=== PATIENT | male | born 1955 | race Caucasian/White ===

== ENCOUNTER 2019-07-21 17:17 | Inpatient (IN) ==
[2019-07-21] MEDS ORDERED: ONDANSETRON INJ 2 MG/ML 2 ML VIAL IV PRN (18:35)
[2019-07-21] MEDS ORDERED: CARBOHYDRATES FOR HYPOGLYCEMIA PO PRN (19:09)
[2019-07-21] MEDS ORDERED: GLUCAGON FOR INJ 1 MG VIAL SQ PRN (19:09)
[2019-07-21] MEDS ORDERED: ALBUTEROL 0.5% NEB SOLN 2.5 MG/0.5 ML VIAL NEB PRN (19:09)
[2019-07-21] MEDS ORDERED: GLUCOSE 40% GEL 15 GM TUBE PO PRN (19:09)
[2019-07-21] MEDS ORDERED: DEXTROSE 50% 50 ML SYRINGE IV PRN (19:09)
[2019-07-21] MEDS ORDERED: GLUCOSE 10 TABS/TUBE PO PRN (19:09)
[2019-07-21 19:16] LABS: Basophils # (auto) 0.03 K/uL (0-0.2); Basophils % (auto) 0.2 %; Eosinophils # (auto) 0.03 K/uL (0-0.5); Eosinophils % (auto) 0.2 %; Hematocrit (blood only) 38.5 % (42-52); Hemoglobin 12.6 g/dL (14.0-18.0); Immature Granulocytes # (auto) 0.03 K/uL (0.00-0.02); Immature Granulocytes % (auto) 0.2 %; Lymphocytes # (auto) 2.23 K/uL (1.2-3.4); Mean Corpuscular Hemoglobin 29.8 pg (25-34); Mean Corpuscular Hgb Conc 32.7 g/dL (32-36); Mean Platelet Volume 9.2 fL (7.4-10.4); Monocytes # (auto) 1.08 K/uL (0.11-0.59); Monocytes % (auto) 6.8 %; Neutrophils # (auto) 12.49 K/uL (1.4-6.5); Neutrophils % (auto) 78.6 %; Platelet Count 318 K/uL (130-400); RDW Coefficient of Variation 13.5 % (11.5-14.5); RDW Standard Deviation 44.6 fL (36.4-46.3); Red Blood Count 4.23 M/uL (4.7-6.1); White Blood Count 15.89 K/uL (4.8-10.8)
--- NOTE | 2019-07-21 19:19 | XRay Report ---
XR chest 1V portable CLINICAL HISTORY: cough/SOB dyspnea COMPARISON STUDY: 08/30/2008 FINDINGS: Stable postoperative change right lung base. Chronic scarring right diaphragm. Prominent pulmonary vasculature. Mild cardiac enlargement. IMPRESSION: Mild congestive heart failure. Pre-existing postoperative change right base. The above report was generated using voice recognition software. It may contain grammatical, syntax or spelling errors. Electronically signed by: Yaakov Judge M.D. 07/21/2019 7:18 PM
[2019-07-21 19:30] LABS: Base Excess VBG 10.9 mEq/L; pH VBG 7.37 (7.36-7.41)
[2019-07-21 19:33] LABS: Prothrombin Time 10.2 Seconds (9.0-12.0)
--- NOTE | 2019-07-21 19:45 | CT Scan Report ---
CT head/brain wo con CT DOSE: 960.06 mGy.cm HISTORY: Seizure. Mental status change. myoclonic jerking TECHNIQUE: Multiaxial CT images of the head were performed without the use of intravenous contrast. A dose lowering technique was utilized adhering to the principles of ALARA. Comparison: None. Findings: The paranasal sinuses and mastoid air cells are clear. The calvarium and skull base are int act. The ventricles and sulci are within normal limits. There is no mass, hematoma, midline shift, or acute infarct. Mild age-related scattered foci evidence of encephalomalacia and chronic small vessel change. Impression: No acute intracranial abnormality. Age-related change. The above report was generated using voice recognition software. It may contain grammatical, syntax or spelling errors. Electronically signed by: Yaakov Judge M.D. 07/21/2019 7:43 PM
[2019-07-21 19:58] LABS: Alanine Aminotransferase 23 U/L (12-78); Albumin Level 3.4 gm/dl (3.4-5.0); Aspartate Aminotransferase 27 U/L (15-37); BUN Creatinine Ratio 28.3 (10-20); Bilirubin Direct < 0.1 mg/dl (0-0.2); Blood Urea Nitrogen 16 mg/dl (7-18); Calcium 9.8 mg/dl (8.5-10.1); Carbon Dioxide 37 mmol/L (21-32); Chloride 97 mmol/L (98-107); Creatinine Clr Calc Pharmacy 209.3 ml/min; Est GFR (African American) 128.5; Est GFR (Non-African American) 110.9; Glucose 88 mg/dl (70-99); Magnesium 2.3 mg/dl (1.8-2.4); Potassium 3.3 mmol/L (3.5-5.1); Sodium 138 mmol/L (136-145)
[2019-07-21 20:09] LABS: Alkaline Phosphatase 103 U/L (45-117); Bilirubin,Total 0.4 mg/dl (0.2-1); NT Pro B Type Natriuretic Pept 228 pg/ml (0-900); Phosphorus 4.3 mg/dl (2.5-4.9); Total Protein 7.5 gm/dl (6.4-8.2)
[2019-07-21] MEDS ORDERED: POTASSIUM CHLORIDE 20 MEQ TABCR PO STA (20:18)
[2019-07-21] MEDS ORDERED: FUROSEMIDE 80 MG in SYRINGE 0 ML IV ONE (20:18)
[2019-07-21] MEDS ORDERED: INSULIN ASPART 100 UNITS/ML 3 ML PEN SC SCH (21:00)
[2019-07-21] MEDS: LINZESS 290 MCG SCH (21:06)
[2019-07-21] MEDS: carvediloL 3.125 MG TAB PO SCH (21:08)
[2019-07-21] MEDS: INSULIN GLARGINE SOLOSTAR 100 UNITS/ML 3 ML PEN SC SCH (21:09)
--- NOTE | 2019-07-21 21:10 | History & Physical Report ---
Date of Service July 21, 2019 Assessment & Plan (1) Myoclonic jerking: Patient presenting with 4 days of progressive myoclonic jerking, some confusion/disorientation. Etiology unclear at this time. Work-up thus far with relatively benign laboratory studies to include intact renal and hepatic function, electrolytes normal, TSH normal, CT head with no acute intracranial pathology, VBG with chronic respiratory acidosis. Suspect ingestion/medication error as source of problem. Patient manages his own medications but caregivers report he may have missed 4 doses and may have taken his entire Levaquin prescription. Must also consider seizure-like activity due to medication withdrawal as patient is on multiple agents that should not be abruptly discontinued (buspirone/escitalopram/duloxetine/Lyrica). Less likely infectious etiology/PML - patient is immunosuppressed on MTX for p soriasis. Has leukocytosis (in setting of steroid use). Case discussed with poison control. They do not feel that symptoms can be attributed to Levaquin toxicity. They will follow-up during the course of patient's stay. -Admit to medical floor telemetry monitoring Resume home medications as prescribed Symptomatic management with Ativan as needed -Consider additional imagingMRI. Consider EEG Neurology consult appreciated Present on Admission?: Yes (2) Confusion: Patient with reported episodes of confusion and abnormal behavior. Upon my encounter he answers questions appropriately and is oriented x3. He does have frequent episodes of myoclonic jerking as reported above. -Delirium prevention strategies with frequent orientation Continue to search for toxic/metabolic causes of confusion Present on Admission?: Yes (3) Psoriasis: Chronic. Continue methotrexate 7.5 mg p.o. q. weekly Present on Admission?: Yes (4) Congestive heart failure: Patient with complaint of shortness of breath/dyspnea on exertion. Chest x-ray suggestive of CHF. Most likely with pulmonary hypertension as well, untreated YOUSIF/obesity hypoventilation syndrome. Lasix 80 mg IV x1 -KCl 40 mEq p.o. x1 Continue Lasix 80 mg p.o. daily, lisinopril 5 mg p.o. daily, metolazone 5 mg p.o. q. Sunday/Sunday/, carvedilol 3.125 mg twice daily -Daily weights -Monitor intake and output Present on Admission?: Yes (5) Depression: Chronic. Continue escitalopram 20 mg p.o. daily Continue Cymbalta 60 mg p.o. daily Present on Admission?: Yes (6) Anxiety: Chronic. Stable. -Continue escitalopram, Cymbalta, buspirone at home doses Present on Admission?: Yes (7) Diabetes: Blood sugar stable at present. Caregiver reports erratic blood sugars ranging from the 80s to the 500s. Question medication adherence Lantus 10 units twice daily Insulin sliding scale -Continue Lyrica 50 mg p.o. twice daily Continue to monitor Present on Admission?: Yes (8) Asthma: Stable respiratory status at present. Diminished breath sounds. No active wheezing. Duo nebs Albuterol as needed Present on Admission?: Yes (9) Chronic hypercapnic respiratory failure: Patient would greatly benefit from nocturnal CPAP or BiPAP. He has been seen by pulmonary in the past. Reports that he is not comfortable using these machines. I briefly explained that untreated YOUSIF and obesity hypoventilation places a significant amount of strain on the heart and lungs and can cause long- term damage. Nocturnal CPAP while inpatient Patient should be set up with home CPAP on discharge Present on Admission?: Yes (10) COPD (chronic obstructive pulmonary disease) case management patient: Chronic. No acute wheezing at this time. Patient with adequate oxygenation on his home 3 L. Duo nebs Albuterol Continue supplemental oxygen Present on Admission?: Yes (11) GERD (gastroesophageal reflux disease): Chronic. Stable. Continue ranitidine 150 mg p.o. daily FENLasix 80 mg IV x1 dose now, monitor I's and O's and daily weights, monitor electrolytes and replete as needed, consistent carb/low sodium diet as tolerated ProphylaxisLovenox Codefull per discussion with patient Dispositionadmit to medical floor telemetry monitoring Present on Admission?: Yes History of Present Illness Chief Complaint: Myoclonic jerking, altered mental status Primary Care Provider: Efrain Mccall MD Caregivers at bedside and provide majority of history as patient is somewhat altered. Kyle Recio is a 64-year-old male with multiple medical problems most notably asthma, severe COPD on 3 L home oxygen, chronic hypoxic and hypercapnic respiratory failure, obesity hypoventilation syndrome/YOUSIF, insulin- dependent diabetes mellitus and CHF. Patient was seen by Pulmonology on 07/15/2019 with complaints of hypoxia and shortness of breath. During that time he was thought to be in mild exacerbation of COPD with possible pneumonia. He was administered 125 mg of Solu-Medrol IM in the office and sent home on a prednisone taper and Levaquin 750 mg daily x14 days and sent home. Caregivers report that on the evening of 07/18/2019 the patient began having myoclonic jerking. They report that he has a baseline tremor however, these movements were more frequent and increased severity than normal. The myoclonic jerking progressively worsened through 07/19 and 07/20. Patient also acting "out of his mind". Confused at times, pushing things off the table, agitated, hallucinating and incontinent of urine. He was seen in the emergency room at [facility] on 07/20. By report, work-up was negative to include no UTI, chest x- ray with no acute infiltrate. EKG with no acute changes. This morning he was found naked and confused by caregivers, diaphoretic. He was seen by Dr. Ross for pulmonary follow-up and was subsequently sent to [facility] for direct admission. Patient manages his own medications. Caregivers believe that he missed approximately 4 days for worth of medication. He may have taken an extra Ativan. They think that his Levaquin bottle was empty. During my encounter, patient provides no complaints. Specifically he denies fabiola n, shortness of breath, nausea, vomiting, diarrhea or constipation. He does not feel confused and denies any hallucinations. He is complaining of feeling hot and is requesting a box fan Allergies Allergy/AdvReac Type Severity Reaction Status Date / Time Penicillins Allergy Unknown Verified 07/15/19 15:15 Home Medications Home Medications Medication Instructions Recorded Confirmed Type Oxygen Home #1 ea 04/25/19 07/15/19 History acetaminophen 325 mg tablet 625 mg PO Q6 PRN tab 04/25/19 07/21/19 History albuterol sulfate 90 mcg/actuation INHALATION gm 04/25/19 07/15/19 History aerosol inhaler ibuprofen 800 mg tablet 800 mg PO PRN tab 04/25/19 04/25/19 History insulin regular hum U-500 conc SUBCUT ml 04/25/19 04/25/19 History 500"concentrate" 500 unit/mL subcutaneous soln ipratropium-albuterol 0.5 mg-3 INHALATION ml 04/25/19 04/25/19 History mg(2.5 mg base)/3 mL nebulization soln linaclotide 290 mcg capsule 1 PO .TAKE 1 CAPSULE Daily #30 cap 04/25/19 07/15/19 History Oxygen Home #1 ea 05/06/19 07/21/19 Rx aspirin 81 mg tablet 81 mg PO DAILY tab 05/06/19 07/21/19 History atorvastatin 40 mg tablet 40 mg PO DAILY tab 05/06/19 07/21/19 History buspirone 15 mg tablet 15 mg PO TID tab 05/06/19 07/21/19 History carvedilol 3.125 mg tablet 3.125 mg PO BID tab 05/06/19 07/21/19 History dulaglutide 1.5 mg/0.5 mL 1.5 mg SQ WEEKLY #0.5 ml 05/06/19 07/21/19 Rx subcutaneous pen injector duloxetine 60 mg capsule,delayed 60 mg PO DAILY #90 cap 05/06/19 07/21/19 History release fluticasone furoate 200 1 puffs INHALATION DAILY #1 ea 05/06/19 07/21/19 Rx mcg-vilanterol 25 mcg/dose inhalation powder folic acid 1 mg tablet 1 mg PO DAILY #30 tab 05/06/19 07/21/19 Rx furosemide 40 mg tablet 80 mg PO DAILY tab 05/06/19 07/21/19 History lisinopril 5 mg tablet 5 mg PO DAILY tab 05/06/19 07/21/19 History methotrexate sodium 2.5 mg tablet 7.5 mg PO WEEKLY #30 tab 05/06/19 07/21/19 Rx pregabalin 50 mg capsule 50 mg PO BID cap 05/06/19 07/15/19 History ranitidine HCl 150 mg tablet 150 mg PO DAILY #90 tab 05/06/19 07/15/19 Rx ropinirole 1 mg tablet 1 mg PO DAILY #30 tab 05/06/19 07/15/19 Rx escitalopram oxalate 20 mg tablet 20 mg PO DAILY tab 07/15/19 07/21/19 History prednisone 10 mg tablet See Rx Instructions PO DAILY #36 07/15/19 07/15/19 Rx tab metformin 1,000 mg PO PM 07/21/19 07/21/19 History metolazone 5 mg tablet 5 mg PO .COMPLEX #1 tab 07/21/19 07/21/19 Rx Past Med/Surg History Medical History (Updated 07/21/19 @ 21:56 by Kanwal Paz DO) Anxiety Asthma Chronic hypercapnic respiratory failure Chronic respiratory failure Congestive heart failure Depression Diabetes GERD (gastroesophageal reflux disease) Lower leg edema Myoclonic jerking Psoriasis Surgical History (Updated 07/21/19 @ 21:28 by Kanwal Paz DO) History of appendectomy History of bronchoscopy History of hemorrhoidectomy History of thoracotomy 06/2008 - s/p traumatic hemothorax History of tonsillectomy Family History (Updated 07/21/19 @ 21:29 by Kanwal Paz DO) Other Coronary heart disease Diabetes Lung cancer Social History Preferred Language: Azerbaijani Beliefs That Will Affect Care: None Current Living Situation Comment: caregivers stay at his time Other Information That Helps Us Care for You: No Feels Safe at Home: Yes Smoking Status: Current every day smoker Tobacco Type: cigarettes ; Do You Dip or Chew Tobacco: No ; Hx Alcohol Use: No Hx Substance Use: No Review of Systems Review of Systems: All systems reviewed & are unremarkable except as noted in HPI & below Physical Exam Physical Exam: General: patient restless, + frequent myoclonic jerking of bilateral arms and legs, associated with eyes rolling back in brief (2 to 3- second) episode of unresponsiveness Skin: warm, dry, diffuse plaque-like lesions on head, ears (significant crusting of left ear), back and abdomen, no active bleeding or evidence of secondary infection HEENT: NC/AT, PERRL, EOMI, anicteric sclera, conjunctiva without injection, external ear with skin crusting as above, nontender to palpation, nares patent, moist mucus membranes, dentition intact, no oropharyngeal lesions, neck supple, trachea midline, no LAD, no thyromegaly, no JVD Heart: +S1/S2, regular, no m/r/g, exam limited secondary to body habitus Lungs: equal air entry bilaterally, no rales/rhonchi/wheezes, mildly diminished in bases Abd: +BS, soft, NT/ND, + reducible hernia Ext: warm, 2+ pulses in UE/LE bilaterally, no clubbing/cyanosis, trace pitting edema Neuro: Grossly nonfocal, patient AA&O x 4, speech intact, no facial droop, moving all extremities on command with equal strength 5/5, episodes of jerking as above Results & Data Vital Signs (Past 12 Hours) Vital Signs Temp Pulse Pulse Resp Pulse Ox 07/21/19 20:15 97 H 30 H 90 07/21/19 18:38 37.2 C 96 H 20 90 Laboratory Results Lab Results 07/21/19 07/21/19 07/21/19 Range/Units 18:11 18:52 18:52 WBC 15.89 H (4.8-10.8) K/uL RBC 4.23 L (4.7-6.1) M/uL Hgb 12.6 L (14.0-18.0) g/dL Hct 38.5 L (42-52) % MCV 91.0 (80-100) fL MCH 29.8 (25-34) pg MCHC 32.7 (32-36) g/dL RDW Std Deviation 44.6 (36.4-46.3) fL RDW Coeff of Lyric 13.5 (11.5-14.5) % Plt Count 318 (130-400) K/uL MPV 9.2 (7.4-10.4) fL Immature Gran % (Auto) 0.2 % Neut % (Auto) 78.6 % Lymph % (Auto) 14.0 % Bullock % (Auto) 6.8 % Eos % (Auto) 0.2 % Baso % (Auto) 0.2 % Immature Gran # (Auto) 0.03 H (0.00-0.02) K/uL Neut # (Auto) 12.49 H (1.4-6.5) K/uL Lymph # (Auto) 2.23 (1.2-3.4) K/uL Bullock # (Auto) 1.08 H (0.11-0.59) K/uL Eos # (Auto) 0.03 (0-0.5) K/uL Baso # (Auto) 0.03 (0-0.2) K/uL PT 10.2 (9.0-12.0) Seconds INR 1.0 (0.9-1.1) VBG pH (7.36-7.41) VBG pCO2 (38-50) mmHg VBG pO2 mmHg VBG HCO3 mmol/L VBG O2 Saturation % VBG Base Excess mEq/L Barometric Pressure mm/Hg Sodium (136-145) mmol/L Potassium (3.5-5.1) mmol/L Chloride (98-107) mmol/L Carbon Dioxide (21-32) mmol/L Anion Gap (3-11) BUN (7-18) mg/dl Creatinine (0.6-1.4) mg/dl Est Cr Clr Drug Dosing ml/min Est GFR ( Amer) Est GFR (Non-Af Amer) BUN/Creatinine Ratio (10-20) Glucose (70-99) mg/dl POC Glucose 93 (70-99) Calcium (8.5-10.1) mg/dl Phosphorus (2.5-4.9) mg/dl Magnesium (1.8-2.4) mg/dl Total Bilirubin (0.2-1) mg/dl Direct Bilirubin (0-0.2) mg/dl AST (15-37) U/L ALT (12-78) U/L Alkaline Phosphatase (45-117) U/L Ammonia (11-32) umol/L NT-Pro-B Natriuret Pep (0-900) pg/ml Total Protein (6.4-8.2) gm/dl Albumin (3.4-5.0) gm/dl TSH (0.300-4.500) uIu/ml 07/21/19 07/21/19 07/21/19 Range/Units 18:52 18:52 18:52 WBC (4.8-10.8) K/uL RBC (4.7-6.1) M/uL Hgb (14.0-18.0) g/dL Hct (42-52) % MCV (80-100) fL MCH (25-34) pg MCHC (32-36) g/dL RDW Std Deviation (36.4-46.3) fL RDW Coeff of Lyric (11.5-14.5) % Plt Count (130-400) K/uL MPV (7.4-10.4) fL Immature Gran % (Auto) % Neut % (Auto) % Lymph % (Auto) % Bullock % (Auto) % Eos % (Auto) % Baso % (Auto) % Immature Gran # (Auto) (0.00-0.02) K/uL Neut # (Auto) (1.4-6.5) K/uL Lymph # (Auto) (1.2-3.4) K/uL Bullock # (Auto) (0.11-0.59) K/uL Eos # (Auto) (0-0.5) K/uL Baso # (Auto) (0-0.2) K/uL PT (9.0-12.0) Seconds INR (0.9-1.1) VBG pH 7.37 (7.36-7.41) VBG pCO2 69 H (38-50) mmHg VBG pO2 50 mmHg VBG HCO3 39 mmol/L VBG O2 Saturation 83.0 % VBG Base Excess 10.9 mEq/L Barometric Pressure 726.4 mm/Hg Sodium 138 (136-145) mmol/L Potassium 3.3 L (3.5-5.1) mmol/L Chloride 97 L (98-107) mmol/L Carbon Dioxide 37 H (21-32) mmol/L Anion Gap 4.0 (3-11) BUN 16 (7-18) mg/dl Creatinine 0.56 L (0.6-1.4) mg/dl Est Cr Clr Drug Dosing 209.3 ml/min Est GFR ( Amer) 128.5 Est GFR (Non-Af Amer) 110.9 BUN/Creatinine Ratio 28.3 H (10-20) Glucose 88 (70-99) mg/dl POC Glucose (70-99) Calcium 9.8 (8.5-10.1) mg/dl Phosphorus 4.3 (2.5-4.9) mg/dl Magnesium 2.3 (1.8-2.4) mg/dl Total Bilirubin 0.4 (0.2-1) mg/dl Direct Bilirubin < 0.1 (0-0.2) mg/dl AST 27 (15-37) U/L ALT 23 (12-78) U/L Alkaline Phosphatase 103 (45-117) U/L Ammonia 27.0 (11-32) umol/L NT-Pro-B Natriuret Pep 228 (0-900) pg/ml Total Protein 7.5 (6.4-8.2) gm/dl Albumin 3.4 (3.4-5.0) gm/dl TSH 1.020 (0.300-4.500) uIu/ml 07/21/19 Range/Units 20:43 WBC (4.8-10.8) K/uL RBC (4.7-6.1) M/uL Hgb (14.0-18.0) g/dL Hct (42-52) % MCV (80-100) fL MCH (25-34) pg MCHC (32-36) g/dL RDW Std Deviation (36.4-46.3) fL RDW Coeff of Lyric (11.5-14.5) % Plt Count (130-400) K/uL MPV (7.4-10.4) fL Immature Gran % (Auto) % Neut % (Auto) % Lymph % (Auto) % Bullock % (Auto) % Eos % (Auto) % Baso % (Auto) % Immature Gran # (Auto) (0.00-0.02) K/uL Neut # (Auto) (1.4-6.5) K/uL Lymph # (Auto) (1.2-3.4) K/uL Bullock # (Auto) (0.11-0.59) K/uL Eos # (Auto) (0-0.5) K/uL Baso # (Auto) (0-0.2) K/uL PT (9.0-12.0) Seconds INR (0.9-1.1) VBG pH (7.36-7.41) VBG pCO2 (38-50) mmHg VBG pO2 mmHg VBG HCO3 mmol/L VBG O2 Saturation % VBG Base Excess mEq/L Barometric Pressure mm/Hg Sodium (136-145) mmol/L Potassium (3.5-5.1) mmol/L Chloride (98-107) mmol/L Carbon Dioxide (21-32) mmol/L Anion Gap (3-11) BUN (7-18) mg/dl Creatinine (0.6-1.4) mg/dl Est Cr Clr Drug Dosing ml/min Est GFR ( Amer) Est GFR (Non-Af Amer) BUN/Creatinine Ratio (10-20) Glucose (70-99) mg/dl POC Glucose 107 H (70-99) Calcium (8.5-10.1) mg/dl Phosphorus (2.5-4.9) mg/dl Magnesium (1.8-2.4) mg/dl Total Bilirubin (0.2-1) mg/dl Direct Bilirubin (0-0.2) mg/dl AST (15-37) U/L ALT (12-78) U/L Alkaline Phosphatase (45-117) U/L Ammonia (11-32) umol/L NT-Pro-B Natriuret Pep (0-900) pg/ml Total Protein (6.4-8.2) gm/dl Albumin (3.4-5.0) gm/dl TSH (0.300-4.500) uIu/ml Diagnostic Findings XR chest 1V portable CLINICAL HISTORY: cough/SOB dyspnea COMPARISON STUDY: 08/30/2008 FINDINGS: Stable postoperative change right lung base. Chronic scarring right diaphragm. Prominent pulmonary vasculature. Mild cardiac enlargement. IMPRESSION: Mild congestive heart failure. Pre-existing postoperative change right base. The above report was generated using voice recognition software. It may contain grammatical, syntax or spelling errors. CT head/brain wo con CT DOSE: 960.06 mGy.cm HISTORY: Seizure. Mental status change. myoclonic jerking TECHNIQUE: Multiaxial CT images of the head were performed without the use of intravenous contrast. A dose lowering technique was utilized adhering to the principles of ALARA. Comparison: None. Findings: The paranasal sinuses and mastoid air cells are clear. The calvarium and skull base are intact. The ventricles and sulci are within normal limits. There is no mass, hematoma, midline shift, or acute infarct. Mild age-related scattered foci evidence of encephalomalacia and chronic small vessel change. Impression: No acute intracranial abnormality. Age-related change. ECG Additional Comments: pending Code Status & VTE Plan Code Status FULL VTE Prophylaxis Plan VTE Prophylaxis will be ordered: Yes PG Care Time/CCT Total # of Minutes Spent Total Time Spent with Patient: Total time spent is greater than 50% in coordination of care (as documented) at patient's floor/unit and/or counseling patient: (1) Congestive heart failure Heart failure type: combined systolic and diastolic Heart failure chronicity: acute on chronic Qualified Code(s): I50.43 - Acute on chronic combined systolic (congestive) and diastolic (congestive) heart failure (2) Depression Depression Type: major depressive disorder Major depression recurrence: unspecified whether recurrent Active/Remission status: remission status unspecified Qualified Code(s): F32.9 - Major depressive disorder, single episode, unspecified (3) Diabetes Diabetes mellitus type: type 2 Diabetes mellitus intermodal owner operator truck driver insulin use: with fpc use Diabetes mellitus complication status: without complication Qualified Code(s): E11.9 - Type 2 diabetes mellitus without complications; Z79.4 - long term acute care registered nurse (current) use of insulin (4) GERD (gastroesophageal reflux disease) Esophagitis presence: esophagitis presence not specified Qualified Code(s): K21.9 - Gastro-esophageal reflux disease without esophagitis
[2019-07-21] MEDS: PREGABALIN 50 MG CAP PO SCH (21:12)
[2019-07-21] MEDS: BusPIRone 15 MG TAB PO SCH (21:13)
[2019-07-21] MEDS ORDERED: LORazepam 0.5 MG/1 ML VIAL IV PRN (21:37)
[2019-07-21 22:35] LABS: Appearance Urine Clear (Clear); Bilirubin Urine Negative (Negative); Blood Urine Negative (Negative); Color Urine Yellow; Glucose Urine UA Negative (Negative); Ketones Urine Negative (Negative); Leukocyte Esterase Urine Negative (Negative); Nitrite Urine Negative (Negative); Protein Urine Negative (Negative); Urobilinogen Urine Negative (Negative); pH Urine 5.5 (4.5-7.5)
[2019-07-21 22:53] LABS: Amphetamines+Metham, Urine Neg (Neg); Barbiturates, Urine Neg (Neg); Benzodiazepine, Urine Neg (Neg); Cocaine, Urine Neg (Neg); MDMA (Ecstacy), Urine Neg (Neg); Methadone, Urine Neg (Neg); Opiate, Urine Neg (Neg); Phencyclidine, Urine Neg (Neg)
[2019-07-21] MEDS ORDERED: HALOPERIDOL LACTATE 5 MG/ML 1 ML VIAL IV STA (23:12)
[2019-07-21] MEDS ORDERED: HALOPERIDOL LACTATE 5 MG/ML 1 ML VIAL ONE (23:16)
[2019-07-21] MEDS: ALBUT/IPRATROP 3MG/0.5MG NEB 3 ML VIAL NEB SCH (23:37)
--- NOTE | 2019-07-22 00:02 | Communication Note ---
Date of Service: July 21, 2019 Patient's rapidly deteriorated in regards to his mental status. Pulse, temp, BP were stable. He became confused on the floor and within the hour of my examination at 23:19, became unresponsive. Labs were ordered immediately and blood gas was obtained. Results were pending when discussing case with Financial Operations Clerk team Patient will be intubated for airway protection. Patient will be transferred to the ICU. will followup with labs.
[2019-07-22 00:54] LABS: Basophils # (auto) 0.04 K/uL (0-0.2); Basophils % (auto) 0.2 %; Eosinophils # (auto) 0.04 K/uL (0-0.5); Eosinophils % (auto) 0.2 %; Hematocrit (blood only) 40.2 % (42-52); Hemoglobin 13.4 g/dL (14.0-18.0); Immature Granulocytes # (auto) 0.05 K/uL (0.00-0.02); Immature Granulocytes % (auto) 0.3 %; Lymphocytes # (auto) 2.26 K/uL (1.2-3.4); Lymphocytes % (auto) 12.7 %; Mean Corpuscular Hemoglobin 30.6 pg (25-34); Mean Corpuscular Hgb Conc 33.3 g/dL (32-36); Mean Corpuscular Volume 91.8 fL (80-100); Mean Platelet Volume 9.8 fL (7.4-10.4); Monocytes # (auto) 1.17 K/uL (0.11-0.59); Monocytes % (auto) 6.6 %; Neutrophils # (auto) 14.19 K/uL (1.4-6.5); Platelet Count 358 K/uL (130-400); RDW Coefficient of Variation 13.3 % (11.5-14.5); RDW Standard Deviation 44.5 fL (36.4-46.3); Red Blood Count 4.38 M/uL (4.7-6.1); White Blood Count 17.75 K/uL (4.8-10.8)
[2019-07-22] MEDS ORDERED: ICU PROTOCOL FOR HYPERGLYCEMIA PRN (00:58)
[2019-07-22 01:00] LABS: BUN Creatinine Ratio 21.4 (10-20); Blood Urea Nitrogen 16 mg/dl (7-18); Calcium 9.7 mg/dl (8.5-10.1); Carbon Dioxide 35 mmol/L (21-32); Chloride 95 mmol/L (98-107); Creatinine Clr Calc Pharmacy 152.2 ml/min; Est GFR (African American) 113.3; Est GFR (Non-African American) 97.8; Glucose 140 mg/dl (70-99); Magnesium 2.1 mg/dl (1.8-2.4); Potassium 3.4 mmol/L (3.5-5.1); Sodium 138 mmol/L (136-145)
--- NOTE | 2019-07-22 01:01 | Critical Care Consultation ---
Date of Consultation July 22, 2019 Assessment & Plan (1) Admitted to intensive care unit: Reason Critically Ill: 64-year-old male with altered mental status and associated myoclonic jerking currently obtunded and required intubation for airway protection. NEURO - * CAM ICU: Unable to assess secondary to level of sedation. * Confusion/altered mental status: * Likely multifactorial including acute on chronic respiratory failure with worsening hypercapnia, recent antibiotic/steroid use, and multiple psychiatric medication use. * Initial CT unremarkable. UDA negative. BMP without acute findings. Patient was slight leukocytosis with recent steroid use. Trend fever curve. * Will perform CTA of head and cervical spine. * EEG in the AM. * Hold home psych meds. * Sedation/Pain: Versed gtt/Fentanyl PRN CARDIAC/VASCULAR - * CHF w/ pulmonary edema: * Received IV Lasix dosing. * Continue home dosing. * Home antihypertensive Rx. * EKG: NSR@89bpm, no ST/T-wave changes, QTc 498ms. * Avoid QTc prolonging agents. * Monitor on telemetry. RESPIRATORY - * Acute on chronic hypercapnic respiratory failure with worsening hypercapnia: * Initial ABG with worsening hypercapnia. * Will repeat ABG after BiPAP in place for >2 hours. * Currently maintaining airway on BiPAP. * Intubate if not improving. * Aggressive pulmonary toilet. * Diurese. GI/NUTRITION - * NPO s/p intubation. * Prophylaxis: Ranitidine RENAL/LYTES - * Hypokalemia: * Replace as needed. * IVF: Hold for now. - * Stubbs in place - Strict I&Os. ENDO - * DM * BSGs per unit protocol. ISS --> gtt per unit policy. HEME - * Stable H&H ID - * Leukocytosis - ??related to demargination. Without fevers. CXR, urine negative. Recently on abx. Will hold for now. LINES/IV ACCESS - * PIVs x2 * LUE Endurance catheter. * Foly * ET Tube DVT PROPHYLAXIS - * Lovenox * SCDs I have personally spent 80 minutes of critical care time in the direct management of this patient. This is a life/limb threatening event. This includes time spent evaluating patient, direct bedside care, chart review, placing orders, interpretation of diagnostic studies, discussion with consultants, patient, and family members, as well as other required patient management activities. This time is exclusive of all separately billable procedures, and teaching time and separate from and in addition to any other critical care service time. Thank you for allowing us to participate in the care of this patient. Please refer to my attending physician's documentation for any further recommendations. (2) Altered mental status: (3) Confusion: (4) Acute and chronic respiratory failure with hypercapnia: (5) Obesity hypoventilation syndrome: (6) GERD (gastroesophageal reflux disease): (7) Congestive heart failure: (8) Psoriasis: (9) Depression: (10) Diabetes: (11) Anxiety: (12) Asthma: (13) Chronic hypercapnic respiratory failure: (14) Myoclonic jerking: (15) Chronic respiratory failure: (16) Dyspnea: (17) Dependence on continuous supplemental oxygen: (18) COPD (chronic obstructive pulmonary disease) case management patient: Supervising Physician Co-Signing Physician Notes I have personally evaluated and examined this patient. I agree with assessment and plan of Alex Amador PA-C. Please refer to subsequent documentation for my critical care time History of Present Illness Attending Physician: Kanwal Paz, History of Present Illness Patient is a 64-year-old male with a significant past medical history of COPD, chronic hypoxic respiratory failure with CO2 retention requiring 3 L nasal cannula at home, COPD, diabetes, CHF, and psoriasis. Patient is followed with the [facility] pulmonary clinic. He was seen approximately 1 week ago for symptoms worsening shortness of breath. During that visit, he was placed on Levaquin as well as a short course of steroids. He had a follow-up appointment today, at which time he and his caretakers report that he has had increasing agitation, hallucinations, shortness of breath, and hypoxia. In addition, he has had myoclonic jerking for the past week which is increased in frequency and intensity. During his outpatient follow-up with pulmonology today, he was noted to be hypoxic, with labored breathing, and confused. Patient was directly admitted to this facility under hospitalist service. Upon admission, the patient was able to provide a majority of his historical data. He had a negative CT the head. Laboratory assessment was otherwise unremarkable. The patient was provided 80 mg IV Lasix for concerns for volume overload. Later in the evening, the patient was noted to have acute change in mental status. He was increasingly confused and agitated. He refused to wear his BiPAP. No blood pressure checks for undertaken by nursing staff as the patient was up reportedly to agitated. He was diaphoretic as well. Patient received Ativan followed by Kristi. Upon my evaluation in room 251, the patient is somnolent and unarousable to painful stimuli. He does occasionally have myoclonic jerking. BiPAP was applied and the patient was transferred to the ICU for further evaluation and management. Upon evaluation, the patient is somnolent. He withdraws to painful stimuli. No focal neurological deficits. Occasional myoclonic jerking noted. Pupils equal, round, and reactive. Distant breath sounds appreciated. Patient unable to participate in history of present illness secondary to current state of somnolence. Allergies Allergy/AdvReac Type Severity Reaction Status Date / Time Penicillins Allergy Unknown Verified 07/15/19 15:15 Home Medications Home Medications Medication Instructions Recorded Confirmed Type Oxygen Home #1 ea 04/25/19 07/15/19 History acetaminophen 325 mg tablet 625 mg PO Q6 PRN tab 04/25/19 07/21/19 History albuterol sulfate 90 mcg/actuation INHALATION gm 04/25/19 07/15/19 History aerosol inhaler ibuprofen 800 mg tablet 800 mg PO PRN tab 04/25/19 04/25/19 History insulin regular hum U-500 conc SUBCUT ml 04/25/19 04/25/19 History 500"concentrate" 500 unit/mL subcutaneous soln ipratropium-albuterol 0.5 mg-3 INHALATION ml 04/25/19 04/25/19 History mg(2.5 mg base)/3 mL nebulization soln linaclotide 290 mcg capsule 1 PO .TAKE 1 CAPSULE Daily #30 cap 04/25/19 07/15/19 History Oxygen Home #1 ea 05/06/19 07/21/19 Rx aspirin 81 mg tablet 81 mg PO DAILY tab 05/06/19 07/21/19 History atorvastatin 40 mg tablet 40 mg PO DAILY tab 05/06/19 07/21/19 History buspirone 15 mg tablet 15 mg PO TID tab 05/06/19 07/21/19 History carvedilol 3.125 mg tablet 3.125 mg PO BID tab 05/06/19 07/21/19 History dulaglutide 1.5 mg/0.5 mL 1.5 mg SQ WEEKLY #0.5 ml 05/06/19 07/21/19 Rx subcutaneous pen injector duloxetine 60 mg capsule,delayed 60 mg PO DAILY #90 cap 05/06/19 07/21/19 History release fluticasone furoate 200 1 puffs INHALATION DAILY #1 ea 05/06/19 07/21/19 Rx mcg-vilanterol 25 mcg/dose inhalation powder folic acid 1 mg tablet 1 mg PO DAILY #30 tab 05/06/19 07/21/19 Rx furosemide 40 mg tablet 80 mg PO DAILY tab 05/06/19 07/21/19 History lisinopril 5 mg tablet 5 mg PO DAILY tab 05/06/19 07/21/19 History methotrexate sodium 2.5 mg tablet 7.5 mg PO WEEKLY #30 tab 05/06/19 07/21/19 Rx pregabalin 50 mg capsule 50 mg PO BID cap 05/06/19 07/15/19 History ranitidine HCl 150 mg tablet 150 mg PO DAILY #90 tab 05/06/19 07/15/19 Rx ropinirole 1 mg tablet 1 mg PO DAILY #30 tab 05/06/19 07/15/19 Rx escitalopram oxalate 20 mg tablet 20 mg PO DAILY tab 07/15/19 07/21/19 History prednisone 10 mg tablet See Rx Instructions PO DAILY #36 07/15/19 07/15/19 Rx tab metformin 1,000 mg PO PM 07/21/19 07/21/19 History metolazone 5 mg tablet 5 mg PO .COMPLEX #1 tab 07/21/19 07/21/19 Rx Patient History Medical History Anxiety Asthma Chronic hypercapnic respiratory failure Chronic respiratory failure Congestive heart failure Depression Diabetes GERD (gastroesophageal reflux disease) Lower leg edema Myoclonic jerking Psoriasis Surgical History History of appendectomy History of bronchoscopy History of hemorrhoidectomy History of thoracotomy 06/2008 - s/p traumatic hemothorax History of tonsillectomy Family History Other Coronary heart disease Diabetes Lung cancer Social History Preferred Language: Thai Communication Ability: Unable Beliefs That Will Affect Care: None Current Living Situation Comment: caregivers stay at his time Other Information That Helps Us Care for You: No Feels Safe at Home: Yes Smoking Status: Current every day smoker Tobacco Type: cigarettes ; Do You Dip or Chew Tobacco: No ; Hx Alcohol Use: No Hx Substance Use: No Review of Systems Review of Systems: Unobtainable due to cognitive status and Unobtainable due to endotracheal tube Physical Exam Physical Exam: VITAL SIGNS - Vital signs and nursing notes were reviewed. GENERAL - 64-year-old male appearing older than his stated age. Somnolent. SKIN - Diffuse psoriatic rash with multiple areas of plaque throughout. HEAD - NC/AT. EYES - PERRL. Sclera anicteric. Palpebral conjunctiva pink and moist with no injection noted. EARS - No deformities of external structures noted on gross examination bilaterally. NOSE - Midline and without cyanosis. No epistaxis or purulent drainage noted. MOUTH/OROPHARYNX - Without perioral cyanosis. Buccal mucosa pink and moist and without leukoplakia. NECK - Supple to palpation. No lymphadenopathy noted. No nuchal rigidity. LUNGS - Chest wall symmetric without accessory muscle use, intercostals retractions, or central cyanosis. Distant breath sounds noted. CARDIAC - RRR with S1/S2. No murmur, rubs, or gallops appreciated. ABDOMEN - Abdominal contour obese without pulsations or visible masses. BS normoactive all four quadrants. Large hernia underlying postoperative incision to the RUQ. No palpable masses, hepatosplenomegaly, or ascites noted. EXTREMITIES - No clubbing or peripheral cyanosis. No pretibial edema present. +3/5 radial and dorsalis pedis pulses palpated throughout. +5/5 strength noted in UE/LE bilaterally. NEUROLOGIC - Cranial nerves II through XII grossly intact. Myoclonic jerking appreciated throughout bilateral upper extremities. Withdrawals to painful st imuli. Moves all 4 extremities independently, yet without purpose. After intubation, patient opened eyes, fought at restraints, shaking head back and forth in frustration. Unable to formally perform exam secondary to somnolence. Results & Data Vital Signs (Past 12 Hours) Vital Signs Temp Pulse Pulse Resp BP Pulse Ox 07/22/19 00:14 88 20 96 07/22/19 00:12 100 H 16 96 07/21/19 23:45 36.8 C 92 H 16 145/72 H 97 07/21/19 21:41 64 07/21/19 20:15 97 H 30 H 90 07/21/19 18:38 37.2 C 96 H 20 90 Coding Level of Care Code Critical Care 1st 30-74 mins Diagnoses Admitted to intensive care unit Z78.9 Altered mental status R41.82 Confusion R41.0 Acute and chronic respiratory failure with hypercapnia J96.22 Obesity hypoventilation syndrome E66.2 GERD (gastroesophageal reflux disease) K21.9 Esophagitis presence: esophagitis presence not specified Congestive heart failure I50.43 Heart failure chronicity: acute on chronic Heart failure type: combined systolic and diastolic Psoriasis L40.9 Depression F32.9 Active/Remission status: remission status unspecified Depression Type: major depressive disorder Major depression recurrence: unspecified whether recurrent Diabetes E11.9; Z79.4 Diabetes mellitus complication status: without complication Diabetes mellitus continuous churn buttermaker insulin use: with continuous churn buttermaker use Diabetes mellitus type: type 2 Anxiety F41.9 Asthma J45.909 Chronic hypercapnic respiratory failure J96.12 Myoclonic jerking G25.3 Chronic respiratory failure J96.10 Dyspnea R06.00 Dependence on continuous supplemental oxygen Z99.81 COPD (chronic obstructive pulmonary disease) case management patient J44.9 Time Spent (min) 80 (1) Diabetes Diabetes mellitus complication status: without complication Diabetes mellitus continuous churn buttermaker insulin use: with fpc use Diabetes mellitus type: type 2 Qualified Code(s): E11.9 - Type 2 diabetes mellitus without complications; Z79.4 - [facility]CI (current) use of insulin (2) Congestive heart failure Heart failure chronicity: acute on chronic Heart failure type: combined sy stolic and diastolic Qualified Code(s): I50.43 - Acute on chronic combined systolic (congestive) and diastolic (congestive) heart failure (3) Depression Active/Remission status: remission status unspecified Depression Type: major depressive disorder Major depression recurrence: unspecified whether recurrent Qualified Code(s): F32.9 - Major depressive disorder, single episode, unspecified (4) GERD (gastroesophageal reflux disease) Esophagitis presence: esophagitis presence not specified Qualified Code(s): K21.9 - Gastro-esophageal reflux disease without esophagitis
[2019-07-22 01:05] LABS: Phosphorus 4.7 mg/dl (2.5-4.9); Troponin I < 0.015 ng/ml (0-0.045)
[2019-07-22] MEDS ORDERED: RAPID SEQUENCE INDUCTION BAG ONE (01:34)
[2019-07-22 01:43] LABS: iSTAT Allen Test Pass; iSTAT Arterial Blood Gas HCO3 41 meg/L (19-24); iSTAT Arterial Blood Gas pCO2 74 mmHg (35-46); iSTAT Arterial Blood Gas pH 7.35 (7.35-7.45); iSTAT Arterial Blood Gas pO2 91 mmHg (80-95); iSTAT Carbon Dioxide > 40 mEq/l (24-31); iSTAT FiO2 40 %; iSTAT Site R Radial
[2019-07-22] MEDS ORDERED: MIDAZOLAM HCL 125MG/250ML D5W ONE (01:56)
--- NOTE | 2019-07-22 02:10 | Procedure Note ---
Procedure Note Date of Service July 22, 2019 Procedure: Sedation for Intubation Indication: AMS/Airway protection I was called to the ICU by Rizwan Amador PAC to assist with the intubation of a new intensive care unit patient with altered mental status. Proceeded to the ICU. Reviewed the case. Evidently referred here secondary to worsening jerking and confusion and admitted in the last 24 hours. Patient with history of congestive heart failure, asthma, and chronic hypercapnic respiratory failure as well as COPD. Evidently became more confused overnight and transferred to the ICU. Patient's blood gas here with fairly compensated hypercapnia but mental status is quite poor. Airway protection issue. Patient in the ICU is been on BiPAP. Patient is listed as full code. Patient on my exam short no neck with partial upper dentures. Patient unresponsive to verbal or painful stimuli. Has occasional myoclonic jerks. Prior head CT was already completed today. Given his obtundation proceeded with intubation with respiratory therapy and nursing staff available as well as standard airway/intubation setup. Full cardiac monitoring was used. Patient was additionally sedated with 100 mg of ketamine. Upper partial dentures removed. Initial attempt at intubation by EMMA Amador did show evidence of a fair amount of oropharyngeal secretions. Patient continued to experience some jerks and laryngeal spasm. Unresponsive. Patient was given 150 mg of succinylcholine. With this the patient was intubated with an 8.0 ET tube by EMMA Amador with out complication after muscle relaxation. No desaturations of the pulse ox. CO2 detector with color change. No apparent complications. Post intubation CXR pending. I was present and supervised the entire intubation and performed the sedation. Jefry Mares MD. Coding
--- NOTE | 2019-07-22 02:16 | Procedure Note ---
Procedure Note Date of Service July 22, 2019 APC: Rizwan Amador PA-C. Attending: Dr. Delacruz Prior to procedure, I did review patient's chart including outpatient and inpatient notes. Patient is apparently estranged from family and has only caretakers listed as his point of contact. Patient was placed on aggressive BiPAP settings and repeat ABG showed worsening CO2 retention and progression towards worsening acidosis. In light of this, and the patient's obtunded state, decision was made to emergently intubate for airway protection, pulmonary maximization, and advanced imaging studies. A time-out was completed verifying correct patient, procedure, site, positioning. Patient was evaluated and required intubation for acute on chronic hypercapnic respiratory failure with poor respiratory drive. Sedative agent used: Ketamine Paralysis agent used: Succinylcholine Emergent consent was implied given patients rapidly declining clinical status and need for airway protection. The patient was prepared in the appropriate fashion. Sedation was achieved utilizing Ketamine and Succinylcholine, per Dr. Mares administration. The patient was easily ventilated using [id number] to achieve adequate oxygenation. An 8.0 Icelandic endotracheal tube was placed using Glidescope to 26 cm at the lip. The stylette was removed and balloon was inflated with 10mL of air. Appropriate Colorimetric change was appreciated. Bilateral breath sounds were heard without air sounds in the abdomen. Dr. Mares was present for the entire procedure. Post Intubation Chest X-ray confirms placement without pneumothorax. Patient tolerated the procedure well and there were no immediate complications. Coding CPT Codes Resuscitation - Resuscitation: [id number] Endotracheal Intubation, emergency ([id number])
[2019-07-22] MEDS: MIDAZOLAM HCL 125 MG/250 ML BAG IV SCH ×2 (02:49→18:35)
[2019-07-22] MEDS: LINZESS 290 MCG SCH ×2 (02:52→08:29)
[2019-07-22] MEDS: ALBUT/IPRATROP 3MG/0.5MG NEB 3 ML VIAL NEB SCH ×5 (03:38→19:30)
--- NOTE | 2019-07-22 04:25 | Procedure Note ---
Procedure Note Date of Service July 22, 2019 Procedure: Long-Term Indwelling Peripherally Inserted IV Catheter Placement Attending: Dr. Delacruz APC: Rizwan Amador PA-C Indication: Need for IV Access, Poor Vascular Access Anesthesia: None A time-out was completed verifying correct patient, procedure, site, positioning, and implant(s) or special equipment if applicable. Utilizing bedside ultrasound, vascularity of the LEFT upper extremity was assessed. Vessel size was noted for appropriate catheter selection and skin was marked with gentle pressure. Patients LEFT upper extremity was prepped and draped in the usual sterile fashion utilizing chlorhexidine. Ultrasound guidance was used to aid needle placement. An 18 g Endurance Catheter was introduced into the LEFT Cephalic vein under direct ultrasound guidance. Guide wire was easily deployed without resistance. Catheter was threaded over the guide wire without resistance and the entire apparatus was removed intact. Good venous blood return was noted in the catheter. The IV catheter was easily flushed with sterile saline flush. Sterile clave was attached to the end of the catheter and good blood return was again noted. Tourniquet was released. StatLock device and sterile dressing were applied. The patient tolerated the procedure well. Blood Loss: Minimal Complications: None Procedural Ultrasound Guidance: Procedure Date: 07/22/2019 Indication: Poor Vascular Access Attending: Dr. Delacruz APC: Rizwan Amador PA-C Artery/Veins Identified: YES Access confirmed in Vein with ultrasound: YES Complications: NONE Patient tolerated procedure: WELL Coding
[2019-07-22] MEDS ORDERED: OPTIRAY 320 125ml IV PRN (04:56)
[2019-07-22] MEDS: fentaNYL citrate 100 MCG/2 ML VIAL IV PRN (05:12)
[2019-07-22 06:10] LABS: iSTAT Arterial Blood Gas HCO3 39 meg/L (19-24); iSTAT Arterial Blood Gas pCO2 64 mmHg (35-46); iSTAT Arterial Blood Gas pH 7.39 (7.35-7.45); iSTAT Arterial Blood Gas pO2 73 mmHg (80-95); iSTAT Carbon Dioxide > 40 mEq/l (24-31); iSTAT FiO2 40 %; iSTAT Site Art Line
[2019-07-22 06:20] LABS: Basophils # (auto) 0.02 K/uL (0-0.2); Basophils % (auto) 0.2 %; Eosinophils # (auto) 0.01 K/uL (0-0.5); Eosinophils % (auto) 0.1 %; Hematocrit (blood only) 35.9 % (42-52); Hemoglobin 12.1 g/dL (14.0-18.0); Immature Granulocytes # (auto) 0.01 K/uL (0.00-0.02); Immature Granulocytes % (auto) 0.1 %; Lymphocytes # (auto) 1.51 K/uL (1.2-3.4); Lymphocytes % (auto) 12.5 %; Mean Corpuscular Hemoglobin 30.5 pg (25-34); Mean Corpuscular Hgb Conc 33.7 g/dL (32-36); Mean Corpuscular Volume 90.4 fL (80-100); Mean Platelet Volume 9.3 fL (7.4-10.4); Monocytes # (auto) 0.86 K/uL (0.11-0.59); Monocytes % (auto) 7.1 %; Neutrophils # (auto) 9.66 K/uL (1.4-6.5); Platelet Count 245 K/uL (130-400); RDW Coefficient of Variation 13.6 % (11.5-14.5); Red Blood Count 3.97 M/uL (4.7-6.1); White Blood Count 12.07 K/uL (4.8-10.8)
--- NOTE | 2019-07-22 06:25 | Procedure Note ---
Procedure Note Date of Service July 22, 2019 Procedure: Arterial Line Placement Attending: Dr. Delacruz APC: Rizwan Amador PA-C Indication: Monitoring on Pressors Anesthesia: Lidocaine 1% Emergent consent implied in the setting of need for frequent ABGs, multiple arterial sticks, close hemodynamic monitoring, and poor peripheral access. A time-out was completed verifying correct patient, procedure, site, positioning, and implant(s) or special equipment if applicable. Allens test was performed to ensure adequate perfusion. Patients RIGHT wrist was prepped and draped in the usual sterile fashion. Ultrasound guidance was used to aid needle placement. A 20g Arrow arterial line was introduced into the RIGHT Radial artery. Catheter was threaded, and the needle was removed with appropriate blood return. Good waveform was observed. The patient tolerated the procedure well. Confirmation of placement with ultrasound. Blood Loss: Minimal Complications: None Procedural Ultrasound Guidance: Procedure Date: 07/22/2019 Indication: ABGs, multiple arterial sticks, pressure readings Attending: Dr. Delacruz APC: Rizwan Amador PA-C Artery Identified: YES Line confirmed in Artery with ultrasound: YES Complications: NONE Patient tolerated procedure: WELL Coding CPT Codes Tubes, Drains, and Vasc Access - Tubes, Drains, and Vasc Access: [id number] Insertion Catheter, Artery ([id number])
--- NOTE | 2019-07-22 06:27 | Critical Care Progress Note ---
Date of Service July 22, 2019 Results & Data Vital Signs (Past 12 Hours) Vital Signs Temp Pulse Pulse Resp BP BP BP 07/22/19 06:00 90 20 115/59 L 117/48 L 07/22/19 05:20 93 H 20 07/22/19 04:00 36.5 C 89 20 140/63 07/22/19 03:48 91 H 20 07/22/19 03:15 92 H 20 114/57 L 07/22/19 02:30 90 20 107/58 L 07/22/19 02:20 89 106/57 L 07/22/19 02:10 90 121/63 07/22/19 02:00 91 H 18 160/118 H 07/22/19 01:51 87 21 146/85 H 07/22/19 01:46 88 163/78 H 07/22/19 01:30 81 23 147/65 H 07/22/19 01:15 80 24 126/68 07/22/19 01:00 86 18 144/57 H 07/22/19 00:58 84 25 H 144/57 H 07/22/19 00:14 88 20 07/22/19 00:12 100 H 16 07/21/19 23:45 36.8 C 92 H 16 145/72 H 07/21/19 21:41 64 07/21/19 20:15 97 H 30 H 07/21/19 18:38 37.2 C 96 H 20 Pulse Ox 07/22/19 06:00 93 07/22/19 05:20 97 07/22/19 04:00 92 07/22/19 03:48 97 07/22/19 03:15 95 07/22/19 02:30 93 07/22/19 02:20 98 07/22/19 02:10 89 L 07/22/19 02:00 92 07/22/19 01:51 100 07/22/19 01:46 07/22/19 01:30 97 07/22/19 01:15 97 07/22/19 01:00 97 07/22/19 00:58 97 07/22/19 00:14 96 07/22/19 00:12 96 07/21/19 23:45 97 07/21/19 21:41 07/21/19 20:15 90 07/21/19 18:38 90
[2019-07-22] MEDS ORDERED: Nursing to Pharmacy Communication ONE (06:39)
[2019-07-22 06:41] LABS: Estimated Average Glucose 186 mg/dl; Hemoglobin A1C 8.1 % (4.5-5.6)
[2019-07-22 06:55] LABS: Alanine Aminotransferase 25 U/L (12-78); Aspartate Aminotransferase 32 U/L (15-37); BUN Creatinine Ratio 25.9 (10-20); Blood Urea Nitrogen 19 mg/dl (7-18); Carbon Dioxide 35 mmol/L (21-32); Chloride 95 mmol/L (98-107); Creatinine Clr Calc Pharmacy 160.7 ml/min; Est GFR (African American) 115.9; Glucose 173 mg/dl (70-99); Magnesium 2.1 mg/dl (1.8-2.4); Sodium 138 mmol/L (136-145)
[2019-07-22 06:58] LABS: Alkaline Phosphatase 94 U/L (45-117); Bilirubin Direct 0.1 mg/dl (0-0.2); Bilirubin,Total 0.5 mg/dl (0.2-1); Creatine Kinase 626 U/L (39-308); Phosphorus 4.3 mg/dl (2.5-4.9); Total Protein 6.8 gm/dl (6.4-8.2); Troponin I < 0.015 ng/ml (0-0.045)
--- NOTE | 2019-07-22 06:59 | XRay Report ---
SINGLE VIEW CHEST CLINICAL HISTORY: Respiratory failure. Intubation. FINDINGS: An AP, portable, upright chest radiograph is compared to study dated 07/21/2019 and correlat ed with chest CT dated 09/13/2010. The examination is significantly degraded by portable technique, la rge body habitus, and patient rotation. An endotracheal tube has been placed. The tip projects 6 cm a ernestina the marvin. An enteric tube has been placed. The tip projects below the diaphragm. Cerclage wire s are noted involving right posterior ribs. The heart is enlarged. There is pulmonary vascular conge stion. An accessory azygous fissure is incidentally noted. There is bibasilar scarring/atelectasis. N o focal airspace consolidation or large pleural effusion is identified No pneumothorax is seen. The s keletal structures are osteopenic. There are healed bilateral rib fractures. IMPRESSION: 1. Endotracheal and enteric tubes have been placed as above. 2. Cardiomegaly with evidence of congestive failure. Electronically signed by: Max Joyner M.D. 07/22/2019 6:57 AM
--- NOTE | 2019-07-22 07:01 | CT Scan Report ---
CT angio neck with con CLINICAL HISTORY: Acute change in mental status COMPARISON STUDY: No previous studies for comparison. TECHNIQUE: CT angiography was performed from the aortic arch to the skull base. MIP imaging was perfo rmed. The patient was scanned in a dynamic helical fashion during intravenous administration of 118 c c of Optiray 320. A dose lowering technique was utilized adhering to the principles of ALARA. CT DOSE: Technique: CT angiogram of the carotid and vertebral arteries was obtained using intravenous contrast and 3-D reconstruction. NASCET criteria was utilized. Findings: There is an indwelling endotracheal tube and nasogastric tube. The right carotid revealed no evidence of aneurysm and no evidence of dissection. There is no evidenc e of hemodynamic significant stenosis. The left carotid revealed no evidence of hemodynamic significant stenosis. There is no evidence of an eurysm. There is no evidence of dissection. There are mild multifocal bilateral vertebral artery stenoses. There is no evidence of vertebral lacie ry dissection. IMPRESSION: 1. No evidence of hemodynamically significant carotid stenosis. No evidence of dissection 2. Mild multifocal bilateral vertebral artery stenoses. No evidence of vertebral artery dissection Electronically signed by: Stephen Shin M.D. 07/22/2019 7:00 AM
--- NOTE | 2019-07-22 07:17 | CT Scan Report ---
CT ANGIOGRAM OF THE BRAIN CLINICAL HISTORY: Change in mental status. COMPARISON STUDY: Unenhanced CT of the brain dated 07/21/2019. TECHNIQUE: Following the IV administration of 118 cc of Optiray 320, CT angiogram of the brain was pe rformed from the skull base to the vertex. Images are reviewed in the axial, sagittal, and coronal pl anes. 3-D MIPS images are created and assessed. IV contrast was administered without complication. A dose lowering technique was utilized adhering to the principles of ALARA. FINDINGS: Endotracheal and enteric tubes are noted on the district scout executive tomogram. Brain parenchyma: The brain parenchyma is normal in appearance. There is no hemorrhage, mass effect, or evidence of acute territorial ischemia by CT criteria. There is no evidence of enhancing mass lesi on on the angiogram phase images. No extra-axial fluid collection is seen. Alejandre-white matter differen tiation is preserved. Ventricles, sulci, and cisterns: Normal in configuration. CT angiogram of the brain: There is atherosclerotic calcification of the cavernous carotid arteries. The internal carotid arteries are widely patent, as are the anterior and middle cerebral arteries. Th e vertebrobasilar system and posterior cerebral arteries are widely patent. The vertebral arteries ar e codominant.. There is no aneurysm, high-grade stenosis, or focal vessel cutoff identified throughou t the intracranial circulation. Dural sinuses: Clear as visualized. Orbits: The bony orbits are intact. The orbital contents are normal as visualized. Sinuses and mastoids: The visualized paranasal sinuses are clear. The mastoid air cells are well pneu matized. Calvarium: Unremarkable. IMPRESSION: 1. There is no hemorrhage, mass effect, or evidence of acute territorial ischemia by CT criteria noti ng angiographic phase technique. 2. Unremarkable CT angiogram of the brain. Electronically signed by: Max Joyner M.D. 07/22/2019 7:16 AM
--- NOTE | 2019-07-22 07:24 | CT Scan Report ---
CT ANGIOGRAM OF THE CHEST CLINICAL HISTORY: Change in mental status. COMPARISON STUDY: Chest x-ray dated 07/22/2019. Chest CT dated 09/13/2010. TECHNIQUE: Following the IV administration of 118 cc of Optiray 320, CT angiogram of the chest was pe rformed from the upper abdomen to the thoracic inlet utilizing the pulmonary embolus protocol. Images are reviewed in the axial, sagittal, and coronal planes. 3-D MIPS images are created and assessed. I V contrast was administered without complication. A dose lowering technique was utilized adhering to the principles of ALARA. The examination is severely degraded by large body habitus, and by streak a rtifact from the body wall abutting the CT gantry. There is also streak artifact from the arms which could not be elevated above the chest. CT DOSE: 1667.08 mGy.cm FINDINGS: Thyroid: Imaged portions of the thyroid gland are normal in size and attenuation. Thoracic aorta: There is mild atherosclerotic calcification of the thoracic aorta, which is normal in caliber and demonstrates standard 3-vessel arch anatomy. No dissection is seen. Pulmonary vasculature: The pulmonary trunk is normal in caliber. There are no filling defects identif ied in main, lobar, or proximal segmental pulmonary branches to suggest pulmonary embolus. Evaluation of the peripheral branches is degraded by streak and motion artifact. Heart: The heart is enlarged and without pericardial effusion. There are coronary artery calcificatio ns. Lungs and pleural spaces: An endotracheal tube terminates above the marvin. Evaluation of the lung pa renchyma is modestly degraded by motion artifact. An accessory azygous fissure is incidentally noted. There are trace pleural effusions with dependent consolidation. Mild mucus plugging is noted in the lower lobes. Mediastinum: There is no mediastinal lymphadenopathy. Nanci: Clear. Axillae: There is no axillary lymphadenopathy. Upper abdomen: Enteric tube terminates in the stomach. Partially visualized upper abdominal viscera i s otherwise grossly unremarkable. Skeletal structures: The skeletal structures are osteopenic. No lytic or blastic bony lesions are see n. Chronic posttraumatic deformity and postoperative change is noted involving the right sided ribs. IMPRESSION: 1. Streak and motion compromised examination. 2. There is no evidence of pulmonary embolus in the main, lobar, or proximal segmental pulmonary lacie cinthia. 3. Mild cardiomegaly. 4. There are trace pleural effusions with dependent consolidation. This likely represents scarring/at electasis. Clinical correlation will be required. 5. Endotracheal and enteric tubes are in place. Electronically signed by: Max Joyner M.D. 07/22/2019 7:23 AM
--- NOTE | 2019-07-22 08:03 | Hospitalist Progress Note ---
Date of Service July 22, 2019 Assessment & Plan (1) Myoclonic jerking: Patient presenting with 4 days of progressive myoclonic jerking, some confusion/disorientation. Etiology unclear at this time. Work-up thus far with relatively benign laboratory studies to include intact renal and hepatic function, electrolytes normal, TSH normal, CT head with no acute intracranial pathology, VBG with chronic respiratory acidosis. Suspect ingestion/medication error as source of problem. Patient manages his own medications but caregivers report he may have missed 4 doses and may have taken his entire Levaquin prescription. Must also consider seizure-like activity due to medication withdrawal as patient is on multiple agents that should not be abruptly discontinued (buspirone/escitalopram/duloxetine/Lyrica). Less likely infectious etiology/PML - patient is immunosuppressed on MTX for p soriasis. Has leukocytosis (in setting of steroid use). Case discussed with poison control. They do not feel that symptoms can be attributed to Levaquin toxicity. They will follow-up during the course of patient's stay. -Admit to medical floor telemetry monitoring Resume home medications as prescribed Symptomatic management with Ativan as needed -Consider additional imagingMRI. Consider EEG Neurology consult appreciated (2) Confusion: Patient now with VDRF, mental status cannot be evaluated further. He was reportedly having myoclonic jerking prior to his acute decompensation. Consideration that this may have been hypercapnia versus medication compliance versus another metabolic cause. will need to reassess once patient is more stable (3) Psoriasis: Chronic. Continue methotrexate 7.5 mg p.o. q. weekly (4) Congestive heart failure: Patient having diuresed in the ICU. Patient is currently on Lasix 80 mg daily, will need to be converted over to IV. Defer to special procedure tech to monitor this. (5) Depression: Chronic. Continue escitalopram 20 mg p.o. daily Continue Cymbalta 60 mg p.o. daily (6) Anxiety: Chronic. Stable. -Continue escitalopram, Cymbalta, buspirone at home doses (7) Diabetes: Blood sugar stable at present. Caregiver reports erratic blood sugars ranging from the 80s to the 500s. Question medication adherence Lantus 10 units twice daily Insulin sliding scale -Continue Lyrica 50 mg p.o. twice daily Continue to monitor (8) Asthma: Stable respiratory status at present. Diminished breath sounds. No active wheezing. Duo nebs Albuterol as needed (9) Chronic hypercapnic respiratory failure: Suspect patient has a degree of obesity hypoventilation syndrome and obstructive sleep apnea, will likely need BiPAP or CPAP at a later time, defer evaluation for this while patient is acutely ill. (10) COPD (chronic obstructive pulmonary disease) case management patient: (11) GERD (gastroesophageal reflux disease): Chronic. Stable. ProphylaxisLovenox Codefull per discussion with patient Subjective Patient seen in the intensive care unit. Events of yesterday evening noted. Patient had a rapid decompensation on the floor and was subsequently intubated. Patient had periods of agitation and was just sedated with Versed prior to my arrival. At this time he has occasional myoclonic jerk but is otherwise obtunded at this point. Physical Exam Physical Exam: Gen: Intubated, sedated HEENT: neck supple, no JVD. MMM. Heart: Irregular, no murmurs, limited exam Lungs: clear to auscultation in all tucker, very limited exam Abd: soft, nontender, very obese Neuro: Sedated as noted above Ext: No clubbing, cyanosis, edema Results & Data Vital Signs (Past 12 Hours) Vital Signs Temp Pulse Pulse Resp BP BP BP 07/22/19 07:34 92 H 20 07/22/19 07:33 89 20 07/22/19 06:00 90 20 115/59 L 117/48 L 07/22/19 05:20 93 H 20 07/22/19 04:00 36.5 C 89 20 140/63 07/22/19 03:48 91 H 20 07/22/19 03:15 92 H 20 114/57 L 07/22/19 02:30 90 20 107/58 L 07/22/19 02:20 89 106/57 L 07/22/19 02:10 90 121/63 07/22/19 02:00 91 H 18 160/118 H 07/22/19 01:51 87 21 146/85 H 07/22/19 01:46 88 163/78 H 07/22/19 01:30 81 23 147/65 H 07/22/19 01:15 80 24 126/68 07/22/19 01:00 86 18 144/57 H 07/22/19 00:58 84 25 H 144/57 H 07/22/19 00:14 88 20 07/22/19 00:12 100 H 16 07/21/19 23:45 36.8 C 92 H 16 145/72 H 07/21/19 21:41 64 07/21/19 20:15 97 H 30 H Pulse Ox 07/22/19 07:34 95 07/22/19 07:33 96 07/22/19 06:00 93 07/22/19 05:20 97 07/22/19 04:00 92 07/22/19 03:48 97 07/22/19 03:15 95 07/22/19 02:30 93 07/22/19 02:20 98 07/22/19 02:10 89 L 07/22/19 02:00 92 07/22/19 01:51 100 07/22/19 01:46 07/22/19 01:30 97 07/22/19 01:15 97 07/22/19 01:00 97 07/22/19 00:58 97 07/22/19 00:14 96 07/22/19 00:12 96 07/21/19 23:45 97 07/21/19 21:41 07/21/19 20:[address] ANGIOGRAM OF THE CHEST CLINICAL HISTORY: Change in mental status. COMPARISON STUDY: Chest x-ray dated 07/22/2019. Chest CT dated 09/13/2010. TECHNIQUE: Following the IV administration of 118 cc of Optiray 320, CT angiogram of the chest was performed from the upper abdomen to the thoracic inlet utilizing the pulmonary embolus protocol. Images are reviewed in the axial, sagittal, and coronal planes. 3-D MIPS images are created and assessed. IV contrast was administered without complication. A dose lowering technique was utilized adhering to the principles of ALARA. The examination is severely degraded by large body habitus, and by streak artifact from the body wall abutting the CT gantry. There is also streak artifact from the arms which could not be elevated above the chest. CT DOSE: 1667.08 mGy.cm FINDINGS: Thyroid: Imaged portions of the thyroid gland are normal in size and attenuation. Thoracic aorta: There is mild atherosclerotic calcification of the thoracic a avel, which is normal in caliber and demonstrates standard 3-vessel arch anatomy. No dissection is seen. Pulmonary vasculature: The pulmonary trunk is normal in caliber. There are no filling defects identified in main, lobar, or proximal segmental pulmonary branches to suggest pulmonary embolus. Evaluation of the peripheral branches is degraded by streak and motion artifact. Heart: The heart is enlarged and without pericardial effusion. There are coronary artery calcifications. Lungs and pleural spaces: An endotracheal tube terminates above the marvin. Evaluation of the lung parenchyma is modestly degraded by motion artifact. An accessory azygous fissure is incidentally noted. There are trace pleural effusions with dependent consolidation. Mild mucus plugging is noted in the lower lobes. Mediastinum: There is no mediastinal lymphadenopathy. Nanci: Clear. Axillae: There is no axillary lymphadenopathy. Upper abdomen: Enteric tube terminates in the stomach. Partially visualized uppe r abdominal viscera is otherwise grossly unremarkable. Skeletal structures: The skeletal structures are osteopenic. No lytic or blastic bony lesions are seen. Chronic posttraumatic deformity and postoperative change is noted involving the right sided ribs. IMPRESSION: 1. Streak and motion compromised examination. 2. There is no evidence of pulmonary embolus in the main, lobar, or proximal seg mental pulmonary arteries. 3. Mild cardiomegaly. 4. There are trace pleural effusions with dependent consolidation. This likely represents scarring/atelectasis. Clinical correlation will be required. 5. Endotracheal and enteric tubes are in place. --- CT angio neck with con CLINICAL HISTORY: Acute change in mental status COMPARISON STUDY: No previous studies for comparison. TECHNIQUE: CT angiography was performed from the aortic arch to the skull base. MIP imaging was performed. The patient was scanned in a dynamic helical fashion during intravenous administration of 118 cc of Optiray 320. A dose lowering technique was utilized adhering to the principles of ALARA. CT DOSE: Technique: CT angiogram of the carotid and vertebral arteries was obtained using intravenous contrast and 3-D reconstruction. NASCET criteria was utilized. Findings: There is an indwelling endotracheal tube and nasogastric tube. The right carotid revealed no evidence of aneurysm and no evidence of di ssection. There is no evidence of hemodynamic significant stenosis. The left carotid revealed no evidence of hemodynamic significant stenosis. There is no evidence of aneurysm. There is no evidence of dissection. There are mild multifocal bilateral vertebral artery stenoses. There is no evidence of vertebral artery dissection. IMPRESSION: 1. No evidence of hemodynamically significant carotid stenosis. No evidence of dissection 2. Mild multifocal bilateral vertebral artery stenoses. No evidence of vertebral artery dissection --- CT ANGIOGRAM OF THE BRAIN CLINICAL HISTORY: Change in mental status. COMPARISON STUDY: Unenhanced CT of the brain dated 07/21/2019. TECHNIQUE: Following the IV administration of 118 cc of Optiray 320, CT angiogram of the brain was performed from the skull base to the vertex. Images are reviewed in the axial, sagittal, and coronal planes. 3-D MIPS images are created and assessed. IV contrast was administered without complication. A dose lowering technique was utilized adhering to the principles of ALARA. FINDINGS: Endotracheal and enteric tubes are noted on the liquor establishment manager tomogram. Brain parenchyma: The brain parenchyma is normal in appearance. There is no hemorrhage, mass effect, or evidence of acute territorial ischemia by CT criteria. There is no evidence of enhancing mass lesion on the angiogram phase images. No extra-axial fluid collection is seen. Alejandre-white matter differentiation is preserved. Ventricles, sulci, and cisterns: Normal in configuration. CT angiogram of the brain: There is atherosclerotic calcification of the cavernous carotid arteries. The internal carotid arteries are widely patent, as are the anterior and middle cerebral arteries. The vertebrobasilar system and posterior cerebral arteries are widely patent. The vertebral arteries are codominant.. There is no aneurysm, high-grade stenosis, or focal vessel cutoff identified throughout the intracranial circulation. Dural sinuses: Clear as visualized. Orbits: The bony orbits are intact. The orbital contents are normal as visualized. Sinuses and mastoids: The visualized paranasal sinuses are clear. The mastoid air cells are well pneumatized. Calvarium: Unremarkable. IMPRESSION: 1. There is no hemorrhage, mass effect, or evidence of acute territorial ischemia by CT criteria noting angiographic phase technique. 2. Unremarkable CT angiogram of the brain. PG Care Time/CCT Total # of Minutes Spent Total Time Spent with Patient: Total time spent is greater than 50% in coordination of care (as documented) at patient's floor/unit and/or counseling patient: (1) Congestive heart failure Heart failure type: combined systolic and diastolic Heart failure chronicity: acute on chronic Qualified Code(s): I50.43 - Acute on chronic combined systolic (congestive) and diastolic (congestive) heart failure (2) Depression Depression Type: major depressive disorder Major depression recurrence: unspecified whether recurrent Active/Remission status: remission status unspecified Qualified Code(s): F32.9 - Major depressive disorder, single episode, unspecified (3) Diabetes Diabetes mellitus type: type 2 Diabetes mellitus lobsterman insulin use: with correction use Diabetes mellitus complication status: without complication Qualified Code(s): E11.9 - Type 2 diabetes mellitus without complications; Z79.4 - half-way (current) use of insulin (4) GERD (gastroesophageal reflux disease) Esophagitis presence: esophagitis presence not specified Qualified Code(s): K21.9 - Gastro-esophageal reflux disease without esophagitis
[2019-07-22] MEDS: POTASSIUM CHLORIDE / WTR 10 MEQ/100 ML PLCT IV SCH ×8 (08:34→20:53)
[2019-07-22] MEDS: INSULIN GLARGINE SOLOSTAR 100 UNITS/ML 3 ML PEN SC SCH ×2 (08:39→20:50)
[2019-07-22] MEDS: FUROSEMIDE 80 MG TAB PO SCH (08:42)
[2019-07-22] MEDS: ATORVASTATIN 40 MG TAB PO SCH (08:42)
[2019-07-22] MEDS: BusPIRone 15 MG TAB PO SCH (08:42)
[2019-07-22] MEDS: carvediloL 3.125 MG TAB PO SCH ×2 (08:42→20:53)
[2019-07-22] MEDS: ESCITALOPRAM OXALATE 20 MG TAB PO SCH (08:44)
[2019-07-22] MEDS: lisinopriL 5 MG TAB PO SCH (08:44)
[2019-07-22] MEDS: FOLIC ACID 1 MG TAB PO SCH (08:44)
[2019-07-22] MEDS ORDERED: ASPIRIN 81 MG ECTAB PO SCH (09:00)
[2019-07-22] MEDS ORDERED: ROPINIROLE HCL 1 MG TABLET PO SCH (09:00)
[2019-07-22] MEDS ORDERED: ENOXAPARIN INJ 40 MG/0.4 ML SYR SQ SCH (09:00)
[2019-07-22] MEDS ORDERED: DULOXETINE HCL 60 MG CAP PO SCH (09:00)
--- NOTE | 2019-07-22 09:09 | Electroencephalogram ---
EEG Procedure Note Date of Service July 22, 2019 Start / End Times Start Time: 6:57 AM End Time: 7:17 AM Referring Physician Kanwal Paz DO History Myoclonic jerking, seizure-like activity, respiratory failure Home Medication List Home Medications Medication Instructions Recorded Confirmed Type Oxygen Home #1 ea 04/25/19 07/15/19 History acetaminophen 325 mg tablet 625 mg PO Q6 PRN tab 04/25/19 07/21/19 History albuterol sulfate 90 mcg/actuation INHALATION gm 04/25/19 07/15/19 History aerosol inhaler ibuprofen 800 mg tablet 800 mg PO PRN tab 04/25/19 04/25/19 History insulin regular hum U-500 conc SUBCUT ml 04/25/19 04/25/19 History 500"concentrate" 500 unit/mL subcutaneous soln ipratropium-albuterol 0.5 mg-3 INHALATION ml 04/25/19 04/25/19 History mg(2.5 mg base)/3 mL nebulization soln linaclotide 290 mcg capsule 1 PO .TAKE 1 CAPSULE Daily #30 cap 04/25/19 07/15/19 History Oxygen Home #1 ea 05/06/19 07/21/19 Rx aspirin 81 mg tablet 81 mg PO DAILY tab 05/06/19 07/21/19 History atorvastatin 40 mg tablet 40 mg PO DAILY tab 05/06/19 07/21/19 History buspirone 15 mg tablet 15 mg PO TID tab 05/06/19 07/21/19 History carvedilol 3.125 mg tablet 3.125 mg PO BID tab 05/06/19 07/21/19 History dulaglutide 1.5 mg/0.5 mL 1.5 mg SQ WEEKLY #0.5 ml 05/06/19 07/21/19 Rx subcutaneous pen injector duloxetine 60 mg capsule,delayed 60 mg PO DAILY #90 cap 05/06/19 07/21/19 History release fluticasone furoate 200 1 puffs INHALATION DAILY #1 ea 05/06/19 07/21/19 Rx mcg-vilanterol 25 mcg/dose inhalation powder folic acid 1 mg tablet 1 mg PO DAILY #30 tab 05/06/19 07/21/19 Rx furosemide 40 mg tablet 80 mg PO DAILY tab 05/06/19 07/21/19 History lisinopril 5 mg tablet 5 mg PO DAILY tab 05/06/19 07/21/19 History methotrexate sodium 2.5 mg tablet 7.5 mg PO WEEKLY #30 tab 05/06/19 07/21/19 Rx pregabalin 50 mg capsule 50 mg PO BID cap 05/06/19 07/15/19 History ranitidine HCl 150 mg tablet 150 mg PO DAILY #90 tab 05/06/19 07/15/19 Rx ropinirole 1 mg tablet 1 mg PO DAILY #30 tab 05/06/19 07/15/19 Rx escitalopram oxalate 20 mg tablet 20 mg PO DAILY tab 07/15/19 07/21/19 History prednisone 10 mg tablet See Rx Instructions PO DAILY #36 07/15/19 07/15/19 Rx tab metformin 1,000 mg PO PM 07/21/19 07/21/19 History metolazone 5 mg tablet 5 mg PO .COMPLEX #1 tab 07/21/19 07/21/19 Rx Inpatient Medication List Albuterol (Duoneb) 3 ml NEB Q4R [facility] Stop: 08/20/19 22:59 Last Admin: 07/22/19 07:32 Dose: 3 ml Documented by: [id number] Admin: 07/22/19 03:38 Dose: 3 ml Documented by: [id number] Admin: 07/21/19 23:37 Dose: 3 ml Documented by: [id number] Aspirin (Ecotrin Ectab) 81 mg PO DAILY [facility] Stop: 08/21/19 08:59 Last Admin: 07/22/19 08:44 Dose: 81 mg Documented by: [id number] Atorvastatin Calcium (Lipitor) 40 mg PO DAILY [facility] Stop: 08/21/19 08:59 Last Admin: 07/22/19 08:42 Dose: 40 mg Documented by: [id number] Buspirone HCl (Buspar) 15 mg PO TID [facility] Stop: 08/20/19 20:59 Last Admin: 07/22/19 08:42 Dose: 15 mg Documented by: [id number] Admin: 07/21/19 21:13 Dose: 15 mg Documented by: [id number] Carvedilol (Coreg) 3.125 mg PO BID [facility] Stop: 08/20/19 20:59 Last Admin: 07/22/19 08:42 Dose: 3.125 mg Documented by: [id number] Admin: 07/21/19 21:08 Dose: 3.125 mg Documented by: [id number] Enoxaparin Sodium (Lovenox) 40 mg SQ QAM [facility] Stop: 08/21/19 08:59 Last Admin: 07/22/19 08:44 Dose: 40 mg Documented by: [id number] Escitalopram Oxalate (Lexapro Tab) 20 mg PO DAILY [facility] Stop: 08/21/19 08:59 Last Admin: 07/22/19 08:44 Dose: 20 mg Documented by: [id number] Fentanyl Citrate (Fentanyl Citrate) 50 mcg IV Q2H PRN PRN Reason: Moderate Pain (4,5,6) Stop: 08/05/19 01:58 Last Admin: 07/22/19 05:12 Dose: 50 mcg Documented by: [id number] Folic Acid (Folvite) 1 mg PO [id number]@0900 [facility] Stop: 08/21/19 08:59 Last Admin: 07/22/19 08:44 Dose: 1 mg Documented by: [id number] Furosemide (Lasix) 80 mg PO DAILY [facility] Stop: 08/21/19 08:59 Last Admin: 07/22/19 08:42 Dose: 80 mg Documented by: [id number] Midazolam HCl (Versed) 125 mg in 250 mls @ 14 mls/hr IV .[id number] [facility]; Protocol Stop: 08/21/19 01:32 Last Titration: 07/22/19 06:58 Dose: 7 mg/hr, 14 mls/hr Documented by: [id number] Cosigned by: [id number] Titration: 07/22/19 06:02 Dose: 7 mg/hr, 14 mls/hr Documented by: [id number] Titration: 07/22/19 05:13 Dose: 6 mg/hr, 12 mls/hr Documented by: [id number] Titration: 07/22/19 03:58 Dose: 4 mg/hr, 8 mls/hr Documented by: [id number] Titration: 07/22/19 03:27 Dose: 3 mg/hr, 6 mls/hr Documented by: [id number] Titration: 07/22/19 03:15 Dose: 2 mg/hr, 4 mls/hr Documented by: [id number] Admin: 07/22/19 02:49 Dose: 1 mg/hr, 2 mls/hr Documented by: [id number] Cosigned by: [id number] Potassium Chloride (K Danny / Wtr) 10 meq in 100 mls @ 100 mls/hr IV Q1H [facility] Stop: 07/22/19 11:19 Last Admin: 07/22/19 08:34 Dose: 100 mls/hr Documented by: [id number] Insulin Glargine (Lantus Solostar Pen) 10 units SC BID [facility] Stop: 08/20/19 20:59 Last Admin: 07/22/19 08:39 Dose: 10 units Documented by: [id number] Cosigned by: [id number] Admin: 07/21/19 21:09 Dose: 10 units Documented by: [id number] Cosigned by: [id number] Ioversol (Optiray 320 125ml) 125 ml IV ONCE PRN PRN Reason: Interaction Checking Stop: 07/26/19 04:55 Last Admin: 07/22/19 04:57 Dose: 118 ml Documented by: [id number] Lisinopril (Zestril) 5 mg PO DAILY [facility] Stop: 08/21/19 08:59 Last Admin: 07/22/19 08:44 Dose: 5 mg Documented by: [id number] Miscellaneous (Order Awaiting Action) 1 ea N/A QS [facility] Stop: 08/20/19 19:59 Last Admin: 07/22/19 08:28 Dose: Not Given Documented by: [id number] Admin: 07/22/19 02:52 Dose: Not Given Documented by: [id number] Admin: 07/21/19 21:06 Dose: Not Given Documented by: [id number] Miscellaneous (Order Awaiting Action) 1 ea N/A QS [facility] Stop: 08/20/19 19:59 Last Admin: 07/22/19 08:29 Dose: Not Given Documented by: [id number] Admin: 07/22/19 02:52 Dose: Not Given Documented by: [id number] Admin: 07/21/19 21:06 Dose: Not Given Documented by: [id number] Pregabalin (Lyrica) 50 mg PO BID [facility] Stop: 08/20/19 20:59 Last Admin: 07/21/19 21:12 Dose: 50 mg Documented by: [id number] Ranitidine HCl (Zantac) 150 mg PO DAILY [facility] Stop: 08/21/19 08:59 Last Admin: 07/22/19 08:43 Dose: 150 mg Documented by: [id number] Ropinirole HCl (Requip) 1 mg PO DAILY [facility] Stop: 08/21/19 08:59 Last Admin: 07/22/19 08:44 Dose: 1 mg Documented by: [id number] Discontinued Medications Haloperidol Lactate (Haldol) Confirm Administered Dose 5 mg .ROUTE .STK-MED ONE Stop: 07/21/19 23:17 Last Admin: 07/21/19 23:19 Dose: 5 mg Documented by: [id number] Furosemide 80 mg/ Syringe 8 mls @ 4 mls/min IV NOW ONE Stop: 07/21/19 20:19 Last Admin: 07/21/19 21:07 Dose: 4 mls/min Documented by: [id number] Insulin Aspart (Novolog Flexpen) 0 units SC ACHS [facility] Stop: 08/20/19 20:59 Last Admin: 07/21/19 21:10 Dose: Not Given Documented by: [id number] Cosigned by: [id number] Midazolam HCl (Versed) Confirm Administered Dose 125 mg .ROUTE .STK-MED ONE Stop: 07/22/19 01:57 Last Admin: 07/22/19 02:48 Dose: Not Given Documented by: [id number] Miscellaneous () Confirm Administered Dose 1 ea .ROUTE .STK-MED ONE Stop: 07/22/19 01:35 Last Admin: 07/22/19 02:51 Dose: Not Given Documented by: [id number] Potassium Chloride (Klor-Con M20) 40 meq PO NOW STA Stop: 07/21/19 20:19 Last Admin: 07/21/19 21:07 Dose: 40 meq Documented by: [id number] Description This is a 21 electrode EEG with a single channel dedicated to limited EKG. The electrodes were placed in accordance with the International 10-20 system. There is a posterior dominant rhythm of 10 Hz which is symmetrically di stributed. There is a normal anterior to posterior organization. Photic stimulation is unremarkable. Hyperventilation is not performed. There is admixed frontally predominant beta activity throughout the study. There is periodic movement artifact throughout the study. There is no focal or lateralized slowing. No epileptiform abnormalities observed. Interpretation Unremarkable awake/drowsy EEG. No epileptiform abnormalities. The observed prominent beta activity is probably related to an effect from benzodiazepines. [facility] EEG Procedure Codes Indication for Procedure (1) Seizure-like activity: (2) Myoclonic jerking: Neurology Neurology: [id number] EEG include record awake & drowsy
[2019-07-22] MEDS ORDERED: PHARMACY GLYCEMIC MGMT CONSULT PRN (10:13)
--- NOTE | 2019-07-22 10:13 | Neurology Consultation ---
Date of Consultation July 22, 2019 Assessment & Plan (1) Myoclonic jerking: Generalized myoclonic jerking in the context of chronic hypoxic, hypercapnic respiratory failure in a patient with morbid obesity/hypoventilation syndrome, chronic COPD, recent treatment with corticosteroids and antibiotics, and potential issues with medication compliance recently. No supportive evidence of seizure activity on this morning's EEG. In spite of the unrevealing EEG, however, I would recommend empiric treatment with Keppra 500 mg IV every 12 hours. Keppra is oftentimes helpful for myoclonus. Going forward, however, the Keppra may be tapered off if his clinical status improves. History of Present Illness Reason for Consultation: Myoclonic jerking Requesting Physician: Kanwal Paz DO Attending Physician: Chepe Simons DO History of Present Illness The patient is a 64-year old male who was transferred from [facility] for further evaluation and management of persistent myoclonic jerking in the context of hypoxic, hypercapnic respiratory failure. The patient is currently intubated in the ICU and is unable to relay historical details. Per the admission H&P, the patient has been exhibiting intermittent myoclonic jerking for the past few days. Past medical history notable for severe COPD, obesity hypoventilation syndrome/YOUSIF, IDDM and CHF. He has been on prednisone and Levaquin recently. He has also been noted to exhibit confusion and agitation and possibly hallucinations as well according to caregivers. There may have been some recent issues with medication compliance as well based on pill counts. Past medical history also notable for psoriasis for which he is prescribed methotrexate, as well as depression with anxiety for which he is prescribed Lexapro, Cymbalta, BuSpar. He is prescribed Lyrica for diabetic peripheral neuropathy. Allergies Allergy/AdvReac Type Severity Reaction Status Date / Time Penicillins Allergy Unknown Verified 07/15/19 15:15 Home Medications Home Medications Medication Instructions Recorded Confirmed Type Oxygen Home #1 ea 04/25/19 07/15/19 History acetaminophen 325 mg tablet 625 mg PO Q6 PRN tab 04/25/19 07/21/19 History albuterol sulfate 90 mcg/actuation INHALATION gm 04/25/19 07/15/19 History aerosol inhaler ibuprofen 800 mg tablet 800 mg PO PRN tab 04/25/19 04/25/19 History insulin regular hum U-500 conc SUBCUT ml 04/25/19 04/25/19 History 500"concentrate" 500 unit/mL subcutaneous soln ipratropium-albuterol 0.5 mg-3 INHALATION ml 04/25/19 04/25/19 History mg(2.5 mg base)/3 mL nebulization soln linaclotide 290 mcg capsule 1 PO .TAKE 1 CAPSULE Daily #30 cap 04/25/19 07/15/19 History Oxygen Home #1 ea 05/06/19 07/21/19 Rx aspirin 81 mg tablet 81 mg PO DAILY tab 05/06/19 07/21/19 History atorvastatin 40 mg tablet 40 mg PO DAILY tab 05/06/19 07/21/19 History buspirone 15 mg tablet 15 mg PO TID tab 05/06/19 07/21/19 History carvedilol 3.125 mg tablet 3.125 mg PO BID tab 05/06/19 07/21/19 History dulaglutide 1.5 mg/0.5 mL 1.5 mg SQ WEEKLY #0.5 ml 05/06/19 07/21/19 Rx subcutaneous pen injector duloxetine 60 mg capsule,delayed 60 mg PO DAILY #90 cap 05/06/19 07/21/19 History release fluticasone furoate 200 1 puffs INHALATION DAILY #1 ea 05/06/19 07/21/19 Rx mcg-vilanterol 25 mcg/dose inhalation powder folic acid 1 mg tablet 1 mg PO DAILY #30 tab 05/06/19 07/21/19 Rx furosemide 40 mg tablet 80 mg PO DAILY tab 05/06/19 07/21/19 History lisinopril 5 mg tablet 5 mg PO DAILY tab 05/06/19 07/21/19 History methotrexate sodium 2.5 mg tablet 7.5 mg PO WEEKLY #30 tab 05/06/19 07/21/19 Rx pregabalin 50 mg capsule 50 mg PO BID cap 05/06/19 07/15/19 History ranitidine HCl 150 mg tablet 150 mg PO DAILY #90 tab 05/06/19 07/15/19 Rx ropinirole 1 mg tablet 1 mg PO DAILY #30 tab 05/06/19 07/15/19 Rx escitalopram oxalate 20 mg tablet 20 mg PO DAILY tab 07/15/19 07/21/19 History prednisone 10 mg tablet See Rx Instructions PO DAILY #36 07/15/19 07/15/19 Rx tab metformin 1,000 mg PO PM 07/21/19 07/21/19 History metolazone 5 mg tablet 5 mg PO .COMPLEX #1 tab 07/21/19 07/21/19 Rx Patient History Medical History Anxiety Asthma Chronic hypercapnic respiratory failure Chronic respiratory failure Congestive heart failure Depression Diabetes GERD (gastroesophageal reflux disease) Lower leg edema Myoclonic jerking Psoriasis Surgical History History of appendectomy History of bronchoscopy History of hemorrhoidectomy History of thoracotomy 06/2008 - s/p traumatic hemothorax History of tonsillectomy Family History Other Coronary heart disease Diabetes Lung cancer Social History Preferred Language: Serbian Beliefs That Will Affect Care: None Current Living Situation Comment: caregivers stay at his time Other Information That Helps Us Care for You: No Feels Safe at Home: Yes Smoking Status: Current every day smoker Tobacco Type: cigarettes ; Do You Dip or Chew Tobacco: No ; Hx Alcohol Use: No Hx Substance Use: No Review of Systems Review of Systems: Unobtainable due to endotracheal tube Physical Exam Physical Exam: The patient is a well-developed, well-nourished elderly male. He is intubated and sedated. Orientation, memory, attention, concentration, speech, and fund of knowledge cannot be evaluated. Visual tucker and visual acuity cannot be evaluated. Pupils are equal round and minimally reactive to light. There is no nystagmus or gaze preference. Oculocephalic and blink reflexes intact. Facial strength cannot be assessed. No obvious facial droop. Hearing cannot be assessed. Movement of the tongue and palate cannot be assessed. Shoulder shrug function cannot be assessed. Sensation cannot be evaluated. Patient does not localize to painful stimulation. Patient exhibits moderate withdrawal of both lower limbs to plantar stimulation. Noxious stimulation induces brief, mild, myoclonic type movements. Deep tendon reflexes are diminished throughout. Plantar responses withdrawal bilaterally. Testing for dysmetria, dysdiadochokinesia, or fine movements cannot be completed. Ophthalmoscopic examination cannot be completed due to poor patient cooperation. Carotid pulses normal bilaterally, no bruits to auscultation. Gait and station cannot be tested. Muscle strength cannot be tested. Muscle tone normal throughout. There is no dystonic posturing. There is no atrophy. Intermittent generalized mild myoclonic type movements observed both with and without tactile/noxious stimulation. Results & Data Vital Signs (Past 12 Hours) Vital Signs Temp Pulse Pulse Resp BP BP BP 07/22/19 07:34 92 H 20 07/22/19 07:33 89 20 07/22/19 06:00 90 20 115/59 L 117/48 L 07/22/19 05:20 93 H 20 07/22/19 04:00 36.5 C 89 20 140/63 07/22/19 03:48 91 H 20 07/22/19 03:15 92 H 20 114/57 L 07/22/19 02:30 90 20 107/58 L 07/22/19 02:20 89 106/57 L 07/22/19 02:10 90 121/63 07/22/19 02:00 91 H 18 160/118 H 07/22/19 01:51 87 21 146/85 H 07/22/19 01:46 88 163/78 H 07/22/19 01:30 81 23 147/65 H 07/22/19 01:15 80 24 126/68 07/22/19 01:00 86 18 144/57 H 07/22/19 00:58 84 25 H 144/57 H 07/22/19 00:14 88 20 07/22/19 00:12 100 H 16 07/21/19 23:45 36.8 C 92 H 16 145/72 H 07/21/19 21:41 64 Pulse Ox 07/22/19 07:34 95 07/22/19 07:33 96 07/22/19 06:00 93 07/22/19 05:20 97 07/22/19 04:00 92 07/22/19 03:48 97 07/22/19 03:15 95 07/22/19 02:30 93 07/22/19 02:20 98 07/22/19 02:10 89 L 07/22/19 02:00 92 07/22/19 01:51 100 07/22/19 01:46 07/22/19 01:30 97 07/22/19 01:15 97 07/22/19 01:00 97 07/22/19 00:58 97 07/22/19 00:14 96 07/22/19 00:12 96 07/21/19 23:45 97 07/21/19 21:41 Laboratory Results WBC 12.07, hemoglobin 12.1, hematocrit 35.9, platelet count 245, pH 7.39, PCO2 64, PO2 73, bicarb 39, total CO2 greater than 40, sodium 138, potassium 3.0, BUN 19, creatinine 0.72, glucose 173, hemoglobin A1c 8.1, calcium 9.0, magnesium 2.1, AST 32, ALT 25, ammonia 19.0, total CK 626, troponin less than 0.015, TSH 1.020, UDS negative Diagnostic Findings CT of the head completed July 21, 2019 unremarkable. No hemorrhage or acute process. There is mild small vessel ischemic change. I reviewed the images as well as the radiology interpretation of this test. A CT angiogram of the head and neck are unremarkable. No hemodynamically significant stenosis, dissection, or aneurysm. There is mild multifocal bilateral vertebral artery stenosis. Electrocardiogram reveals a normal sinus rhythm, 89 bpm. An electroencephalogram completed this morning reveals a prominent benzodi azepine effect and is otherwise unremarkable. No epileptiform abnormalities. PG Care Time/CCT Total # of Minutes Spent Total Time Spent with Patient: Total time spent is greater than 50% in coordination of care (as documented) at patient's floor/unit and/or counseling patient:
[2019-07-22] MEDS: methylPREDNISolone 60 MG in SYRINGE 0 ML IV SCH ×2 (10:34→17:36)
[2019-07-22] MEDS ORDERED: IMPACT LIQD 1.0 CAL 1,000 ML BAG OG SCH (10:45)
--- NOTE | 2019-07-22 10:59 | Communication Note ---
Date of Service: July 22, 2019 For complete Subjective and initial physical exam, see same day note from Rizwan Amador PA-C. PE: Temp Pulse Resp BP Pulse Ox 37.1 C 90 20 125/71 94 07/22/19 12:00 07/22/19 13:58 07/22/19 13:58 07/22/19 12:30 07/22/19 13:58 General: Sedated, ETT in place. No acute distress. Morbidly obese. Moans to physical stimuli, does not arouse or follow commands. Skin: Diffuse plaques with white scale consistent with psoriasis present on skull, posterior neck, posterior aspect of the forearm/elbows, flank, and legs. HEENT: Atraumatic, normocephalic. Pupils equal and reactive to light bilaterally. Does not maintain focus gaze. Pulm: Diminished, distant breath sounds. No overt wheezes or rales appreciated. Symmetrical chest rise. On ventilator, AC VC 20/500 cc/8 PEEP/40% Cardiac: Distant heart sounds. RRR, -mrg. Intermittent PVCs appreciated on telemetry. radial pulses intact and symmetrical. Abdominal: Obese, nontender, soft. BS present. Extremities: Capillary refill in hallux and thumb approximately 2 seconds. Warm, dry. Unable to perform strength testing due to sedation. Reason Critically Ill: 64-year-old male here with a PMHx significant for COPD, CHF, psoriasis, DM, and morbid obesity (admit weight 154kg) who presented with altered mental status and who was admitted for acute hypercarbic respiratory failure requiring intubation Neuro - [facility] ICU:POSITIVE Sedation: Verset gtt, fentanyl push PRN Altered Mental Status suspect 2/2 hypercarbic Metabolic Encephalopathy - See respiratory below - Admit CT naf, UTox negative, BMP without acute derangement. - EEG did not show any seizure activity - DDx includes levaquin toxicity (see below) ?Serotonin Syndrome given buspar, lexapro, requip, and seroquil combo therapy - Hold all seritonergic medications, reintroduce gradually. Myoclonic Jerking - Neuro consulted. Recommend Keppra 500mg IV x12h despite EEG, and may consider Keppra taper based on clinical course. 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 Concern expressed by caregivers that he may have missed 4 doses, then taken his course of levaquin all at once. - Cefepime as below - Following CPAP/BiPAP ABG 7.35/74/91/41 on admit, intubated for AMS and respiratory failure - ABG today: 7.39/64/73/39 on O2 40% Continue ventilation, ACVC. ABG every morning - Reportedly on 10mg prednisone CHIEF ADMINISTRATIVE OFFICER. - Solumedrol 60mg IV Q8H x1 day then 60mg BID - Duonebs Q4R [facility] - Lasix 80mg daily GI - Impact, trophic feeds via OG RENAL/LYTES - Cr 0.72, no JENNIFER - Potassium 3.0. +K Riders 40meQ - BMP daily - Replace lytes as needed. - Stubbs in place Follow I&Os ENDO - T2DM - HgbA1C 8.1% - Reportedly with wide BSG swings at home. - CHIEF ADMINISTRATIVE OFFICER on U-500 insulin - Glycemic consult placed HEME - Hgb 12, no signs of bleeding ID - ?Community Acquired PNA, previously on Levaquin tx - WBC 12 from 17, afebrile. Leukocytosis was also in setting of CHIEF ADMINISTRATIVE OFFICER steroid use. - CTA-Chest shows mild dependent effusion, CXR unremarkable. Urine negative - Empiric cefepime 2g Q8H - Trend fever curve INTEGUMENTARY - Psoriasis - Diffuse psoriasis of the scalt, legs, arms, and flank - On MTX weekly therapy. Next dose due Mo@0900. - Pt may have mild immunosuppresion 2/2 chronic MTX regimen LINES/IV ACCESS - PIVs intact. R a line in place. PROPHYLAXIS - DVT: Enoxaparin 40mg SQ Ulcer: Ranitidine 150mg PO daily Thank you for allowing us to be part of this patient's care. Please refer to Dr. Delacruz's documentation for any further recommendations. Resident Activity Tracking Resident Involvement: Resident Care Provided Care Provided: Adult [facility] Medicine Supervising Physician Co-Signing Physician Notes Dr. Willis was resident physician during care of patient. I separately evaluated patient for pedersen portions of the history and the exam. I was present during the critical portion of medical decision making, and I discussed the case with the resident. I generally agree with the findings and plan. I am concerned the patient's altered mental status may be pharmacy sales representative of a serotonin syndrome given the multiple serotonergic medications and polypharmacy. At this time we will withhold these medications, add Keppra per neurology recommendations. We will attempt to wean his ventilatory support. The patient does not appear to have a significant obesity hypoventilation syndrome previously, I suspect he has underlying COPD as well as obesity related hypoventilation. I have personally spent 35 minutes of critical care time in the direct management of this patient. This is a life/limb threatening event. This includes time spent evaluating patient, direct bedside care, chart review, placing orders, interpretation of diagnostic studies, discussion with consultants, patient, and/or family members regarding treatment decisions, as well as other required patient management activities. This time is exclusive of all separately billable procedures, and teaching time and separate from and in addition to any other critical care service time.
[2019-07-22] MEDS: PREGABALIN 50 MG CAP PO SCH ×2 (11:25→20:56)
[2019-07-22] MEDS: CEFEPIME 2,000 MG in SYRINGE 7.5 ML IV SCH ×2 (11:25→17:36)
[2019-07-22] MEDS ORDERED: ICU ELECTROLYTE REPLACEMENT PROTOCOL PRN (11:47)
[2019-07-22] MEDS ORDERED: INSULIN ASPART 100 UNITS/ML 3 ML PEN SC SCH (12:00)
[2019-07-22] MEDS ORDERED: INSULIN ASPART 100 UNITS/ML 3 ML PEN SC ONE (12:45)
[2019-07-22] MEDS ORDERED: INSULIN GLARGINE SOLOSTAR 100 UNITS/ML 3 ML PEN SC ONE (12:45)
--- NOTE | 2019-07-22 13:07 | Pharmacy Report ---
Pharmacy Glycemic Short Note 2 - Date of Service July 22, 2019 - Glycemic Short BSG Results (Last 24 hours): 07/21/19 07/21/19 07/21/19 18:11 18:52 20:43 Glucose 88 POC Glucose 93 107 H 07/21/19 07/21/19 07/22/19 23:23 23:32 06:11 Glucose 140 H 173 H POC Glucose 141 H 07/22/19 07/22/19 06:35 12:06 Glucose POC Glucose 171 H 149 H OUTPATIENT ANTIDIABETIC REGIMEN (home regimen uncertain): * U-500 Regular insulin: 90 units w/ breakfast if BSG > 200, 60 units w/ lunch if BSG > 200, 70 units w/ dinner if BSG > 200 * Trulicity (dulaglutide) 1.5mg SQ weekly * Metformin 1gm PO Q PM ASSESSMENT: * Type 2 diabetic admitted for confusion, myoclonus and acute on chronic resp failure. * Level of glycemic control prior to admission uncertain, will check A1c * Patient remains intubated and sedated this AM, BSGs acceptable thus far however he will be starting high dose IV steroids, continuous tube feeds ("trickle rate" today) and IV abx for possible pulm infxn (vs pulm edema) * Given pt's body habitus, recorded outpt regimen, and new stressors that will likely contribute to hyperglycemia, will adjust SQ insulin doses such that Novolog doses are in line with "severe stress" and dosed per Adjusted BW. Will increase Lantus dose and give per scale given uncertain response to "trickle feeds" * Will add order to begin IV insulin infusion if BSGs rise despite the new SQ basal/bolus orders PLAN FOR INPATIENT GLYCEMIC CONTROL: * Check A1c with next lab draw * Hold outpatient oral diabetes medications (dulaglutide, metformin) * Basal insulin * Lantus 8 units additional x 1 (to make this AM's dose = 18 units) * Lantus SQ BID per scale: * 0 units if BSG less than 110 * 18 units if BSG 110-160 * 27 units if BSG greater than 160 * Bolus insulin * NovoLog per scale Q 4 hrs * Goal Range: Low 110 mg/dL - High 140 mg/dL * Correction Factor: 15 mg/dL/unit * Nutritional / Prandial insulin per carb ratio of 1 unit per 5 grams CHO consumed * Begin IV insulin infusion if BSGs > 180 x 2 or if >220 x 1, utilize "severe" stress protocol with goal range 110-180 PLAN FOR DISCHARGE: * to be determined
--- NOTE | 2019-07-22 15:18 | Billing Data ---
Coding Level of Care Code Critical Care karly addt'l 30 min
[2019-07-22] MEDS ORDERED: MIDAZOLAM HCL 5 MG/ML VIAL IV ONE (15:36)
[2019-07-22] MEDS ORDERED: KETAMINE HCL INJ 50 MG/ML 10 ML VIAL IV ONE (15:36)
[2019-07-22] MEDS ORDERED: SUCCINYLCHOLINE CHLORIDE 20 MG/ML 10 ML VIAL IV ONE (15:36)
[2019-07-22] MEDS ORDERED: fentaNYL citrate 100 MCG/2 ML VIAL IV ONE (15:36)
[2019-07-22] MEDS: PEPTAMEN INTENSE VHP 1.0 CAL 1,000 ML BAG OG SCH (16:40)
[2019-07-22] MEDS: INSULIN ASPART 100 UNITS/ML 3 ML PEN SC SCH ×3 (16:44→21:18)
[2019-07-22 17:01] LABS: BUN Creatinine Ratio 28.6 (10-20); Calcium 9.1 mg/dl (8.5-10.1); Creatinine Clr Calc Pharmacy 152.2 ml/min; Est GFR (African American) 113.3; Est GFR (Non-African American) 97.8; Potassium 3.3 mmol/L (3.5-5.1)
[2019-07-22] MEDS: ENOXAPARIN INJ 40 MG/0.4 ML SYR SQ SCH (20:53)
[2019-07-22] MEDS: INSULIN REGULAR 250 UNITS in SODIUM CHLORIDE 0.9% 247.5 ML IV SCH (21:13)
[2019-07-22] MEDS ORDERED: NovoLIN-R BOLUS FROM BAG IV ONE (21:15)
[2019-07-22 23:38] LABS: BUN Creatinine Ratio 32.8 (10-20); Calcium 9.2 mg/dl (8.5-10.1); Creatinine Clr Calc Pharmacy 154.2 ml/min; Est GFR (African American) 113.9; Est GFR (Non-African American) 98.3; Magnesium 2.3 mg/dl (1.8-2.4); Potassium 3.3 mmol/L (3.5-5.1)
[2019-07-22] MEDS ORDERED: POTASSIUM CHLORIDE 20 MEQ/15 ML UDC PO STA (23:42)
[2019-07-23] MEDS ORDERED: Nursing to Pharmacy Communication ONE (00:20)
[2019-07-23] MEDS: CEFEPIME 2,000 MG in SYRINGE 7.5 ML IV SCH ×3 (01:35→17:33)
[2019-07-23] MEDS: methylPREDNISolone 60 MG in SYRINGE 0 ML IV SCH ×2 (01:35→13:36)
[2019-07-23] MEDS: ALBUT/IPRATROP 3MG/0.5MG NEB 3 ML VIAL NEB SCH ×6 (03:41→19:08)
[2019-07-23] MEDS: POTASSIUM CHLORIDE 20 MEQ/15 ML UDC GT SCH ×2 (04:14→08:01)
[2019-07-23 04:41] LABS: Hematocrit (blood only) 38.6 % (42-52); Hemoglobin 12.9 g/dL (14.0-18.0); Immature Granulocytes # (auto) 0.03 K/uL (0.00-0.02); Immature Granulocytes % (auto) 0.2 %; Lymphocytes # (auto) 0.75 K/uL (1.2-3.4); Lymphocytes % (auto) 5.6 %; Mean Corpuscular Hemoglobin 29.9 pg (25-34); Mean Corpuscular Hgb Conc 33.4 g/dL (32-36); Mean Corpuscular Volume 89.6 fL (80-100); Mean Platelet Volume 9.5 fL (7.4-10.4); Monocytes # (auto) 0.36 K/uL (0.11-0.59); Monocytes % (auto) 2.7 %; Neutrophils # (auto) 12.23 K/uL (1.4-6.5); Neutrophils % (auto) 91.5 %; Platelet Count 284 K/uL (130-400); RDW Coefficient of Variation 13.5 % (11.5-14.5); RDW Standard Deviation 44.2 fL (36.4-46.3); Red Blood Count 4.31 M/uL (4.7-6.1); White Blood Count 13.37 K/uL (4.8-10.8)
[2019-07-23 05:03] LABS: Albumin Level 2.9 gm/dl (3.4-5.0); BUN Creatinine Ratio 32.6 (10-20); Calcium 8.9 mg/dl (8.5-10.1); Creatinine Clr Calc Pharmacy 146.7 ml/min; Est GFR (African American) 112.1; Est GFR (Non-African American) 96.7; Magnesium 2.3 mg/dl (1.8-2.4); Potassium 3.2 mmol/L (3.5-5.1)
[2019-07-23 05:19] LABS: Bilirubin Direct 0.1 mg/dl (0-0.2); Bilirubin,Total 0.3 mg/dl (0.2-1); Total Protein 7.2 gm/dl (6.4-8.2)
[2019-07-23 06:04] LABS: iSTAT Arterial Blood Gas HCO3 40 meg/L (19-24); iSTAT Arterial Blood Gas pCO2 61 mmHg (35-46); iSTAT Arterial Blood Gas pH 7.42 (7.35-7.45); iSTAT Arterial Blood Gas pO2 78 mmHg (80-95); iSTAT Carbon Dioxide > 40 mEq/l (24-31); iSTAT Site Art Line
--- NOTE | 2019-07-23 07:21 | XRay Report ---
XR chest 1V portable HISTORY: Shortness of breath. Follow-up. COMPARISON: Chest 07/22/2019. FINDINGS: Mild interstitial pulmonary edema has slightly improved. Trace bilateral pleural effusions and mild cardiomegaly persist. Endotracheal tube terminates 5 cm from the marvin. No pneumothorax. No new focal lung consolidations. Old posttraumatic changes within the right lower ribs are again noted . The distal endotracheal tube is not well visualized but is seen at least at the level to the distal esophagus. However, this was located within the stomach on yesterday's CT. IMPRESSION: 1. Mild interstitial pulmonary edema slightly improved. 2. Mild cardiomegaly and trace bilateral pleural effusions persist. 3. The distal endotracheal tube is not well visualized but is seen at least at the level to the dista l esophagus. However, this was demonstrated to be within the stomach on yesterday's CT. Electronically signed by: Edgar Fink M.D. 07/23/2019 7:19 AM
[2019-07-23] MEDS: INSULIN GLARGINE SOLOSTAR 100 UNITS/ML 3 ML PEN SC SCH ×2 (08:00→20:28)
[2019-07-23] MEDS: FOLIC ACID 1 MG TAB PO SCH (08:02)
[2019-07-23] MEDS: carvediloL 3.125 MG TAB PO SCH ×2 (08:02→21:24)
[2019-07-23] MEDS: metOLazone 5 MG TABLET PO SCH (08:02)
[2019-07-23] MEDS: FUROSEMIDE 80 MG TAB PO SCH (08:02)
[2019-07-23] MEDS: ASPIRIN 81 MG CHEW NG SCH (08:02)
[2019-07-23] MEDS: ENOXAPARIN INJ 40 MG/0.4 ML SYR SQ SCH ×2 (08:03→21:25)
[2019-07-23] MEDS: ATORVASTATIN 40 MG TAB PO SCH (08:03)
[2019-07-23] MEDS: RANITIDINE HCL SYRUP 150 MG/10 ML 480ML PO SCH (08:04)
[2019-07-23] MEDS: lisinopriL 5 MG TAB PO SCH (08:04)
[2019-07-23] MEDS: PREGABALIN 50 MG CAP PO SCH ×2 (08:06→21:26)
--- NOTE | 2019-07-23 08:52 | Hospitalist Progress Note ---
Date of Service July 23, 2019 Assessment & Plan (1) Myoclonic jerking: Mental status unable to be assessed considering critical care sedation. I did review neurology input and the patient is now back on Keppra 500 mg IV every 12. I did also note that there is consideration to serotonin syndrome. Patient multiple serotonergic medications have been held, we should monitor for improvement. (2) Confusion: Patient now with VDRF, mental status cannot be evaluated further. He was reportedly having myoclonic jerking prior to his acute decompensation. Consideration that this may have been hypercapnia versus medication compliance versus another metabolic cause. will need to reassess once patient is more stable (3) Psoriasis: Chronic. Continue methotrexate 7.5 mg p.o. q. weekly (4) Congestive heart failure: Patient having diuresed in the ICU. Patient is currently on Lasix 80 mg daily, will need to be converted over to IV. Defer to utility bag assembler to monitor this. , Replete potassium IV. (5) Depression: Chronic. Continue escitalopram 20 mg p.o. daily Continue Cymbalta 60 mg p.o. daily (6) Anxiety: Chronic. Stable. -Continue escitalopram, Cymbalta, buspirone at home doses (7) Diabetes: Blood sugar stable at present. Caregiver reports erratic blood sugars ranging from the 80s to the 500s. Question medication adherence Lantus 10 units twice daily Insulin sliding scale -Continue Lyrica 50 mg p.o. twice daily Continue to monitor (8) Asthma: Stable respiratory status at present. Diminished breath sounds. No active wheezing. Duo nebs Albuterol as needed (9) Chronic hypercapnic respiratory failure: Suspect patient has a degree of obesity hypoventilation syndrome and obstructive sleep apnea, will likely need BiPAP or CPAP at a later time, defer evaluation for this while patient is acutely ill. (10) COPD (chronic obstructive pulmonary disease) case management patient: Chronic. No acute wheezing at this time. Patient with adequate oxygenation on his home 3 L. Duo nebs Albuterol Continue supplemental oxygen (11) GERD (gastroesophageal reflux disease): Chronic. Stable. ProphylaxisLovenox Codefull per discussion with patient Subjective Patient seen and examined the ICU. He remains obtunded on ventilator. Nursing tells me that the patient has been agitated and is on a Versed drip that was just titrated up to 8 mg an hour. Patient is otherwise stable from a respiratory standpoint. Physical Exam Physical Exam: Gen: Sedated, intubated, ventilated HEENT: neck supple, no JVD. MMM. Heart: RR, no murmurs, limited exam Lungs: clear to auscultation in all tucker, limited exam Abd: soft, morbidly obese, diminished bowel sounds. Neuro: Sedated as noted above Ext: No clubbing, cyanosis, edema Results & Data Vital Signs (Past 12 Hours) Vital Signs Temp Pulse Resp BP Pulse Ox 07/23/19 07:44 90 20 94 07/23/19 06:01 95 H 94 07/23/19 06:00 94 H 151/75 H 95 07/23/19 05:30 99 H 96 07/23/19 05:00 93 H 139/75 97 07/23/19 04:30 94 H 97 07/23/19 04:00 89 171/70 H 91 07/23/19 03:46 88 20 90 07/23/19 03:30 88 92 07/23/19 03:00 90 149/74 H 91 07/23/19 02:30 84 89 L 07/23/19 02:00 36.9 C 88 166/88 H 94 07/23/19 01:30 94 H 93 07/23/19 01:01 100 H 96 07/23/19 01:00 88 163/79 H 97 07/23/19 00:30 83 92 07/23/19 00:01 86 94 07/23/19 00:00 97 H 163/70 H 96 07/22/19 23:56 96 H 20 93 07/22/19 23:30 87 07/22/19 23:23 91 H 07/22/19 23:00 36.8 C 88 152/74 H 07/22/19 22:30 85 07/22/19 22:01 84 07/22/19 22:00 88 133/71 07/22/19 21:26 20 93 07/22/19 21:01 96 H 07/22/19 21:00 36.8 C 89 151/87 H PG Care Time/CCT Total # of Minutes Spent Total Time Spent with Patient: Total time spent is greater than 50% in coordination of care (as documented) at patient's floor/unit and/or counseling patient: (1) Congestive heart failure Heart failure type: combined systolic and diastolic Heart failure chronicity: acute on chronic Qualified Code(s): I50.43 - Acute on chronic combined systolic (congestive) and diastolic (congestive) heart failure (2) Depression Depression Type: major depressive disorder Major depression recurrence: unspecified whether recurrent Active/Remission status: remission status un specified Qualified Code(s): F32.9 - Major depressive disorder, single episode, unspecified (3) Diabetes Diabetes mellitus type: type 2 Diabetes mellitus senior care insulin use: with senior care use Diabetes mellitus complication status: without complication Qualified Code(s): E11.9 - Type 2 diabetes mellitus without complications; Z79.4 - snf (current) use of insulin (4) GERD (gastroesophageal reflux disease) Esophagitis presence: esophagitis presence not specified Qualified Code(s): K21.9 - Gastro-esophageal reflux disease without esophagitis
[2019-07-23] MEDS ORDERED: POTASSIUM CHLORIDE / WTR 10 MEQ/100 ML PLCT IV SCH (09:00)
[2019-07-23] MEDS ORDERED: RANITIDINE HCL SYRUP 150 MG/10 ML UDC NG SCH (09:00)
--- NOTE | 2019-07-23 09:28 | Neurology Progress Note ---
Date of Service July 23, 2019 Assessment & Plan (1) Myoclonic jerking: Improved generalized myoclonus in the context of chronic hypoxic, hypercapnic respiratory failure. Please see initial neurology consult for further clinical context. No evidence for seizure activity on yesterday's EEG. Patient's myoclonus is responding well to Keppra IV and I would recommend continuing with this treatment. As indicated previously, however, Keppra could potentially be tapered off as this patient's clinical status improves. Subjective Follow-up for myoclonus This patient's intermittent myoclonic jerking seems much improved compared with yesterday. Keppra IV has been started. His recent EEG was negative for epileptiform abnormalities. Patient remains in the ICU on the ventilator. He does seem to arouse a bit more easily today and attempts to grab lines. Tactile stimulation does not seem to induce myoclonic jerking at this time. See yesterday's initial neurology consultation for further details pertaining to this patient's history of present illness. Review of Systems Review of Systems: Unobtainable due to endotracheal tube Physical Exam Physical Exam: As above, the patient remains in the ICU on the mechanical ventilator. He arouses to tactile stimulation and will briefly open his eyes. He attempts to grab at lines. He appears to be calm modestly agitated with stimulation. He does not exhibit any spontaneous myoclonic jerking. Tactile stimulation does not appear to induce significant myoclonic jerking or abnormal movements. Results & Data Vital Signs (Past 12 Hours) Vital Signs Temp Pulse Resp BP Pulse Ox 07/23/19 08:30 100 H 95 07/23/19 08:00 37.2 C 99 H 149/70 H 91 07/23/19 07:57 101 H 163/68 H 95 07/23/19 07:44 90 20 94 07/23/19 07:30 94 H 94 07/23/19 07:01 97 H 94 07/23/19 07:00 96 H 160/70 H 95 07/23/19 06:01 95 H 94 07/23/19 06:00 94 H 151/75 H 95 07/23/19 05:30 99 H 96 07/23/19 05:00 93 H 139/75 97 07/23/19 04:30 94 H 97 07/23/19 04:00 89 171/70 H 91 07/23/19 03:46 88 20 90 07/23/19 03:30 88 92 07/23/19 03:00 90 149/74 H 91 07/23/19 02:30 84 89 L 07/23/19 02:00 36.9 C 88 166/88 H 94 07/23/19 01:30 94 H 93 07/23/19 01:01 100 H 96 07/23/19 01:00 88 163/79 H 97 07/23/19 00:30 83 92 07/23/19 00:01 86 94 07/23/19 00:00 97 H 163/70 H 96 07/22/19 23:56 96 H 20 93 07/22/19 23:30 87 07/22/19 23:23 91 H 07/22/19 23:00 36.8 C 88 152/74 H 07/22/19 22:30 85 07/22/19 22:01 84 07/22/19 22:00 88 133/71 07/22/19 21:26 20 93
--- NOTE | 2019-07-23 09:29 | Critical Care Progress Note ---
Date of Service July 23, 2019 Assessment & Plan (1) Admitted to intensive care unit: Reason Critically Ill: 64-year-old male here with a PMHx significant for COPD, CHF, psoriasis, DM, and morbid obesity (admit weight 154kg) who presented with altered mental status and who was admitted for acute hypercarbic respiratory failure requiring intubation Neuro - [facility] ICU:POSITIVE Sedation: Verset gtt, fentanyl push PRN Altered Mental Status suspect 2/2 hypercarbic Metabolic Encephalopathy - See respiratory below - Admit CT naf, UTox negative, BMP without acute derangement. - EEG did not show any seizure activity - DDx includes levaquin toxicity (see below) Concern for Serotonin Syndrome given buspar, lexapro, requip, and seroquil combo therapy - No hypothermia, diaphoresis, rigidity, persistent tremors - Hold all seritonergic medications, reintroduce gradually. - Restart Lexapro 20mg daily today Myoclonic Jerking, improved - Neuro consulted. Recommend Keppra 500mg IV x12h despite EEG, and may consider Keppra taper based on clinical course. - Keppra 500mg Q12H Cardiac - History of CHF, no echo on file - TTE: normal LVEF, no wall motion abnormalities, no RV abnormalities - Continue Lisinopril 5mg daily - Continue Atorvastatin 40mg daily - Continue carvedilol 3.125mg PO BID - Lasix 80mg daily - +Diamox x1 dose Respiratory - Acute on Chronic Hypercarbic Respiratory Failure - COLON AND RECTAL SURGEON patient was seen for bronchitis/PNA and was prescribed levaquin. Concern expressed by caregivers that he may have missed 4 doses, then taken his course of levaquin all at once. - Following CPAP/BiPAP ABG 7.35/74/91/41 on admit, intubated for AMS and respiratory failure Continue ventilation, ACVC. ABG every morning - Reportedly on 10mg prednisone COLON AND RECTAL SURGEON. - Solumedrol 60mg IV Q8H x1 day then 60mg BID - Duonebs Q4R RALF - Lasix 80mg daily, 1x dose diamox as above ?CAP Pneumonia - See ID below GI - Impact, trophic feeds via OG RENAL/LYTES - Cr 0.78, no JENNIFER - Potassium 3.2. +K Riders 40meQ - BMP daily - Replace lytes as needed. FLOR - Stubbs in place Follow I&Os ENDO - T2DM - HgbA1C 8.1% - Reportedly with wide BSG swings at home. - COLON AND RECTAL SURGEON on U-500 insulin - Glycemic consult placed - BSG ~160s this morning HEME - Hgb 12.9, no signs of bleeding ID - ?Community Acquired PNA, previously on Levaquin tx - WBC 12 from 17, afebrile. Leukocytosis was also in setting of COLON AND RECTAL SURGEON steroid use. - CTA-Chest shows mild dependent effusion, CXR unremarkable. Urine negative - Empiric cefepime 2g Q8H - Trend fever curve - Pt reportly on Levaquin as outpt as above - Continue Cefepime 2g Q8H - Add doxycycline 100mg BID x10 days with loading dose for atypical coverage - Anticipate bronchoscopy pending consent/discussion with family INTEGUMENTARY - Psoriasis - Diffuse psoriasis of the scalt, legs, arms, and flank - On MTX weekly therapy. Next dose due Mo@0900. - Pt may have mild immunosuppresion 2/2 chronic MTX regimen LINES/IV ACCESS - PIVs intact. R a line in place. PROPHYLAXIS - DVT: Enoxaparin 40mg SQ Ulcer: Ranitidine 150mg PO daily Thank you for allowing us to be part of this patient's care. Please refer to Dr. Delacruz's documentation for any further recommendations. (2) Acute respiratory distress syndrome: (3) Seizure-like activity: (4) Obesity hypoventilation syndrome: (5) Acute and chronic respiratory failure with hypercapnia: (6) Altered mental status: (7) Psoriasis: (8) Congestive heart failure: (9) Depression: (10) Anxiety: (11) Diabetes: (12) Asthma: (13) Dyspnea: (14) Dependence on continuous supplemental oxygen: Supervising Physician Co-Signing Physician Notes Dr. Willis was resident physician during care of patient. I separately evaluated patient for pedersen portions of the history and the exam. I was present during the critical portion of medical decision making, and I discussed the case with the resident. I generally agree with the findings and plan. Patient was discussed in multidisciplinary rounds. Aggressive diuresis today, increasing oxygen requirement will continue with high-dose steroids. Continue with current antibiotics. Late in the day I was able to contact the patient's sister who did give consent for bronchoscopy. At that time the patient's oxygen nation was improving and decreasing ventilator requirements so I deferred bronchoscopy at that time. Patient remains critically ill due to COPD exacerbation with acute on chronic hypoxic and hypercapnic respiratory failure. Subjective Limited 2/2 ETT. No myoclonic jerks this morning.Withdraws to noxious stimuli. No family at bedside at time of visit. Review of Systems Review of Systems: Unobtainable due to endotracheal tube Physical Exam Physical Exam: General: Sedated, ETT in place. No acute distress. Morbidly obese. Withdraws to noxious stimuli, does not arouse or follow commands. Skin: Diffuse plaques with white scale consistent with psoriasis present on skull, posterior neck, posterior aspect of the forearm/elbows, flank, and legs. HEENT: Atraumatic, normocephalic. Pupils equal and reactive to light bilaterally. Does not maintain focus gaze. Pulm: Diminished, distant breath sounds. No overt wheezes or rales appreciated. Symmetrical chest rise. On ventilator, AC VC 20/500 cc/8 PEEP/40% Cardiac: Distant heart sounds. RRR, -mrg. Intermittent PVCs appreciated on telemetry. radial pulses intact and symmetrical. Abdominal: Obese, nontender, soft. BS present. Extremities: Capillary refill in hallux and thumb approximately 2 seconds. Warm, dry. Unable to perform strength testing due to sedation. Results & Data Vital Signs (Past 12 Hours) Vital Signs Temp Pulse Resp BP Pulse Ox 07/23/19 08:30 100 H 95 07/23/19 08:00 37.2 C 99 H 149/70 H 91 07/23/19 07:57 101 H 163/68 H 95 07/23/19 07:44 90 20 94 07/23/19 07:30 94 H 94 07/23/19 07:01 97 H 94 07/23/19 07:00 96 H 160/70 H 95 07/23/19 06:01 95 H 94 07/23/19 06:00 94 H 151/75 H 95 07/23/19 05:30 99 H 96 07/23/19 05:00 93 H 139/75 97 07/23/19 04:30 94 H 97 07/23/19 04:00 89 171/70 H 91 07/23/19 03:46 88 20 90 07/23/19 03:30 88 92 07/23/19 03:00 90 149/74 H 91 12/04/19 02:30 84 89 L 07/23/19 02:00 36.9 C 88 166/88 H 94 07/23/19 01:30 94 H 93 07/23/19 01:01 100 H 96 07/23/19 01:00 88 163/79 H 97 07/23/19 00:30 83 92 07/23/19 00:01 86 94 07/23/19 00:00 97 H 163/70 H 96 07/22/19 23:56 96 H 20 93 07/22/19 23:30 87 07/22/19 23:23 91 H 07/22/19 23:00 36.8 C 88 152/74 H 07/22/19 22:30 85 07/22/19 22:01 84 07/22/19 22:00 88 133/71 Critical Care Time Critical Care Time: Yes I have personally spent 45 minutes of critical care time in the direct management of this patient. This is a life/limb threatening event. This includes time spent evaluating patient, direct bedside care, chart review, placing orders, interpretation of diagnostic studies, discussion with consultants, patient, and/or family members regarding treatment decisions, as well as other required patient management activities. This time is exclusive of all separately billable procedures, and teaching time and separate from and in addition to any other critical care service time. Resident Activity Tracking Resident Involvement: Resident Care Provided Care Provided: Adult Hospital Medicine (1) Diabetes Diabetes mellitus complication status: without complication Diabetes mellitus group home insulin use: with long term care pharmacist use Diabetes mellitus type: type 2 Qualified Code(s): E11.9 - Type 2 diabetes mellitus without complications; Z79.4 - rn long term care (current) use of insulin (2) Congestive heart failure Heart failure chronicity: acute on chronic Heart failure type: combined systolic and diastolic Qualified Code(s): I50.43 - Acute on chronic combined systolic (congestive) and diastolic (congestive) heart failure (3) Depression Active/Remission status: remission status unspecified Depression Type: major depressive disorder Major depression recurrence: unspecified whether recurrent Qualified Code(s): F32.9 - Major depressive disorder, single episode, unspecified
[2019-07-23] MEDS: fentaNYL citrate 100 MCG/2 ML VIAL IV PRN ×3 (09:58→16:38)
[2019-07-23] MEDS ORDERED: acetaZOLAMIDE 500 MG in SYRINGE 0 ML IV ONE (10:15)
[2019-07-23] MEDS ORDERED: DOXYCYCLINE HYCLATE 100 MG CAP PO ONE (10:15)
[2019-07-23] MEDS: INSULIN ASPART 100 UNITS/ML 3 ML PEN SC SCH (10:16)
[2019-07-23] MEDS: POTASSIUM CHLORIDE 20 MEQ/15 ML UDC PO SCH ×2 (10:18→21:24)
[2019-07-23] MEDS: FUROSEMIDE 80 MG in SYRINGE 0 ML IV SCH ×2 (10:36→21:25)
[2019-07-23] MEDS: MIDAZOLAM HCL 125 MG/250 ML BAG IV SCH (10:40)
[2019-07-23 12:23] LABS: BUN Creatinine Ratio 32.7 (10-20); Calcium 9.1 mg/dl (8.5-10.1); Est GFR (African American) 107.7; Est GFR (Non-African American) 92.9; Potassium 3.4 mmol/L (3.5-5.1)
--- NOTE | 2019-07-23 13:28 | Pharmacy Report ---
Pharmacy Glycemic Short Note 2 - Date of Service July 23, 2019 - Glycemic Short BSG Results (Last 24 hours): 07/22/19 07/22/19 07/22/19 16:26 16:37 20:37 Glucose 202 H POC Glucose 209 H 184 H 07/22/19 07/22/19 07/22/19 22:11 23:10 23:12 Glucose 166 H POC Glucose 199 H 167 H 07/23/19 07/23/19 07/23/19 00:17 01:08 02:10 Glucose POC Glucose 163 H 162 H 184 H 07/23/19 07/23/19 07/23/19 03:16 04:17 04:29 Glucose 160 H POC Glucose 163 H 137 H 07/23/19 07/23/19 07/23/19 05:24 06:07 07:14 Glucose POC Glucose 151 H 149 H 163 H 07/23/19 07/23/19 07/23/19 09:13 11:12 11:49 Glucose 204 H POC Glucose 175 H 185 H 07/23/19 07/23/19 12:15 13:16 Glucose POC Glucose 192 H 187 H OUTPATIENT ANTIDIABETIC REGIMEN (home regimen uncertain): * U-500 Regular insulin: 90 units w/ breakfast if BSG > 200, 60 units w/ lunch if BSG > 200, 70 units w/ dinner if BSG > 200 * Trulicity (dulaglutide) 1.5mg SQ weekly * Metformin 1gm PO Q PM * A1c = 8.1% 07/22/19 ASSESSMENT: 07/23 * Insulin drip initiated yesterday evening due to 2 BSGs > 180. Drip currently running at 7.8units/hr - this is with 54 units of basal insulin on board * BSGs well controlled with drip * Patient remains intubated, agitated this AM despite current sedation (but adjustments being made), IV Solumedrol dose reduced to 60mg Q 12 hrs, but tube feeds being titrated up * Suspect insulin needs will still be significant enough to warrant continued continuing drip at this time 07/22 * Type 2 diabetic admitted for confusion, myoclonus and acute on chronic resp failure. * Level of glycemic control prior to admission uncertain, will check A1c * Patient remains intubated and sedated this AM, BSGs acceptable thus far however he will be starting high dose IV steroids, continuous tube feeds ("trickle rate" today) and IV abx for possible pulm infxn (vs pulm edema) * Given pt's body habitus, recorded outpt regimen, and new stressors that will likely contribute to hyperglycemia, will adjust SQ insulin doses such that Novolog doses are in line with "severe stress" and dosed per Adjusted BW. Will increase Lantus dose and give per scale given uncertain response to "trickle feeds" * Will add order to begin IV insulin infusion if BSGs rise despite the new SQ basal/bolus orders PLAN FOR INPATIENT GLYCEMIC CONTROL: * Hold outpatient oral diabetes medications (dulaglutide, metformin) * Continue IV insulin infusion, goal range 110-180 * Basal insulin * Continue Lantus 27 units SQ BID at this time (with the IV insulin drip to allow for easier transition off the drip in the future) * Bolus insulin * None needed at this time - will utilize insulin drip to cover carbs in continuous tube feeds * Reassess insulin needs with each step down in steroid dose PLAN FOR DISCHARGE: * to be determined
[2019-07-23] MEDS: DOXYCYCLINE HYCLATE 100 MG CAP PO SCH (21:26)
[2019-07-23] MEDS: INSULIN REGULAR 250 UNITS in SODIUM CHLORIDE 0.9% 247.5 ML IV SCH (21:27)
[2019-07-23 22:01] LABS: BUN Creatinine Ratio 35.3 (10-20); Calcium 9.2 mg/dl (8.5-10.1); Creatinine Clr Calc Pharmacy 121.7 ml/min; Est GFR (African American) 100.3; Est GFR (Non-African American) 86.5; Magnesium 2.5 mg/dl (1.8-2.4); Potassium 3.3 mmol/L (3.5-5.1)
[2019-07-23 22:09] LABS: Phosphorus 3.8 mg/dl (2.5-4.9)
[2019-07-23] MEDS ORDERED: POTASSIUM CHLORIDE 20 MEQ/15 ML UDC PO STA (22:26)
[2019-07-23] MEDS: POTASSIUM CHLORIDE / WTR 10 MEQ/100 ML PLCT IV SCH ×2 (22:39→23:37)
[2019-07-23] MEDS: PEPTAMEN INTENSE VHP 1.0 CAL 1,000 ML BAG OG SCH (23:11)
[2019-07-24] MEDS: ALBUT/IPRATROP 3MG/0.5MG NEB 3 ML VIAL NEB SCH ×7 (00:02→23:15)
[2019-07-24] MEDS: MIDAZOLAM HCL 125 MG/250 ML BAG IV SCH ×3 (00:54→19:54)
[2019-07-24] MEDS: POTASSIUM CHLORIDE / WTR 10 MEQ/100 ML PLCT IV SCH ×6 (01:19→10:14)
[2019-07-24] MEDS: CEFEPIME 2,000 MG in SYRINGE 7.5 ML IV SCH ×3 (02:06→17:43)
[2019-07-24] MEDS: methylPREDNISolone 60 MG in SYRINGE 0 ML IV SCH (02:07)
[2019-07-24 04:56] LABS: Hematocrit (blood only) 37.4 % (42-52); Hemoglobin 12.7 g/dL (14.0-18.0); Immature Granulocytes # (auto) 0.05 K/uL (0.00-0.02); Immature Granulocytes % (auto) 0.3 %; Lymphocytes # (auto) 0.82 K/uL (1.2-3.4); Lymphocytes % (auto) 5.2 %; Mean Corpuscular Hemoglobin 30.8 pg (25-34); Mean Corpuscular Volume 90.8 fL (80-100); Mean Platelet Volume 9.9 fL (7.4-10.4); Monocytes # (auto) 0.99 K/uL (0.11-0.59); Monocytes % (auto) 6.2 %; Neutrophils # (auto) 14.04 K/uL (1.4-6.5); Neutrophils % (auto) 88.3 %; Platelet Count 294 K/uL (130-400); RDW Coefficient of Variation 13.9 % (11.5-14.5); RDW Standard Deviation 45.5 fL (36.4-46.3); Red Blood Count 4.12 M/uL (4.7-6.1)
--- NOTE | 2019-07-24 05:13 | Critical Care Progress Note ---
Date of Service July 24, 2019 Assessment & Plan (1) Admitted to intensive care unit: Reason Critically Ill: 64-year-old male here with a PMHx significant for COPD, CHF, psoriasis, DM, and morbid obesity (admit weight 154kg) who presented with altered mental status and who was admitted for acute hypercarbic respiratory failure requiring intubation Neuro - [facility] ICU:POSITIVE Sedation: Versed to propofol with fentanyl push for pain Altered Mental Status suspect 2/2 hypercarbic Metabolic Encephalopathy - See respiratory below - Admit CT naf, UTox negative, BMP without acute derangement. - EEG did not show any seizure activity - DDx includes levaquin toxicity (see below) Concern for Serotonin Syndrome given buspar, lexapro, requip, and seroquil combo therapy - No hypothermia, diaphoresis, rigidity, persistent tremors - Lexapro 20mg daily. Continue BuSpar. Hold Requip and Seroquel at this time. Myoclonic Jerking, improved - Neuro consulted. Recommend Keppra 500mg IV x12h despite EEG, and may consider Keppra taper based on clinical course. - Keppra 500mg Q12H Cardiac - History of CHF, no echo on file - TTE: normal LVEF, no wall motion abnormalities, no RV abnormalities - Continue Lisinopril 5mg daily - Continue Atorvastatin 40mg daily - Continue carvedilol 3.125mg PO BID - Lasix 80mg daily Respiratory - Acute on Chronic Hypercarbic Respiratory Failure - HEALTH RECORD TECHNICIAN patient was seen for bronchitis/PNA and was prescribed levaquin. Concern expressed by caregivers that he may have missed 4 doses, then taken his course of levaquin all at once. - Following CPAP/BiPAP ABG 7.35/74/91/41 on admit, intubated for AMS and respiratory failure Continue ventilation. PRVC 20/500/PEEP 12/50%, ABG 7.4 8/50/77/37 - Reportedly on 10mg prednisone HEALTH RECORD TECHNICIAN. -Convert steroids to prednisone 40 daily - Duonebs Q4R RALF - Lasix 80mg daily, 1x dose diamox as above ?CAP Pneumonia - See ID below GI - Impact, trophic feeds via OG RENAL/LYTES - Cr 0.86, no JENNIFER -Replete electro lites as needed Oral potassium repletion to help reduce IV volume - Stubbs in place Follow I&Os ENDO - T2DM - HgbA1C 8.1% - Reportedly with wide BSG swings at home. - HEALTH RECORD TECHNICIAN on U-500 insulin - Glycemic consult placed - BSG adequate control HEME - Hgb stable no signs of bleeding ID - ?Community Acquired PNA, previously on Levaquin tx - WBCOf trending, and setting of steroid use r - CTA-Chest shows mild dependent effusion, CXR unremarkable. Urine negative - Empiric cefepime 2g Q8H - Trend fever curve - Pt reportly on Levaquin as outpt as above - Continue Cefepime 2g Q8H -Continue doxycycline 100mg BID x10 days with loading dose for atypical coverage - Anticipate bronchoscopy today No growth from sputum or blood cultures INTEGUMENTARY - Psoriasis - Diffuse psoriasis of the scalt, legs, arms, and flank - On MTX weekly therapy. Next dose due Mo@0900. - Pt may have mild immunosuppresion 2/2 chronic MTX regimen LINES/IV ACCESS - PIVs intact. R a line in place. PROPHYLAXIS - DVT: Enoxaparin 40mg SQ Ulcer: Ranitidine 150mg PO daily Thank you for allowing us to be part of this patient's care. Please refer to Dr. Delacruz's documentation for any further recommendations. Supervising Physician Co-Signing Physician Notes Dr. Willis was resident physician during care of patient. I separately evaluated patient for pedersen portions of the history and the exam. I was present during the critical portion of medical decision making, and I discussed the case with the resident. I generally agree with the findings and plan. Patient was discussed on multi disciplinary rounds. After aggressive diuresis patient was mildly volume negative we will continue with aggressive diuresis today as well as potassium supplementation. I was able to speak with the patient's sister at bedside, this is approximately his fourth time being i ntubated for COPD exacerbations. He continues to smoke he does use oxygen. He has home health aides that are reported to be purchasing him cigarettes, his daily activity largely is reported to be sitting at a kitchen table and very minimal physical activity. The patient sister reports that he is largely estranged from other siblings, she is unsure whether he uses his oxygen as directed, he was previously burned by smoking and oxygen, there is no report of CPAP use. The patient's sister did relate that over the years he has lost several family members that he was close with he was extremely close with his mother, 2 years later his father , 2 years later a niece committed suicide, during this time it was also confided to his sister that he was homosexual and his partner . Patient sister also reports she previously thought he was going to pass away during 1 of his hospitalizations and she has prepaid his expenses. She also reports the patient has been resistant to moving in with his sister and relocating to the [place] area where a large portion of his family remains. Patient remains critically ill I am hopeful that the patient's oxygenation requirement continues to decrease and we are able to move towards extubation in the next 24 hours. Subjective Kyle seen at the bedside this morning. History limited by sedation and ETT. Per nursing staff Versed at 9 this morning, did not receive any fentanyl doses overnight. Received 3 fentanyl pushes yesterday. No other overnight events. Review of Systems Review of Systems: Unobtainable due to endotracheal tube Physical Exam Physical Exam: General: Sedated, ETT in place. No acute distress. Morbidly obese. Withdraws briefly to thumb nailbed pinch, does not arouse or follow com mands. Skin: Diffuse plaques with white scale consistent with psoriasis present on skull, posterior neck, posterior aspect of the forearm/elbows, flank, and legs. HEENT: Atraumatic, normocephalic. Pupils equal and reactive to light bilaterally. Pulm: Diminished, distant breath sounds. Faint crackles at the bases bilaterally. No overt wheezes. Symmetrical chest rise. On ventilator, PRVC 20/500/PEEP 12/50% Cardiac: Distant heart sounds. RRR, -mrg. radial pulses intact and symmetrical. Abdominal: Obese, nontender, soft. BS present. Extremities: Capillary refill in hallux and thumb approximately 2 seconds. Warm, dry. Results & Data Vital Signs (Past 12 Hours) Vital Signs Temp Pulse Pulse Resp BP Pulse Ox 07/24/19 03:15 79 07/24/19 02:59 80 20 94 07/24/19 02:27 23 07/24/19 01:01 83 91 07/24/19 01:00 87 117/64 91 07/24/19 00:18 84 20 94 07/24/19 00:01 84 92 07/24/19 00:00 36.9 C 86 117/66 92 07/23/19 23:05 89 07/23/19 23:01 85 92 07/23/19 23:00 85 116/60 92 07/23/19 22:01 89 93 07/23/19 22:00 87 114/58 L 93 07/23/19 21:30 89 20 90 07/23/19 21:00 90 109/54 L 91 07/23/19 20:01 91 H 93 07/23/19 20:00 37.0 C 92 H 122/63 93 07/23/19 19:11 85 20 95 07/23/19 19:01 86 95 07/23/19 19:00 82 120/55 L 95 07/23/19 18:04 86 20 95 Critical Care Time Critical Care Time: Yes Total Critical Care Time: 50 I have personally spent 50 minutes of critical care time in the direct management of this patient. This is a life/limb threatening event. This includes time spent evaluating patient, direct bedside care, chart review, placing orders, interpretation of diagnostic studies, discussion with consultants, patient, and/or family members regarding treatment decisions, as well as other required patient management activities. This time is exclusive of all separately billable procedures, and teaching time and separate from and in addition to any other critical care service time. Resident Activity Tracking Resident Involvement: Resident Care Provided Care Provided: Adult Hospital Medicine
[2019-07-24 05:19] LABS: BUN Creatinine Ratio 38.4 (10-20); Calcium 9.2 mg/dl (8.5-10.1); Est GFR (African American) 107.7; Est GFR (Non-African American) 92.9; Magnesium 2.6 mg/dl (1.8-2.4); Potassium 3.6 mmol/L (3.5-5.1)
[2019-07-24 05:47] LABS: iSTAT Arterial Blood Gas HCO3 37 meg/L (19-24); iSTAT Arterial Blood Gas pCO2 50 mmHg (35-46); iSTAT Arterial Blood Gas pH 7.48 (7.35-7.45); iSTAT Arterial Blood Gas pO2 77 mmHg (80-95); iSTAT Carbon Dioxide 38 mEq/l (24-31); iSTAT Site R Radial
--- NOTE | 2019-07-24 07:01 | XRay Report ---
XR chest 1V portable HISTORY: 64 years-old Male f/u follow-up study in a patient with acute respiratory failure COMPARISON: Chest radiograph 07/23/2019, CTA chest 07/22/2019 TECHNIQUE: Portable AP view of the chest FINDINGS: Endotracheal tube terminates 5.0 cm superior to the marvin. Azygos lobe and fissure. An enteric tube is present, distal tip not definitively seen. A portion of the tube is seen at the level of the dista l esophagus. Multiple telemetry leads are coiled about the chest. Cardiomegaly with pulmonary vascula r congestion and unchanged interstitial coarsening. Mild right hemidiaphragmatic elevation. Trace ple ural effusions. Chronic posttraumatic changes involving multiple right-sided ribs redemonstrated. IMPRESSION: 1. Cardiomegaly with unchanged pulmonary edema. 2. Trace pleural effusions. 3. Endotracheal tube terminates 5.0 cm superior to the marvin.. The above report was generated using voice recognition software. It may contain grammatical, syntax o r spelling errors. Electronically signed by: Mk Mitchell M.D. 07/24/2019 7:00 AM
[2019-07-24] MEDS: FOLIC ACID 1 MG TAB PO SCH (07:34)
[2019-07-24] MEDS: ASPIRIN 81 MG CHEW NG SCH (07:34)
[2019-07-24] MEDS: metOLazone 5 MG TABLET PO SCH (07:34)
[2019-07-24] MEDS: carvediloL 3.125 MG TAB PO SCH ×2 (07:34→20:56)
[2019-07-24] MEDS: POTASSIUM CHLORIDE 20 MEQ/15 ML UDC PO SCH ×2 (07:34→20:54)
[2019-07-24] MEDS: FUROSEMIDE 80 MG TAB PO SCH (07:36)
[2019-07-24] MEDS: ENOXAPARIN INJ 40 MG/0.4 ML SYR SQ SCH ×2 (07:36→20:54)
[2019-07-24] MEDS: ATORVASTATIN 40 MG TAB PO SCH (07:36)
[2019-07-24] MEDS: ESCITALOPRAM OXALATE 20 MG TAB PO SCH (07:36)
[2019-07-24] MEDS: DOXYCYCLINE HYCLATE 100 MG CAP PO SCH ×2 (07:36→20:55)
[2019-07-24] MEDS: RANITIDINE HCL SYRUP 150 MG/10 ML 480ML PO SCH (07:37)
[2019-07-24] MEDS: lisinopriL 5 MG TAB PO SCH (07:37)
[2019-07-24] MEDS: PREGABALIN 50 MG CAP PO SCH ×2 (07:38→20:59)
[2019-07-24] MEDS: INSULIN GLARGINE SOLOSTAR 100 UNITS/ML 3 ML PEN SC SCH ×2 (07:51→20:21)
[2019-07-24] MEDS ORDERED: acetaZOLAMIDE 500 MG in SYRINGE 0 ML IV ONE (10:30)
[2019-07-24] MEDS: FUROSEMIDE 80 MG in SYRINGE 0 ML IV SCH ×2 (10:54→21:00)
[2019-07-24] MEDS: PROPOFOL 1,000 MG/100 ML VIAL IV SCH ×4 (10:54→23:27)
--- NOTE | 2019-07-24 11:00 | Hospitalist Progress Note ---
Date of Service July 24, 2019 Assessment & Plan (1) Myoclonic jerking: Mental status unable to be assessed considering critical care sedation. Reviewed neurology input and the patient will continue on Keppra 500 mg IV every 12. I did also note that there is consideration to serotonin syndrome. Patient multiple serotonergic medications have been held, we should monitor for improvement. However this is complicated by the fact that patient is intubated at this moment. (2) Confusion: Patient now with VDRF, mental status cannot be evaluated further. He was reportedly having myoclonic jerking prior to his acute decompensation. Consideration that this may have been hypercapnia versus medication compliance versus another metabolic cause. will need to reassess once patient is more stable (3) Psoriasis: Chronic. Continue methotrexate 7.5 mg p.o. q. weekly (4) Congestive heart failure: Patient having diuresed in the ICU. Patient is currently on Lasix 80 mg daily, will need to be converted over to IV. Defer to guest service agent to monitor this. , Replete potassium IV. (5) Depression: Chronic. Continue escitalopram 20 mg p.o. daily Continue Cymbalta 60 mg p.o. daily (6) Anxiety: Chronic. Stable. -Continue escitalopram, Cymbalta, buspirone at home doses (7) Diabetes: Blood sugar stable at present. Caregiver reports erratic blood sugars ranging from the 80s to the 500s. Question medication adherence Lantus 10 units twice daily Insulin sliding scale -Continue Lyrica 50 mg p.o. twice daily Continue to monitor (8) Asthma: Stable respiratory status at present. Diminished breath sounds. No active wheezing. Duo nebs Albuterol as needed (9) Chronic hypercapnic respiratory failure: Suspect patient has a degree of obesity hypoventilation syndrome and obstructive sleep apnea, will likely need BiPAP or CPAP at a later time, defer evaluation for this while patient is acutely ill. (10) COPD (chronic obstructive pulmonary disease) case management patient: Chronic. No acute wheezing at this time. Patient with adequate oxygenation on his home 3 L. Duo nebs Albuterol Continue supplemental oxygen (11) GERD (gastroesophageal reflux disease): Chronic. Stable. ProphylaxisLovenox Codefull per discussion with patient Subjective Patient continues to be mechanically intubated. Unable to provide history. Review of Systems Review of Systems: Unobtainable due to endotracheal tube Physical Exam Physical Exam: Gen: Sedated, intubated, ventilated HEENT: neck supple, no JVD. MMM. Heart: RR, no murmurs, limited exam Lungs: clear to auscultation in all tucker, limited exam Abd: soft, morbidly obese, diminished bowel sounds. Neuro: Sedated as noted above Ext: No clubbing, cyanosis, edema Results & Data Vital Signs (Past 12 Hours) Vital Signs Temp Pulse Pulse Resp BP Pulse Ox 07/24/19 10:01 75 92 07/24/19 10:00 73 16 143/70 H 92 07/24/19 09:30 74 95 07/24/19 09:01 36.5 C 77 96 07/24/19 09:00 79 129/74 96 07/24/19 08:30 81 91 07/24/19 08:01 76 92 07/24/19 08:00 82 133/77 92 07/24/19 07:30 79 91 07/24/19 07:11 74 20 90 07/24/19 07:01 74 90 07/24/19 07:00 78 143/70 H 90 07/24/19 06:07 76 20 153/77 H 91 07/24/19 06:01 77 91 07/24/19 06:00 77 153/77 H 91 07/24/19 05:01 78 159/76 H 94 07/24/19 05:00 78 94 07/24/19 04:01 76 91 07/24/19 04:00 36.9 C 80 121/64 91 07/24/19 03:15 79 07/24/19 03:01 79 94 07/24/19 03:00 77 136/75 94 07/24/19 02:59 80 20 94 07/24/19 02:27 23 07/24/19 02:01 86 93 07/24/19 02:00 85 128/66 93 07/24/19 01:01 83 91 07/24/19 01:00 87 117/64 91 07/24/19 00:18 84 20 94 07/24/19 00:01 84 92 07/24/19 00:00 36.9 C 86 117/66 92 07/23/19 23:05 89 07/23/19 23:01 85 92 PG Care Time/CCT Total # of Minutes Spent Total Time Spent with Patient: Total time spent is greater than 50% in coordination of care (as documented) at patient's floor/unit and/or counseling patient: (1) Congestive heart failure Heart failure type: combined systolic and diastolic Heart failure chronicity: acute on chronic Qualified Code(s): I50.43 - Acute on chronic combined systolic (congestive) and diastolic (congestive) heart failure (2) Depression Depression Type: major depressive disorder Major depression recurrence: unspecified whether recurrent Active/Remission status: remission status unspecified Qualified Code(s): F32.9 - Major depressive disorder, single episode, unspecified (3) Diabetes Diabetes mellitus type: type 2 Diabetes mellitus terminal carman insulin use: with terminal carman use Diabetes mellitus complication status: without complication Qualified Code(s): E11.9 - Type 2 diabetes mellitus without complications; Z79.4 - residential (current) use of insulin (4) GERD (gastroesophageal reflux disease) Esophagitis presence: esophagitis presence not specified Qualified Code(s): K21.9 - Gastro-esophageal reflux disease without esophagitis
[2019-07-24] MEDS ORDERED: predniSONE 20 MG TAB NG ONE (12:00)
[2019-07-24 12:10] LABS: iSTAT Allen Test Pass; iSTAT Arterial Blood Gas HCO3 37 meg/L (19-24); iSTAT Arterial Blood Gas pCO2 64 mmHg (35-46); iSTAT Arterial Blood Gas pH 7.37 (7.35-7.45); iSTAT Arterial Blood Gas pO2 76 mmHg (80-95); iSTAT Carbon Dioxide 39 mEq/l (24-31); iSTAT Site R Radial
[2019-07-24] MEDS: BusPIRone 15 MG TAB PO SCH ×2 (14:10→20:56)
--- NOTE | 2019-07-24 14:30 | Pharmacy Report ---
Pharmacy Glycemic Short Note 2 - Date of Service July 24, 2019 - Glycemic Short BSG Results (Last 24 hours): 07/23/19 07/23/19 07/23/19 15:17 17:35 18:35 Glucose POC Glucose 168 H 187 H 188 H 07/23/19 07/23/19 07/23/19 19:22 20:15 21:22 Glucose POC Glucose 156 H 156 H 145 H 07/23/19 07/23/19 07/24/19 21:34 22:25 00:16 Glucose 149 H POC Glucose 163 H 148 H 07/24/19 07/24/19 07/24/19 02:35 04:16 04:32 Glucose 121 H POC Glucose 123 H 126 H 07/24/19 07/24/19 07/24/19 06:11 07:21 08:08 Glucose POC Glucose 143 H 143 H 127 H 07/24/19 07/24/19 08:59 11:11 Glucose POC Glucose 149 H 146 H OUTPATIENT ANTIDIABETIC REGIMEN (home regimen uncertain): * U-500 Regular insulin: 90 units w/ breakfast if BSG > 200, 60 units w/ lunch if BSG > 200, 70 units w/ dinner if BSG > 200 * Trulicity (dulaglutide) 1.5mg SQ weekly * Metformin 1gm PO Q PM * A1c = 8.1% 07/22/19 ASSESSMENT: 07/24 * BSGs at goal, insulin drip continues and has reached a stable rate of 9units/hr * Lantus continues at this time * New events: sedation converted to Propofol however no plans to extubate, steroid being tapered, tube feeds on hold for possible bronch * IV insulin infusion remains best modality for glycemic control at this time, and BSGs are currently Q 4 hrs given stable drip rates, therefore no benefit to converting to SQ at this time. 07/23 * Insulin drip initiated yesterday evening due to 2 BSGs > 180. Drip currently running at 7.8units/hr - this is with 54 units of basal insulin on board * BSGs well controlled with drip * Patient remains intubated, agitated this AM despite current sedation (but adjustments being made), IV Solumedrol dose reduced to 60mg Q 12 hrs, but tube feeds being titrated up * Suspect insulin needs will still be significant enough to warrant continued continuing drip at this time 07/22 * Type 2 diabetic admitted for confusion, myoclonus and acute on chronic resp failure. * Level of glycemic control prior to admission uncertain, will check A1c * Patient remains intubated and sedated this AM, BSGs acceptable thus far however he will be starting high dose IV steroids, continuous tube feeds ("trickle rate" today) and IV abx for possible pulm infxn (vs pulm edema) * Given pt's body habitus, recorded outpt regimen, and new stressors that will likely contribute to hyperglycemia, will adjust SQ insulin doses such that Novolog doses are in line with "severe stress" and dosed per Adjusted BW. Will increase Lantus dose and give per scale given uncertain response to "trickle feeds" * Will add order to begin IV insulin infusion if BSGs rise despite the new SQ basal/bolus orders PLAN FOR INPATIENT GLYCEMIC CONTROL: * Hold outpatient oral diabetes medications (dulaglutide, metformin) * Continue IV insulin infusion, goal range 110-180 * Basal insulin * Continue Lantus 27 units SQ BID at this time (with the IV insulin drip to allow for easier transition off the drip in the future) * Bolus insulin * None needed at this time - will utilize insulin drip to cover carbs in continuous tube feeds * Reassess insulin needs with each step down in steroid dose PLAN FOR DISCHARGE: * to be determined
--- NOTE | 2019-07-24 19:51 | Billing Data ---
Coding Level of Care Code Critical Care 1st 30-74 mins
--- NOTE | 2019-07-24 19:51 | Billing Data ---
Coding Level of Care Code Critical Care 1st 30-74 mins
[2019-07-24 20:37] LABS: BUN Creatinine Ratio 44.6 (10-20); Calcium 9.3 mg/dl (8.5-10.1); Creatinine Clr Calc Pharmacy 131.8 ml/min; Est GFR (African American) 107.2; Est GFR (Non-African American) 92.5; Magnesium 2.7 mg/dl (1.8-2.4); Potassium 3.7 mmol/L (3.5-5.1)
[2019-07-24 21:05] LABS: Phosphorus 4.4 mg/dl (2.5-4.9)
[2019-07-24] MEDS: INSULIN REGULAR 250 UNITS in SODIUM CHLORIDE 0.9% 247.5 ML IV SCH (22:13)
[2019-07-24] MEDS: PEPTAMEN INTENSE VHP 1.0 CAL 1,000 ML BAG OG SCH (22:13)
[2019-07-25] MEDS: ALBUT/IPRATROP 3MG/0.5MG NEB 3 ML VIAL NEB SCH ×6 (02:18→23:13)
[2019-07-25] MEDS: CEFEPIME 2,000 MG in SYRINGE 7.5 ML IV SCH ×2 (03:05→09:39)
[2019-07-25] MEDS: PROPOFOL 1,000 MG/100 ML VIAL IV SCH (04:00)
[2019-07-25 05:06] LABS: BUN Creatinine Ratio 47.4 (10-20); Calcium 9.5 mg/dl (8.5-10.1); Creatinine Clr Calc Pharmacy 134.9 ml/min; Est GFR (African American) 108.2; Est GFR (Non-African American) 93.4; Magnesium 2.7 mg/dl (1.8-2.4); Phosphorus 4.3 mg/dl (2.5-4.9); Potassium 3.5 mmol/L (3.5-5.1)
--- NOTE | 2019-07-25 05:33 | Critical Care Progress Note ---
Date of Service July 25, 2019 Assessment & Plan (1) Admitted to intensive care unit: Reason Critically Ill: 64-year-old male here with a PMHx significant for COPD, CHF, psoriasis, DM, and morbid obesity (admit weight 154kg) who presented with altered mental status and who was admitted for acute hypercarbic respiratory failure requiring intubation Neuro - CAM ICU:POSITIVE Sedation: Propofol held this morning, Versed pushes as needed Analgesia: Fentanyl pushes as needed Altered Mental Status suspect 2/2 hypercarbic Metabolic Encephalopathy - See respiratory below - Admit CT naf, UTox negative, BMP without acute derangement. - EEG did not show any seizure activity - DDx includes levaquin toxicity (see below) Concern for Serotonin Syndrome given buspar, lexapro, requip, and seroquil combo therapy - No hypothermia, diaphoresis, rigidity, persistent tremors - Lexapro 20mg daily. Buspirone 15mg PO TID. Duloxetine 60mg PO daily. Hold requip. Myoclonic Jerking, improved - Neuro consulted. Recommend Keppra 500mg IV x12h despite EEG, and may consider Keppra taper based on clinical course. - Keppra 500mg Q12H Psychiatric - He is on multiple seritonergic and a dopaminergic medication with high potential for interaction/toxicity. Managed inpatient as above; however strongly recommend followup with his PCP and Mental Health/Psychiatry for psychotropic med management on discharge. Cardiac - History of CHF, no echo on file - TTE: normal LVEF, no wall motion abnormalities, no RV abnormalities - Continue Lisinopril 5mg daily - Continue Atorvastatin 40mg daily - Continue carvedilol 3.125mg PO BID - Lasix 80mg daily Respiratory - Acute on Chronic Hypercarbic Respiratory Failure - CARPENTER'S ASSISTANT patient was seen for bronchitis/PNA and was prescribed levaquin. Concern expressed by caregivers that he may have missed 4 doses, then taken his course of levaquin all at once. - Following CPAP/BiPAP ABG 7.35/74/91/41 on admit, intubated for AMS and respiratory failure ABG 7.4 3/59/60/39 this morning, R SBI less than 30, extubated to nasal cannula Chest x-ray continues to show unchanging components of congestive failure, ETT in - Prednisone 40 daily with intended 2-week taper - Duonebs Q4R RALF - Lasix 80mg daily ?CAP Pneumonia - See ID below COPD [employer]PENTER'S ASSISTANT Breo not on formulary Substitute Symbicort 160 2 puffs twice daily while on inpt - albuterol neb q2h prn GI - Impact, trophic feeds via OG RENAL/LYTES - Cr 0.85, no JENNIFER -Replete electrolytes as needed Oral potassium repletion - Stubbs in place Follow I&Os ENDO - T2DM - HgbA1C 8.1% - Reportedly with wide BSG swings at home. - CARPENTER'S ASSISTANT on U-500 insulin - Glycemic consult placed -2X low blood sugars this morning, otherwise good control. ICU protocol. HEME - Hgb stable no signs of bleeding ID - ?Community Acquired PNA, previously on Levaquin tx Febrile overnight - WBC 16 from 15.9, in the setting of steroid use CXR this morning shows unchanging congestive failure, mild elevation of right hemidiaphragm Stop cefepime, doxycycline and narrowed to Rocephin monotherapy No growth from sputum or blood cultures History of male sexual partner - Partner passed 20 years ago, no partners since. - Consented for HIV test, test ordered INTEGUMENTARY - Psoriasis - Diffuse psoriasis of the scalp, legs, arms, and flank - On MTX weekly therapy. Next dose due Mo@0900. - Pt may have mild immunosuppresion 2/2 chronic MTX regimen LINES/IV ACCESS - PIVs intact. R a line in place. PROPHYLAXIS - DVT: Enoxaparin 40mg SQ Ulcer: Ranitidine 150mg PO daily Thank you for allowing us to be part of this patient's care. Please refer to Dr. Delacruz's documentation for any further recommendations. Supervising Physician Co-Signing Physician Notes Dr. Willis was resident physician during care of patient. I separately evaluated patient for pedersen portions of the history and the exam. I was present during the critical portion of medical decision making, and I discussed the case with the resident. I generally agree with the findings and plan. Patient was discussed in multidisciplinary rounds. Patient was on minimal vent settings and had reassuring extubation parameters, he was successfully extubated from the vent to high flow nasal cannula. Patient did pass bedside swallow however we will obtain a speech evaluation as he was intubated for approximately 3 days. Ultimately we will attempt to further elucidate the patient goals of care as this was his fourth intubation for COPD exacerbation and he continues to be noncompliant with recommended medical therapies and continues to smoke. I do believe the patient has a poor long-term prognosis. I have personally spent 40 minutes of critical care time in the direct management of this patient. This is a life/limb threatening event. This includes time spent evaluating patient, direct bedside care, chart review, placing orders, interpretation of diagnostic studies, discussion with consultants, patient, and/or family members regarding treatment decisions, as well as other required patient management activities. This time is exclusive of all separately billable procedures, and teaching time and separate from and in addition to any other critical care service time. Brooks Wright seen at the bedside this morning. Versed drip off since 07/24 1100. Propofol weaned from 10 mcg to 0 (off) overnight. He is alert, and follows one-step commands, makes eye contact and tracks. Nods head to indicate tube is uncomfortable, but he is not in other more chest pain. Nods understand that he is in the hospital. He has had intermittent desaturations to mid 80s on CPAP. He has been febrile overnight. Review of Systems Review of Systems: Unobtainable due to endotracheal tube Physical Exam Physical Exam: General: Sedation off. Awake. ETT in place. Squeezes hands independently on command, coughs on command. On CPAP trial. Skin: Diffuse plaques with white scale consistent with psoriasis present on skull, posterior neck, posterior aspect of the forearm/elbows, flank, and legs. HEENT: Atraumatic, normocephalic. Pupils equal and reactive to light bilaterally. EOM intact. Pulm: Diminished, distant breath sounds. No overt wheezes. Symmetrical chest rise. On ventilator, CPAP trial at time of visit Cardiac: Distant heart sounds. RRR, -mrg. radial pulses intact and symmetrical. Abdominal: Obese, nontender, soft. BS present. Extremities: Capillary refill in hallux and thumb approximately 2 seconds. Warm, dry. Patient nods to indicate sensation intact in feet and hands bilaterally. Results & Data Vital Signs (Past 12 Hours) Vital Signs Temp Pulse Resp BP Pulse Ox 07/25/19 04:01 37.6 C H 92 H 90 07/25/19 04:00 88 162/75 H 91 07/25/19 03:01 89 92 07/25/19 03:00 89 170/79 H 92 12/06/19 02:13 86 18 93 07/25/19 02:01 83 91 07/25/19 02:00 88 156/81 H 91 07/25/19 01:01 84 91 07/25/19 01:00 85 157/78 H 92 07/25/19 00:00 36.7 C 81 160/72 H 92 07/24/19 23:15 83 17 92 07/24/19 23:01 81 92 07/24/19 23:00 82 157/76 H 92 07/24/19 22:08 84 17 92 07/24/19 22:00 80 143/76 H 92 07/24/19 21:59 80 07/24/19 21:00 82 148/72 H 92 07/24/19 20:01 78 91 07/24/19 20:00 78 147/71 H 91 07/24/19 19:30 77 92 07/24/19 19:27 74 16 92 07/24/19 19:00 36.5 C 77 138/71 95 Critical Care Time Critical Care Time: Yes Total Critical Care Time: 40 I have personally spent 40 minutes of critical care time in the direct management of this patient. This is a life/limb threatening event. This includes time spent evaluating patient, direct bedside care, chart review, placing orders, interpretation of diagnostic studies, discussion with consultants, patient, and/or family members regarding treatment decisions, as well as other required patient management activities. This time is exclusive of all separately billable procedures, and teaching time and separate from and in addition to any other critical care service time. Resident Activity Tracking Resident Involvement: Resident Care Provided Care Provided: Adult [facility] Medicine
[2019-07-25] MEDS: POTASSIUM CHLORIDE / WTR 10 MEQ/100 ML PLCT IV SCH ×2 (05:49→07:16)
[2019-07-25 05:54] LABS: Basophils # (auto) 0.01 K/uL (0-0.2); Basophils % (auto) 0.1 %; Eosinophils # (auto) 0.04 K/uL (0-0.5); Eosinophils % (auto) 0.2 %; Hematocrit (blood only) 41.2 % (42-52); Hemoglobin 13.5 g/dL (14.0-18.0); Immature Granulocytes # (auto) 0.11 K/uL (0.00-0.02); Immature Granulocytes % (auto) 0.7 %; Lymphocytes # (auto) 1.54 K/uL (1.2-3.4); Lymphocytes % (auto) 9.4 %; Mean Corpuscular Hemoglobin 30.3 pg (25-34); Mean Corpuscular Hgb Conc 32.8 g/dL (32-36); Mean Corpuscular Volume 92.4 fL (80-100); Mean Platelet Volume 9.8 fL (7.4-10.4); Monocytes # (auto) 0.99 K/uL (0.11-0.59); Monocytes % (auto) 6.1 %; Neutrophils # (auto) 13.65 K/uL (1.4-6.5); Neutrophils % (auto) 83.5 %; Platelet Count 311 K/uL (130-400); RDW Coefficient of Variation 13.9 % (11.5-14.5); RDW Standard Deviation 46.2 fL (36.4-46.3); Red Blood Count 4.46 M/uL (4.7-6.1); White Blood Count 16.34 K/uL (4.8-10.8)
[2019-07-25 05:59] LABS: iSTAT Allen Test Pass; iSTAT Arterial Blood Gas HCO3 39 meg/L (19-24); iSTAT Arterial Blood Gas pCO2 59 mmHg (35-46); iSTAT Arterial Blood Gas pH 7.43 (7.35-7.45); iSTAT Arterial Blood Gas pO2 60 mmHg (80-95); iSTAT Carbon Dioxide > 40 mEq/l (24-31); iSTAT Site R Radial
--- NOTE | 2019-07-25 06:55 | XRay Report ---
XR chest 1V portable CLINICAL HISTORY: resp failure dyspnea COMPARISON STUDY: 07/24/2019 FINDINGS: Endotracheal tube remains 5 cm above the marvin. Unchanged findings of congestive failure. Mild chronic elevation right hemidiaphragm. Stable postoperative changes right base. IMPRESSION: 1. Endotracheal tube 5 cm above the marvin. 2. Unchanging components of congestive failure. The above report was generated using voice recognition software. It may contain grammatical, syntax or spelling errors. Electronically signed by: Yaakov Judge M.D. 07/25/2019 6:53 AM
[2019-07-25] MEDS ORDERED: DEXTROSE 50% 50 ML SYRINGE IV PRN (07:18)
[2019-07-25] MEDS ORDERED: DEXTROSE 50% 50 ML SYRINGE IV ONE (07:30)
[2019-07-25] MEDS ORDERED: predniSONE 10 MG TABLET NG SCH (09:00)
[2019-07-25] MEDS: FOLIC ACID 1 MG TAB PO SCH (09:37)
[2019-07-25] MEDS: FUROSEMIDE 80 MG TAB PO SCH (09:37)
[2019-07-25] MEDS: ESCITALOPRAM OXALATE 20 MG TAB PO SCH (09:37)
[2019-07-25] MEDS: ATORVASTATIN 40 MG TAB PO SCH (09:37)
[2019-07-25] MEDS: DOXYCYCLINE HYCLATE 100 MG CAP PO SCH (09:38)
[2019-07-25] MEDS: carvediloL 3.125 MG TAB PO SCH ×2 (09:38→20:04)
[2019-07-25] MEDS: ASPIRIN 81 MG CHEW NG SCH (09:38)
[2019-07-25] MEDS: lisinopriL 5 MG TAB PO SCH (09:38)
[2019-07-25] MEDS: BusPIRone 15 MG TAB PO SCH ×3 (09:38→14:20)
[2019-07-25] MEDS: ENOXAPARIN INJ 40 MG/0.4 ML SYR SQ SCH ×2 (09:39→20:06)
[2019-07-25] MEDS: RANITIDINE HCL SYRUP 150 MG/10 ML 480ML PO SCH (09:39)
[2019-07-25] MEDS: PREGABALIN 50 MG CAP PO SCH ×2 (09:39→20:12)
[2019-07-25] MEDS ORDERED: lisinopriL 5 MG TAB PO ONE (10:15)
[2019-07-25] MEDS: POTASSIUM CHLORIDE 20 MEQ/15 ML UDC PO SCH (10:40)
[2019-07-25] MEDS: SPIRONOLACTONE 25 MG TAB PO SCH (11:05)
[2019-07-25] MEDS: POTASSIUM CHLORIDE 20 MEQ TABCR PO SCH ×2 (11:05→17:05)
[2019-07-25] MEDS: cefTRIAXone SODIUM 2,000 MG in DEXTROSE 5% 50 ML IV SCH (13:47)
--- NOTE | 2019-07-25 14:01 | Pharmacy Report ---
Pharmacy Glycemic Short Note 2 - Date of Service July 25, 2019 - Glycemic Short BSG Results (Last 24 hours): 07/24/19 07/24/19 07/24/19 14:44 19:06 20:14 Glucose 122 H POC Glucose 135 H 130 H 07/24/19 07/25/19 07/25/19 23:12 03:01 04:08 Glucose 107 H POC Glucose 143 H 127 H 07/25/19 07/25/19 07/25/19 06:26 06:28 06:49 Glucose POC Glucose 68 L* 62 L* 64 L* 07/25/19 07/25/19 07/25/19 06:51 07:07 07:34 Glucose POC Glucose 69 L* 71 87 07/25/19 07/25/19 07/25/19 08:11 09:16 10:14 Glucose POC Glucose 131 H 138 H 147 H 07/25/19 11:12 Glucose POC Glucose 142 H OUTPATIENT ANTIDIABETIC REGIMEN (home regimen uncertain): * U-500 Regular insulin: 90 units w/ breakfast if BSG > 200, 60 units w/ lunch if BSG > 200, 70 units w/ dinner if BSG > 200 * Trulicity (dulaglutide) 1.5mg SQ weekly * Metformin 1gm PO Q PM * A1c = 8.1% 07/22/19 ASSESSMENT: 07/25 * New events in last 24 hrs: pt extubated this AM, TFs stopped, diet has been ordered but thus far pt appears to have minimal PO intake * Pt developed hypoglycemia this AM with BSGs in the 60s, drip was placed on hold and scheduled Lantus also held. Drip to restart when BSG above 150 * Suspect the effects of IV Solu-Medrol dissipated overnight and pt is now more insulin sensitive while on Prednisone PO * Will resume insulin drip at reduced rate (3units/hr). Plan to continue insulin drip at this time given uncertain insulin needs (pt received a total of ~270 units of insulin from IV drip and SQ Lantus yesterday while receiving TF's part of the day yesterday, up to 50cc/hr Peptamen VHP in the evening) * Plan is to try to transition to SQ in near future (tomorrow AM) based upon insulin drip data today - assuming no new stressors surface 12/5 * BSGs at goal, insulin drip continues and has reached a stable rate of 9units/hr * Lantus continues at this time * New events: sedation converted to Propofol however no plans to extubate, steroid being tapered, tube feeds on hold for possible bronch * IV insulin infusion remains best modality for glycemic control at this time, and BSGs are currently Q 4 hrs given stable drip rates, therefore no benefit to converting to SQ at this time. 07/23 * Insulin drip initiated yesterday evening due to 2 BSGs > 180. Drip currently running at 7.8units/hr - this is with 54 units of basal insulin on board * BSGs well controlled with drip * Patient remains intubated, agitated this AM despite current sedation (but adjustments being made), IV Solumedrol dose reduced to 60mg Q 12 hrs, but tube feeds being titrated up * Suspect insulin needs will still be significant enough to warrant continued continuing drip at this time 07/22 * Type 2 diabetic admitted for confusion, myoclonus and acute on chronic resp failure. * Level of glycemic control prior to admission uncertain, will check A1c * Patient remains intubated and sedated this AM, BSGs acceptable thus far however he will be starting high dose IV steroids, continuous tube feeds ("trickle rate" today) and IV abx for possible pulm infxn (vs pulm edema) * Given pt's body habitus, recorded outpt regimen, and new stressors that will likely contribute to hyperglycemia, will adjust SQ insulin doses such that Novolog doses are in line with "severe stress" and dosed per Adjusted BW. Will increase Lantus dose and give per scale given uncertain response to "trickle feeds" * Will add order to begin IV insulin infusion if BSGs rise despite the new SQ basal/bolus orders PLAN FOR INPATIENT GLYCEMIC CONTROL: * Hold outpatient oral diabetes medications (dulaglutide, metformin) * Continue IV insulin infusion, goal range 140-180 * Basal insulin * Continue Lantus 27 units SQ BID at this time (with the IV insulin drip to allow for easier transition off the drip in the future) * Bolus insulin * Novolog SQ to cover meals using carb ratio of 1 unit per 5 grams CHO consumed * DC IV insulin drip if rate less than 1unit/hr and BSGs within or below goal range x 2 hrs * Reassess insulin needs with each step down in steroid dose PLAN FOR DISCHARGE: * to be determined
[2019-07-25 14:03] LABS: iSTAT Allen Test Pass; iSTAT Arterial Blood Gas HCO3 37 meg/L (19-24); iSTAT Arterial Blood Gas pCO2 53 mmHg (35-46); iSTAT Arterial Blood Gas pH 7.45 (7.35-7.45); iSTAT Arterial Blood Gas pO2 56 mmHg (80-95); iSTAT Carbon Dioxide 38 mEq/l (24-31); iSTAT Site L Radial
--- NOTE | 2019-07-25 14:30 | Palliative Care Progress Note ---
Date of Service July 25, 2019 Subjective Patient discussed at ICU rounds. Hold consult for now, will follow up next week. Results & Data Vital Signs (Past 12 Hours)
[2019-07-25] MEDS: INSULIN ASPART 100 UNITS/ML 3 ML PEN SC SCH ×3 (14:52→20:17)
[2019-07-25] MEDS: levETIRAcetam 500 MG TAB PO SCH (20:04)
[2019-07-25] MEDS: INSULIN GLARGINE SOLOSTAR 100 UNITS/ML 3 ML PEN SC SCH (20:06)
[2019-07-25] MEDS: BUDESONIDE/FORMOTEROL FUMARATE 160/4.5 60 PUFFS/INHALER INH SCH (20:07)
[2019-07-25] MEDS: ACETAMINOPHEN 325 MG TAB PO PRN (21:22)
[2019-07-25] MEDS: INSULIN REGULAR 250 UNITS in SODIUM CHLORIDE 0.9% 247.5 ML IV SCH (21:25)
[2019-07-25] MEDS ORDERED: TRAMADOL HCL 50 MG TABLET PO STA (22:21)
[2019-07-25] MEDS ORDERED: TRAMADOL HCL 50 MG TABLET ONE (22:36)
--- NOTE | 2019-07-25 22:36 | Hospitalist Progress Note ---
Date of Service July 25, 2019 Assessment & Plan (1) Myoclonic jerking: Mental status unable to be assessed considering critical care sedation. Reviewed neurology input and the patient will continue on Keppra 500 mg IV every 12. I did also note that there is consideration to serotonin syndrome. Patient multiple serotonergic medications have been held, we should monitor for improvement. However this is complicated by the fact that patient is intubated at this moment. Plan is to extubate today. Update 18:00:D/W Inventory Administrator. ipatient can e transferred out of ICU. (2) Confusion: Patient now with VDRF, mental status cannot be evaluated further. He was reportedly having myoclonic jerking prior to his acute decompensation. Consideration that this may have been hypercapnia versus medication compliance versus another metabolic cause. will need to reassess once patient is more stable (3) Psoriasis: Chronic. Continue methotrexate 7.5 mg p.o. q. weekly (4) Congestive heart failure: Patient having diuresed in the ICU. Patient is currently on Lasix 80 mg daily, will need to be converted over to IV. Defer to education teacher to monitor this. , Replete potassium IV. (5) Depression: Chronic. Continue escitalopram 20 mg p.o. daily Continue Cymbalta 60 mg p.o. daily (6) Anxiety: Chronic. Stable. -Continue escitalopram, Cymbalta, buspirone at home doses (7) Diabetes: Blood sugar stable at present. Caregiver reports erratic blood sugars ranging from the 80s to the 500s. Question medication adherence Lantus 10 units twice daily Insulin sliding scale -Continue Lyrica 50 mg p.o. twice daily Continue to monitor (8) Asthma: Stable respiratory status at present. Diminished breath sounds. No active wheezing. Duo nebs Albuterol as needed (9) Chronic hypercapnic respiratory failure: Suspect patient has a degree of obesity hypoventilation syndrome and obstructive sleep apnea, will likely need BiPAP or CPAP at a later time, defer evaluation for this while patient is acutely ill. (10) COPD (chronic obstructive pulmonary disease) case management patient: Chronic. No acute wheezing at this time. Patient with adequate oxygenation on his home 3 L. Duo nebs Albuterol Continue supplemental oxygen (11) GERD (gastroesophageal reflux disease): Chronic. Stable. ProphylaxisLovenox Codefull per discussion with patient Subjective Patient remains intubated. Review of Systems Review of Systems: All systems reviewed & are unremarkable except as noted in HPI & below and Unobtainable due to endotracheal tube Physical Exam Physical Exam: Gen: Sedated, intubated, ventilated HEENT: neck supple, no JVD. MMM. Heart: RR, no murmurs, limited exam Lungs: clear to auscultation in all tucker, limited exam Abd: soft, morbidly obese, diminished bowel sounds. Neuro: Sedated as noted above Ext: No clubbing, cyanosis, edema Results & Data Vital Signs (Past 12 Hours) Vital Signs Temp Pulse Pulse Resp BP BP Pulse Ox 07/25/19 21:32 98 H 07/25/19 20:30 94 H 18 94 07/25/19 20:00 37.2 C 100 H 20 96/57 L 94 07/25/19 18:00 100 H 19 122/67 93 07/25/19 17:00 101 H 15 127/62 95 07/25/19 16:00 37.2 C 102 H 20 122/77 91 07/25/19 15:00 95 H 21 158/59 H 100 07/25/19 14:00 101 H 24 126/63 91 07/25/19 13:00 115 H 19 128/75 92 07/25/19 12:00 37.2 C 100 H 21 123/63 91 07/25/19 11:23 79 18 93 07/25/19 11:00 106 H 20 129/65 93 PG Care Time/CCT Total # of Minutes Spent Total Time Spent with Patient: Total time spent is greater than 50% in coordination of care (as documented) at patient's floor/unit and/or counseling patient: (1) Diabetes Diabetes mellitus complication status: without complication Diabetes mellitus long filler cigar roller machine insulin use: with detention use Diabetes mellitus type: type 2 Qualified Code(s): E11.9 - Type 2 diabetes mellitus without complications; Z79.4 - terminal gauger (current) use of insulin (2) Congestive heart failure Heart failure chronicity: acute on chronic Heart failure type: combined systolic and diastolic Qualified Code(s): I50.43 - Acute on chronic combined systolic (congestive) and diastolic (congestive) heart failure (3) Depression Active/Remission status: remission status unspecified Depression Type: major depressive disorder Major depression recurrence: unspecified whether recurrent Qualified Code(s): F32.9 - Major depressive disorder, single episode, unspeci fied (4) GERD (gastroesophageal reflux disease) Esophagitis presence: esophagitis presence not specified Qualified Code(s): K21.9 - Gastro-esophageal reflux disease without esophagitis
[2019-07-26] MEDS: ALBUT/IPRATROP 3MG/0.5MG NEB 3 ML VIAL NEB SCH ×6 (03:10→23:30)
[2019-07-26 06:24] LABS: Basophils # (auto) 0.01 K/uL (0-0.2); Basophils % (auto) 0.1 %; Eosinophils # (auto) 0.02 K/uL (0-0.5); Eosinophils % (auto) 0.1 %; Hemoglobin 13.7 g/dL (14.0-18.0); Immature Granulocytes # (auto) 0.04 K/uL (0.00-0.02); Immature Granulocytes % (auto) 0.3 %; Lymphocytes # (auto) 3.38 K/uL (1.2-3.4); Lymphocytes % (auto) 22.6 %; Mean Corpuscular Hemoglobin 30.3 pg (25-34); Mean Corpuscular Hgb Conc 33.4 g/dL (32-36); Mean Corpuscular Volume 90.7 fL (80-100); Mean Platelet Volume 9.6 fL (7.4-10.4); Monocytes # (auto) 1.81 K/uL (0.11-0.59); Monocytes % (auto) 12.1 %; Neutrophils # (auto) 9.71 K/uL (1.4-6.5); Neutrophils % (auto) 64.8 %; Platelet Count 306 K/uL (130-400); RDW Coefficient of Variation 13.7 % (11.5-14.5); RDW Standard Deviation 44.9 fL (36.4-46.3); Red Blood Count 4.52 M/uL (4.7-6.1); White Blood Count 14.97 K/uL (4.8-10.8)
[2019-07-26 06:28] LABS: Base Excess ABG 9.6 mEq/L (-9-1.8); HCO3 ABG 34 mmol/L (19-24); PCO2 ABG 46 mmHg (35-46); PO2 ABG 59 mm/Hg (80-95); pH ABG 7.49 (7.35-7.45)
[2019-07-26 06:29] LABS: Allen Test Pos (Pos)
[2019-07-26] MEDS: ACETAMINOPHEN 325 MG TAB PO PRN (06:30)
[2019-07-26 06:53] LABS: BUN Creatinine Ratio 65.3 (10-20); Calcium 9.1 mg/dl (8.5-10.1); Creatinine Clr Calc Pharmacy 147.8 ml/min; Est GFR (African American) 112.7; Est GFR (Non-African American) 97.3; Magnesium 2.4 mg/dl (1.8-2.4); Potassium 3.5 mmol/L (3.5-5.1)
[2019-07-26 06:54] LABS: Phosphorus 3.7 mg/dl (2.5-4.9)
[2019-07-26] MEDS: INSULIN GLARGINE SOLOSTAR 100 UNITS/ML 3 ML PEN SC SCH ×2 (07:43→20:38)
[2019-07-26] MEDS: INSULIN ASPART 100 UNITS/ML 3 ML PEN SC SCH ×5 (07:52→20:40)
[2019-07-26] MEDS: POTASSIUM CHLORIDE 20 MEQ TABCR PO SCH ×2 (08:03→17:05)
[2019-07-26] MEDS: ATORVASTATIN 40 MG TAB PO SCH (08:04)
[2019-07-26] MEDS: ESCITALOPRAM OXALATE 20 MG TAB PO SCH (08:04)
[2019-07-26] MEDS: FUROSEMIDE 80 MG TAB PO SCH (08:05)
[2019-07-26] MEDS: carvediloL 3.125 MG TAB PO SCH ×2 (08:05→20:35)
[2019-07-26] MEDS: BUDESONIDE/FORMOTEROL FUMARATE 160/4.5 60 PUFFS/INHALER INH SCH ×2 (08:06→20:41)
[2019-07-26] MEDS: RANITIDINE HCL SYRUP 150 MG/10 ML 480ML PO SCH (08:06)
[2019-07-26] MEDS: predniSONE 10 MG TABLET PO SCH (08:06)
[2019-07-26] MEDS: ENOXAPARIN INJ 40 MG/0.4 ML SYR SQ SCH ×2 (08:07→20:39)
[2019-07-26] MEDS: lisinopriL 10 MG TAB PO SCH (08:09)
[2019-07-26] MEDS: levETIRAcetam 500 MG TAB PO SCH (08:09)
[2019-07-26] MEDS: FOLIC ACID 1 MG TAB PO SCH (08:10)
[2019-07-26] MEDS: SPIRONOLACTONE 25 MG TAB PO SCH (08:10)
[2019-07-26] MEDS: PREGABALIN 50 MG CAP PO SCH ×2 (08:16→20:40)
[2019-07-26] MEDS: ASPIRIN 81 MG CHEW PO SCH (08:17)
--- NOTE | 2019-07-26 10:08 | Neurology Progress Note ---
Date of Service July 26, 2019 Assessment & Plan (1) Myoclonic jerking: Resolved myoclonic jerking. Patient may reduce his dosage of Keppra to 250 mg twice daily. He may follow-up with me in the outpatient clinic in 4 to 6 weeks, would consider discontinuing Keppra altogether depending on his status at that time. Subjective Follow-up for myoclonic jerking The patient's myoclonic jerking has resolved. His recently completed EEG was n egative for epileptiform abnormalities. He is no longer in the ICU, on the ventilator. He is clinically much improved. The levetiracetam has been switched to oral tablets. No seizures have been observed. Patient denies any headache or weakness. He does report a mild bilateral upper extremity action tremor that seems to be new. Review of Systems Neurologic: + tremor(s); no localized weakness, no headache(s), no confusion and no memory loss Physical Exam Physical Exam: The patient is a well-developed elderly male. He is sitting up in bed in no acute distress. He is alert and fully oriented. Memory, attention, speech pattern, and fund of knowledge are normal. Visual tucker full to confrontation. Visual acuity normal. Pupils equal round reactive to light and accommodation. Eye movements normal. There is no nystagmus, ptosis, or ophthalmoplegia. There is no facial droop or weakness. Hearing intact. Palate elevates to midline. Shoulder shrug intact. Tongue protrudes to midline. Sensation intact in all 4 limbs. There is no dysdiadochokinesia or dysmetria [id number] or [id number]. Patient exhibits normal muscle strength and tone for all 4 limbs. No atrophy. He exhibits a mild bilateral upper extremity postural tremor. No resting tremor. No head tremor. No myoclonic jerking observed. Results & Data Vital Signs (Past 12 Hours) Vital Signs Temp Pulse Pulse Resp BP Pulse Ox 07/26/19 07:59 85 07/26/19 07:25 36.7 C 81 20 98/62 L 92 07/26/19 07:04 88 19 95 07/26/19 04:00 36.7 C 92 H 20 101/71 92 07/26/19 03:10 76 16 95 07/26/19 00:52 97 H 07/26/19 00:00 36.7 C 69 20 148/67 H 93 07/25/19 23:13 96 H 16 91 Laboratory Results WBC 14.97, hemoglobin 13.7, hematocrit 41.0, platelet count 306, sodium 134, potassium 3.5, BUN 50, creatinine 0.77, glucose 93, calcium 9.1, magnesium 2.[address] of the head completed July 21, 2019 was unremarkable. No hemorrhage or acute process. I again reviewed the images and radiologist interpretation of this test. Previously completed CT angiography of the head and neck again reviewed. No significant abnormalities.
[2019-07-26] MEDS: cefTRIAXone SODIUM 2,000 MG in DEXTROSE 5% 50 ML IV SCH (13:19)
--- NOTE | 2019-07-26 15:02 | Pharmacy Report ---
Pharmacy Glycemic Short Note 2 - Date of Service July 26, 2019 - Glycemic Short BSG Results (Last 24 hours): 07/25/19 07/25/19 07/25/19 15:48 16:42 18:45 Glucose POC Glucose 174 H 178 H 214 H 07/25/19 07/25/19 07/25/19 19:49 21:07 22:02 Glucose POC Glucose 233 H 185 H 167 H 07/25/19 07/26/19 07/26/19 23:05 00:05 02:07 Glucose POC Glucose 160 H 140 H 120 H 07/26/19 07/26/19 07/26/19 04:07 05:07 06:09 Glucose POC Glucose 96 94 95 07/26/19 07/26/19 07/26/19 06:14 07:13 11:37 Glucose 93 POC Glucose 102 H 193 H OUTPATIENT ANTIDIABETIC REGIMEN (home regimen uncertain): * U-500 Regular insulin: 90 units w/ breakfast if BSG > 200, 60 units w/ lunch if BSG > 200, 70 units w/ dinner if BSG > 200 * Trulicity (dulaglutide) 1.5mg SQ weekly * Metformin 1gm PO Q PM * A1c = 8.1% 07/22/19 ASSESSMENT: 07/26 * Patient eating, insulin drip running ~2-3 units/hr, pt acceptable to transition to SQ. NOTE: pt requires ~220 units of insulin per day at home. * Patient on Lantus 27 units BID, received dose last night and this morning. Blood sugars rising 102 --> 193--> 248mg/dl today from breakfast to lunch to after lunch. Will increase Lantus and tighten CF and CR. * Steroids tapered to Prednisone 40mg PO daily, will use tight Novolog parameters and titrate 07/25 * New events in last 24 hrs: pt extubated this AM, TFs stopped, diet has been ordered but thus far pt appears to have minimal PO intake * Pt developed hypoglycemia this AM with BSGs in the 60s, drip was placed on hold and scheduled Lantus also held. Drip to restart when BSG above 150 * Suspect the effects of IV Solu-Medrol dissipated overnight and pt is now more insulin sensitive while on Prednisone PO * Will resume insulin drip at reduced rate (3units/hr). Plan to continue insulin drip at this time given uncertain insulin needs (pt received a total of ~270 units of insulin from IV drip and SQ Lantus yesterday while receiving TF's part of the day yesterday, up to 50cc[facility] in [facility] evening) * Plan is to try to transition to SQ in near future (tomorrow AM) based upon insulin drip data today - assuming no new stressors surface 07/24 * BSGs at goal, insulin drip continues and has reached a stable rate of 9units/hr * Lantus continues at this time * New events: sedation converted to Propofol however no plans to extubate, steroid being tapered, tube feeds on hold for possible bronch * IV insulin infusion remains best modality for glycemic control at this time, and BSGs are currently Q 4 hrs given stable drip rates, therefore no benefit to converting to SQ at this time. 07/23 * Insulin drip initiated yesterday evening due to 2 BSGs > 180. Drip currently running at 7.8units/hr - this is with 54 units of basal insulin on board * BSGs well controlled with drip * Patient remains intubated, agitated this AM despite current sedation (but adjustments being made), IV Solumedrol dose reduced to 60mg Q 12 hrs, but tube feeds being titrated up * Suspect insulin needs will still be significant enough to warrant continued continuing drip at this time 07/22 * Type 2 diabetic admitted for confusion, myoclonus and acute on chronic resp failure. * Level of glycemic control prior to admission uncertain, will check A1c * Patient remains intubated and sedated this AM, BSGs acceptable thus far however he will be starting high dose IV steroids, continuous tube feeds ("trickle rate" today) and IV abx for possible pulm infxn (vs pulm edema) * Given pt's body habitus, recorded outpt regimen, and new stressors that will likely contribute to hyperglycemia, will adjust SQ insulin doses such that Novolog doses are in line with "severe stress" and dosed per Adjusted BW. Will increase Lantus dose and give per scale given uncertain response to "trickle feeds" * Will add order to begin IV insulin infusion if BSGs rise despite the new SQ basal/bolus orders PLAN FOR INPATIENT GLYCEMIC CONTROL: * Hold outpatient oral diabetes medications (dulaglutide, metformin) * Discontinue IV insulin infusion at 0800 today * Basal insulin * Lantus 30 units x 1 dose now at 1500 then * SQ BID based on BSG: * 0 units BSG < 100 * 20 units BSG 100-140 * 40 units BSG 140-200 * 60 units BSG > 200 * Bolus insulin * Novolog 10 units SQ x 1 dose now to correct for BSG 248mg/dl 2 hours after lunch * Novolog SQ ACHS and overnight at 0000 and 0400 * Correction Factor: 10mg/dl/unit * Carb ratio: 1 unit per 2.5 carbs consumed * Reassess insulin needs with each step down in steroid dose PLAN FOR DISCHARGE: * to be determined
[2019-07-26] MEDS ORDERED: INSULIN GLARGINE SOLOSTAR 100 UNITS/ML 3 ML PEN SC ONE (15:30)
[2019-07-26] MEDS ORDERED: INSULIN ASPART 100 UNITS/ML 3 ML PEN SC ONE (15:30)
[2019-07-26] MEDS: levETIRAcetam 250 MG TAB PO SCH (20:37)
--- NOTE | 2019-07-26 21:19 | Hospitalist Progress Note ---
Date of Service July 26, 2019 Assessment & Plan (1) Myoclonic jerking: resolved. will monitor. (2) Confusion: resolved. likely related to his CO2 retention (3) Psoriasis: Chronic. Continue methotrexate 7.5 mg p.o. q. weekly (4) Congestive heart failure: Patient having diuresed in the ICU. Patient is currently on Lasix 80 mg daily, will need to be converted over to IV. Defer to fuel management handler to monitor this. , Replete potassium IV. (5) Depression: Chronic. Continue escitalopram 20 mg p.o. daily Continue Cymbalta 60 mg p.o. daily (6) Anxiety: Chronic. Stable. -Continue escitalopram, Cymbalta, buspirone at home doses (7) Diabetes: Blood sugar stable at present. Caregiver reports erratic blood sugars ranging from the 80s to the 500s. Question medication adherence Lantus 10 units twice daily Insulin sliding scale -Continue Lyrica 50 mg p.o. twice daily Continue to monitor (8) Asthma: Stable respiratory status at present. Diminished breath sounds. No active wheezing. Duo nebs Albuterol as needed (9) Chronic hypercapnic respiratory failure: Suspect patient has a degree of obesity hypoventilation syndrome and obstructive sleep apnea, will likely need BiPAP or CPAP at a later time, defer evaluation for this while patient is acutely ill. (10) COPD (chronic obstructive pulmonary disease) case management patient: Chronic. Patient has advance COPD. Pateint has poor [facility] prognosis. Focused on patient that he need to stop smoking, he has required mutiple adm issions in the past and if he continues down this path, he will ultimately . No acute wheezing at this time. Patient with adequate oxygenation on his home 3 L. Duo nebs Albuterol Continue supplemental oxygen (11) GERD (gastroesophageal reflux disease): Chronic. Stable. ProphylaxisLovenox Codefull per discussion with patient Subjective Patient is awake, his sister is at bedside. Patient reports that he is breathing better today. He reports he continues to smoke but i interested in quiting. His sister is concerned that he will continue to smoke when he is discharged. When asked how severe is lung disease is, patient could not answer the question, nor does he remember what exactly was told to him at the outpatient visits from pulmonary. Patient states he will be compliant with the bipap as an oupatient, (though nurses state he did not wear it last night) Review of Systems Review of Systems: All systems reviewed & are unremarkable except as noted in HPI & below Physical Exam Physical Exam: Gen: Awake, siting in chair HEENT: neck supple, no JVD. MMM. Heart: RR, no murmurs, limited exam Lungs: clear to auscultation in all tucker, limited exam Abd: soft, morbidly obese, diminished bowel sounds. Neuro: Sedated as noted above Ext: No clubbing, cyanosis, edema Results & Data Vital Signs (Past 12 Hours) Vital Signs Temp Pulse Pulse Resp BP BP Pulse Ox 07/26/19 19:51 36.2 C L 85 17 112/64 94 07/26/19 19:07 77 18 94 07/26/19 16:27 94 H 07/26/19 15:21 36.7 C 86 19 108/66 93 07/26/19 14:50 19 95 07/26/19 10:55 111 H 18 93 PG Care Time/CCT Total # of Minutes Spent Total Time Spent with Patient: Total time spent is greater than 50% in coordination of care (as documented) at patient's floor/unit and/or counseling patient: (1) Diabetes Diabetes mellitus complication status: without complication Diabetes mellitus terminal press operator insulin use: with terminal press operator use Diabetes mellitus type: type 2 Qualified Code(s): E11.9 - Type 2 diabetes mellitus without complications; Z79.4 - skilled nursing (current) use of insulin (2) Congestive heart failure Heart failure chronicity: acute on chronic Heart failure type: combined systolic and diastolic Qualified Code(s): I50.43 - Acute on chronic combined systolic (congestive) and diastolic (congestive) heart failure (3) Depression Active/Remission status: remission status unspecified Depression Type: major depressive disorder Major depression recurrence: unspecified whether recurrent Qualified Code(s): F32.9 - Major depressive disorder, single episode, unspecified (4) GERD (gastroesophageal reflux disease) Esophagitis presence: esophagitis presence not specified Qualified Code(s): K21.9 - Gastro-esophageal reflux disease without esophagitis
[2019-07-27] MEDS: INSULIN ASPART 100 UNITS/ML 3 ML PEN SC SCH ×6 (00:40→21:12)
[2019-07-27] MEDS: ALBUT/IPRATROP 3MG/0.5MG NEB 3 ML VIAL NEB SCH ×5 (03:24→19:45)
[2019-07-27] MEDS: ACETAMINOPHEN 325 MG TAB PO PRN (06:43)
[2019-07-27 06:53] LABS: BUN Creatinine Ratio 64.9 (10-20); Calcium 9.5 mg/dl (8.5-10.1); Creatinine Clr Calc Pharmacy 140.9 ml/min; Est GFR (African American) 110.4; Est GFR (Non-African American) 95.3; Magnesium 2.4 mg/dl (1.8-2.4); Phosphorus 3.2 mg/dl (2.5-4.9); Potassium 3.7 mmol/L (3.5-5.1)
[2019-07-27] MEDS: predniSONE 10 MG TABLET PO SCH (07:57)
[2019-07-27] MEDS: carvediloL 3.125 MG TAB PO SCH ×2 (07:57→21:16)
[2019-07-27] MEDS: ESCITALOPRAM OXALATE 20 MG TAB PO SCH (07:58)
[2019-07-27] MEDS: ATORVASTATIN 40 MG TAB PO SCH (07:58)
[2019-07-27] MEDS: lisinopriL 10 MG TAB PO SCH (07:58)
[2019-07-27] MEDS: RANITIDINE HCL SYRUP 150 MG/10 ML 480ML PO SCH (07:58)
[2019-07-27] MEDS: FOLIC ACID 1 MG TAB PO SCH (07:58)
[2019-07-27] MEDS: POTASSIUM CHLORIDE 20 MEQ TABCR PO SCH ×2 (07:58→17:08)
[2019-07-27] MEDS: SPIRONOLACTONE 25 MG TAB PO SCH (07:58)
[2019-07-27] MEDS: ENOXAPARIN INJ 40 MG/0.4 ML SYR SQ SCH ×2 (07:59→21:12)
[2019-07-27] MEDS: BUDESONIDE/FORMOTEROL FUMARATE 160/4.5 60 PUFFS/INHALER INH SCH ×2 (07:59→21:16)
[2019-07-27] MEDS: FUROSEMIDE 80 MG TAB PO SCH (07:59)
[2019-07-27] MEDS: levETIRAcetam 250 MG TAB PO SCH ×2 (07:59→21:17)
[2019-07-27] MEDS: PREGABALIN 50 MG CAP PO SCH ×2 (08:00→21:31)
[2019-07-27] MEDS: ASPIRIN 81 MG CHEW PO SCH (08:00)
[2019-07-27] MEDS: INSULIN GLARGINE SOLOSTAR 100 UNITS/ML 3 ML PEN SC SCH ×2 (08:11→21:15)
[2019-07-27] MEDS ORDERED: INFLUENZA ADMINISTRATION CHARGE ONE (10:46)
[2019-07-27] MEDS ORDERED: INFLUENZA VIRUS QUAD VACCINE 0.5 ML SYR IM ONE (10:46)
--- NOTE | 2019-07-27 12:21 | Pharmacy Report ---
Pharmacy Glycemic Short Note 2 - Date of Service July 27, 2019 - Glycemic Short BSG Results (Last 24 hours): 07/26/19 07/26/19 07/26/19 15:19 16:43 20:18 Glucose POC Glucose 248 H 252 H 183 H 07/26/19 07/27/19 07/27/19 23:55 04:18 05:50 Glucose 166 H POC Glucose 137 H 164 H 07/27/19 07/27/19 07:38 11:39 Glucose POC Glucose 141 H 207 H OUTPATIENT ANTIDIABETIC REGIMEN (home regimen uncertain): * U-500 Regular insulin: 90 units w/ breakfast if BSG > 200, 60 units w/ lunch if BSG > 200, 70 units w/ dinner if BSG > 200 * Trulicity (dulaglutide) 1.5mg SQ weekly * Metformin 1gm PO Q PM * A1c = 8.1% 07/22/19 ASSESSMENT: 07/27 * Patient successfully transitioned off of insulin drip, required 97 units basal insulin yesterday, fasting blood sugar 166mg/dl today, will change parameters so that patient gets 50 units Lantus BID for blood sugar at goal. * Patient continues prednisone taper, 30 mg PO today. 07/26 * Patient eating, insulin drip running ~2-3 units/hr, pt acceptable to transition to SQ. NOTE: pt requires ~220 units of insulin per day at home. * Patient on Lantus 27 units BID, received dose last night and this morning. Blood sugars rising 102 --> 193--> 248mg/dl today from breakfast to lunch to after lunch. Will increase Lantus and tighten CF and CR. * Steroids tapered to Prednisone 40mg PO daily, will use tight Novolog parameters and titrate 07/25 * New events in last 24 hrs: pt extubated this AM, TFs stopped, diet has been ordered but thus far pt appears to have minimal PO intake * Pt developed hypoglycemia this AM with BSGs in the 60s, drip was placed on hold and scheduled Lantus also held. Drip to restart when BSG above 150 * Suspect the effects of IV Solu-Medrol dissipated overnight and pt is now more insulin sensitive while on Prednisone PO * Will resume insulin drip at reduced rate (3units/hr). Plan to continue insulin drip at this time given uncertain insulin needs (pt received a total of ~270 units of insulin from IV drip and SQ Lantus yesterday while receiving TF's part of the day yesterday, [facility] * Plan is to try to transition to SQ in near future (tomorrow AM) based upon insulin drip data today - assuming no new stressors surface 07/24 * BSGs at goal, insulin drip continues and has reached a stable rate of 9units/hr * Lantus continues at this time * New events: sedation converted to Propofol however no plans to extubate, steroid being tapered, tube feeds on hold for possible bronch * IV insulin infusion remains best modality for glycemic control at this time, and BSGs are currently Q 4 hrs given stable drip rates, therefore no benefit to converting to SQ at this time. 07/23 * Insulin drip initiated yesterday evening due to 2 BSGs > 180. Drip currently running at 7.8units/hr - this is with 54 units of basal insulin on board * BSGs well controlled with drip * Patient remains intubated, agitated this AM despite current sedation (but adjustments being made), IV Solumedrol dose reduced to 60mg Q 12 hrs, but tube feeds being titrated up * Suspect insulin needs will still be significant enough to warrant continued continuing drip at this time 07/22 * Type 2 diabetic admitted for confusion, myoclonus and acute on chronic resp failure. * Level of glycemic control prior to admission uncertain, will check A1c * Patient remains intubated and sedated this AM, BSGs acceptable thus far [facility] he will be starting high dose IV steroids, continuous tube feeds ("trickle rate" today) and IV abx for possible pulm infxn (vs pulm edema) * Given pt's body habitus, recorded outpt regimen, and new stressors that will likely contribute to hyperglycemia, will adjust SQ insulin doses such that Novolog doses are in line with "severe stress" and dosed per Adjusted BW. Will increase Lantus dose and give per scale given uncertain response to "trickle feeds" * Will add order to begin IV insulin infusion if BSGs rise despite the new SQ basal/bolus orders PLAN FOR INPATIENT GLYCEMIC CONTROL: * Hold outpatient oral diabetes medications (dulaglutide, metformin) * Basal insulin * Lantus SQ BID based on BSG: * 0 units BSG < 100 * 20 units BSG 100-140 * 50 units BSG 140-200 * 60 units BSG > 200 * Bolus insulin * Novolog SQ ACHS * Correction Factor: 10mg/dl/unit * Carb ratio: 1 unit per 2.5 carbs consumed * Reassess insulin needs with each step down in steroid dose PLAN FOR DISCHARGE: * to be determined
[2019-07-27] MEDS: cefTRIAXone SODIUM 2,000 MG in DEXTROSE 5% 50 ML IV SCH (13:00)
--- NOTE | 2019-07-27 21:50 | Hospitalist Progress Note ---
Date of Service July 27, 2019 Assessment & Plan (1) Myoclonic jerking: resolved. will monitor. (2) Confusion: resolved. likely related to his CO2 retention (3) Psoriasis: Chronic. Continue methotrexate 7.5 mg p.o. q. weekly (4) Congestive heart failure: improved. now back on PO diuretics. - net negative over 6 liters (5) Depression: Chronic. Continue escitalopram 20 mg p.o. daily Continue Cymbalta 60 mg p.o. daily (6) Anxiety: Chronic. Stable. -Continue escitalopram, Cymbalta, buspirone at home doses (7) Diabetes: Blood sugar stable at present. Caregiver reports erratic blood sugars ranging from the 80s to the 500s. Question medication adherence Lantus 10 units twice daily Insulin sliding scale -Continue Lyrica 50 mg p.o. twice daily Continue to monitor (8) Asthma: Stable respiratory status at present. Diminished breath sounds. No active wheezing. Duo nebs Albuterol as needed (9) Chronic hypercapnic respiratory failure: Suspect patient has a degree of obesity hypoventilation syndrome and obstructive sleep apnea, on positive bipap at night (10) COPD (chronic obstructive pulmonary disease) case management patient: Chronic. Patient has advance COPD. 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 Focused on patient that he need to stop smoking, he has required mutiple admissions in the past and if he continues down this path, he will ultimately . No acute wheezing at this time. Patient with adequate oxygenation on his home 3 L. Duo nebs Albuterol Continue supplemental oxygen (11) GERD (gastroesophageal reflux disease): Chronic. Stable. ProphylaxisLovenox Codefull per discussion with patient dispo: awaiting placement in rehab/ unsure if patient has caregivers at home. will need to confirm on sunday with case management, as patient prefers to go home. Sister states caregivers left, but patient states he still has caregivers. Subjective Patient reports feeling well. He has no new complaints at this time. Review of Systems Review of Systems: All systems reviewed & are unremarkable except as noted in HPI & below Physical Exam Physical Exam: Gen: Awake, siting in chair HEENT: neck supple, no JVD. MMM. Heart: RR, no murmurs, Lungs: decreased breath sounds heard b/l Abd: soft, morbidly obese, diminished bowel sounds. Neuro: Sedated as noted above Ext: No clubbing, cyanosis, edema Results & Data Vital Signs (Past 12 Hours) Vital Signs Temp Pulse Pulse Resp BP BP Pulse Ox 07/27/19 20:00 36.5 C 76 20 136/78 92 07/27/19 19:45 71 16 93 07/27/19 16:34 90 07/27/19 15:39 36.5 C 85 20 108/60 99 07/27/19 15:05 92 H 18 98 07/27/19 11:10 103 H 18 92 07/27/19 11:05 36.7 C 103 H 18 120/64 92 PG Care Time/CCT Total # of Minutes Spent Total Time Spent with Patient: Total time spent is greater than 50% in coordination of care (as documented) at patient's floor/unit and/or counseling patient: (1) Diabetes Diabetes mellitus complication status: without complication Diabetes mellitus fci insulin use: with fci use Diabetes mellitus type: type 2 Qualified Code(s): E11.9 - Type 2 diabetes mellitus without complications; Z79.4 - halfway (current) use of insulin (2) Congestive heart failure Heart failure chronicity: acute on chronic Heart failure type: combined systolic and diastolic Qualified Code(s): I50.43 - Acute on chronic combined systolic (congestive) and diastolic (congestive) heart failure (3) Depression Active/Remission status: remission status unspecified Depression Type: major depressive disorder Major depression recurrence: unspecified whether recurrent Qualified Code(s): F32.9 - Major depressive disorder, single episode, unspecified (4) GERD (gastroesophageal reflux disease) Esophagitis presence: esophagitis presence not specified Qualified Code(s): K21.9 - Gastro-esophageal reflux disease without esophagitis
[2019-07-28] MEDS: ALBUT/IPRATROP 3MG/0.5MG NEB 3 ML VIAL NEB SCH ×7 (00:04→23:20)
[2019-07-28 06:39] LABS: BUN Creatinine Ratio 50.3 (10-20); Calcium 8.9 mg/dl (8.5-10.1); Creatinine Clr Calc Pharmacy 145.6 ml/min; Est GFR (African American) 111.5; Est GFR (Non-African American) 96.2; Magnesium 2.4 mg/dl (1.8-2.4); Potassium 4.2 mmol/L (3.5-5.1)
[2019-07-28 06:40] LABS: Phosphorus 3.3 mg/dl (2.5-4.9)
[2019-07-28] MEDS: SPIRONOLACTONE 25 MG TAB PO SCH (08:01)
[2019-07-28] MEDS: ESCITALOPRAM OXALATE 20 MG TAB PO SCH (08:02)
[2019-07-28] MEDS: metOLazone 5 MG TABLET PO SCH (08:02)
[2019-07-28] MEDS: ATORVASTATIN 40 MG TAB PO SCH (08:03)
[2019-07-28] MEDS: lisinopriL 10 MG TAB PO SCH (08:03)
[2019-07-28] MEDS: levETIRAcetam 250 MG TAB PO SCH ×2 (08:03→21:07)
[2019-07-28] MEDS: POTASSIUM CHLORIDE 20 MEQ TABCR PO SCH ×2 (08:03→17:39)
[2019-07-28] MEDS: carvediloL 3.125 MG TAB PO SCH ×2 (08:04→21:10)
[2019-07-28] MEDS: BUDESONIDE/FORMOTEROL FUMARATE 160/4.5 60 PUFFS/INHALER INH SCH ×2 (08:05→21:08)
[2019-07-28] MEDS: ENOXAPARIN INJ 40 MG/0.4 ML SYR SQ SCH ×2 (08:05→21:06)
[2019-07-28] MEDS: RANITIDINE HCL SYRUP 150 MG/10 ML 480ML PO SCH (08:06)
[2019-07-28] MEDS: ASPIRIN 81 MG CHEW PO SCH (08:21)
[2019-07-28] MEDS: INSULIN ASPART 100 UNITS/ML 3 ML PEN SC SCH ×4 (08:23→21:05)
[2019-07-28] MEDS ORDERED: INSULIN GLARGINE SOLOSTAR 100 UNITS/ML 3 ML PEN SC SCH (09:00)
[2019-07-28] MEDS ORDERED: metHOTREXate sodium 2.5 MG TAB PO SCH (09:00)
[2019-07-28] MEDS: predniSONE 10 MG TABLET PO SCH (09:09)
[2019-07-28] MEDS: FUROSEMIDE 80 MG TAB PO SCH (09:10)
[2019-07-28] MEDS: PREGABALIN 50 MG CAP PO SCH ×2 (09:10→21:13)
[2019-07-28] MEDS: cefTRIAXone SODIUM 2,000 MG in DEXTROSE 5% 50 ML IV SCH (13:56)
--- NOTE | 2019-07-28 14:18 | Pharmacy Report ---
Glycemic Control Progress Note - Date of Service July 28, 2019 - Scope Glycemic Pharmacist consulted for glycemic control to write orders per [facility] inpatient glycemic control protocol. - Objective Accuchecks BSG(last 24 hours):: 07/27/19 07/27/19 07/28/19 16:27 21:11 05:46 Glucose 121 H POC Glucose 192 H 129 H 07/28/19 07/28/19 07:47 11:52 Glucose POC Glucose 137 H 139 H HbA1c:: Hemoglobin A1c 8.1 % (4.5-5.6) H 07/22/19 06:11 - Recent Pertinent Medications The patient is currently receiving: * Basal insulin: Lantus 0-60 UNITS SQ BID * Correctional Insulin: Novolog Correction per scale ACHS Goal Range: Low 110 mg/dL - High 140 mg/dL Correction Factor: 10 mg/dL/unit * Prandial insulin: Per carb ratio of 1 unit per 2.5 grams CHO consumed - Outpatient Anti-Diabetic Meds U-500 90 + 60+70 units SQ + Trulicity + metformin - Assessment & Plan ASSESSMENT: * See progress note from 07/28/19 for more background info, in short: * Pt receiving SQ basal bolus insulin regimen for hyperglycemia secondary to baseline DM (outpatient regimen on hold), steroids * Patient is currently receiving an average of 156 units of insulin per day * 70 units of basal insulin * 86 units of prandial/correctional insulin * BSGs ranging 141 - 207 mg/dl over the past 24hrs * Changes needed to insulin regimen: * AM Fasting BSG = 137 mg/dl. This is in goal range for patient based on inp atient targets and co-morbidities. Therefore Basal insulin will be continued around 70 units/day. Plan for 40 units in the morning and then scale for the evening of 0-30 units. Unsure if this fasting is residual from 07/26/19 where patient received approximately 97 units of basal or truly requires only 70 units/day. * Post-prandial BSGs are in range therefore no changes needed to CF/CR. Want a split of 60% bolus and 40% basal while on steroids. Currently about 50/50 -- continue to push for more bolus coverage. As basal insulin is titrated down may require more correction factor. * Total daily dose = 150-170 units. PLAN FOR INPATIENT GLYCEMIC CONTROL: * CHANGING Lantus to 40 units in the morning and 0-30 units in the evening. * Continuing correction factor of 10 mg/dl/unit * Continuing carb ratio of 1 unit per 2.5 grams CHO consumed * Continuing goal range of Low 110 mg/dL - High 140 mg/dL * Please note that the plan above was derived based on current level of insulin resistance and hospital stress. These recommendations are appropriate for inpatient admission only. Plan of care upon discharge will need to be reassessed to avoid potential outpatient hypo/hyperglycemia. Thank you.
--- NOTE | 2019-07-28 19:26 | Hospitalist Progress Note ---
Date of Service July 28, 2019 Assessment & Plan (1) Acute on chronic respiratory failure with hypoxia and hypercapnia: Requiring intubation on admission. No CPAP/BiPAP overnight tonight (he notes not wearing it even last night). ABG in AM for insurance authorization for CPAP. Will consult pulmonology given patient was a direct admission from pulmonology clinic and likely requires some optimization of his outpatient medications prior to discharge. (2) Myoclonic jerking: resolved. Suspected secondary to acute on chronic hypercapnia in the setting of respiratory depression/confusion from combination of multiple psychiatric medications (on duloxetine, lexapro, buspar and clonazepam). No COPD exacerbation or wheezing noted admission or clinic notes although he was notably treated with steroids, therefore will taper relatively quickly over a 4 day period pending pulmonology agreement. Since psychiatric medication likely major cause of current admission recommend psychiatric consult prior to discharge as likely will need to discontinue b uspar, one of his SSRIs and benzodiazepines as previous reintroduction appears to have caused more sedation when in the ICU. Patient also seen by neurology this admission and started on Keppra which may be weaned in outpatient setting. (3) Confusion: resolved. likely related to his CO2 retention as above. (4) Psoriasis: Chronic. Suspect acute improvement from steroids. Continue methotrexate 7.5 mg p.o. q. weekly (5) Congestive heart failure: Acute on chronic diastolic heart failure (noted systolic on prior clinic notes although no evidence of this on TTE this admission). Evidence on congestive heart failure on initial CXR on admission treated with IV diuretics. TTE extremely limited but no LV dysfunction noted for systolic heart failure. Now back on outpatient regimen of lasix and metolazone. Spironolactone added by ICU during this admission which will now discontinue as hypokalemia resolved (on supplementation) and patient having low normal BP. (6) Depression: Chronic. Continue escitalopram 20 mg p.o. daily Continue Cymbalta 60 mg p.o. daily (7) Anxiety: Chronic. Stable. -Continue escitalopram, Cymbalta, buspirone at home doses (8) Diabetes: BSG well controlled at present. Patient reports recent referral to endocrinology in [place] and also seeing a soybean specialties cook and making positive changes. Appreciate pharmacy management of this. Vastly reduced insulin requirement while admitted despite metformin and Trulicity held. HbA1C 8.1. (9) GERD (gastroesophageal reflux disease): Continue ranitidine. Patient reports chronically under control. (10) Severe chronic obstructive pulmonary disease: Patient known to pulmonology on Symbicort. He continues to smoke and heavily advised cessation of this and appears relatively motivated to do so without cravings at this time. Unclear why he is not on LAMA and will defer starting this to pulmonology. Admission for acute hypercapnia concerning for COPD exacerbation but no wheezing noted on admission exam or on clinic note therefore working diagnosis (11) Hypertension: Given low normal BP currently will discontinue spironolactone (added this admission) and reduce his lisinopril back to 5mg daily. Continue carvedilol, lasix and metolazone. (12) Restless leg syndrome: Will discontinue requip as not had reoccurrence of restless legs since admitted and may have contributed towards overall drowsiness. (13) DVT prophylaxis: Lovenox 40mg daily (14) Discharge planning issues: Patient refusing rehab placement although appears to be close to his baseline and relatively independent. Anticipated discharge in the next 1-2 days. Subjective Patient seen in afternoon. Sitting comfortably in the chair. No shortness of breath at rest. No chest pain. Feels he is mostly back to his baseline. He has a long history of depression with a lot of lately. This is managed by his primary care provider but he thinks when he recently was put on Klonipin that started off this whole episode of myoclonic jerking and he is concerned about the amount of medications he is on. He has avoided psychiatry or therapy previous as he doesn't think he is crazy. He admits to insomnia and waking up at 2am and constantly having anxious thoughts through his head but denies any suicidal ideation. Diabetes - he understands this is not well controlled but has recently made positive changes and is now under an windows vmware administrator in [place] and is seeing a soybean specialties cook and making large carbohydrate instructions. Psoriasis - reports getting worse over months but since admission has been getting better. Uses methotrexate but no steroid cream on lesions at this time. Reports outpatient sleep apnea test pending at this time. He thinks he last had one 2 years ago but never had CPAP delivered. He reports Sincere Mcclain will be able to get him one if he needs it. Review of Systems Review of Systems: All systems reviewed & are unremarkable except as noted in HPI & below Physical Exam Constitutional: well developed and + morbidly obese; + not well nourished and no acute distress ENMT: external ear and nose normal, oropharynx normal Neck: trachea midline, + short neck and + thick neck Respiratory: normal respiratory effort; no respiratory distress, no labored breathing, no retractions and does not use accessory muscles Auscultation: + diminished lung sounds (Mostly bibasal, reduced throughout due to body habitus); no crackles, no rales and no rhonchi Cardiovascular: Rate/Rhythm: regular rate and regular rhythm Heart Sounds: normal S1 and normal S2 (quiet); no murmur Extremities: normal capillary refill and + pedal edema (1+ to knees) Gastrointestinal (Abdomen): Inspection/Auscultation: abdomen normal to inspection and normal bowel sounds; abdomen not distended Percussion/Palpation: abdomen soft; abdomen nontender, no guarding and abdomen not rigid Musculoskeletal: no cyanosis or clubbing, extremities motor strength 5/5 Skin: Healing psoriatic lesions on face and back Neurologic: moves all extremities and awake; no focal motor deficits Motor/Sensory: + sensory deficit (stocking distribution in feet numbness) Psychiatric: A+Ox3, euthymic affect Results & Data Vital Signs (Past 12 Hours) Vital Signs Temp Pulse Pulse Resp BP BP Pulse Ox 07/28/19 18:04 87 07/28/19 15:23 98.2 F 82 18 114/66 96 07/28/19 14:55 103 H 18 97 07/28/19 11:36 98.2 F 71 20 95/58 L 96 07/28/19 11:17 77 18 91 07/28/19 08:00 97.5 F L 68 20 118/66 94 07/28/19 07:47 92 H 07/28/19 07:32 50 L 18 90 PG Care Time/CCT Total # of Minutes Spent Total Time Spent with Patient: Total time spent is greater than 50% in coordination of care (as documented) at patient's floor/unit and/or counseling patient: (1) Congestive heart failure Heart failure type: diastolic Heart failure chronicity: acute on chronic Qualified Code(s): I50.33 - Acute on chronic diastolic (congestive) heart failure (2) Depression Depression Type: major depressive disorder Major depression recurrence: unspecified whether recurrent Active/Remission status: remission status unspecified Qualified Code(s): F32.9 - Major depressive disorder, single episode, unspecified (3) Diabetes Diabetes mellitus type: type 2 Diabetes mellitus technician terminal and repeater insulin use: with mcc use Diabetes mellitus complication status: without complication Qualified Code(s): E11.9 - Type 2 diabetes mellitus without complications; Z79.4 - technician terminal and repeater (current) use of insulin (4) GERD (gastroesophageal reflux disease) Esophagitis presence: esophagitis presence not specified Qualified Code(s): K21.9 - Gastro-esophageal reflux disease without esophagitis (5) Hypertension Hypertension type: other secondary hypertension Qualified Code(s): I15.8 - Other secondary hypertension
[2019-07-28] MEDS: INSULIN GLARGINE SOLOSTAR 100 UNITS/ML 3 ML PEN SC SCH (21:08)
[2019-07-29] MEDS: ALBUT/IPRATROP 3MG/0.5MG NEB 3 ML VIAL NEB SCH ×6 (03:32→23:09)
[2019-07-29 06:06] LABS: Allen Test Pos (Pos); Base Excess ABG 5.3 mEq/L (-9-1.8); HCO3 ABG 30 mmol/L (19-24); PCO2 ABG 44 mmHg (35-46); PO2 ABG 83 mm/Hg (80-95); pH ABG 7.45 (7.35-7.45)
[2019-07-29 06:40] LABS: BUN Creatinine Ratio 47.4 (10-20); Calcium 8.8 mg/dl (8.5-10.1); Creatinine Clr Calc Pharmacy 186.3 ml/min; Est GFR (African American) 123.2; Est GFR (Non-African American) 106.3; Magnesium 2.2 mg/dl (1.8-2.4); Phosphorus 3.4 mg/dl (2.5-4.9); Potassium 3.4 mmol/L (3.5-5.1)
[2019-07-29] MEDS: carvediloL 3.125 MG TAB PO SCH ×2 (07:56→20:44)
[2019-07-29] MEDS: POTASSIUM CHLORIDE 20 MEQ TABCR PO SCH ×2 (07:56→17:07)
[2019-07-29] MEDS: FUROSEMIDE 80 MG TAB PO SCH (07:57)
[2019-07-29] MEDS: levETIRAcetam 250 MG TAB PO SCH ×2 (07:57→20:44)
[2019-07-29] MEDS: ATORVASTATIN 40 MG TAB PO SCH (07:57)
[2019-07-29] MEDS: FOLIC ACID 1 MG TAB PO SCH (07:57)
[2019-07-29] MEDS: ESCITALOPRAM OXALATE 20 MG TAB PO SCH (07:57)
[2019-07-29] MEDS: predniSONE 20 MG TAB PO SCH (07:57)
[2019-07-29] MEDS: RANITIDINE HCL SYRUP 150 MG/10 ML 480ML PO SCH (07:57)
[2019-07-29] MEDS: BUDESONIDE/FORMOTEROL FUMARATE 160/4.5 60 PUFFS/INHALER INH SCH ×2 (07:57→20:46)
[2019-07-29] MEDS: PREGABALIN 50 MG CAP PO SCH ×2 (07:58→20:47)
[2019-07-29] MEDS: ENOXAPARIN INJ 40 MG/0.4 ML SYR SQ SCH (07:58)
[2019-07-29] MEDS: INSULIN ASPART 100 UNITS/ML 3 ML PEN SC SCH ×4 (08:13→20:46)
[2019-07-29] MEDS: ASPIRIN 81 MG CHEW PO SCH (08:13)
[2019-07-29] MEDS ORDERED: INSULIN GLARGINE SOLOSTAR 100 UNITS/ML 3 ML PEN SC SCH ×2 (09:00→21:00)
[2019-07-29] MEDS ORDERED: lisinopriL 5 MG TAB PO SCH (09:00)
--- NOTE | 2019-07-29 09:59 | XRay Report ---
XR chest 1V portable CLINICAL HISTORY: 64 years-old Male presenting with volume status assessment. TECHNIQUE: Portable upright AP view of the chest was obtained. COMPARISON: 07/25/2019. FINDINGS: Interval extubation and removal of the nasogastric tube. Cardiac silhouette enlarged. Pulmonary vascu lar prominence. Interlobular septal thickening is suspected. Elevation of the right hemidiaphragm as on prior exam. Diffuse added density of the lungs with a basilar predominance. Similar appearance of right pleural thickening or right loculated pleural effusion. No pneumothorax. Posttraumatic or posts urgical changes of several posterior right ribs. Wire fixation may relate to rib deformities. IMPRESSION: 1. Cardiomegaly with volume overload and mild congestive change. This is overall similar to prior ex am. Early/developing pulmonary edema is not excluded, again similar to prior exam. 2. Interval extubation and NG tube removal. Electronically signed by: Redd Velasquez M.D. 07/29/2019 9:57 AM
--- NOTE | 2019-07-29 13:46 | Pulmonary Consultation ---
Date of Consultation July 29, 2019 Assessment & Plan (1) Acute on chronic respiratory failure with hypoxia and hypercapnia: Patient has long-standing history of hypercapnic/hypoxic failure on 3 L/min of supplemental O2 12/03 Previous pulmonary function test showed significantly reduced FEV1 On admission patient was found to have severe hypercapnia and required endotracheal intubation with mechanical ventilation Throughout the course of the hospital stay the patient is improved but continues to be hypercapnic although he has a normalized pH via blood gases Patient certainly is were improved with BiPAP therapy and will need noninvasive ventilation on discharge Due to chronic respiratory failure consequent to COPD, patient now requires a noninvasive home ventilator. Bilevel therapy with and without a rate would be ineffective as patient requires a volume targeted mode. Ventilation is required to decrease work of breathing and improve pulmonary status. Interruption of ventilator support would lead to decline of health status. NIMV settings should be AVAPS-AE; Breath rate: auto; Inspiratory time:auto; Sigh: off; PS min: 8; PS max 15; EPAP min: 15; EPAP max: 15; AVAPS rate: 10 target is short volume should be 450 mL; use during sleep and as needed (2) COPD (chronic obstructive pulmonary disease): Patient follows outpatient with the pulmonary clinic and also has a case management COPD patient is an outpatient At this point we will place the patient on trilogy noninvasive ventilation at discharge Patient was on prednisone 10 mg p.o. daily as an outpatient. We will continue this until seen in the office Continue supplemental oxygen as previously prescribed Continue home respiratory meds Will need follow-up in the office within 2 weeks of discharge Thank you for including us in the care of this patient. Please refer to Dr. Hicks's addendum for further recommendations. Supervising Physician Co-Signing Physician Notes I saw and examined the patient with Max lo PA-C. Patient's neurological symptoms greatly improved from when I saw him in the clinic about a week ago. It appears that the thought process was that he had myoclonic jerks secondary to excess serotonergic agents. He is currently on Keppra with improved symptoms. With regards to his respiratory status, this appears to be stable. The patient needs noninvasive ventilation at home when he sleeps in the form of trilogy. Reviewed the parameters to the applications development consultant so that this can be approved for him. This mode of ventilation is necessary given his very severe COPD and his propensity to retain carbon dioxide. This will hopefully reduce the amount of hospital admissions and improve his quality of life. I would also recommend a long-acting muscarinic antagonist such as Spiriva added to his current regimen. I would recommend that he be weaned off the prednisone. We had a long discussion regarding smoking cessation and weight loss and he seems motivated to quit smoking and lose weight. The patient can be followed up in the pulmonary clinic in about 1 week. Recommend obtaining full pulmonary function testing on his next follow-up visit. History of Present Illness Attending Physician: Raymundo Rodrigez MD History of Present Illness Attending: Dr. Ross This is a 64-year-old male that follows with the outpatient pulmonary clinic. He presented with shortness of breath and was found to have COPD exacer bation. Patient also was found to be hypercapnic requiring BiPAP level support for oxygenation. The patient required mechanical ventilation via endotracheal intubation on admission to [facility]. The patient's arterial blood gases never revealed an acidotic pH. However patient was hypercarbic by PCO2 at 74 on admission and corrected to 53 with BiPAP support during his inpatient stay. CTA of the chest showed no evidence of pulmonary embolus. There was evidence of trace pleural effusions versus atelectasis or scarring. Patient had no defined infiltrate or consolidation. Patient has been afebrile thus far through his stay and has no hemoptysis or productive sputum. Patient states that he is on supplemental O2 at home at 3 L/min via nasal cannula 12/03. He has never required CPAP, BiPAP, or any other noninvasive therapy. He has no chest pain or tightness. He has no shortness of breath with supplemental O2 and with BiPAP. The patient was last seen in the outpatient setting on 07/21/2019 at the pulmonary clinic. Previous PFTs done in 2009 revealed an FEV1 of 32%. The patient continues to smoke 1 pack of cigarettes per day. During my interview he indicated that it has been 11 days and he thinks he can quit cold turkey. The patient has a past medical history including chronic hypoxemic and hypercapnic respiratory failure, continue with supplemental oxygen at 2 L/min via nasal cannula, obesity hypoventilation syndrome, obstructive sleep apnea, COPD, systolic and diastolic heart failure, diabetes mellitus type 2, severe plaque psoriasis, methotrexate use chronically. Allergies Allergy/AdvReac Type Severity Reaction Status Date / Time Penicillins Allergy Unknown Verified 07/15/19 15:15 Home Medications Home Medications Medication Instructions Recorded Confirmed Type Oxygen Home #1 ea 04/25/19 07/15/19 History acetaminophen 325 mg tablet 625 mg PO Q6 PRN tab 04/25/19 07/21/19 History albuterol sulfate 90 mcg/actuation INHALATION gm 04/25/19 07/15/19 History aerosol inhaler ibuprofen 800 mg tablet 800 mg PO PRN tab 04/25/19 04/25/19 History insulin regular hum U-500 conc SUBCUT ml 04/25/19 04/25/19 History 500"concentrate" 500 unit/mL subcutaneous soln ipratropium-albuterol 0.5 mg-3 INHALATION ml 04/25/19 04/25/19 History mg(2.5 mg base)/3 mL nebulization soln linaclotide 290 mcg capsule 1 PO .TAKE 1 CAPSULE Daily #30 cap 04/25/19 07/15/19 History Oxygen Home #1 ea 05/06/19 07/21/19 Rx aspirin 81 mg tablet 81 mg PO DAILY tab 05/06/19 07/21/19 History atorvastatin 40 mg tablet 40 mg PO DAILY tab 05/06/19 07/21/19 History buspirone 15 mg tablet 15 mg PO TID tab 05/06/19 07/21/19 History carvedilol 3.125 mg tablet 3.125 mg PO BID tab 05/06/19 07/21/19 History dulaglutide 1.5 mg/0.5 mL 1.5 mg SQ WEEKLY #0.5 ml 05/06/19 07/21/19 Rx subcutaneous pen injector duloxetine 60 mg capsule,delayed 60 mg PO DAILY #90 cap 05/06/19 07/21/19 History release fluticasone furoate 200 1 puffs INHALATION DAILY #1 ea 05/06/19 07/21/19 Rx mcg-vilanterol 25 mcg/dose inhalation powder folic acid 1 mg tablet 1 mg PO DAILY #30 tab 05/06/19 07/21/19 Rx furosemide 40 mg tablet 80 mg PO DAILY tab 05/06/19 07/21/19 History lisinopril 5 mg tablet 5 mg PO DAILY tab 05/06/19 07/21/19 History methotrexate sodium 2.5 mg tablet 7.5 mg PO WEEKLY #30 tab 05/06/19 07/21/19 Rx pregabalin 50 mg capsule 50 mg PO BID cap 05/06/19 07/15/19 History ranitidine HCl 150 mg tablet 150 mg PO DAILY #90 tab 05/06/19 07/15/19 Rx ropinirole 1 mg tablet 1 mg PO DAILY #30 tab 05/06/19 07/15/19 Rx escitalopram oxalate 20 mg tablet 20 mg PO DAILY tab 07/15/19 07/21/19 History prednisone 10 mg tablet See Rx Instructions PO DAILY #36 07/15/19 07/15/19 Rx tab metformin 1,000 mg PO PM 07/21/19 07/21/19 History metolazone 5 mg tablet 5 mg PO .COMPLEX #1 tab 07/21/19 07/21/19 Rx Patient History Medical History (Updated 07/29/19 @ 14:08 by Max Lo PA-C) Anxiety Asthma Chronic hypercapnic respiratory failure Chronic respiratory failure Congestive heart failure COPD (chronic obstructive pulmonary disease) Depression Diabetes GERD (gastroesophageal reflux disease) Lower leg edema Myoclonic jerking Psoriasis Surgical History History of appendectomy History of bronchoscopy History of hemorrhoidectomy History of thoracotomy 06/2008 - s/p traumatic hemothorax History of tonsillectomy Family History Other Coronary heart disease Diabetes Lung cancer Social History Preferred Language: Turkish Communication Ability: Unable Beliefs That Will Affect Care: None Current Living Situation Comment: caregivers stay at his time Other Information That Helps Us Care for You: No Feels Safe at Home: Yes Smoking Status: Current every day smoker Tobacco Type: cigarettes ; Do You Dip or Chew Tobacco: No ; Hx Alcohol Use: No Hx Substance Use: No Review of Systems Review of Systems: All systems reviewed & are unremarkable except as noted in HPI & below Physical Exam Physical Exam: GENERAL : No acute distress EYES: No icterus, gaze conjugate NOSE: No evidence of epistaxis. Nasal cannula in place MOUTH: No lesions or candidiasis NECK: Supple LUNGS: Fine crackles bilaterally at the bases. No bronchospasm. Good inspiratory effort. Breath sounds appear to be equal bilaterally. HEART: Regular, rate controlled ABDOMEN: Soft, NT, ND, BS Present EXTREMITIES: No LE edema bilaterally, pedal pulses intact and equal bilaterally. Chronic venous stasis bilateral lower extremities NEURO: A&OX3 Results & Data Vital Signs (Past 12 Hours) Vital Signs Temp Pulse Pulse Resp BP BP Pulse Ox 07/29/19 11:26 36.9 C 80 18 99/60 L 96 07/29/19 08:00 87 07/29/19 07:22 36.5 C 80 20 114/61 96 07/29/19 07:12 78 20 96 07/29/19 03:34 89 18 96 07/29/19 03:30 36.4 C L 75 18 100/67 96 Laboratory Results Laboratory Tests 07/22/19 07/22/19 07/23/19 01:28 05:56 05:51 POC pCO2 74 H 64 H 61 H 07/24/19 07/24/19 07/25/19 05:25 11:57 05:45 POC pCO2 50 H 64 H 59 H 07/25/19 13:50 POC pCO2 53 H 07/21/19 07/26/19 07/29/19 18:52 06:14 05:54 ABG pH 7.49 H 7.45 ABG pCO2 46 44 ABG pO2 59 L 83 ABG HCO3 34 H 30 H ABG O2 Saturation 92.0 97.0 H ABG Base Excess 9.6 H 5.3 H VBG pH 7.37 VBG pCO2 69 H VBG pO2 50 VBG HCO3 39 VBG O2 Saturation 83.0 VBG Base Excess 10.9 Diagnostic Findings XR chest 1V portable 07/29/2019 CLINICAL HISTORY: 64 years-old Male presenting with volume status assessment. TECHNIQUE: Portable upright AP view of the chest was obtained. COMPARISON: 07/25/2019. FINDINGS: Interval extubation and removal of the nasogastric tube. Cardiac silhouette enlarged. Pulmonary vascular prominence. Interlobular septal thickening is suspected. Elevation of the right hemidiaphragm as on prior exam. Diffuse added density of the lungs with a basilar predominance. Similar appearance of right pleural thickening or right loculated pleural effusion. No pneumothorax. Posttraumatic or postsurgical changes of several posterior right ribs. Wire fixation may relate to rib deformities. IMPRESSION: 1. Cardiomegaly with volume overload and mild congestive change. This is overall similar to prior exam. Early/developing pulmonary edema is not excluded, again similar to prior exam. 2. Interval extubation and NG tube removal. Electronically signed by: Redd Velasquez M.D. 07/29/2019 9:[address] ANGIOGRAM OF THE CHEST 07/22/2019 CLINICAL HISTORY: Change in mental status. COMPARISON STUDY: Chest x-ray dated 07/22/2019. Chest CT dated 09/13/2010. TECHNIQUE: Following the IV administration of 118 cc of Optiray 320, CT angiogram of the chest was performed from the upper abdomen to the thoracic inlet utilizing the pulmonary embolus protocol. Images are reviewed in the axial, sagittal, and coronal planes. 3-D MIPS images are created and assessed. IV contrast was administered without complication. A dose lowering technique was utilized adhering to the principles of ALARA. The examination is severely degraded by large body habitus, and by streak artifact from the body wall abutting the CT gantry. There is also streak artifact from the arms which could not be elevated above the chest. CT DOSE: 1667.08 mGy.cm FINDINGS: Thyroid: Imaged portions of the thyroid gland are normal in size and attenuation. Thoracic aorta: There is mild atherosclerotic calcification of the thoracic aorta, which is normal in caliber and demonstrates standard 3-vessel arch anatomy. No dissection is seen. Pulmonary vasculature: The pulmonary trunk is normal in caliber. There are no filling defects identified in main, lobar, or proximal segmental pulmonary branches to suggest pulmonary embolus. Evaluation of the peripheral branches is degraded by streak and motion artifact. Heart: The heart is enlarged and without pericardial effusion. There are coronary artery calcifications. Lungs and pleural spaces: An endotracheal tube terminates above the marvin. Evaluation of the lung parenchyma is modestly degraded by motion artifact. An accessory azygous fissure is incidentally noted. There are trace pleural effusions with dependent consolidation. Mild mucus plugging is noted in the lower lobes. Mediastinum: There is no mediastinal lymphadenopathy. Nanci: Clear. Axillae: There is no axillary lymphadenopathy. Upper abdomen: Enteric tube terminates in the stomach. Partially visualized upper abdominal viscera is otherwise grossly unremarkable. Skeletal structures: The skeletal structures are osteopenic. No lytic or blastic bony lesions are seen. Chronic posttraumatic deformity and postoperative change is noted involving the right sided ribs. IMPRESSION: 1. Streak and motion compromised examination. 2. There is no evidence of pulmonary embolus in the main, lobar, or proximal segmental pulmonary arteries. 3. Mild cardiomegaly. 4. There are trace pleural effusions with dependent consolidation. This likely represents scarring/atelectasis. Clinical correlation will be required. 5. Endotracheal and enteric tubes are in place. Electronically signed by: Max Joyner M.D. 07/22/2019 7:23 AM PG Care Time/CCT Total # of Minutes Spent Total Time Spent with Patient: Total time spent is greater than 50% in coordination of care (as documented) at patient's floor/unit and/or counseling patient: 45 minutes
--- NOTE | 2019-07-29 14:25 | Pharmacy Report ---
Glycemic Control Progress Note - Date of Service July 29, 2019 - Scope Glycemic Pharmacist consulted for glycemic control to write orders per [facility] inpatient glycemic control protocol. - Objective Accuchecks BSG(last 24 hours):: 07/28/19 07/28/19 07/29/19 16:36 20:38 05:54 Glucose 103 H POC Glucose 137 H 80 07/29/19 07/29/19 07:38 11:38 Glucose POC Glucose 174 H 150 H HbA1c:: Hemoglobin A1c 8.1 % (4.5-5.6) H 07/22/19 06:11 - Recent Pertinent Medications The patient is currently receiving: * Basal insulin: Lantus 40 units in the morning and then 0-30 units in the evening * Correctional Insulin: Novolog Correction per scale ACHS Goal Range: Low 110 mg/dL - High 140 mg/dL Correction Factor: 10 mg/dL/unit * Prandial insulin: Per carb ratio of 1 unit per 2.5 grams CHO consumed - Outpatient Anti-Diabetic Meds u-500 90 + 60 + 70 Trulicity metformin - Assessment & Plan ASSESSMENT: * See progress note from 07/22 for more background info, in short: * Pt receiving SQ basal bolus insulin regimen for hyperglycemia secondary to baseline DM (outpatient regimen on hold) and steroids (receiving prednisone 20 mg today) * Patient is currently receiving an average of 107 units of insulin per day * 40 units of basal insulin * 67 units of prandial/correctional insulin * BSGs ranging 80 - 139 mg/dl over the past 24hrs * Changes needed to insulin regimen: * AM Fasting BSG = 103 mg/dl. This is below goal range for patient based on inpatient targets and co-morbidities. Therefore Basal insulin will be reduced. * Post-prandial BSGs are excellent. Prednisone decreased so will loosen CF/CR * Total daily dose = ~90-100 units while on steroids; less when off. PLAN FOR INPATIENT GLYCEMIC CONTROL: * Decreasing Lantus to 30 units in the morning (20 units if BSG less than 100 mg/dL; 40 units if BSG greater than 140 mg/dL) units SQ and 10 units at bedtime if greater than 180 mg/dL * LOOSENING correction factor to 12 mg/dl/unit * LOOSENING carb ratio to 1 unit per 4 grams CHO consumed * Continuing goal range to Low 110 mg/dL - High 140 mg/dL * Please note that the plan above was derived based on current level of insulin resistance and hospital stress. These recommendations are appropriate for inpatient admission only. Plan of care upon discharge will need to be reassessed to avoid potential outpatient hypo/hyperglycemia. Thank you.
--- NOTE | 2019-07-29 17:36 | Psychiatric Consultation ---
Date of Consultation July 29, 2019 Impression / Recommendations Impression 64-year-old bereaved gentleman who appears to have been delirious in the setting of acute on chronic respiratory failure and possibly serotonin toxicity associated with antidepressant polypharmacy in addition to the central nervous system suppression from the benzodiazepine which may have exacerbated his hypercapnia. Sensorium has significantly improved and he has been discontinued from the Cymbalta, BuSpar, and clonazepam. He remains on Lexapro 20 mg daily. I am concerned that Lexapro previously was not sufficiently therapeutic for him and he may be at risk for further mood decompensation without additional treatment. Future treatment might include a trial of venlafaxine as alternative to the Lexapro however I will not make additional changes presently in the setting of expected discharge tomorrow. I strongly encouraged him to follow-up with outpatient psychiatry in addition to psychotherapy and he was agreeable and we will try to facilitate referrals as able. He was educated regarding signs and symptoms of serotonin toxicity and advised not to restart the Cymbalta or BuSpar. He was also educated regarding the risks associated with clonazepam including respiratory suppression which may have exacerbated sleep apnea and he was advised not to restart that medication. We discussed the potential medical and mental health benefits of CPAP and he appeared excited about that intervent ion. It is certainly possible that his respiratory failure has been significantly contributing to both anxiety and confusion. With regular use of the CPAP he may require less direct treatment for anxiety and insomnia. Today he does not demonstrate symptoms of ongoing serotonin toxicity or bzd withdrawal, he is fully alert and oriented, he is denying thoughts of harm to self or others, and, from a psychiatric standpoint he appears appropriate for discharge back to the community with recommendation for continued outpatient follow-up. (1) Complicated bereavement: (2) Anxiety: Psych History Chief Complaint "I've had a lot of deaths recently". History of Present Illness Per admission H&P: Caregivers at bedside and provide majority of history as patient is somewhat altered. Kyle Recio is a 64-year-old male with multiple medical problems most notably asthma, severe COPD on 3 L home oxygen, chronic hypoxic and hypercapnic respiratory failure, obesity hypoventilation syndrome/YOUSIF, insulin- dependent diabetes mellitus and CHF. Patient was seen by Pulmonology on 07/15/2019 with complaints of hypoxia and shortness of breath. During that time he was thought to be in mild exacerbation of COPD with possible pneumonia. He was administered 125 mg of Solu-Medrol IM in the office and sent home on a prednisone taper and Levaquin 750 mg daily x14 days and sent home. Caregivers report that on the evening of 07/18/2019 the patient began having myoclonic jerking. They report that he has a baseline tremor however, these movements were more frequent and increased severity than normal. The myoclonic jerking progressively worsened through 07/19 and 07/20. Patient also acting "out of his mind". Confused at times, pushing things off the table, agitated, hallucinating and incontinent of urine. He was seen in the emergency room at [facility] on 07/20. By report, work-up was negative to include no UTI, chest x- ray with no acute infiltrate. EKG with no acute changes. This morning he was found naked and confused by caregivers, diaphoretic. He was seen by Dr. Ross for pulmonary follow-up and was subsequently sent to [facility] for direct admission. Patient manages his own medications. Caregivers believe that he missed approxim ately 4 days for worth of medication. He may have taken an extra Ativan. They think that his Levaquin bottle was empty. During my encounter, patient provides no complaints. Specifically he denies p ain, shortness of breath, nausea, vomiting, diarrhea or constipation. He does not feel confused and denies any hallucinations. He is complaining of feeling hot and is requesting a box fan Patient has been treated for acute on chronic respiratory failure with hypoxia and hypercapnia. Myoclonic jerking has resolved and thought secondary to hypercapnia. Prednisone tapered. Congestive heart failure treated with diuretics. Patient reports a rather dramatically positive response to initial CPAP trial last evening. He remains on Lexapro 20 mg daily however Cymbalta 60 mg daily, BuSpar 15 mg twice a day, and Klonopin 1 mg twice daily have been (appropriately) held. Patient found to be a fair historian. He denies any formalized psychiatric history and his PCP has been managing his psychotropics. Reports normal mood and minimal anxiety until around age 52 when he had an accident resulting in multiple rib fractures, chronic pain, and difficulty with his breathing. He perceives that, since that time, life has been more of a struggle. Within the last few years he has had multiple losses including his partner of nearly 40 years, his parents, and recently a niece who from suicide. He describes significant sadness and a tendency to ruminate about his losses. His remaining family has indicated to him that his thought processes are unhealthy "but I cannot seem to help it." He is adamant in stating that he has never considered taking his own life and that he does not believe in suicide. "God will take me when he is ready." While he readily acknowledges loneliness and sadness he does not endorse hopelessness or wish. He has experienced tearfulness, diminished interest and pleasure, but denies changes in appetite, symptoms of psychosis, or historically symptoms that would be consistent with generalized anxiety, OCD, or bipolar disorder. He is unable to identify a specific start date for his psychotropic regimen but reports he was first treated with Ativan perhaps for 6 months with only modest initial benefit, later he was converted to BuSpar for several months again with initial modest benefit, Ativan was converted to clonazepam within the last 1 or 2 months which likely was associated with increased sedation, and Lexapro was started within the last several months as well. He reports being started and stopped on these medicines by his PCP as well as Cymbalta trying to find a helpful mix but seems to perceive them of minimal therapeutic benefit. He confirms that he was taking the Lexapro, Cymbalta, BuSpar, and clonazepam in combination prior to admission. He reports that he was more confused in the week prior to his admission and his caregivers told him that he seemed to be hallucinating. He denies hallucinations at baseline and advised hallucinations presently. He is fully oriented to time, place, and situation. He does struggle with some basic calculation tasks and gets 3 of 5 letters correctly spelling world backwards. He denies self-medication with alcohol or recreational drugs at home. He reports discharge is anticipated tomorrow. He indicates willingness to follow- up with both psychiatry and therapy as an outpatient. Past Psychiatric History Previous Psych History: none apart from PCP Previous Psych Admissions: none History of Previous Suicide Attempt: No Allergies Allergy/AdvReac Type Severity Reaction Status Date / Time Penicillins Allergy Unknown Verified 07/15/19 15:15 Home Medications Home Medications Medication Instructions Recorded Confirmed Type Oxygen Home #1 ea 04/25/19 07/15/19 History acetaminophen 325 mg tablet 625 mg PO Q6 PRN tab 04/25/19 07/21/19 History albuterol sulfate 90 mcg/actuation INHALATION gm 04/25/19 07/15/19 History aerosol inhaler ibuprofen 800 mg tablet 800 mg PO PRN tab 04/25/19 04/25/19 History insulin regular hum U-500 conc SUBCUT ml 04/25/19 04/25/19 History 500"concentrate" 500 unit/mL subcutaneous soln ipratropium-albuterol 0.5 mg-3 INHALATION ml 04/25/19 04/25/19 History mg(2.5 mg base)/3 mL nebulization soln linaclotide 290 mcg capsule 1 PO .TAKE 1 CAPSULE Daily #30 cap 04/25/19 07/15/19 History Oxygen Home #1 ea 05/06/19 07/21/19 Rx aspirin 81 mg tablet 81 mg PO DAILY tab 05/06/19 07/21/19 History atorvastatin 40 mg tablet 40 mg PO DAILY tab 05/06/19 07/21/19 History buspirone 15 mg tablet 15 mg PO TID tab 05/06/19 07/21/19 History carvedilol 3.125 mg tablet 3.125 mg PO BID tab 05/06/19 07/21/19 History dulaglutide 1.5 mg/0.5 mL 1.5 mg SQ WEEKLY #0.5 ml 05/06/19 07/21/19 Rx subcutaneous pen injector duloxetine 60 mg capsule,delayed 60 mg PO DAILY #90 cap 05/06/19 07/21/19 History release fluticasone furoate 200 1 puffs INHALATION DAILY #1 ea 05/06/19 07/21/19 Rx mcg-vilanterol 25 mcg/dose inhalation powder folic acid 1 mg tablet 1 mg PO DAILY #30 tab 05/06/19 07/21/19 Rx furosemide 40 mg tablet 80 mg PO DAILY tab 05/06/19 07/21/19 History lisinopril 5 mg tablet 5 mg PO DAILY tab 05/06/19 07/21/19 History methotrexate sodium 2.5 mg tablet 7.5 mg PO WEEKLY #30 tab 05/06/19 07/21/19 Rx pregabalin 50 mg capsule 50 mg PO BID cap 05/06/19 07/15/19 History ranitidine HCl 150 mg tablet 150 mg PO DAILY #90 tab 05/06/19 07/15/19 Rx ropinirole 1 mg tablet 1 mg PO DAILY #30 tab 05/06/19 07/15/19 Rx escitalopram oxalate 20 mg tablet 20 mg PO DAILY tab 07/15/19 07/21/19 History prednisone 10 mg tablet See Rx Instructions PO DAILY #36 07/15/19 07/15/19 Rx tab metformin 1,000 mg PO PM 07/21/19 07/21/19 History metolazone 5 mg tablet 5 mg PO .COMPLEX #1 tab 07/21/19 07/21/19 Rx Family History niece - suicide Substance Abuse History denies Personal History Living Arrangements: Apartment (has in home aids) Living Arrangements Comments: feels needs are met adequately Employment Status: Retired Marital Status: Living w/ Signif. Other (same sex partner . never ) Beliefs That Will Affect Care: None Patient History Medical History Anxiety Asthma Chronic hypercapnic respiratory failure Chronic respiratory failure Congestive heart failure COPD (chronic obstructive pulmonary disease) Depression Diabetes GERD (gastroesophageal reflux disease) Lower leg edema Myoclonic jerking Psoriasis Surgical History History of appendectomy History of bronchoscopy History of hemorrhoidectomy History of thoracotomy 06/2008 - s/p traumatic hemothorax History of tonsillectomy Family History Other Coronary heart disease Diabetes Lung cancer Social History Preferred Language: Mongolian Communication Ability: Unable Beliefs That Will Affect Care: None Current Living Situation Comment: caregivers stay at his time Other Information That Helps Us Care for You: No Feels Safe at Home: Yes Smoking Status: Current every day smoker Tobacco Type: cigarettes ; Do You Dip or Chew Tobacco: No ; Hx Alcohol Use: No Hx Substance Use: No Physical Exam Psychiatric: Orientation: alert, oriented x 3 and cooperative Apperance: + disheveled Eye Contact: good eye contact Motor Behavior: + tremor (Low amplitude high-frequency tremor of distal outstretched upper extremities); no psychomotor agitation (muscle tone normal. ) Speech: normal rate/rhyth m/volume of speech Affect: + depressed affect Mood: + depressed mood and + anxious mood Thought Process: goal directed thought process (With tendency towards circumstantiality) Thought Content: reality based without delusions Suicidal Thoughts: denies suicidal thoughts, denies suicidal plan and denies suicidal intent Homicidal Thoughts: denies homicidal thoughts Hallucinations: no auditory hallucinations, no visual hallucinations, no tactile hallucinations and no gustatory hallucinations Cognition: + recent memory not intact Estimated Intelligence: average estimated intelligence Insight: good insight Judgement: good judgement Vital Signs (Past 24 Hours): Last Vital Signs Temp 36.8 C 07/29/19 14:59 Pulse 58 L 07/29/19 14:59 Resp 16 07/29/19 14:59 BP 114/69 07/29/19 14:59 Pulse Ox 96 07/29/19 14:59 Review of Systems Constitutional: + fatigue, + insomnia and + daytime sleepiness; no anorexia and no increased appetite Respiratory: + cough Neurologic: + confusion (Resolved); no seizure-like activity Psychiatric: as per Subjective / HPI Results & Data Medications Administered Acetaminophen (Tylenol) 650 mg PO Q4H PRN PRN Reason: pain/fever Stop: 08/20/19 18:34 Last Admin: 07/27/19 06:43 Dose: 650 mg Documented by: [id number] Admin: 07/26/19 06:30 Dose: 650 mg Documented by: [id number] Admin: 07/25/19 21:22 Dose: 650 mg Documented by: [id number] Albuterol (Duoneb) 3 ml NEB Q4R RALF Stop: 08/20/19 22:59 Last Admin: 07/29/19 14:59 Dose: Not Given Documented by: [id number] Admin: 07/29/19 11:16 Dose: Not Given Documented by: [id number] Admin: 07/29/19 07:11 Dose: 3 ml Documented by: [id number] Admin: 07/29/19 03:32 Dose: 3 ml Documented by: [id number] Admin: 07/28/19 23:20 Dose: 3 ml Documented by: [id number] Admin: 07/28/19 19:51 Dose: 3 ml Documented by: [id number] Admin: 07/28/19 14:55 Dose: 3 ml Documented by: [id number] Admin: 07/28/19 11:17 Dose: 3 ml Documented by: [id number] Admin: 07/28/19 07:32 Dose: 3 ml Documented by: [id number] Admin: 07/28/19 03:39 Dose: Not Given Documented by: [id number] Admin: 07/28/19 00:04 Dose: Not Given Documented by: [id number] Admin: 07/27/19 19:45 Dose: 3 ml Documented by: [id number] Admin: 07/27/19 15:05 Dose: 3 ml Documented by: [id number] Admin: 07/27/19 11:07 Dose: 3 ml Documented by: [id number] Admin: 07/27/19 07:08 Dose: 3 ml Documented by: [id number] Admin: 07/27/19 03:24 Dose: 3 ml Documented by: [id number] Admin: 07/26/19 23:30 Dose: 3 ml Documented by: [id number] Admin: 07/26/19 19:07 Dose: 3 ml Documented by: [id number] Admin: 07/26/19 14:49 Dose: 3 ml Documented by: [id number] Admin: 07/26/19 10:54 Dose: 3 ml Documented by: [id number] Admin: 07/26/19 07:03 Dose: 3 ml Documented by: [id number] Admin: 07/26/19 03:10 Dose: 3 ml Documented by: [id number] Admin: 07/25/19 23:13 Dose: 3 ml Documented by: [id number] Admin: 07/25/19 20:29 Dose: 3 ml Documented by: [id number] Admin: 07/25/19 14:55 Dose: 3 ml Documented by: [id number] Admin: 07/25/19 10:59 Dose: 3 ml Documented by: [id number] Admin: 07/25/19 07:43 Dose: 3 ml Documented by: [id number] Admin: 07/25/19 02:18 Dose: 3 ml Documented by: [id number] Admin: 07/24/19 23:15 Dose: 3 ml Documented by: [id number] Admin: 07/24/19 19:26 Dose: 3 ml Documented by: [id number] Admin: 07/24/19 15:27 Dose: 3 ml Documented by: [id number] Admin: 07/24/19 11:22 Dose: 3 ml Documented by: [id number] Admin: 07/24/19 07:13 Dose: 3 ml Documented by: [id number] Admin: 07/24/19 02:59 Dose: 3 ml Documented by: [id number] Admin: 07/24/19 00:02 Dose: 3 ml Documented by: [id number] Admin: 07/23/19 19:08 Dose: 3 ml Documented by: [id number] Admin: 07/23/19 15:28 Dose: 3 ml Documented by: [id number] Admin: 07/23/19 11:01 Dose: 3 ml Documented by: [id number] Admin: 07/23/19 07:43 Dose: 3 ml Documented by: [id number] Admin: 07/23/19 03:41 Dose: 3 ml Documented by: [id number] Admin: 07/23/19 00:00 Dose: 3 ml Documented by: [id number] Admin: 07/22/19 19:30 Dose: 3 ml Documented by: [id number] Admin: 07/22/19 15:33 Dose: 3 ml Documented by: [id number] Admin: 07/22/19 10:28 Dose: 3 ml Documented by: [id number] Admin: 07/22/19 07:32 Dose: 3 ml Documented by: [id number] Admin: 07/22/19 03:38 Dose: 3 ml Documented by: [id number] Admin: 07/21/19 23:37 Dose: 3 ml Documented by: [id number] Aspirin (Aspirin Chew) 81 mg PO DAILY RALF Stop: 08/22/19 08:59 Last Admin: 07/29/19 08:13 Dose: 81 mg Documented by: [id number] Admin: 07/28/19 08:21 Dose: 81 mg Documented by: [id number] Admin: 07/27/19 08:00 Dose: 81 mg Documented by: [id number] Admin: 07/26/19 08:17 Dose: 81 mg Documented by: [id number] Atorvastatin Calcium (Lipitor) 40 mg PO DAILY RALF Stop: 08/21/19 08:59 Last Admin: 07/29/19 07:57 Dose: 40 mg Documented by: [id number] Admin: 07/28/19 08:03 Dose: 40 mg Documented by: [id number] Admin: 07/27/19 07:58 Dose: 40 mg Documented by: [id number] Admin: 07/26/19 08:04 Dose: 40 mg Documented by: [id number] Admin: 07/25/19 09:37 Dose: 40 mg Documented by: [id number] Admin: 07/24/19 07:36 Dose: 40 mg Documented by: [id number] Admin: 07/23/19 08:03 Dose: 40 mg Documented by: [id number] Admin: 07/22/19 08:42 Dose: 40 mg Documented by: [id number] Budesonide/Formoterol Fumarate (Symbicort 160mcg/4.5mcg) 2 puffs INH BID RALF Stop: 08/24/19 20:59 Last Admin: 07/29/19 07:57 Dose: 2 puffs Documented by: [id number] Admin: 07/28/19 21:08 Dose: 2 puffs Documented by: [id number] Admin: 07/28/19 08:05 Dose: 2 puffs Documented by: [id number] Admin: 07/27/19 21:16 Dose: 2 puffs Documented by: [id number] Admin: 07/27/19 07:59 Dose: 2 puffs Documented by: [id number] Admin: 07/26/19 20:41 Dose: 2 puffs Documented by: [id number] Admin: 07/26/19 08:06 Dose: 2 puffs Documented by: [id number] Admin: 07/25/19 20:07 Dose: 2 puffs Documented by: [id number] Carvedilol (Coreg) 3.125 mg PO BID RALF Stop: 08/20/19 20:59 Last Admin: 07/29/19 07:56 Dose: 3.125 mg Documented by: [id number] Admin: 07/28/19 21:10 Dose: 3.125 mg Documented by: [id number] Admin: 07/28/19 08:04 Dose: 3.125 mg Documented by: [id number] Admin: 07/27/19 21:16 Dose: 3.125 mg Documented by: [id number] Admin: 07/27/19 07:57 Dose: 3.125 mg Documented by: [id number] Admin: 07/26/19 20:35 Dose: 3.125 mg Documented by: [id number] Admin: 07/26/19 08:05 Dose: Not Given Documented by: [id number] Admin: 07/25/19 20:04 Dose: 3.125 mg Documented by: [id number] Admin: 07/25/19 09:38 Dose: 3.125 mg Documented by: [id number] Admin: 07/24/19 20:56 Dose: 3.125 mg Documented by: [id number] Admin: 07/24/19 07:34 Dose: 3.125 mg Documented by: [id number] Admin: 07/23/19 21:24 Dose: 3.125 mg Documented by: [id number] Admin: 07/23/19 08:02 Dose: 3.125 mg Documented by: [id number] Admin: 07/22/19 20:53 Dose: 3.125 mg Documented by: [id number] Admin: 07/22/19 08:42 Dose: 3.125 mg Documented by: [id number] Admin: 07/21/19 21:08 Dose: 3.125 mg Documented by: [id number] Enoxaparin Sodium (Lovenox) 40 mg SQ BID RALF Stop: 08/21/19 20:59 Last Admin: 07/29/19 07:58 Dose: 40 mg Documented by: [id number] Admin: 07/28/19 21:06 Dose: 40 mg Documented by: [id number] Admin: 07/28/19 08:05 Dose: 40 mg Documented by: [id number] Admin: 07/27/19 21:12 Dose: 40 mg Documented by: [id number] Admin: 07/27/19 07:59 Dose: 40 mg Documented by: [id number] Admin: 07/26/19 20:39 Dose: 40 mg Documented by: [id number] Admin: 07/26/19 08:07 Dose: 40 mg Documented by: [id number] Admin: 07/25/19 20:06 Dose: 40 mg Documented by: [id number] Admin: 07/25/19 09:39 Dose: 40 mg Documented by: [id number] Admin: 07/24/19 20:54 Dose: 40 mg Documented by: [id number] Admin: 07/24/19 07:36 Dose: 40 mg Documented by: [id number] Admin: 07/23/19 21:25 Dose: 40 mg Documented by: [id number] Admin: 07/23/19 08:03 Dose: 40 mg Documented by: [id number] Admin: 07/22/19 20:53 Dose: 40 mg Documented by: [id number] Escitalopram Oxalate (Lexapro Tab) 20 mg PO DAILY RALF Stop: 08/21/19 08:59 Last Admin: 07/29/19 07:57 Dose: 20 mg Documented by: [id number] Admin: 07/28/19 08:02 Dose: 20 mg Documented by: [id number] Admin: 07/27/19 07:58 Dose: 20 mg Documented by: [id number] Admin: 07/26/19 08:04 Dose: 20 mg Documented by: [id number] Admin: 07/25/19 09:37 Dose: 20 mg Documented by: [id number] Admin: 07/24/19 07:36 Dose: 20 mg Documented by: [id number] Admin: 07/22/19 08:44 Dose: 20 mg Documented by: [id number] Folic Acid (Folvite) 1 mg PO SuTuWeThSa@0900 [facility] Stop: 08/21/19 08:59 Last Admin: 07/29/19 07:57 Dose: 1 mg Documented by: [id number] Admin: 07/27/19 07:58 Dose: 1 mg Documented by: [id number] Admin: 07/26/19 08:10 Dose: 1 mg Documented by: [id number] Admin: 07/25/19 09:37 Dose: 1 mg Documented by: [id number] Admin: 07/24/19 07:34 Dose: 1 mg Documented by: [id number] Admin: 07/23/19 08:02 Dose: 1 mg Documented by: [id number] Admin: 07/22/19 08:44 Dose: 1 mg Documented by: [id number] Furosemide (Lasix) 80 mg PO DAILY [facility] Stop: 08/21/19 08:59 Last Admin: 07/29/19 07:57 Dose: 80 mg Documented by: [id number] Admin: 07/28/19 09:10 Dose: 80 mg Documented by: [id number] Admin: 07/27/19 07:59 Dose: 80 mg Documented by: [id number] Admin: 07/26/19 08:05 Dose: 80 mg Documented by: [id number] Admin: 07/25/19 09:37 Dose: 80 mg Documented by: [id number] Admin: 07/24/19 07:36 Dose: 80 mg Documented by: [id number] Admin: 07/23/19 08:02 Dose: 80 mg Documented by: [id number] Admin: 07/22/19 08:42 Dose: 80 mg Documented by: [id number] Insulin Aspart (Novolog Flexpen) 0 units SC [facility]; Protocol Stop: 08/25/19 07:59 Last Admin: 07/29/19 17:06 Dose: 12 units Documented by: [id number] Cosigned by: [id number] Admin: 07/29/19 12:10 Dose: 10 units Documented by: [id number] Cosigned by: [id number] Admin: 07/29/19 08:13 Dose: 28 units Documented by: [id number] Cosigned by: [id number] Admin: 07/28/19 21:05 Dose: Not Given Documented by: [id number] Cosigned by: [id number] Admin: 07/28/19 17:33 Dose: 16 units Documented by: [id number] Cosigned by: [id number] Admin: 07/28/19 13:28 Dose: 23 units Documented by: [id number] Cosigned by: [id number] Admin: 07/28/19 08:23 Dose: 28 units Documented by: [id number] Cosigned by: [id number] Admin: 07/27/19 21:12 Dose: Not Given Documented by: [id number] Cosigned by: [id number] Admin: 07/27/19 17:07 Dose: 31 units Documented by: [id number] Cosigned by: [id number] Admin: 07/27/19 12:19 Dose: 23 units Documented by: [id number] Cosigned by: [id number] Admin: 07/27/19 08:10 Dose: 29 units Documented by: [id number] Cosigned by: [id number] Admin: 07/26/19 20:40 Dose: 5 units Documented by: [id number] Cosigned by: [id number] Admin: 07/26/19 17:06 Dose: 30 units Documented by: [id number] Cosigned by: [id number] Admin: 07/26/19 12:21 Dose: 22 units Documented by: [id number] Cosigned by: [id number] Admin: 07/26/19 08:10 Dose: 11 units Documented by: [id number] Cosigned by: [id number] Levetiracetam (Keppra) 250 mg PO BID RALF Stop: 08/25/19 20:59 Last Admin: 07/29/19 07:57 Dose: 250 mg Documented by: [id number] Admin: 07/28/19 21:07 Dose: 250 mg Documented by: [id number] Admin: 07/28/19 08:03 Dose: 250 mg Documented by: [id number] Admin: 07/27/19 21:17 Dose: 250 mg Documented by: [id number] Admin: 07/27/19 07:59 Dose: 250 mg Documented by: [id number] Admin: 07/26/19 20:37 Dose: 250 mg Documented by: [id number] Lisinopril (Zestril) 5 mg PO DAILY RALF Stop: 08/28/19 08:59 Last Admin: 07/29/19 07:58 Dose: 5 mg Documented by: [id number] Methotrexate (Methotrexate) 7.5 mg PO Mo@0900 RALF Stop: 08/27/19 08:59 Last Admin: 07/28/19 08:02 Dose: 7.5 mg Documented by: [id number] Cosigned by: [id number] Miscellaneous (Order Awaiting Action) 1 ea N/A QS [facility] Stop: 08/20/19 19:59 Last Admin: 07/22/19 08:29 Dose: Not Given Documented by: [id number] Admin: 07/22/19 02:52 Dose: Not Given Documented by: [id number] Admin: 07/21/19 21:06 Dose: Not Given Documented by: [id number] Potassium Chloride (Klor-Con M20) 40 meq PO BIDM [facility] Stop: 08/24/19 10:59 Last Admin: 07/29/19 17:07 Dose: 40 meq Documented by: [id number] Admin: 07/29/19 07:56 Dose: 40 meq Documented by: [id number] Admin: 07/28/19 17:39 Dose: 40 meq Documented by: [id number] Admin: 07/28/19 08:03 Dose: 40 meq Documented by: [id number] Admin: 07/27/19 17:08 Dose: 40 meq Documented by: [id number] Admin: 07/27/19 07:58 Dose: 40 meq Documented by: [id number] Admin: 07/26/19 17:05 Dose: 40 meq Documented by: [id number] Admin: 07/26/19 08:03 Dose: 40 meq Documented by: [id number] Admin: 07/25/19 17:05 Dose: 40 meq Documented by: [id number] Admin: 07/25/19 11:05 Dose: 40 meq Documented by: [id number] [facility]Pred[facility]) [facility] [place] Stop: 08/02/19 08:59 Last Admin: 07/29/19 07:57 Dose: 20 mg Documented by: [id number] Pregabalin (Lyrica) 50 mg PO BID [facility] Stop: 08/20/19 20:59 Last Admin: 07/29/19 07:58 Dose: 50 mg Documented by: [id number] Admin: 07/28/19 21:13 Dose: 50 mg Documented by: [id number] Admin: 07/28/19 09:10 Dose: 50 mg Documented by: [id number] Admin: 07/27/19 21:31 Dose: 50 mg Documented by: [id number] Admin: 07/27/19 08:00 Dose: 50 mg Documented by: [id number] Admin: 07/26/19 20:40 Dose: 50 mg Documented by: [id number] Admin: 07/26/19 08:16 Dose: 50 mg Documented by: [id number] Admin: 07/25/19 20:12 Dose: 50 mg Documented by: [id number] Admin: 07/25/19 09:39 Dose: 50 mg Documented by: [id number] Admin: 07/24/19 20:59 Dose: 50 mg Documented by: [id number] Admin: 07/24/19 07:38 Dose: 50 mg Documented by: [id number] Admin: 07/23/19 21:26 Dose: 50 mg Documented by: [id number] Admin: 07/23/19 08:06 Dose: 50 mg Documented by: [id number] Admin: 07/22/19 20:56 Dose: 50 mg Documented by: [id number] Admin: 07/22/19 11:25 Dose: Not Given Documented by: [id number] Admin: 07/21/19 21:12 Dose: 50 mg Documented by: [id number] Ranitidine HCl (Zantac) 150 mg PO DAILY RALF Stop: 08/22/19 08:59 Last Admin: 07/29/19 07:57 Dose: 150 mg Documented by: [id number] Admin: 07/28/19 08:06 Dose: 150 mg Documented by: [id number] Admin: 07/27/19 07:58 Dose: 150 mg Documented by: [id number] Admin: 07/26/19 08:06 Dose: 150 mg Documented by: [id number] Admin: 07/25/19 09:39 Dose: 150 mg Documented by: [id number] Admin: 07/24/19 07:37 Dose: 150 mg Documented by: [id number] Admin: 07/23/19 08:04 Dose: 150 mg Documented by: [id number] Coding Level of Care Code 97797 U Intl Hosp Care Lvl 2 Diagnoses 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
--- NOTE | 2019-07-29 19:05 | Hospitalist Progress Note ---
Date of Service July 29, 2019 Assessment & Plan (1) Serotonin syndrome: Appreciate psychiatry review of medications. Will continue just on lexapro for now and arrange outpatient psychiatry follow up. (2) Myoclonic jerking: resolved. After discussion with Dr. Ross today who saw patient prior to admission suspect jerking a result of serotonin toxicity with tremors and possible hyperreflexia. Will continue Keppra at current dose pending neurology review as an outpatient (3) Acute on chronic respiratory failure with hypoxia and hypercapnia: Requiring intubation on admission. Consulted pulmonology to arrange Trelegy device. No hypercapnia on ABG this morning. (4) Confusion: resolved. likely related to serotonin syndrome as above (5) Psoriasis: Chronic. Suspect acute improvement from steroids. Continue methotrexate 7.5 mg p.o. q. weekly (6) Congestive heart failure: Acute on chronic diastolic heart failure (noted systolic on prior clinic notes although no evidence of this on TTE this admission). Repeat CXR today shows ongoing concern for volume overload with mild congestive change. I am at a slight loss at which direction he is going with his volume status Hypervolemic - his weight is increasing, Cr stable/improved with diuretics ?sodium decreasing due to worsening volume overload despite on usual home meds, volume overload and trace pleural effusions on chest imaging Hypovolemic - sodium decreasing possibly from diuretic use (although I am only giving him his usual home meds), no clear prior diagnosis of heart failure although he is on lasix and metolazone as outpatient, I&Os negative balance consistent with IV diuretics given, patient reports legs never looked better. JVD unable to assess due to neck size. Will add BNP to am labs (although weight may be a limitation in interpretation). Continue on outpatient home regimen. [facility] heart failure clinic consulted for outpatient fluid management. If clinical picture no clearer tomorrow will have cardiology see him for a second opinion. TTE extremely limited but no LV dysfunction noted for systolic heart failure. Spironolactone added by ICU during this admission which will now discontinue as hypokalemia resolved (on supplementation) and patient having low normal BP. (7) Depression: Chronic. Appreciate psychiatry review Continue escitalopram 20 mg p.o. daily, will need to establish with psychiatry as outpatient Cymbalta, buspar, clonazepam due to serotonin syndrome. (8) Anxiety: as above (9) Diabetes: BSG well controlled at present. Patient reports recent referral to endocrinology in [place] and also seeing a self pay specialist and making positive changes. Appreciate pharmacy management of this. Vastly reduced insulin requirement while admitted despite metformin and Trulicity held. HbA1C 8.1. (10) GERD (gastroesophageal reflux disease): Continue ranitidine. Patient reports chronically under control. (11) Severe chronic obstructive pulmonary disease: Patient known to pulmonology on Symbicort. He continues to smoke and heavily advised cessation of this and appears relatively motivated to do so without cravings at this time. Discussed with Dr Ross and will start on LAMA. No COPD exacerbation (12) Hypertension: Blood pressure improved off Given low normal BP currently will discontinue spironolactone (added this admission) and reduce his lisinopril back to 5mg daily. Continue carvedilol, lasix. (13) Restless leg syndrome: Will discontinue requip as not had reoccurrence of restless legs since admitted and may have contributed towards overall drowsiness. (14) DVT prophylaxis: Lovenox 40mg daily (15) Discharge planning issues: Patient refusing rehab placement although appears to be close to his baseline and relatively independent with carers. Anticipated discharge in the next 1-2 days. Subjective Patient feels generally back to his baseline at present. Did ok not on CPAP/BiPAP overnight. In a good mindset to try and improve his multiple medical conditions. No acute issues overnight. Discussed fluid status with patient: no prior diagnosis of heart failure and his fluid management has previously been managed by his PCP. No prior heart attack. Not under a hospice spiritual care coordinator. Review of Systems Review of Systems: All systems reviewed & are unremarkable except as noted in HPI & below Physical Exam Constitutional: well developed and + morbidly obese; + not well nourished and no acute distress Eyes: + anicteric sclerae; normal pupil size ENMT: external ear and nose normal, oropharynx normal Neck: trachea midline, + short neck and + thick neck Respiratory: normal respiratory effort; no respiratory distress, no labored breathing, no retractions and does not use accessory muscles Auscultation: + diminished lung sounds (Mostly bibasal, reduced throughout due to body habitus); no crackles, no rales and no rhonchi Cardiovascular: Rate/Rhythm: regular rate and regular rhythm Heart Sounds: normal S1 and normal S2 (quiet); no murmur Extremities: normal capillary refill and + pedal edema (1+ to mid shins) Gastrointestinal (Abdomen): Inspection/Auscultation: abdomen normal to inspection and normal bowel sounds; abdomen not distended Percussion/Palpation: abdomen soft; abdomen nontender, no guarding and abdomen not rigid Musculoskeletal: no cyanosis or clubbing, extremities motor strength 5/5 Skin: chronic venous dermatitis changes of lower extremities multiple healing psoriatic rashes appear to be healing Neurologic: moves all extremities and awake; no focal motor deficits Motor/Sensory: + sensory deficit (stocking distribution in feet numbness) Psychiatric: A+Ox3, euthymic affect Results & Data Vital Signs (Past 12 Hours) Vital Signs Temp Pulse Pulse Resp BP BP Pulse Ox 07/29/19 14:59 98.2 F 58 L 16 114/69 96 07/29/19 11:26 98.4 F 80 18 99/60 L 96 07/29/19 08:00 87 07/29/19 07:22 97.7 F 80 20 114/61 96 07/29/19 07:12 78 20 96 PG Care Time/CCT Total # of Minutes Spent Total Time Spent with Patient: Total time spent is greater than 50% in coordination of care (as documented) at patient's floor/unit and/or counseling patient: (1) Diabetes Diabetes mellitus complication status: without complication Diabetes mellitus long-term insulin use: with middle or intermediate school principal use Diabetes mellitus type: type 2 Qualified Code(s): E11.9 - Type 2 diabetes mellitus without complications; Z79.4 - [facility] (current) use of insulin (2) Congestive heart failure Heart failure chronicity: acute on chronic Heart failure type: diastolic Qualified Code(s): I50.33 - Acute on chronic diastolic (congestive) heart failure (3) Depression Active/Remission status: remission status unspecified Depression Type: major depressive disorder Major depression recurrence: unspecified whether recurrent Qualified Code(s): F32.9 - Major depressive disorder, single episode, unspecified (4) GERD (gastroesophageal reflux disease) Esophagitis presence: esophagitis presence not specified Qualified Code(s): K21.9 - Gastro-esophageal reflux disease without esophagitis (5) Hypertension Hypertension type: other secondary hypertension Qualified Code(s): I15.8 - Other secondary hypertension
[2019-07-29] MEDS: ACETAMINOPHEN 325 MG TAB PO PRN (19:48)
[2019-07-30] MEDS: ALBUT/IPRATROP 3MG/0.5MG NEB 3 ML VIAL NEB SCH ×5 (03:30→19:34)
[2019-07-30] MEDS: ACETAMINOPHEN 325 MG TAB PO PRN ×2 (04:29→12:29)
[2019-07-30 07:13] LABS: BUN Creatinine Ratio 35.8 (10-20); Calcium 9.3 mg/dl (8.5-10.1); Creatinine Clr Calc Pharmacy 160.4 ml/min; Est GFR (African American) 115.9; Potassium 3.1 mmol/L (3.5-5.1)
[2019-07-30] MEDS ORDERED: POTASSIUM CHLORIDE 20 MEQ TABCR PO STA (08:08)
[2019-07-30] MEDS: ATORVASTATIN 40 MG TAB PO SCH (08:47)
[2019-07-30] MEDS: predniSONE 20 MG TAB PO SCH (08:47)
[2019-07-30] MEDS: RANITIDINE HCL SYRUP 150 MG/10 ML 480ML PO SCH (08:48)
[2019-07-30] MEDS: FOLIC ACID 1 MG TAB PO SCH (08:48)
[2019-07-30] MEDS: carvediloL 3.125 MG TAB PO SCH ×2 (08:48→19:40)
[2019-07-30] MEDS: levETIRAcetam 250 MG TAB PO SCH (08:48)
[2019-07-30] MEDS: ESCITALOPRAM OXALATE 20 MG TAB PO SCH (08:48)
[2019-07-30] MEDS: BUDESONIDE/FORMOTEROL FUMARATE 160/4.5 60 PUFFS/INHALER INH SCH (08:50)
[2019-07-30] MEDS: INSULIN ASPART 100 UNITS/ML 3 ML PEN SC SCH ×3 (08:52→18:22)
[2019-07-30] MEDS: POTASSIUM CHLORIDE 20 MEQ TABCR PO SCH ×2 (08:54→17:35)
[2019-07-30] MEDS ORDERED: INSULIN GLARGINE SOLOSTAR 100 UNITS/ML 3 ML PEN SC SCH (09:00)
[2019-07-30] MEDS ORDERED: TIOTROPIUM BROMIDE 5 PUFF/90 MCG INH INH SCH (09:00)
[2019-07-30] MEDS ORDERED: ENOXAPARIN INJ 40 MG/0.4 ML SYR SQ SCH (09:00)
[2019-07-30] MEDS: PREGABALIN 50 MG CAP PO SCH ×2 (09:02→19:40)
[2019-07-30] MEDS: ASPIRIN 81 MG CHEW PO SCH (10:58)
--- NOTE | 2019-07-30 16:08 | Pharmacy Report ---
Pharmacy Glycemic Short Note 2 - Date of Service July 30, 2019 - Glycemic Short BSG Results (Last 24 hours): 07/29/19 07/29/19 07/30/19 16:23 20:15 05:52 Glucose 172 H POC Glucose 169 H 105 H 07/30/19 07/30/19 08:11 12:19 Glucose POC Glucose 176 H 180 H OUTPATIENT ANTIDIABETIC REGIMEN (home regimen uncertain): * U-500 Regular insulin: 90 units w/ breakfast if BSG > 200, 60 units w/ lunch if BSG > 200, 70 units w/ dinner if BSG > 200 * Trulicity (dulaglutide) 1.5mg SQ weekly * Metformin 1gm PO Q PM * A1c = 8.1% 07/22/19 ASSESSMENT: * Patient received total 80 units of insulin yesterday, 30 units of basal and 50 units of bolus. * Fasting BSG was above goal indicating he needs more basal insulin (basal was less than half of the total insulin received yesterday). * Lantus 40 units was given this AM. Will continue with Lantus scale at HS. * Lunch BSG continued to be high. Novolog CF and CR were tightened at lunch. * Prednisone dose this AM was the same as yesterday (20 mg) but patient received almost 30 units less insulin compared to the day before. He probably needs around 90 - 100 units of insulin while on steroid. * Prednisone dose will decrease again tomorrow to 10mg which will probably necessitate further insulin dose adjustment. PLAN FOR INPATIENT GLYCEMIC CONTROL: * Hold outpatient oral diabetes medications (dulaglutide, metformin) * Basal insulin: continued * Lantus SQ BID based on BSG: * 0 units BSG < 100 * 20 units BSG 100-140 * 50 units BSG 140-200 * 60 units BSG > 200 * Bolus insulin: increased * Novolog SQ ACHS * Correction Factor: 10mg/dl/unit * Carb ratio: 1 unit per 3.5 carbs consumed * Reassess insulin needs with each step down in steroid dose PLAN FOR DISCHARGE: * to be determined
--- NOTE | 2019-07-30 16:16 | Cardiology Consultation ---
Date of Consultation July 30, 2019 Assessment & Plan (1) Lower leg edema: Etiology of his lower extremity edema is multifactorial but likely related to his obesity, venous stasis, and his steroid therapy. Do not feel that this represents congestive heart failure. The patient's BNP was normal at time presentation as it is today. Chest x-ray difficult to interpret as it is under penetrated. Suspect he is on chronic diuretic therapy for his chronic lower extremity edema. (2) Hyponatremia: Suspect this is related to a combination of diuretic therapy in the face of excessive fluid intake. History of Present Illness Attending Physician: Raymundo Rodrigez MD History of Present Illness Mr. Recio is a 64-year-old male admitted on July 21 with confusion, myoclonic jerking, and acute hypercarbic respiratory failure. This consultation was ordered as there is a question in his volume status. The patient was in his usual state of marginal health until the day of presentation. He was seen by his yacht builder in sent to the emergency room because of poor mental status and myoclonic jerking. The patient spent several days intensive care unit on a ventilator due to his respiratory failure and for airway protection. The patient did receive several doses of intravenous furosemide for presumed hypervolemia. However, BNP on the day of admission was normal at 228. The patient has never known of the diagnosis of CHF. He was started several years ago on diuretics to control his lower extremity edema. He does noted an increase in lower extremity edema when on prednisone. The patient admits to drinking excessive amounts of water since his transfer from the intensive care unit to a medical floor bed. His BNP today was normal at 54. Currently, patient is resting comfortably in the bedside chair without complaints. Past medical and surgical history 1. Diabetes mellitus 2. COPD, oxygen-dependent 3. Obstructive sleep apnea 4. Morbid obesity 5. Chronic psoriasis 6. GERD 7. Anxiety/depression Social history Single, lives alone No tobacco or alcohol Family history Mother at 77 from complications of diabetes Father at 86 from an [place] No early coronary artery disease Review of systems A 10 point review of systems was negative except for that described above. Allergies Allergy/AdvReac Type Severity Reaction Status Date / Time Penicillins Allergy Unknown Verified 07/15/19 15:15 Home Medications Home Medications Medication Instructions Recorded Confirmed Type Oxygen Home #1 ea 04/25/19 07/15/19 History acetaminophen 325 mg tablet 625 mg PO Q6 PRN tab 04/25/19 07/21/19 History albuterol sulfate 90 mcg/actuation INHALATION gm 04/25/19 07/15/19 History aerosol inhaler ibuprofen 800 mg tablet 800 mg PO PRN tab 04/25/19 04/25/19 History insulin regular hum U-500 conc SUBCUT ml 04/25/19 04/25/19 History 500"concentrate" 500 unit/mL subcutaneous soln ipratropium-albuterol 0.5 mg-3 INHALATION ml 04/25/19 04/25/19 History mg(2.5 mg base)/3 mL nebulization soln linaclotide 290 mcg capsule 1 PO .TAKE 1 CAPSULE Daily #30 cap 04/25/19 07/15/19 History Oxygen Home #1 ea 05/06/19 07/21/19 Rx aspirin 81 mg tablet 81 mg PO DAILY tab 05/06/19 07/21/19 History atorvastatin 40 mg tablet 40 mg PO DAILY tab 05/06/19 07/21/19 History buspirone 15 mg tablet 15 mg PO TID tab 05/06/19 07/21/19 History carvedilol 3.125 mg tablet 3.125 mg PO BID tab 05/06/19 07/21/19 History dulaglutide 1.5 mg/0.5 mL 1.5 mg SQ WEEKLY #0.5 ml 05/06/19 07/21/19 Rx subcutaneous pen injector duloxetine 60 mg capsule,delayed 60 mg PO DAILY #90 cap 05/06/19 07/21/19 History release fluticasone furoate 200 1 puffs INHALATION DAILY #1 ea 05/06/19 07/21/19 Rx mcg-vilanterol 25 mcg/dose inhalation powder folic acid 1 mg tablet 1 mg PO DAILY #30 tab 05/06/19 07/21/19 Rx furosemide 40 mg tablet 80 mg PO DAILY tab 05/06/19 07/21/19 History lisinopril 5 mg tablet 5 mg PO DAILY tab 05/06/19 07/21/19 History methotrexate sodium 2.5 mg tablet 7.5 mg PO WEEKLY #30 tab 05/06/19 07/21/19 Rx pregabalin 50 mg capsule 50 mg PO BID cap 05/06/19 07/15/19 History ranitidine HCl 150 mg tablet 150 mg PO DAILY #90 tab 05/06/19 07/15/19 Rx ropinirole 1 mg tablet 1 mg PO DAILY #30 tab 05/06/19 07/15/19 Rx escitalopram oxalate 20 mg tablet 20 mg PO DAILY tab 07/15/19 07/21/19 History prednisone 10 mg tablet See Rx Instructions PO DAILY #36 07/15/19 07/15/19 Rx tab metformin 1,000 mg PO PM 07/21/19 07/21/19 History metolazone 5 mg tablet 5 mg PO .COMPLEX #1 tab 07/21/19 07/21/19 Rx Patient History Medical History Anxiety Asthma Chronic hypercapnic respiratory failure Chronic respiratory failure Congestive heart failure COPD (chronic obstructive pulmonary disease) Depression Diabetes GERD (gastroesophageal reflux disease) Lower leg edema Myoclonic jerking Psoriasis Surgical History History of appendectomy History of bronchoscopy History of hemorrhoidectomy History of thoracotomy 06/2008 - s/p traumatic hemothorax History of tonsillectomy Family History Other Coronary heart disease Diabetes Lung cancer Social History Preferred Language: Dutch Communication Ability: Unable Beliefs That Will Affect Care: None Current Living Situation Comment: caregivers stay at his time Feels Safe at Home: Yes Smoking Status: Current every day smoker Tobacco Type: cigarettes ; Hx Alcohol Use: No Hx Substance Use: No Physical Exam Physical Exam: In general this is a morbidly obese white male seated in the bedside chair without complaints. HEENT exam is negative. Neck is supple with full carotid upstrokes. No obvious bruits. Jugular venous pressure is flat at 90 degrees. There is no thyromegaly. Cardiovascular exam reveals a regular rhythm with distant heart sounds. No obvious murmurs. Lungs are clear without rales, rhonchi, or wheezes. Abdomen is obese without bruits. Extremities reveal intact radial artery pulses bilaterally. Trace pretibial edema is noted. Chronic venous stasis changes also noted. Results & Data Vital Signs (Past 12 Hours) Vital Signs Temp Pulse Resp BP Pulse Ox 07/30/19 15:18 36.7 C 73 19 122/68 98 07/30/19 11:26 74 16 98 07/30/19 07:11 36.5 C 75 18 104/62 99 Laboratory Results CBC notes a hemoglobin of 13.7, hematocrit 41.0, white count 14.97, platelet count [id number]. Electrolytes note a sodium of 129, potassium 3.1, chloride 92, bicarb 33, BUN 26, creatinine 0.7, glucose of 172. Troponin I level at time of presentation was less than 0.015. BNP on presentation was 288 with a follow-up 554 today. Diagnostic Findings Echocardiogram was very technically limited but noted normal left ventricular systolic function. EKG notes sinus rhythm with PACs and PVCs. Chest x-ray notes cardiomegaly. This study is under penetrated. PG Care Time/CCT Total # of Minutes Spent Total Time Spent with Patient: Total time spent is greater than 50% in coordination of care (as documented) at patient's floor/unit and/or counseling patient:
[2019-07-30 17:35] LABS: BUN Creatinine Ratio 32.4 (10-20); Calcium 8.7 mg/dl (8.5-10.1); Creatinine Clr Calc Pharmacy 172.4 ml/min; Est GFR (African American) 119.4; Potassium 4.1 mmol/L (3.5-5.1)
--- NOTE | 2019-07-30 17:44 | Discharge Summary ---
Date of Service July 30, 2019 Admission HPI Per Admitting Provider Per admission H&P: Caregivers at bedside and provide majority of history as patient is somewhat altered. Kyle Recio is a 64-year-old male with multiple medical problems most notably asthma, severe COPD on 3 L home oxygen, chronic hypoxic and hypercapnic respiratory failure, obesity hypoventilation syndrome/YOUSIF, insulin- dependent diabetes mellitus and CHF. Patient was seen by Pulmonology on 2018 with complaints of hypoxia and shortness of breath. During that time he was thought to be in mild exacerbation of COPD with possible pneumonia. He was administered 125 mg of Solu-Medrol IM in the office and sent home on a prednisone taper and Levaquin 750 mg daily x14 days and sent home. Caregivers report that on the evening of 07/18/2019 the patient began having myoclonic jerking. They report that he has a baseline tremor however, these movements were more frequent and increased severity than normal. The myoclonic jerking progressively worsened through 07/19 and 07/20. Patient also acting "out of his mind". Confused at times, pushing things off the table, agitated, hallucinating and incontinent of urine. He was seen in the emergency room at [facility] on 07/20. By report, work-up was negative to include no UTI, chest x- ray with no acute infiltrate. EKG with no acute changes. This morning he was found naked and confused by caregivers, diaphoretic. He was seen by Dr. Ross for pulmonary follow-up and was subsequently sent to [facility] for direct admission. Patient manages his own medications. Caregivers believe that he missed approximately 4 days for worth of medication. He may have taken an extra Ativan. They think that his Levaquin bottle was empty. During my encounter, patient provides no complaints. Specifically he denies pain, shortness of breath, nausea, vomiting, diarrhea or constipation. He does not feel confused and denies any hallucinations. He is complaining of feeling hot and is requesting a box fan Patient has been treated for acute on chronic respiratory failure with hypoxia and hypercapnia. Myoclonic jerking has resolved and thought secondary to hypercapnia. Prednisone tapered. Congestive heart failure treated with d iuretics. Patient reports a rather dramatically positive response to initial CPAP trial last evening. He remains on Lexapro 20 mg daily however Cymbalta 60 mg daily, BuSpar 15 mg twice a day, and Klonopin 1 mg twice daily have been (appropriately) held. Patient found to be a fair historian. He denies any formalized psychiatric history and his PCP has been managing his psychotropics. Reports normal mood and minimal anxiety until around age 52 when he had an accident resulting in multiple rib fractures, chronic pain, and difficulty with his breathing. He perceives that, since that time, life has been more of a struggle. Within the last few years he has had multiple losses including his partner of nearly 40 years, his parents, and recently a niece who from suicide. He describes significant sadness and a tendency to ruminate about his losses. His remaining family has indicated to him that his thought processes are unhealthy "but I cannot seem to help it." He is adamant in stating that he has never considered taking his own life and that he does not believe in suicide. "God will take me when he is ready." While he readily acknowledges loneliness and sadness he does not endorse hopelessness or wish. He has experienced tearfulness, diminished interest and pleasure, but denies changes in appetite, symptoms of psychosis, or historically symptoms that would be con sistent with generalized anxiety, OCD, or bipolar disorder. He is unable to identify a specific start date for his psychotropic regimen but reports he was first treated with Ativan perhaps for 6 months with only modest initial benefit, later he was converted to BuSpar for several months again with initial modest benefit, Ativan was converted to clonazepam within the last 1 or 2 months which likely was associated with increased sedation, and Lexapro was started within the last several months as well. He reports being started and stopped on these medicines by his PCP as well as Cymbalta trying to find a helpful mix but seems to perceive them of minimal therapeutic benefit. He confirms that he was taking the Lexapro, Cymbalta, BuSpar, and clonazepam in combination prior to admission. He reports that he was more confused in the week prior to his admission and his caregivers told him that he seemed to be hallucinating. He denies hallucinations at baseline and advised hallucinations presently. He is fully oriented to time, place, and situation. He does struggle with some basic calculation tasks and gets 3 of 5 letters correctly spelling world backwards. He denies self-medication with alcohol or recreational drugs at home. He reports discharge is anticipated tomorrow. He indicates willingness to follow- up with both psychiatry and therapy as an outpatient. Admission Exam Per Admitting Provider Constitutional: well developed and + morbidly obese; + not well nourished and no acute distress Eyes: + anicteric sclerae; normal pupil size ENMT: external ear and nose normal, oropharynx normal Neck: trachea midline, + short neck and + thick neck Respiratory: normal respiratory effort; no respiratory distress, no labored breathing, no retractions and does not use accessory muscles Auscultation: + diminished lung sounds (Mostly bibasal, reduced throughout due to body habitus); no crackles, no rales and no rhonchi Cardiovascular: Rate/Rhythm: regular rate and regular rhythm Heart Sounds: normal S1 and normal S2 (quiet); no murmur Extremities: normal capillary refill and + pedal edema (1+ to mid shins) Gastrointestinal (Abdomen): Inspection/Auscultation: abdomen normal to inspection and normal bowel sounds; abdomen not distended Percussion/Palpation: abdomen soft; abdomen nontender, no guarding and abdomen not rigid Musculoskeletal: no cyanosis or clubbing, extremities motor strength 5/5 Skin: chronic venous dermatitis changes of lower extremities multiple healing psoriatic rashes appear to be healing Neurologic: moves all extremities and awake; no focal motor deficits Motor/Sensory: + sensory deficit (stocking distribution in feet numbness) Psychiatric: A+Ox3, euthymic affect Principal Diagnosis Serotonin toxicity Myoclonic jerking Acute on chronic respiratory failure with hypoxia and hypercapnia Obesity hypoventilation Severe COPD without current exacerbation Psychogenic primary polydipsia Diuretic induced hyponatremia/hypokalemia Discharge Exam Constitutional well developed and + morbidly obese; + not well nourished and no acute distress Eyes + anicteric sclerae; normal pupil size ENMT external ear and nose normal, oropharynx normal Neck trachea midline, + short neck and + thick neck Respiratory normal respiratory effort; no respiratory distress, no labored breathing, no retractions and does not use accessory muscles Auscultation: + diminished lung sounds (Mostly bibasal, reduced throughout due to body habitus); no crackles, no rales and no rhonchi Cardiovascular Rate/Rhythm: regular rate and regular rhythm Heart Sounds: normal S1 and normal S2 (quiet); no murmur Extremities: normal capillary refill and + pedal edema (1+ to mid shins) Gastrointestinal (Abdomen) Inspection/Auscultation: abdomen normal to inspection and normal bowel sounds; abdomen not distended Percussion/Palpation: abdomen soft; abdomen nontender, no guarding and abdomen not rigid Musculoskeletal no cyanosis or clubbing, extremities motor strength 5/5 Skin no rashes, warm and dry Neurologic moves all extremities and awake; no focal motor deficits Motor/Sensory: + sensory deficit (stocking distribution in feet numbness) Psychiatric A+Ox3, euthymic affect Discharge Data Allergies Allergy/AdvReac Type Severity Reaction Status Date / Time Penicillins Allergy Unknown Verified 07/15/19 15:15 Consultations 07/21/19 20:58 Consult Neurology Routine 07/22/19 00:36 Consult Strategic Planning Director Routine 07/22/19 00:58 Consult Case Management - Discharge Planning Routine 07/29/19 00:10 Consult Pulmonology Routine 07/29/19 00:41 Consult Psychiatry Routine 07/29/19 12:03 [facility] Referral Routine 07/30/19 07:23 Consult Cardiology Routine Ordered Studies 07/21/19 18:35 CT head/brain wo con Urgent 07/22/19 03:16 CT angio head w con Urgent CT angio neck with con Urgent 07/22/19 03:22 CT angio chest PE protocol Urgent Hospital Course (1) Serotonin syndrome: Mr Kyle Recio is a 64 year old male admitted to [facility] from July 21 to 2018 due to abnormal movements (tremors and myoclonic jerking), confusion and disorientation. He was diagnosed with serotonin syndrome due to taking combination of Lexapro, Buspar and Cymbalta. In addition his clonazepam was likely making your obstructive sleep apnea worse and dereasing his respiratory drive in setting of confusion from serotonin syndrome causing hypoxia and hypercapnia to the point of needing intubation in the intensive are unit. Trial of psychiatric medication re-introduction caused increased drowsiness and confusion, therefore only Lexapro has been re- introduced at this time and he has been given information to establish with psychiatry as outpatient. If he notices his anxiety worsening, recommend small doses of clonazepam as needed (or something shorter acting) may be appropriate as this would not contribute towards serotonin syndrome. He was seen by neurology for the movement disorders and due to concern for potential seizures he was started on Keppra. He should follow up with Dr Hebert (Neurology) in 4-6 weeks for potential weaning of this medication. In addition due to his critical illness, he was started on antibiotics to cover pneumonia however there were no CT findings consistent with this diagnosis and subsequently discontinued. On the days leading up to discharge he was restarted on his home diuretics (lasix, metolazone and spironolactone) which caused increasing hyponatremia, hypokalemia and hypotension. This was also in the setting of him drinking lots of free water. This appeared to be resolving on discontinuing all diuretics and lisinopril. He was reviewed by cardiology and felt to have no heart failure. Potassium 4.1 and Sodium 131 on discharge. Of note he is likely treating hypokalemia as an outpatient as he has a lot of potassium salt in his home diet. He will have a repeat BMP on Sunday to assist with managing his electrolyte disturbance. Lisinopril was discontinued mainly due to low blood pressure measurements. He was evaluated by pulmonology and they will arrange for a Trilogy non-invasive ventilation device to treat his obstructive sleep apnea. For his COPD - Spiriva was added to your maintenance inhaler regimen and recommend staying on prednisone 10mg daily until following up in pulmonology clinic. He will continue on Breo Ellipta. He is to continue on 3L oxygen for chronic respiratory failure to be re-evaluated in clinic. Smoking cessation was highly encouraged. No changes to his diabetes medications recommend at this time as his HbA1C appears to be adequate at 8.1. He was evaluated by physical and occupational therapy and advised he may benefit from inpatient rehabilitation however this was declined and he will be discharged home. (2) Myoclonic jerking: (3) Acute on chronic respiratory failure with hypoxia and hypercapnia: (4) Confusion: (5) Psoriasis: (6) Depression: (7) Anxiety: (8) Diabetes: (9) GERD (gastroesophageal reflux disease): (10) Severe chronic obstructive pulmonary disease: (11) Hypertension: (12) Restless leg syndrome: (13) Primary polydipsia: (14) Venous insufficiency: (15) Diuretic-induced hypokalemia: (16) Hyponatremia: Total Time Total Time Spent Total Time Spent (In Minutes): 55 Total Time Includes: Examination of the Patient, Discharge Planning and Medication Reconciliation Discharge Plan Discharge Items Patient Disposition: Home - Self-Care Reason For Visit: DILERIUM Discharge Diagnosis: Serotonin toxicity Myoclonic jerking Acute on chronic respiratory failure with hypoxia (low oxygen) and hypercapnia (high carbon dioxide) Obesity hypoventilation Severe chronic obstructive pulmonary disease (COPD) Psychogenic primary polydipsia Diuretic induced hyponatremia/hypokalemia (low sodium and potassium) Activity: Resume your previous activity Non-emergency contact: Primary Care Provider Call non-emergency contact if: you have any medication questions and your temperature is above 101 Follow-up/Referrals: Duc Mcclain PA-C [Physician Roll Plugger] - 08/08/19 3:00 pm (Please, follow up with Sincere Mcclain PA-C on SundayAugust 08 at 3:00 pm. *THIS APPOINTMENT WILL BE IN THE [place] OFFICE BECAUSE THERE WERE NO OPENINGS IN [place].* The office is located in [address] of [facility], next to this hospital. If you need to change this appointment, call the office at [phone].) Efrain Mccall MD [Primary Care Provider] - 08/06/19 12:45 pm (Please, follow up with Dr. Mccall on SundayAugust 06 at 12:45 pm. *If you need to change this appointment, call the office at [phone].) Diet: Carb Consistent or DM2 Ambulatory Orders: Basic Metabolic Panel (Routine) Timeframe: [id number] Location: Determined by Patient Ordered By: Raymundo Carbajal Attending Provider Instructions: You were admitted to [facility] from July 21 to 2018 due to abnormal movements (tremors and myoclonic jerking), confusion and di sorientation. You were diagnosed with serotonin syndrome due to taking combination of Lexapro, Buspar and Cymbalta. In addition to this you appeared clonazepam was likely making your obstructive sleep apnea and respiratory drive worse causing you to retain carbon dioxide and have an increasing need for oxygen. This eventually lead to your intensive care admission and need for intubation. With reintroduction of your mental health medications this caused worsening sedation therefore you have only been restarted on Lexapro at this time. This was reviewed by psychiatry and recommended establishing with a psychiatrist to further manage your symptoms as the Lexapro by itself may not be enough. If you notice your anxiety getting worse, small doses of clonazepam as needed (or something shorter acting) may be appropriate as this would not contribute towards serotonin syndrome. You were seen by neurology for the movement disorders and due to concern for potential seizures you were started on an antiseizure medication Keppra. Please continue this until follow up in neurology clinic in approximately 4-6 weeks (appointment to be arranged, if you do not hear anything back in the next 5 working days please call the number above) In addition due to your critical unwell status and recent diagnosis of pneumonia you were treated with antibiotics during your admission however no changes were noted on your CT consistent for this. On the days leading up to discharge you were restarted on your home diuretic medications and you became increasingly hyponatremic (low sodium) and hypokalemic (low potassium). Suspect this is somewhat due to your increased water intake and lack of "No Salt" in your diet, rather than purely Lasix and metolazone use however these have been cut back at least temporarily and recommend repeating your lab test as ordered on Sunday (results to your PCP) with further adjustments to be made with your primary care physician. No evidence of congestive heart failure noted by cardiology therefore there is no clear indication for ongoing need for diuretics. Your lisinopril was discontinued due to low blood pressure measurements. You were evaluated by pulmonology and they are going to arrange for a Trilogy non-invasive ventilation device to treat your obstructive sleep apnea. For your COPD - Spiriva was added to your maintenance inhaler regimen and recommend staying on prednisone 10mg daily until following up in pulmonology clinic. Continue on 3L oxygen for chronic respiratory failure to be re-evaluated in clinic. The most important thing to treat your COPD is to quit smoking. No changes to your diabetes medications recommend at this time as your HbA1C appears to be adequate at 8.1. You were evaluated by physical and occupational therapy and advised you may benefit from inpatient rehabilitation however this was declined. Recommend discussing with primary care physician if once you are home you feel this may then be necessary. Pending Studies at Discharge: No Stand-Alone Forms: My [facility] [employer], Smoking Cessation Medications and DC Order Prescriptions: New Spiriva with HandiHaler 18 mcg Capsule, W/Inhalation Device 18 mcg inhalation QAM Qty: 30 RF: 0 levetiracetam [Keppra] 250 mg Tablet 250 mg PO BID Qty: 60 RF: 0 prednisone 10 mg tablet 10 mg PO DAILY Qty: 30 RF: 0 Continued albuterol sulfate 90 mcg/actuation HFA aerosol inhaler inhalation RF: 0 insulin regular hum U-500 conc 500 unit/mL solution subcut RF: 0 ibuprofen 800 mg tablet 800 mg PO PRN (Reason: pain) RF: 0 ipratropium-albuterol 0.5 mg-3 mg(2.5 mg base)/3 mL solution for nebulization inhalation RF: 0 acetaminophen 325 mg tablet 625 mg PO Q6 PRN (Reason: pain) RF: 0 (DME) Oxygen Home Liters Per Minute See Dose Instructions .ROUTE .MEDSUPPLY Qty: 1 RF: 0 linaclotide 290 mcg capsule 1 PO .TAKE 1 CAPSULE Daily Qty: 30 RF: 0 aspirin 81 mg tablet 81 mg PO DAILY RF: 0 atorvastatin 40 mg tablet 40 mg PO DAILY RF: 0 carvedilol 3.125 mg tablet 3.125 mg PO BID RF: 0 folic acid 1 mg tablet 1 mg PO DAILY Qty: 30 RF: 2 methotrexate sodium 2.5 mg tablet 7.5 mg PO WEEKLY Qty: 30 RF: 2 Trulicity 1.5 mg/0.5 mL pen injector 1.5 mg SQ WEEKLY Qty: 0.5 RF: 0 fluticasone furoate-vilanterol 200-25 mcg/dose blister with device 1 puffs inhalation DAILY Qty: 1 RF: 5 ranitidine HCl 150 mg tablet 150 mg PO DAILY Qty: 90 RF: 1 pregabalin [Lyrica] 50 mg capsule 50 mg PO BID RF: 0 (DME) Oxygen Home Liters Per Minute See Dose Instructions .ROUTE .MEDSUPPLY Qty: 1 RF: 0 escitalopram oxalate 20 mg tablet 20 mg PO DAILY RF: 0 metformin 1,000 mg Tablet Extended Release 24hr 1,000 mg PO PM RF: 0 Changed furosemide 40 mg tablet 40 mg PO DAILY Qty: 30 RF: 0 Discontinued metolazone 5 mg tablet 5 mg PO .COMPLEX Qty: 1 RF: 2 methylprednisolone sodium succ 125 mg recon soln 125 mg IM ONCE Qty: 1 RF: 0 prednisone 10 mg tablet See Rx Instructions PO DAILY Qty: 36 RF: 0 buspirone 15 mg tablet 15 mg PO TID RF: 0 duloxetine 60 mg capsule,delayed release(DR/EC) 60 mg PO DAILY Qty: 90 RF: 0 lisinopril 5 mg tablet 5 mg PO DAILY RF: 0 ropinirole 1 mg tablet 1 mg PO DAILY Qty: 30 RF: 5 Discharge Orders: Discharge Order (Routine); Ordered 07/30/19 Ordered By: Raymundo Powers/Other Patient Handouts: ED Edema Legs Bilateral Admission Data Admit Date/Time: 07/21/19 17:28 Attending Provider: Raymundo Rodrigez Admit Provider: Kanwal Paz Primary Care Provider: Efrain Mccall Other Providers: Kanwal Paz ; Cole Hebert ; Rizwan Amador ; Alber Ross ; Karin Nixon ; Leah Davidson ; Kevin Tran Other Interventions: Discharge Summary Assessment (RN) Last Done: 07/30/19 18:41 DC Date/Time DO NOT enter until pt leaves facility: 07/30/19 20:09
== END 2019-07-30 20:09 | disposition home or self-care (01) | DRG 208 ==
LOC: SUATTDRO 17:28 → 2N 17:28 → 2W 19:44 → 1E 07-22 00:19 → 2N 07-25 18:53 → 3W 07-30 05:25

== ENCOUNTER 2019-09-09 15:04 | Inpatient (IN) ==
--- NOTE | 2019-09-09 15:47 | History & Physical Report ---
Date of Service September 09, 2019 Assessment & Plan (1) Hypercapnic respiratory failure: Admits to ICU. Patient is continued mechanical ventilation. Respiratory rate and tidal volume 46 cc/kg to maintain pH between 7.35 and 7.40. Continue duo nebs every 4 hours scheduled and as needed. Continue inhaled corticosteroids, inhaled long-acting beta agonists as per ICU team. Continue sedation while patient is on mechanical ventilator. Procalcitonin pending, sputum cultures pending, blood cultures pending. Hold antibiotics for now since patient current condition appears is likely due to acute COPD exacerbation. Present on Admission?: Yes (2) Acute exacerbation of CHF (congestive heart failure): Strict in and out Daily weight Started diuresis Serial troponin to rule out ACS Echocardiogram from last month demonstrated a preserved ejection fraction. Present on Admission?: Yes (3) Acute exacerbation of COPD with asthma: As the above Present on Admission?: Yes (4) Hypertension: Continue monitoring. As per ICU team Present on Admission?: Yes (5) Obesity hypoventilation syndrome: Once when he wakes up patient would need to work on his weight loss. It would help continuous monitoring and follow-up with dietitian once when outpatient, possibly joining weight loss group, weight watchers and etc. Present on Admission?: Yes (6) Obstructive sleep apnea: Once when patient is extubated would need a sleep study and CPAP. Present on Admission?: Yes (7) Tobacco abuse: Medicine patient wakes up and extubated will advised to to quit smoking, possibly use nicotine patch. Present on Admission?: Yes History of Present Illness Chief Complaint: Acute respiratory failure Primary Care Provider: Efrain Mccall MD 64 y/o male with PMhx of COPD, morbidly obese , peripheral neuropathy, congestive heart failure, psoriasis, hypertension, s/p a right lower lobectomy 12 years ago nicotine dependent who was direct admit from [facility] ER for acute on chronic hypoxemic and hyper cardiac respiratory failure and pulmonary congestion. Patient on a clear 3 L of oxygen at home. On arrival to the intensive care unit patient was already intubated at [facility]. He arrived with [facility]. There was no possibility to review systems with patient because he is unconscious and intubated. No family accompanied the patient patient. The history is obtained exclusively based on the review of the chart that was received from [facility]. Per the notes patient was in the ER at [facility] on the BiPAP, he received several breathing treatments, Lasix 60 mg IV and Ativan 1 mg IV. Since patient was very agitated he was given 5 mg of Zyprexa IM. But his hypoxia continued to worsen and he needed to be intubated. At [facility] he was treated for acute exacerbation of COPD. Patient sees Dr. Cope and his [facility]. Labs are reviewed: WBCs 10.87, hemoglobin 12.1, hematocrit 35.8, platelets 237, d-dimer 370, ABG pH 7.45, PCO2 44, PO2 83, HCO3 30, O2 saturation 97%, sodium 126, potassium 3, chloride 81, carbon dioxide 39, BUN 8, creatinine 0.46, GFR 120.2,ALT repeated glucose 110, BNP 197, urine osmolality 75. Chest x-ray significant for pulmonary vascular congestion. Slight blunting right lateral costophrenic angle. Endotracheal tube placed above the marvin 4.5 cm. Sputum culture pending, blood culture pending. Since patient is in the critical condition intubated he was admitted to the ICU under sterile processing technologist treatment. Allergies Allergy/AdvReac Type Severity Reaction Status Date / Time Penicillins Allergy Unknown Verified 07/15/19 15:15 Home Medications Home Medications Medication Instructions Recorded Confirmed Type Oxygen Home #1 ea 04/25/19 08/26/19 History acetaminophen 325 mg tablet 625 mg PO Q6 PRN tab 04/25/19 08/26/19 History albuterol sulfate 90 mcg/actuation INHALATION gm 04/25/19 08/26/19 History aerosol inhaler ibuprofen 800 mg tablet 800 mg PO PRN tab 04/25/19 08/26/19 History insulin regular hum U-500 conc 500 SUBCUT ml 04/25/19 08/26/19 History unit/mL subcutaneous soln ipratropium 0.5 mg-albuterol 3 mg INHALATION ml 04/25/19 08/26/19 History (2.5 mg base)/3 mL nebulization soln linaclotide 290 mcg capsule 1 PO .TAKE 1 CAPSULE Daily #30 cap 04/25/19 08/26/19 History Oxygen Home #1 ea 05/06/19 08/26/19 Rx aspirin 81 mg tablet 81 mg PO DAILY tab 05/06/19 08/26/19 History atorvastatin 40 mg tablet 40 mg PO DAILY tab 05/06/19 08/26/19 History carvedilol 3.125 mg tablet 3.125 mg PO BID tab 05/06/19 08/26/19 History dulaglutide 1.5 mg/0.5 mL 1.5 mg SQ WEEKLY #0.5 ml 05/06/19 08/26/19 Rx subcutaneous pen injector fluticasone furoate 200 1 puffs INHALATION DAILY #1 ea 05/06/19 08/26/19 Rx mcg-vilanterol 25 mcg/dose inhalation powder folic acid 1 mg tablet 1 mg PO DAILY #30 tab 05/06/19 08/26/19 Rx methotrexate sodium 2.5 mg tablet 7.5 mg PO WEEKLY #30 tab 05/06/19 08/26/19 Rx pregabalin 50 mg capsule 50 mg PO BID cap 05/06/19 08/26/19 History escitalopram oxalate 20 mg tablet 20 mg PO DAILY tab 07/15/19 08/26/19 History metformin 1,000 mg PO PM 07/21/19 08/26/19 History furosemide 40 mg PO DAILY #30 tab 07/30/19 08/26/19 Rx levetiracetam [Keppra] 250 mg PO BID #60 tab 07/30/19 08/26/19 Rx prednisone 10 mg PO DAILY #30 tab 07/30/19 08/26/19 Rx tiotropium bromide [Spiriva with 18 mcg INHALATION QAM #30 puffs 07/30/19 08/26/19 Rx HandiHaler] bupropion HCl 100 mg tablet 100 mg PO BID #60 tab 08/26/19 08/26/19 Rx BiPap Machine #1 ea 09/02/19 Rx famotidine 40 mg tablet 40 mg PO DAILY #30 tab 09/05/19 Rx Past Med/Surg History Medical History Anxiety Asthma Chronic hypercapnic respiratory failure Chronic respiratory failure Congestive heart failure COPD (chronic obstructive pulmonary disease) Depression Diabetes GERD (gastroesophageal reflux disease) Lower leg edema Myoclonic jerking Psoriasis Surgical History History of appendectomy History of bronchoscopy History of hemorrhoidectomy History of thoracotomy 06/2008 - s/p traumatic hemothorax History of tonsillectomy Family History Other Coronary heart disease Diabetes Lung cancer Social History Preferred Language: Unknown Communication Ability: INTUBATED Communication Ability Comment: PATIENT INTUBATED Beliefs That Will Affect Care: None Current Living Situation: Other Current Living Situation Comment: UNKNOWN,PRIOR MEDICAL RECORD STATES HAS CARE- GIVERS Feels Safe at Home: Yes Smoking Status: Current every day smoker Tobacco Type: cigarettes ; Review of Systems Review of Systems: All systems reviewed & are unremarkable except as noted in HPI & below Physical Exam Constitutional: + acute distress, + ill appearing and + morbidly obese Eyes: PERRL Neck: trachea midline, no thyromegaly Cardiovascular: Heart Sounds: normal S1 and normal S2 Gastrointestinal (Abdomen): normal bowel sounds, soft, nontender, no hepatosplenomegaly Skin: + rash (Multiple psoriatic scabs located mostly on the upper chest forehead and arms, diaper rash) Code Status & VTE Plan Code Status Full Code VTE Prophylaxis Plan VTE Prophylaxis will be ordered: Yes PG Care Time/CCT Total # of Minutes Spent Total Time Spent with Patient: Total time spent is greater than 50% in coordination of care (as documented) at patient's floor/unit and/or counseling patient: (1) Hypertension Hypertension type: other secondary hypertension Qualified Code(s): I15.8 - Other secondary hypertension
[2019-09-09] MEDS ORDERED: PROPOFOL IV EMULSION 10 MG/ML 100 ML VIAL IV ONE (16:43)
[2019-09-09] MEDS ORDERED: propofoL 1,000 MG/100 ML VIAL IV STA (17:19)
[2019-09-09] MEDS ORDERED: PATIENT'S HEIGHT AND/OR WEIGHT NEEDED SCH (17:30)
--- NOTE | 2019-09-09 17:31 | Critical Care Consultation ---
Date of Consultation September 09, 2019 Assessment & Plan (1) Hypercapnic respiratory failure: Impression: 64-year-old male with morbid obesity admitted with acute on chronic hypoxemic and hypercarbic respiratory failure with chest x-ray demonstrating vascular engorgement. It appears the patient was to be on noninvasive positive pressure ventilation however this was never initiated as tobacco products. Recommendations: 1. Acute on chronic hypoxemic and hypercarbic respiratory failure: Continue mechanical ventilation. Will adjust respiratory rate and tidal volume 4 6 cc/kg. Follow-up blood gas and adjust ventilator to maintain pH between 7.35 and 7.40. Wean oxygen to maintain oxygen saturations at or above 85 to 90%. PFTs not currently available in the system unclear if these have been performed previously. Again suspect he has overlap syndrome. We will continue with inhaled corticosteroids, inhaled long-acting beta agonists and consider Spiriva once extubated. Duo nebs for now. Continue sedation pending assessment for liberation from mechanical ventilator. 2. Fluid overload/diastolic heart failure: We will recheck serum creatinine. The patient likely needs some diuresis. We will check serial troponin. Review of his echocardiogram from last month demonstrated a preserved ejection fraction but windows were extremely limited. If formal echo is required, he would likely require transesophageal echocardiogram. Will hold off for now unless he develops hemodynamic instability or we are unable to diurese. 3. Morbid obesity: Weight loss is paramount. Caloric restriction recommended. This has been recommended in the past and the patient has not really been compliant. Doubt we will have any significant impact on this patient's current morbid obesity. 4. Sleep disordered breathing/obesity hypoventilation: The patient will need to be extubated to noninvasive positive pressure ventilation. Again we will work on getting him some form of noninvasive positive pressure ventilation to go home with to prevent additional efforts. 5. Tobacco abuse/COPD: Smoking cessation recommended. The patient is sent does not appear overtly bronchospastic currently and I do not believe he requires systemic steroids currently. Holding on antibiotics. Check procalcitonin and sputum culture. 6. Nutrition: We will place enteric access. Dietary consult in the morning for trophic nutritional tube feeds. 7. Severe psoriasis: The patient is on methotrexate chronically. Methotrexate may cause interstitial lung disease. Psoriatic arthritis causing interstitial lung disease is exceedingly uncommon. Continue to follow clinically. 8. Additional recommendations and plan will be dictated based on results of the patient's diagnostic evaluation. (2) Hypoxemic respiratory failure, chronic: (3) Diastolic heart failure: (4) COPD (chronic obstructive pulmonary disease): (5) Obesity hypoventilation syndrome: History of Present Illness Attending Physician: Adelaida Ivan MD History of Present Illness Asked by hospitalist to assist with management of this patient transferred from an outside facility after intubation mechanical ventilation. History is obtained from discussion with the admitting hospitalist as well as review of the outside medical records. The patient is unable to provide any history as he is intubated and sedated. No family accompanies him. Patient is a 64-year-old male known to the pulmonary service from prior admission and issues. He is a 64-year-old morbidly obese man active lung di sease and sleep disordered breathing as well as cardiac respiratory failure. Patient was hospitalized in the facility back in July. He was apparently to be discharged on noninvasive ventilation however there were issues getting it approved through insurance and instead he was discharged on CPAP. Review of the patient's outpatient records revealed that he never received the machine as his last clinic note from [facility] about 2 weeks ago mentioned getting him set up with BiPAP and oxygen. Does not appear that this was ever accomplished. He contacted the pulmonary clinic today with shortness of breath and was referred directly to the emergency room. He was hypoxemic. A chest x-ray demonstrated pulmonary vascular congestion. He unfortunately continues to abuse tobacco products. His initial blood gas demonstrated acute on chronic hypercarbic respiratory failure with a pH of 7.31, PCO2 of 91, and PO2 of 60. He was initially placed on BiPAP and plans were to admit the patient to the hospitalist service on the floor. Unfortunately the patient's condition deteriorated and he required intubation by anesthesia there. He was sedated and flown to the ICU here at [facility]. I assessed the patient immediately on arrival. He appears in poor hygiene. He is currently on a ventilator. His oxygen saturations are acceptable. A chest x-ray was performed on arrival which demonstrated pulmonary venous congestion. He has significant psoriatic plaques. I do not hear any wheezing. No other pertinent history is currently available. Allergies Allergy/AdvReac Type Severity Reaction Status Date / Time Penicillins Allergy Unknown Verified 07/15/19 15:15 Home Medications Home Medications Medication Instructions Recorded Confirmed Type Oxygen Home #1 ea 04/25/19 08/26/19 History acetaminophen 325 mg tablet 625 mg PO Q6 PRN tab 04/25/19 08/26/19 History albuterol sulfate 90 mcg/actuation INHALATION gm 04/25/19 08/26/19 History aerosol inhaler ibuprofen 800 mg tablet 800 mg PO PRN tab 04/25/19 08/26/19 History insulin regular hum U-500 conc 500 SUBCUT ml 04/25/19 08/26/19 History unit/mL subcutaneous soln ipratropium 0.5 mg-albuterol 3 mg INHALATION ml 04/25/19 08/26/19 History (2.5 mg base)/3 mL nebulization soln linaclotide 290 mcg capsule 1 PO .TAKE 1 CAPSULE Daily #30 cap 04/25/19 08/26/19 History Oxygen Home #1 ea 05/06/19 08/26/19 Rx aspirin 81 mg tablet 81 mg PO DAILY tab 05/06/19 08/26/19 History atorvastatin 40 mg tablet 40 mg PO DAILY tab 05/06/19 08/26/19 History carvedilol 3.125 mg tablet 3.125 mg PO BID tab 05/06/19 08/26/19 History dulaglutide 1.5 mg/0.5 mL 1.5 mg SQ WEEKLY #0.5 ml 05/06/19 08/26/19 Rx subcutaneous pen injector fluticasone furoate 200 1 puffs INHALATION DAILY #1 ea 05/06/19 08/26/19 Rx mcg-vilanterol 25 mcg/dose inhalation powder folic acid 1 mg tablet 1 mg PO DAILY #30 tab 05/06/19 08/26/19 Rx methotrexate sodium 2.5 mg tablet 7.5 mg PO WEEKLY #30 tab 05/06/19 08/26/19 Rx pregabalin 50 mg capsule 50 mg PO BID cap 05/06/19 08/26/19 History escitalopram oxalate 20 mg tablet 20 mg PO DAILY tab 07/15/19 08/26/19 History metformin 1,000 mg PO PM 07/21/19 08/26/19 History furosemide 40 mg PO DAILY #30 tab 07/30/19 08/26/19 Rx levetiracetam [Keppra] 250 mg PO BID #60 tab 07/30/19 08/26/19 Rx prednisone 10 mg PO DAILY #30 tab 12/11/19 01/07/20 Rx tiotropium bromide [Spiriva with 18 mcg INHALATION QAM #30 puffs 07/30/19 08/26/19 Rx HandiHaler] bupropion HCl 100 mg tablet 100 mg PO BID #60 tab 08/26/19 08/26/19 Rx BiPap Machine #1 ea 09/02/19 Rx famotidine 40 mg tablet 40 mg PO DAILY #30 tab 09/05/19 Rx Patient History Social History Preferred Language: Bengali Communication Ability: Unable Beliefs That Will Affect Care: None Current Living Situation Comment: caregivers stay at his time Feels Safe at Home: Yes Smoking Status: Current every day smoker Tobacco Type: cigarettes ; Hx Alcohol Use: No Hx Substance Use: No Review of Systems Review of Systems: Unobtainable due to endotracheal tube Physical Exam Physical Exam: Morbidly obese. Limits sensitivity physical exam Constitutional: Intubated and sedated Eyes: PERRL Neck: trachea midline, no thyromegaly Respiratory: Coarse breath sounds bilaterally with diffuse crackles. No wheezing Cardiovascular: Heart Sounds: normal S1 and normal S2 Gastrointestinal (Abdomen): normal bowel sounds, soft, nontender, no hepatosplenomegaly Skin: Multiple psoriatic plaques. Significant candidal infection in the inguinal creases Neurologic: Intubated and sedated Results & Data Laboratory Results Labs from the outside facility were reviewed. White count of 11.2 with hemoglobin hematocrit of 12 and 36 and a platelet count of 268. Initial blood gas showed a pH 7.31 with a PCO2 of 91 and a PO2 of 65. Urinalysis showed 1+ glucose with 1+ blood Notes from the patient's outside facility were reviewed. Total of 10 minutes was spent review these medical records. Diagnostic Findings Chest x-ray performed on arrival to the ICU here was independently reviewed. The endotracheal tube appears to be in good position. There is pulmonary vascular congestion of the bilateral upper lobes. No acute infiltrate identified. No obvious effusion. Mild cardiomegaly. Coding Level of Care Code Critical Care 1st 30-74 mins Diagnoses Hypercapnic respiratory failure J96.92 Hypoxemic respiratory failure, chronic J96.11 Diastolic heart failure I50.30 COPD (chronic obstructive pulmonary disease) J44.9 Obesity hypoventilation syndrome E66.2 Time Spent (min) 55 Comment 55 minutes critical care time evaluating managing and stabilizing patient including review of outside medical records, discussion with bedside nurse, respiratory therapist, and admitting hospitalist. Patient does have life- threatening illness.
[2019-09-09] MEDS ORDERED: ALUMINUM/MAGNESIUM SUSP 30 ML UDC PO PRN (17:32)
[2019-09-09] MEDS ORDERED: MACHINE SCH (17:32)
[2019-09-09] MEDS ORDERED: ACETAMINOPHEN 325 MG TAB PO PRN (17:32)
[2019-09-09] MEDS ORDERED: MAGNESIUM HYDROXIDE SUSP 30 ML UDC PO PRN (17:32)
[2019-09-09] MEDS ORDERED: POLYETHYLENE (MIRALAX) 17 GM PACK PO PRN (17:32)
[2019-09-09] MEDS ORDERED: ONDANSETRON INJ 2 MG/ML 2 ML VIAL IV PRN (17:32)
[2019-09-09] MEDS ORDERED: ALBUTEROL HFA 8 GM INHALER INH SCH (17:32)
--- NOTE | 2019-09-09 17:41 | XRay Report ---
XR chest 1V portable CLINICAL HISTORY: vent tube position COMPARISON STUDY: 07/29/2019 FINDINGS: Endotracheal tube 4.5 cm with a chronic. Nasogastric tube within the stomach. Unchanged pulmonary vascular congestion. Slight blunting right lateral costophrenic angle. IMPRESSION: 1. Endotracheal tube placed 4.5 cm above the marvin. 2. Nasogastric tube within the stomach. 3. Unchanged findings of congestive failure ACT 112: Negative or not required by law. The above report was generated using voice recognition software. It may contain grammatical, syntax or spelling errors. Electronically signed by: Yaakov Judge M.D. 09/09/2019 5:39 PM
[2019-09-09 18:04] LABS: Hematocrit (blood only) 35.8 % (42-52); Hemoglobin 12.1 g/dL (14.0-18.0); Immature Granulocytes # (auto) 0.05 K/uL (0.00-0.02); Immature Granulocytes % (auto) 0.5 %; Lymphocytes # (auto) 0.49 K/uL (1.2-3.4); Lymphocytes % (auto) 4.5 %; Mean Corpuscular Hemoglobin 29.6 pg (25-34); Mean Corpuscular Volume 87.5 fL (80-100); Monocytes # (auto) 0.19 K/uL (0.11-0.59); Monocytes % (auto) 1.7 %; Neutrophils # (auto) 10.14 K/uL (1.4-6.5); Neutrophils % (auto) 93.3 %; Platelet Count 237 K/uL (130-400); RDW Coefficient of Variation 14.1 % (11.5-14.5); RDW Standard Deviation 44.5 fL (36.4-46.3); Red Blood Count 4.09 M/uL (4.7-6.1); White Blood Count 10.87 K/uL (4.8-10.8)
[2019-09-09 18:13] LABS: Mean Corpuscular Hgb Conc 33.8 g/dL (32-36)
[2019-09-09 18:27] LABS: Albumin Level 2.8 gm/dl (3.4-5.0); Calcium 8.4 mg/dl (8.5-10.1); Creatinine Clr Calc Pharmacy 259.7 ml/min; Est GFR (African American) 139.3; Est GFR (Non-African American) 120.2; Potassium 3.2 mmol/L (3.5-5.1)
[2019-09-09 18:27] LABS: D Dimer 370 ug/L FEU (0-500)
[2019-09-09] MEDS: MIDAZOLAM HCL 125 MG/250 ML BAG IV SCH (18:29)
[2019-09-09] MEDS: FUROSEMIDE 40 MG in SYRINGE 0 ML IV SCH (18:32)
[2019-09-09] MEDS: UMECLIDINIUM BROMIDE 62.5MCG/BLISTER 7 PUFFS/INHALER INH SCH (18:32)
[2019-09-09] MEDS: propofoL 1,000 MG/100 ML VIAL IV SCH ×3 (18:33→22:39)
[2019-09-09] MEDS: fentaNYL citrate 100 MCG/2 ML VIAL IV PRN (18:34)
[2019-09-09 18:41] LABS: Albumin Globulin Ratio 0.7 (0.9-2); Bilirubin,Total 0.4 mg/dl (0.2-1); Globulin 3.8 gm/dl (2.5-4.0); Thyroid Stimulating Hormone 1.31 uIu/ml (0.300-4.500); Total Protein 6.6 gm/dl (6.4-8.2)
[2019-09-09] MEDS ORDERED: ALBUT/IPRATROP 3MG/0.5MG NEB 3 ML VIAL INH SCH (19:00)
[2019-09-09] MEDS ORDERED: ALBUT/IPRATROP 3MG/0.5MG NEB 3 ML VIAL NEB SCH (19:00)
[2019-09-09] MEDS: POTASSIUM CHLORIDE / WTR 10 MEQ/100 ML PLCT IV SCH ×3 (19:48→21:32)
[2019-09-09] MEDS: BUDESONIDE 0.5 MG/2 ML VIAL (PULMICORT) NEB SCH (19:51)
[2019-09-09] MEDS: ALBUT/IPRATROP 3MG/0.5MG NEB 3 ML VIAL NEB SCH (19:51)
[2019-09-09] MEDS: FORMOTEROL 20 MCG/2 ML VIAL NEB SCH (19:51)
[2019-09-09 20:25] LABS: Calcium 9.2 mg/dl (8.5-10.1); Creatinine Clr Calc Pharmacy 259.7 ml/min; Est GFR (African American) 139.3; Est GFR (Non-African American) 120.2
[2019-09-09] MEDS ORDERED: GLUCOSE 10 TABS/TUBE PO PRN (20:34)
[2019-09-09] MEDS ORDERED: GLUCOSE 40% GEL 15 GM TUBE PO PRN (20:34)
[2019-09-09] MEDS ORDERED: DEXTROSE 50% 50 ML SYRINGE IV PRN (20:34)
[2019-09-09] MEDS ORDERED: CARBOHYDRATES FOR HYPOGLYCEMIA PO PRN (20:34)
[2019-09-09] MEDS ORDERED: GLUCAGON FOR INJ 1 MG VIAL SQ PRN (20:34)
[2019-09-09] MEDS ORDERED: DEXTROSE 50% 50 ML SYRINGE IV ONE (20:35)
[2019-09-09] MEDS ORDERED: levETIRAcetam 250 MG TAB PO SCH ×2 (21:00)
[2019-09-09] MEDS: levETIRAcetam 250 MG in DEXTROSE 5% 100 ML IV SCH (21:33)
[2019-09-09] MEDS: carvediloL 3.125 MG TAB PO SCH (21:35)
[2019-09-09] MEDS: methylPREDNISolone 40 MG in SYRINGE 0 ML IV SCH (21:38)
[2019-09-09] MEDS: CLOTRIMAZOLE 1% CR 15 GM TUBE EXT SCH (22:40)
[2019-09-10] MEDS: propofoL 1,000 MG/100 ML VIAL IV SCH ×10 (00:44→22:21)
[2019-09-10 00:55] LABS: BUN Creatinine Ratio 16.6 (10-20); Calcium 8.8 mg/dl (8.5-10.1); Creatinine Clr Calc Pharmacy 248.9 ml/min; Est GFR (African American) 136.9; Est GFR (Non-African American) 118.1; Potassium 3.3 mmol/L (3.5-5.1)
[2019-09-10 00:58] LABS: Allen Test Pos (Pos); Base Excess ABG 14.2 mEq/L (-9-1.8); HCO3 ABG 42 mmol/L (19-24); Oxygen Saturation ABG 95.5 % (90-95); PCO2 ABG 67 mmHg (35-46); PO2 ABG 79 mmHg (80-95); pH ABG 7.41 (7.35-7.45)
[2019-09-10] MEDS: POTASSIUM CHLORIDE / WTR 10 MEQ/100 ML PLCT IV SCH ×6 (01:37→08:04)
[2019-09-10 04:52] LABS: Hematocrit (blood only) 36.5 % (42-52); Hemoglobin 11.9 g/dL (14.0-18.0); Immature Granulocytes # (auto) 0.02 K/uL (0.00-0.02); Immature Granulocytes % (auto) 0.2 %; Lymphocytes # (auto) 0.49 K/uL (1.2-3.4); Lymphocytes % (auto) 4.9 %; Mean Corpuscular Hemoglobin 28.7 pg (25-34); Mean Corpuscular Hgb Conc 32.6 g/dL (32-36); Mean Corpuscular Volume 88.2 fL (80-100); Mean Platelet Volume 9.4 fL (7.4-10.4); Monocytes # (auto) 0.24 K/uL (0.11-0.59); Monocytes % (auto) 2.4 %; Neutrophils # (auto) 9.23 K/uL (1.4-6.5); Neutrophils % (auto) 92.5 %; Platelet Count 255 K/uL (130-400); RDW Coefficient of Variation 14.2 % (11.5-14.5); RDW Standard Deviation 45.3 fL (36.4-46.3); Red Blood Count 4.14 M/uL (4.7-6.1); White Blood Count 9.98 K/uL (4.8-10.8)
[2019-09-10 05:29] LABS: Albumin Globulin Ratio 0.7 (0.9-2); Albumin Level 2.6 gm/dl (3.4-5.0); BUN Creatinine Ratio 16.5 (10-20); Bilirubin,Total 0.4 mg/dl (0.2-1); Calcium 8.7 mg/dl (8.5-10.1); Creatinine Clr Calc Pharmacy 243.8 ml/min; Est GFR (African American) 135.7; Est GFR (Non-African American) 117.1; Globulin 3.7 gm/dl (2.5-4.0); Potassium 3.6 mmol/L (3.5-5.1); Total Protein 6.3 gm/dl (6.4-8.2)
[2019-09-10 06:15] LABS: Magnesium 1.9 mg/dl (1.8-2.4); Phosphorus 4.4 mg/dl (2.5-4.9)
[2019-09-10] MEDS: fentaNYL citrate 100 MCG/2 ML VIAL IV PRN (06:27)
[2019-09-10] MEDS ORDERED: PNEUMOCOCCAL Polysaccharide Vaccine 25mcg/0.5mL vial/Syr IM ONE (06:45)
[2019-09-10] MEDS: FORMOTEROL 20 MCG/2 ML VIAL NEB SCH ×2 (07:16→18:50)
[2019-09-10] MEDS: ALBUT/IPRATROP 3MG/0.5MG NEB 3 ML VIAL NEB SCH ×4 (07:16→18:50)
[2019-09-10] MEDS: BUDESONIDE 0.5 MG/2 ML VIAL (PULMICORT) NEB SCH ×2 (07:16→18:50)
--- NOTE | 2019-09-10 07:16 | XRay Report ---
XR chest 1V portable CLINICAL HISTORY: Respiratory failure COMPARISON STUDY: 09/09/2019 FINDINGS: There is an endotracheal tube positioned 61 mm above the marvin. There is a joint nasogastr ic tube. The tip is nonvisualized. The heart is enlarged. There is radiographic evidence of congestiv e failure with interstitial edema. There is stable right-sided pleural thickening/loculated fluid. IMPRESSION: 1. Continued radiographic evidence of congestive failure with mild interstitial edema. ACT 112: Negative or not required by law. Electronically signed by: Stephen Shin M.D. 09/10/2019 7:14 AM
[2019-09-10] MEDS: levETIRAcetam 250 MG in DEXTROSE 5% 100 ML IV SCH (08:58)
[2019-09-10] MEDS: methylPREDNISolone 40 MG in SYRINGE 0 ML IV SCH (08:59)
[2019-09-10] MEDS ORDERED: FLUTICASONE/VILANTEROL 200/25MCG 14 PUFFS/INHALER INH SCH (09:00)
[2019-09-10] MEDS: ATORVASTATIN 40 MG TAB PO SCH (09:08)
[2019-09-10] MEDS: FOLIC ACID 1 MG TAB PO SCH (09:08)
[2019-09-10] MEDS: CLOTRIMAZOLE 1% CR 15 GM TUBE EXT SCH ×2 (09:08→20:06)
[2019-09-10] MEDS: ESCITALOPRAM OXALATE 20 MG TAB PO SCH (09:08)
[2019-09-10] MEDS: ASPIRIN 81 MG CHEW PO SCH (09:08)
[2019-09-10] MEDS: carvediloL 3.125 MG TAB PO SCH ×2 (09:09→20:06)
[2019-09-10] MEDS: UMECLIDINIUM BROMIDE 62.5MCG/BLISTER 7 PUFFS/INHALER INH SCH (09:09)
[2019-09-10] MEDS ORDERED: MAGNESIUM SULFATE / D5W 1 GM/100 ML BAG IV ONE (11:15)
[2019-09-10] MEDS ORDERED: acetaZOLAMIDE 250 MG in SYRINGE 0 ML IV ONE (11:30)
[2019-09-10] MEDS: HEPARIN SOD 5,000 UNIT/0.5 ML VIAL SQ SCH ×2 (11:53→22:16)
[2019-09-10] MEDS: POTASSIUM CHLORIDE PWD 20 MEQ PACK PO SCH ×2 (11:54→19:59)
[2019-09-10] MEDS ORDERED: PEPTAMEN 1.5 CAL 1,000 ML BAG OG SCH (12:00)
--- NOTE | 2019-09-10 12:17 | Critical Care Progress Note ---
Date of Service September 10, 2019 Assessment & Plan (1) Hypercapnic respiratory failure: Impression: 64-year-old male with morbid obesity admitted with acute on chronic hypoxemic and hypercarbic respiratory failure with chest x-ray demonstrating vascular engorgement. It appears the patient was to be on noninvasive positive pressure ventilation however this was never initiated as tobacco products. 24-hour events: Patient admitted to the ICU after being intubated at [facility] emergency room. He was diuresed aggressively. He has had some improvement in his gas exchange. His oxygenation indices are improved. He is remained hemodynamically stable. Recommendations: 1. Acute on chronic hypoxemic and hypercarbic respiratory failure: Continue mechanical ventilation. Blood gas is currently acceptable. Maintain pH between 7.35 and 7.40. Wean oxygen to maintain oxygen saturations at or above 85 to 90%. PFTs not currently available in the system unclear if these have been performed previously. Again suspect he has overlap syndrome. We will continue with inhaled corticosteroids, inhaled long-acting beta agonists and consider Spiriva once extubated. Duo nebs for now. Continue sedation pending assessment for liberation from mechanical ventilator. 2. Fluid overload/diastolic heart failure: Good response to diuretics yesterday. Creatinine stable. Continue diuresis with goal net -1 to 2 L per 24 hours. Adjust based on serum creatinine. Will give 1 dose Diamox now for multifactorial alkalosis. 3. Morbid obesity: Weight loss is paramount. Caloric restriction recommended. This has been recommended in the past and the patient has not really been compliant. Doubt we will have any significant impact on this patient's current morbid obesity. 4. Sleep disordered breathing/obesity hypoventilation: The patient will need to be extubated to noninvasive positive pressure ventilation. Per social work, the patient has been approved and they have his BiPAP unit at home. There is some question about his ability to be compliant in the 5. Tobacco abuse/COPD: Smoking cessation recommended. The patient is sent does not appear overtly bronchospastic currently and I do not believe he requires systemic steroids currently. Holding on antibiotics. Procalcitonin negative and sputum culture pending. 6. Nutrition: Tube feeds per nutrition 7. Severe psoriasis: The patient is on methotrexate chronically. Methotrexate may cause interstitial lung disease. Psoriatic arthritis causing interstitial lung disease is exceedingly uncommon. Continue to follow clinically. 8. Mild anemia: No evidence of acute blood loss. Continue to follow. No indication for transfusion currently. 9. Hyponatremia: Suspect hypervolemic hypotonic hyponatremia. Serum lozenges were decreased. Continue to trend sodium with diuresis. Clinically worsens, additional laboratory studies may be appropriate. Urine studies were obtained with the patient having already received Lasix and her lisinopril. 10. History of myoclonic syndrome: Of unclear etiology. Had been on Keppra during a prior hospitalization. Is unclear if he was taking this in the outpatient setting. Levels are currently pending. I think it is reasonable to hold off for now and follow. Patient remains critically ill at this point time. Total of 40 minutes critical care time was spent evaluation management and stabilization of this patient including discussion with bedside nurse and discussion on multidisciplinary rounds. No family available.. (2) Hypoxemic respiratory failure, chronic: (3) Diastolic heart failure: (4) COPD (chronic obstructive pulmonary disease): (5) Obesity hypoventilation syndrome: Review of Systems Review of Systems: Unobtainable due to endotracheal tube Physical Exam Constitutional: Intubated and sedated. Endotracheal tube in place Eyes: PERRL Neck: trachea midline, no thyromegaly Respiratory: Coarse rhonchi bilaterally. No wheezing. Cardiovascular: Heart Sounds: normal S1 and normal S2 Gastrointestinal (Abdomen): normal bowel sounds, soft, nontender, no hepatosplenomegaly Neurologic: Intubated and sedated Results & Data Vital Signs (Past 12 Hours) Vital Signs Temp Pulse Resp BP Pulse Ox 09/10/19 10:05 92 H 20 93 09/10/19 08:01 94 H 117/63 95 09/10/19 08:00 37 C 95 H 94 09/10/19 07:52 95 H 141/58 H 94 09/10/19 07:31 94 H 146/110 H 93 09/10/19 07:30 91 H 92 09/10/19 07:22 92 H 154/72 H 91 09/10/19 07:20 92 H 21 92 09/10/19 07:00 90 91 09/10/19 06:52 90 148/66 H 91 09/10/19 06:30 96 H 93 09/10/19 06:27 97 H 142/88 H 94 09/10/19 05:54 98 H 22 92 09/10/19 05:52 95 H 163/74 H 97 09/10/19 05:45 96 H 172/72 H 94 09/10/19 05:27 92 H 16 90 09/10/19 05:22 91 H 141/69 H 91 09/10/19 04:55 91 H 21 94 09/10/19 04:52 92 H 157/68 H 94 09/10/19 04:22 91 H 145/63 H 95 09/10/19 03:52 37.0 C 89 145/64 H 95 09/10/19 03:22 89 150/69 H 95 09/10/19 02:52 86 142/65 H 94 09/10/19 02:25 90 20 94 09/10/19 02:22 90 148/72 H 94 09/10/19 01:52 91 H 145/71 H 95 09/10/19 01:22 89 159/69 H 95 09/10/19 00:52 88 143/74 H 96 09/10/19 00:22 37.0 C 87 144/69 H 95 Laboratory Results 09/10/19 04:12 09/10/19 04:12 Sputum Gram stain and culture no growth to date Diagnostic Findings Chest x-ray from today was independently reviewed. Endotracheal tube and or ogastric tube appear to be in good position. The lungs are better aerated with persistent pulmonary vascular congestion however this is improved from prior. No focal airspace opacities identified. Coding Level of Care Code Critical Care 1st 30-74 mins Diagnoses Hypercapnic respiratory failure J96.92 Hypoxemic respiratory failure, chronic J96.11 Diastolic heart failure I50.30 COPD (chronic obstructive pulmonary disease) J44.9 Obesity hypoventilation syndrome E66.2 Time Spent (min) 40 Comment 40 minutes critical care time including evaluation management and potentially life-threatening organ system dysfunction/failure
--- NOTE | 2019-09-10 12:30 | Hospitalist Progress Note ---
Date of Service September 10, 2019 Assessment & Plan (1) Hypercapnic respiratory failure: pH down to normal on repeat ABG continue mechanical ventilation, settings per pulmonary continue Solu Medrol and beta agonists daily attempts to wean from ventilator (2) Acute exacerbation of CHF (congestive heart failure): acute on chronic heart failure with preserved EF Strict in and out, negative over 5 liters thus far continue Lasix for diuresis, follow renal function Echocardiogram from last month demonstrated a preserved ejection fraction. (3) Acute exacerbation of COPD with asthma: Solu Medrol, nebulizers via ET tube (4) Hypertension: stable (5) Obesity hypoventilation syndrome: Once when he wakes up patient would need to work on his weight loss. (6) Obstructive sleep apnea: Once when patient is extubated would need a sleep study and CPAP. (7) Tobacco abuse: Medicine patient wakes up and extubated will advised to to quit smoking, possibly use nicotine patch. Subjective patient remains intubated and sedated, no plans for extubation today he responded quite well to Lasix, 5 liters out since admission reviewed labs this AM, CBC stable reviewed ABG from around 1am, pH was 7.4 BMP shows sodium of 129, K 3.6, HCO3 of 42, CR stable at 0.[address] Ann, appreciate his management of this patient Review of Systems Review of Systems: Unobtainable due to endotracheal tube Physical Exam Constitutional: well developed, + morbidly obese, + lethargic and + mechanically ventilated; not in distress Eyes: PERRL, conjunctivae normal, anicteric sclerae ENMT: external ear and nose normal, oropharynx normal Neck: trachea midline, no thyromegaly Respiratory: normal respiratory effort (ventilated) and symmetric chest movement Auscultation: lungs clear to auscultation bilaterally Cardiovascular: Rate/Rhythm: regular rate and regular rhythm Heart Sounds: normal S1 and normal S2; no murmur Vessels: no JVD Extremities: normal capillary refill and + edema Gastrointestinal (Abdomen): normal bowel sounds, soft, nontender, no hepatosplenomegaly Musculoskeletal: Head/Neck/Chest: normocephalic and head atraumatic Extremities: no cyanosis and no clubbing Skin: + rash (several areas of white plaques) Lymphatic: no cervical or axillary lymphadenopathy Results & Data Vital Signs (Past 12 Hours) Vital Signs Temp Pulse Resp BP Pulse Ox 09/10/19 10:05 92 H 20 93 09/10/19 08:01 94 H 117/63 95 09/10/19 08:00 37 C 95 H 94 09/10/19 07:52 95 H 141/58 H 94 09/10/19 07:31 94 H 146/110 H 93 09/10/19 07:30 91 H 92 09/10/19 07:22 92 H 154/72 H 91 09/10/19 07:20 92 H 21 92 09/10/19 07:00 90 91 09/10/19 06:52 90 148/66 H 91 09/10/19 06:30 96 H 93 09/10/19 06:27 97 H 142/88 H 94 09/10/19 05:54 98 H 22 92 09/10/19 05:52 95 H 163/74 H 97 09/10/19 05:45 96 H 172/72 H 94 09/10/19 05:27 92 H 16 90 09/10/19 05:22 91 H 141/69 H 91 09/10/19 04:55 91 H 21 94 09/10/19 04:52 92 H 157/68 H 94 09/10/19 04:22 91 H 145/63 H 95 09/10/19 03:52 37.0 C 89 145/64 H 95 09/10/19 03:22 89 150/69 H 95 09/10/19 02:52 86 142/65 H 94 09/10/19 02:25 90 20 94 09/10/19 02:22 90 148/72 H 94 09/10/19 01:52 91 H 145/71 H 95 09/10/19 01:22 89 159/69 H 95 09/10/19 00:52 88 143/74 H 96 Laboratory Results Laboratory Results - last 24 hr 09/09/19 09/09/19 09/09/19 17:54 17:54 17:54 WBC 10.87 H RBC 4.09 L Hgb 12.1 L Hct 35.8 L MCV 87.5 MCH 29.6 MCHC 33.8 RDW Std Deviation 44.5 RDW Coeff of Lyric 14.1 Plt Count 237 MPV 9.0 Immature Gran % (Auto) 0.5 Neut % (Auto) 93.3 Lymph % (Auto) 4.5 [place] % (Auto) 1.7 Eos % (Auto) 0.0 Baso % (Auto) 0.0 Immature Gran # (Auto) 0.05 H Neut # (Auto) 10.14 H Lymph # (Auto) 0.49 L [place] # (Auto) 0.19 Eos # (Auto) 0.00 Baso # (Auto) 0.00 D-Dimer ABG pH ABG pCO2 ABG pO2 ABG HCO3 ABG O2 Saturation ABG Base Excess Donald Test Oxygen Given Sodium 123 L Potassium 3.2 L Chloride 81 L Carbon Dioxide 38 H Anion Gap 4.0 BUN 8 Creatinine 0.46 L Est Cr Clr Drug Dosing 259.7 Est GFR ( Amer) 139.3 Est GFR (Non-Af Amer) 120.2 BUN/Creatinine Ratio 18.0 Glucose 56 L POC Glucose Osmolality Lactate 0.8 Calcium 8.4 L Phosphorus Magnesium Total Bilirubin 0.4 AST 22 ALT 19 Alkaline Phosphatase 100 NT-Pro-B Natriuret Pep 200 Total Protein 6.6 Albumin 2.8 L Globulin 3.8 Albumin/Globulin Ratio 0.7 L Procalcitonin TSH 1.310 Specimen Hemolysis Urine Osmolality Ur Random Sodium Nasal Screen MRSA (PCR) Levetiracetam 09/09/19 09/09/19 09/09/19 17:54 17:54 17:54 WBC RBC Hgb Hct MCV MCH MCHC RDW Std Deviation RDW Coeff of Lyric Plt Count MPV Immature Gran % (Auto) Neut % (Auto) Lymph % (Auto) [place] % (Auto) Eos % (Auto) Baso % (Auto) Immature Gran # (Auto) Neut # (Auto) Lymph # (Auto) [place] # (Auto) Eos # (Auto) Baso # (Auto) D-Dimer ABG pH ABG pCO2 ABG pO2 ABG HCO3 ABG O2 Saturation ABG Base Excess Donald Test Oxygen Given Sodium Potassium Chloride Carbon Dioxide Anion Gap BUN Creatinine Est Cr Clr Drug Dosing Est GFR ( Amer) Est GFR (Non-Af Amer) BUN/Creatinine Ratio Glucose POC Glucose Osmolality 254 L Lactate Calcium Phosphorus Magnesium Total Bilirubin AST ALT Alkaline Phosphatase NT-Pro-B Natriuret Pep Total Protein Albumin Globulin Albumin/Globulin Ratio Procalcitonin 0.05 TSH Specimen Hemolysis Urine Osmolality Ur Random Sodium Nasal Screen MRSA (PCR) Levetiracetam Pending 09/09/19 09/09/19 09/09/19 18:09 18:35 19:27 WBC RBC Hgb Hct MCV MCH MCHC RDW Std Deviation RDW Coeff of Lyric Plt Count MPV Immature Gran % (Auto) Neut % (Auto) Lymph % (Auto) [place] % (Auto) Eos % (Auto) Baso % (Auto) Immature Gran # (Auto) Neut # (Auto) Lymph # (Auto) [place] # (Auto) Eos # (Auto) Baso # (Auto) D-Dimer 370 ABG pH ABG pCO2 ABG pO2 ABG HCO3 ABG O2 Saturation ABG Base Excess Donald Test Oxygen Given Sodium Potassium Chloride Carbon Dioxide Anion Gap BUN Creatinine Est Cr Clr Drug Dosing Est GFR ( Amer) Est GFR (Non-Af Amer) BUN/Creatinine Ratio Glucose POC Glucose 69 L* Osmolality Lactate Calcium Phosphorus Magnesium Total Bilirubin AST ALT Alkaline Phosphatase NT-Pro-B Natriuret Pep Total Protein Albumin Globulin Albumin/Globulin Ratio Procalcitonin TSH Specimen Hemolysis Urine Osmolality Ur Random Sodium Nasal Screen MRSA (PCR) Cancelled Levetiracetam 09/09/19 09/09/19 09/09/19 19:28 19:46 20:25 WBC RBC Hgb Hct MCV MCH MCHC RDW Std Deviation RDW Coeff of Lyric Plt Count MPV Immature Gran % (Auto) Neut % (Auto) Lymph % (Auto) [place] % (Auto) Eos % (Auto) Baso % (Auto) Immature Gran # (Auto) Neut # (Auto) Lymph # (Auto) [place] # (Auto) Eos # (Auto) Baso # (Auto) D-Dimer ABG pH ABG pCO2 ABG pO2 ABG HCO3 ABG O2 Saturation ABG Base Excess Donald Test Oxygen Given Sodium 126 L Potassium 3.0 L Chloride 81 L Carbon Dioxide 39 H Anion Gap 6.0 BUN 8 Creatinine 0.46 L Est Cr Clr Drug Dosing 259.7 Est GFR ( Amer) 139.3 Est GFR (Non-Af Amer) 120.2 BUN/Creatinine Ratio 18.0 Glucose 67 L POC Glucose 72 Osmolality Lactate Calcium 9.2 Phosphorus Magnesium Total Bilirubin AST ALT Alkaline Phosphatase NT-Pro-B Natriuret Pep 197 Total Protein Albumin Globulin Albumin/Globulin Ratio Procalcitonin TSH Specimen Hemolysis Urine Osmolality 75 L Ur Random Sodium Nasal Screen MRSA (PCR) Levetiracetam 09/09/19 09/09/19 09/10/19 20:25 21:00 00:10 WBC RBC Hgb Hct MCV MCH MCHC RDW Std Deviation RDW Coeff of Lyric Plt Count MPV Immature Gran % (Auto) Neut % (Auto) Lymph % (Auto) [place] % (Auto) Eos % (Auto) Baso % (Auto) Immature Gran # (Auto) Neut # (Auto) Lymph # (Auto) [place] # (Auto) Eos # (Auto) Baso # (Auto) D-Dimer ABG pH ABG pCO2 ABG pO2 ABG HCO3 ABG O2 Saturation ABG Base Excess Donald Test Oxygen Given Sodium 130 L Potassium 3.3 L Chloride 82 L Carbon Dioxide 41 H* Anion Gap 7.0 BUN 8 Creatinine 0.48 L Est Cr Clr Drug Dosing 248.9 Est GFR ( Amer) 136.9 Est GFR (Non-Af Amer) 118.1 BUN/Creatinine Ratio 16.6 Glucose 109 H POC Glucose 110 H Osmolality Lactate Calcium 8.8 Phosphorus Magnesium Total Bilirubin AST ALT Alkaline Phosphatase NT-Pro-B Natriuret Pep Total Protein Albumin Globulin Albumin/Globulin Ratio Procalcitonin TSH Specimen Hemolysis Urine Osmolality Ur Random Sodium 15 Nasal Screen MRSA (PCR) Levetiracetam 09/10/19 09/10/19 09/10/19 00:44 00:45 04:12 WBC 9.98 RBC 4.14 L Hgb 11.9 L Hct 36.5 L MCV 88.2 MCH 28.7 MCHC 32.6 RDW Std Deviation 45.3 RDW Coeff of Lyric 14.2 Plt Count 255 MPV 9.4 Immature Gran % (Auto) 0.2 Neut % (Auto) 92.5 Lymph % (Auto) 4.9 [place] % (Auto) 2.4 Eos % (Auto) 0.0 Baso % (Auto) 0.0 Immature Gran # (Auto) 0.02 Neut # (Auto) 9.23 H Lymph # (Auto) 0.49 L [place] # (Auto) 0.24 Eos # (Auto) 0.00 Baso # (Auto) 0.00 D-Dimer ABG pH 7.41 ABG pCO2 67 H ABG pO2 79 L ABG HCO3 42 H ABG O2 Saturation 95.5 H ABG Base Excess 14.2 H Donald Test Pos Oxygen Given 50% Sodium Potassium Chloride Carbon Dioxide Anion Gap BUN Creatinine Est Cr Clr Drug Dosing Est GFR ( Amer) Est GFR (Non-Af Amer) BUN/Creatinine Ratio Glucose POC Glucose 137 H Osmolality Lactate Calcium Phosphorus Magnesium Total Bilirubin AST ALT Alkaline Phosphatase NT-Pro-B Natriuret Pep Total Protein Albumin Globulin Albumin/Globulin Ratio Procalcitonin TSH Specimen Hemolysis Urine Osmolality Ur Random Sodium Nasal Screen MRSA (PCR) Levetiracetam 09/10/19 09/10/19 09/10/19 04:12 04:12 06:00 WBC RBC Hgb Hct MCV MCH MCHC RDW Std Deviation RDW Coeff of Lyric Plt Count MPV Immature Gran % (Auto) Neut % (Auto) Lymph % (Auto) [place] % (Auto) Eos % (Auto) Baso % (Auto) Immature Gran # (Auto) Neut # (Auto) Lymph # (Auto) [place] # (Auto) Eos # (Auto) Baso # (Auto) D-Dimer ABG pH ABG pCO2 ABG pO2 ABG HCO3 ABG O2 Saturation ABG Base Excess Donald Test Oxygen Given Sodium 129 L Potassium 3.6 Chloride 84 L Carbon Dioxide 42 H* Anion Gap 3.0 BUN 8 Creatinine 0.49 L Est Cr Clr Drug Dosing 243.8 Est GFR ( Amer) 135.7 Est GFR (Non-Af Amer) 117.1 BUN/Creatinine Ratio 16.5 Glucose 130 H POC Glucose 144 H Osmolality Lactate Calcium 8.7 Phosphorus 4.4 Magnesium 1.9 Total Bilirubin 0.4 AST 21 ALT 20 Alkaline Phosphatase 97 NT-Pro-B Natriuret Pep Total Protein 6.3 L Albumin 2.6 L Globulin 3.7 Albumin/Globulin Ratio 0.7 L Procalcitonin TSH Specimen Hemolysis Urine Osmolality Ur Random Sodium Nasal Screen MRSA (PCR) Levetiracetam 09/10/19 12:38 WBC RBC Hgb Hct MCV MCH MCHC RDW Std Deviation RDW Coeff of Lyric Plt Count MPV Immature Gran % (Auto) Neut % (Auto) Lymph % (Auto) [place] % (Auto) Eos % (Auto) Baso % (Auto) Immature Gran # (Auto) Neut # (Auto) Lymph # (Auto) [place] # (Auto) Eos # (Auto) Baso # (Auto) D-Dimer ABG pH ABG pCO2 ABG pO2 ABG HCO3 ABG O2 Saturation ABG Base Excess Donald Test Oxygen Given Sodium Potassium Chloride Carbon Dioxide Anion Gap BUN Creatinine Est Cr Clr Drug Dosing Est GFR ( Amer) Est GFR (Non-Af Amer) BUN/Creatinine Ratio Glucose POC Glucose 216 H Osmolality Lactate Calcium Phosphorus Magnesium Total Bilirubin AST ALT Alkaline Phosphatase NT-Pro-B Natriuret Pep Total Protein Albumin Globulin Albumin/Globulin Ratio Procalcitonin TSH Specimen Hemolysis Urine Osmolality Ur Random Sodium Nasal Screen MRSA (PCR) Levetiracetam Medications Administered Current Inpatient Medications Acetaminophen (Tylenol) 650 mg PO Q4H PRN PRN Reason: Pain or Fever Stop: 10/09/19 17:31 Al Hydrox/Mg Hydrox/Simethicone (Maalox) 15 ml PO Q4H PRN PRN Reason: Dyspepsia Stop: 10/09/19 17:31 Albuterol (Duoneb) 3 ml NEB QIDR [facility] Stop: 10/09/19 18:59 Last Admin: 09/10/19 10:01 Dose: 3 ml Documented by: Aspirin (Aspirin Chew) 81 mg PO DAILY [facility] Stop: 10/10/19 08:59 Last Admin: 09/10/19 09:08 Dose: 81 mg Documented by: Atorvastatin Calcium (Lipitor) 40 mg PO DAILY [facility] Stop: 10/10/19 08:59 Last Admin: 09/10/19 09:08 Dose: 40 mg Documented by: Budesonide (Pulmicort Respules) 0.5 mg NEB BIDR [facility] Stop: 10/09/19 18:59 Last Admin: 09/10/19 07:16 Dose: 0.5 mg Documented by: Carvedilol (Coreg) 3.125 mg PO BID [facility] Stop: 10/09/19 20:59 Last Admin: 09/10/19 09:09 Dose: 3.125 mg Documented by: Clotrimazole (Lotrimin 1%) 1 appln EXT BID [facility] Stop: 10/09/19 21:44 Last Admin: 09/10/19 09:08 Dose: 1 appln Documented by: Dextrose (Dextrose 50%) 25 - 50 ml IV UD PRN; Protocol PRN Reason: Hypoglycemia Protocol Stop: 10/09/19 20:33 Last Admin: 09/09/19 20:39 Dose: 25 ml Documented by: Enteral Nutritional Formula (Peptamen 1.5 Jaswinder) 1,000 ml OG UD RALF; Protocol Stop: 10/10/19 11:59 Last Admin: 09/10/19 11:54 Dose: 1,000 ml Documented by: Escitalopram Oxalate (Lexapro Tab) 20 mg PO DAILY [facility] Stop: 10/10/19 08:59 Last Admin: 09/10/19 09:08 Dose: 20 mg Documented by: Fentanyl Citrate (Fentanyl Citrate) 50 mcg IV Q2H PRN PRN Reason: Moderate Pain (4,5,6) Stop: 09/23/19 17:18 Last Admin: 09/10/19 06:27 Dose: 50 mcg Documented by: Folic Acid (Folvite) 1 mg PO [id number] [facility] Stop: 10/10/19 08:59 Last Admin: 09/10/19 09:08 Dose: 1 mg Documented by: Formoterol Fumarate (Perforomist) 20 mcg NEB BID [facility] Stop: 10/09/19 20:59 Last Admin: 09/10/19 07:16 Dose: 20 mcg Documented by: Glucagon (Glucagen) 1 mg SQ UD PRN; Protocol PRN Reason: Hypoglycemia Protocol Stop: 10/09/19 20:33 Glucose (Dex4 Glucose) 4 - 8 tabs PO UD PRN; Protocol PRN Reason: Hypoglycemia Protocol Stop: 10/09/19 20:33 Glucose (Glucose 40%) 15 - 30 gm PO UD PRN; Protocol PRN Reason: Hypoglycemia Protocol Stop: 10/09/19 20:33 Heparin Sodium (Porcine) (Heparin Sodium (Porcine)) 5,000 units SQ Q8 [facility] Stop: 10/10/19 13:59 Last Admin: 09/10/19 11:53 Dose: 5,000 units Documented by: Midazolam HCl (Versed) 125 mg in 250 mls @ 0 mls/hr IV .Q0M [facility]; Protocol Stop: 10/09/19 18:29 Last Titration: 09/10/19 08:45 Dose: 1 mg/hr, 2 mls/hr Documented by: Furosemide 40 mg/ Syringe 4 mls @ 4 mls/min IV BID17 [facility] Stop: 10/09/19 18:29 Last Admin: 09/09/19 18:32 Dose: 4 mls/min Documented by: Propofol (Diprivan) 1,000 mg in 100 mls @ 39.048 mls/hr IV .Q2H34M [facility]; Protocol Stop: 09/12/19 18:29 Last Admin: 09/10/19 12:13 Dose: 40 mcg/kg/min, 39 mls/hr Documented by: Magnesium Hydroxide (Milk Of Magnesia) 30 ml PO Q12H PRN PRN Reason: Constipation Stop: 10/09/19 17:31 Methotrexate (Methotrexate) 7.5 mg PO Q7D [facility] Stop: 10/15/19 08:59 Miscellaneous (Order Awaiting Action) 1 ea N/A QS RALF Stop: 10/10/19 00:00 Last Admin: 09/10/19 09:07 Dose: Not Given Documented by: Miscellaneous (Carbohydrates For Hypoglycemia) 15 - 30 gm PO UD PRN PRN Reason: Hypoglycemia Protocol Stop: 10/09/19 20:33 Miscellaneous Information (Consult Glycemic Management Pharmacy) 1 ea N/A NOW STA Stop: 09/10/19 12:41 Ondansetron HCl (Zofran) 4 mg IV Q6H PRN PRN Reason: Nausea Stop: 10/09/19 17:31 Polyethylene Glycol (Miralax Powder Packet) 17 gm PO DAILY PRN PRN Reason: Constipation Stop: 10/09/19 17:31 Potassium Chloride (Klor-Con Pwd) 40 meq PO Q8H [facility] Stop: 09/13/19 11:31 Last Admin: 09/10/19 11:54 Dose: 40 meq Documented by: Pregabalin (Lyrica) 50 mg PO BID [facility] Stop: 10/10/19 20:59 Umeclidinium [place] (Incruse Ellipta) 1 puffs INH QAM [facility]AL[facility] Stop: 10/09/19 17:59 Last Admin: 09/10/19 09:09 Dose: Not Given Documented by: PG Care Time/CCT Total # of Minutes Spent Total Time Spent with Patient: Total time spent is greater than 50% in coordination of care (as documented) at patient's floor/unit and/or counseling patient: (1) Hypertension Hypertension type: other secondary hypertension Qualified Code(s): I15.8 - Other secondary hypertension
[2019-09-10] MEDS ORDERED: PHARMACY GLYCEMIC MGMT CONSULT PRN (12:58)
[2019-09-10 13:23] LABS: iSTAT Art Bld Gas pCO2 Correct 56 mmHg (35-46); iSTAT Art Bld Gas pH Corrected 7.498 (7.35-7.45); iSTAT Arterial Blood Gas pCO2 55 mmHg (35-46); iSTAT Hematocrit 39 % (42-52); iSTAT Hemoglobin 13.3 g/dl (14.0-18.0); iSTAT Potassium 3.3 mmol/L (3.3-5.0); iSTAT Sodium 125 mmol/L (135-144)
[2019-09-10 13:24] LABS: iSTAT Arterial Blood Gas HCO3 43 meg/L (19-24); iSTAT Arterial Blood Gas pO2 62 mmHg (80-95); iSTAT Arterial Blood Gas pO2 C 63; iSTAT Carbon Dioxide 45 mmol/L (24-31); iSTAT FiO2 40 %
[2019-09-10 13:25] LABS: Patient Temperature 37.2; iSTAT Allen Test Acceptable; iSTAT Sample Type Arterial; iSTAT Site L Radial
[2019-09-10] MEDS ORDERED: INSULIN PROTOCOL GOAL RANGE ONE (15:14)
--- NOTE | 2019-09-10 15:38 | Pharmacy Report ---
Pharmacy Glycemic Short Note 2 - Date of Service September 10, 2019 - Glycemic Short BSG Results (Last 24 hours): 09/09/19 09/09/19 09/09/19 17:54 19:27 19:28 Glucose 56 L POC Glucose 69 L* 72 09/09/19 09/09/19 09/10/19 19:46 21:00 00:10 Glucose 67 L 109 H POC Glucose 110 H 09/10/19 09/10/19 09/10/19 00:44 04:12 06:00 Glucose 130 H POC Glucose 137 H 144 H 09/10/19 12:38 Glucose POC Glucose 216 H OUTPATIENT ANTIDIABETIC REGIMEN: * U-500 INSULIN: 90 units @0800 if BSG >200, 60 units @ 1200 if BSG > 200, 70 units @ 1700 if BSG > 200 * Trulicity 1.5mg SQ weekly * Metformin 1gm PO Qpm ASSESSMENT: * T2DM admitted for acute on chronic hypoxemic and hypercarbic respiratory failure now on MV and sedation * A1C from 07/22/19 was 8.1% * Patient initially hypoglycemic on presentation. However hyperglycemic at lunchtime, likely due to lack of insulin, new ICU stressors, and the initiation of tube feeds to a goal rate of 70 ml/hr (peptamen 1.5). Given body habitus, outpatient regimen, and tube feed titration over the next 24 hours, will initiate an insulin infusion to more effectively control BSGs during this time. This plan was discussed with the ICU intesivist. PLAN FOR INPATIENT GLYCEMIC CONTROL: * Hold outpatient oral diabetes medications * Starting IV insulin infusion per moderate stress protocol * Goal Range 120 - 180 mg/dl * In the critical care setting, continuous IV insulin infusion has been shown to be the best method for achieving glycemic targets. * Bolus insulin * NovoLog per insulin infusion calculator * Please note that the plan above was derived based on current level of insulin resistance and hospital stress. These recommendations are appropriate for inpatient admission only. Plan of care upon discharge will need to be reassessed to avoid potential outpatient hypo/hyperglycemia. Thank you. PLAN FOR DISCHARGE: * TBD
[2019-09-10] MEDS: INSULIN REGULAR 250 UNITS in SODIUM CHLORIDE 0.9% 247.5 ML IV SCH (15:48)
[2019-09-10] MEDS: INSULIN ASPART 100 UNITS/ML 3 ML PEN SC SCH ×2 (17:02→20:11)
[2019-09-10] MEDS: FUROSEMIDE 40 MG in SYRINGE 0 ML IV SCH (17:06)
[2019-09-10] MEDS: MIDAZOLAM HCL 125 MG/250 ML BAG IV SCH (19:59)
[2019-09-10] MEDS: PREGABALIN 50 MG CAP PO SCH (20:06)
[2019-09-11] MEDS: propofoL 1,000 MG/100 ML VIAL IV SCH ×8 (00:57→22:21)
[2019-09-11] MEDS: POTASSIUM CHLORIDE PWD 20 MEQ PACK PO SCH ×3 (03:29→20:41)
[2019-09-11 04:37] LABS: Allen Test POS (Pos); Base Excess ABG 19.3 mEq/L (-9-1.8); HCO3 ABG 47 mmol/L (19-24); PCO2 ABG 71 mmHg (35-46); PO2 ABG 58 mmHg (80-95); pH ABG 7.44 (7.35-7.45)
[2019-09-11 04:57] LABS: BUN Creatinine Ratio 18.1 (10-20); Calcium 8.7 mg/dl (8.5-10.1); Creatinine Clr Calc Pharmacy 175.7 ml/min; Est GFR (African American) 118.6; Est GFR (Non-African American) 102.4; Magnesium 2.5 mg/dl (1.8-2.4); Phosphorus 3.1 mg/dl (2.5-4.9); Potassium 3.5 mmol/L (3.5-5.1)
[2019-09-11] MEDS: HEPARIN SOD 5,000 UNIT/0.5 ML VIAL SQ SCH ×3 (05:23→20:46)
[2019-09-11] MEDS ORDERED: POTASSIUM CHLORIDE / WTR 10 MEQ/100 ML PLCT IV SCH (06:30)
--- NOTE | 2019-09-11 07:02 | XRay Report ---
XR chest 1V portable CLINICAL HISTORY: resp failure dyspnea COMPARISON STUDY: 09/10/2019 FINDINGS: Endotracheal tube 4.3 cm above the marvin. Persistent moderate cardiomegaly. Improving prominence of pulmonary vasculature. IMPRESSION: 1. Improving congestive heart failure. 2. Endotracheal tube 4.3 cm above the marvin. ACT 112: Negative or not required by law. The above report was generated using voice recognition software. It may contain grammatical, syntax or spelling errors. Electronically signed by: Yaakov Judge M.D. 09/11/2019 7:00 AM
[2019-09-11] MEDS: BUDESONIDE 0.5 MG/2 ML VIAL (PULMICORT) NEB SCH ×2 (07:26→18:08)
[2019-09-11] MEDS: FORMOTEROL 20 MCG/2 ML VIAL NEB SCH ×2 (07:26→18:08)
[2019-09-11] MEDS: ALBUT/IPRATROP 3MG/0.5MG NEB 3 ML VIAL NEB SCH ×4 (07:26→18:29)
[2019-09-11] MEDS: ASPIRIN 81 MG CHEW PO SCH (08:04)
[2019-09-11] MEDS: ESCITALOPRAM OXALATE 20 MG TAB PO SCH (08:04)
[2019-09-11] MEDS: ATORVASTATIN 40 MG TAB PO SCH (08:04)
[2019-09-11] MEDS: PREGABALIN 50 MG CAP PO SCH ×2 (08:05→20:48)
[2019-09-11] MEDS: CLOTRIMAZOLE 1% CR 15 GM TUBE EXT SCH ×2 (08:05→20:44)
[2019-09-11] MEDS: INSULIN ASPART 100 UNITS/ML 3 ML PEN SC SCH ×5 (08:05→23:35)
[2019-09-11] MEDS: FOLIC ACID 1 MG TAB PO SCH (08:05)
[2019-09-11] MEDS: carvediloL 3.125 MG TAB PO SCH ×2 (08:05→20:43)
[2019-09-11] MEDS: FUROSEMIDE 40 MG in SYRINGE 0 ML IV SCH ×2 (08:07→17:14)
[2019-09-11] MEDS ORDERED: PEPTAMEN INTENSE VHP 1.0 CAL 1,000 ML BAG OG SCH (08:45)
[2019-09-11] MEDS: INSULIN GLARGINE SOLOSTAR 100 UNITS/ML 3 ML PEN SC SCH ×2 (09:26→20:43)
--- NOTE | 2019-09-11 09:30 | Critical Care Progress Note ---
Date of Service September 11, 2019 Assessment & Plan (1) Hypercapnic respiratory failure: Impression: 64-year-old male with morbid obesity admitted with acute on chronic hypoxemic and hypercarbic respiratory failure with chest x-ray demonstrating vascular engorgement. It appears the patient was to be on noninvasive positive pressure ventilation however this was never initiated. 24-hour events: Patient remains on stable vent settings. FiO2 has been able to be weaned. He has been diuresed effectively without hemodynamic instability or bump in serum creatinine. His SBT this morning was nonreassuring due to hypoxemia and tachypnea. Recommendations: 1. Acute on chronic hypoxemic and hypercarbic respiratory failure: Continue mechanical ventilation. Blood gas is currently acceptable. Maintain pH between 7.35 and 7.40. Wean oxygen to maintain oxygen saturations at or above 85 to 90%. PFTs not currently available in the system unclear if these have been performed previously. Again suspect he has overlap syndrome. We will continue with inhaled corticosteroids, inhaled long-acting beta agonists and consider Spiriva once extubated. Duo nebs for now. Daily SBT. Anticipate extubation to noninvasive positive pressure ventilation. He will need to be compliant with outpatient BiPAP to prevent these episodes from occurring 2. Fluid overload/diastolic heart failure: Good response to diuretics yesterday. Creatinine stable. Continue diuresis with goal net -1 to 2 L per 24 hours. Adjust based on serum creatinine. Will give 1 dose Diamox now for multifactorial alkalosis. 3. Morbid obesity: Weight loss is paramount. Caloric restriction recommended. This has been recommended in the past and the patient has not really been co mpliant. Doubt we will have any significant impact on this patient's current morbid obesity. 4. Sleep disordered breathing/obesity hypoventilation: The patient will need to be extubated to noninvasive positive pressure ventilation. Per social work, the patient has been approved and they have his BiPAP unit ready to be delivered to his home. There is some question about his ability to be compliant in the 5. Tobacco abuse/COPD: Smoking cessation recommended. The patient is sent does not appear overtly bronchospastic currently and I do not believe he requires systemic steroids currently. Holding on antibiotics. Procalcitonin negative a nd sputum culture pending. 6. Nutrition: Tube feeds per nutrition. Add free water 7. Severe psoriasis: The patient is on methotrexate chronically. Methotrexate may cause interstitial lung disease. Psoriatic arthritis causing interstitial lung disease is exceedingly uncommon. Continue to follow clinically. 8. Mild anemia: No evidence of acute blood loss. Continue to follow. No indication for transfusion currently. 9. Hyponatremia: Now resolved with diuresis 10. History of myoclonic syndrome: Of unclear etiology. Had been on Keppra during a prior hospitalization. Is unclear if he was taking this in the outpatient setting. Levels are currently pending. I think it is reasonable to hold off for now and follow. Patient remains critically ill at this point time. Total of 37 minutes critical care time was spent evaluation management and stabilization of this patient including discussion with bedside nurse and discussion on multidisciplinary rounds. No family available.. (2) Hypoxemic respiratory failure, chronic: (3) Diastolic heart failure: (4) COPD (chronic obstructive pulmonary disease): (5) Obesity hypoventilation syndrome: Review of Systems Review of Systems: Unobtainable due to endotracheal tube Physical Exam Constitutional: + mechanically ventilated and + edematous Exam limited due to morbid obese Eyes: PERRL Neck: trachea midline, no thyromegaly Respiratory: Diminished breath sounds bilaterally with occasional crackles. No wheezing Cardiovascular: Heart Sounds: normal S1 and normal S2 Gastrointestinal (Abdomen): normal bowel sounds, soft, nontender, no hepatosplenomegaly Skin: + excoriations and + lichenification Psoriatic plaques unchanged. Erythematous fungal lesions improved. Results & Data Vital Signs (Past 12 Hours) Vital Signs Temp Pulse Pulse Resp BP BP Pulse Ox 09/11/19 08:00 36.8 C 67 74 20 101/50 L 88 L 09/11/19 07:26 67 20 92 09/11/19 06:30 77 88 L 09/11/19 06:23 84 118/54 L 88 L 09/11/19 06:00 84 91 09/11/19 05:55 78 113/53 L 86 L 09/11/19 05:54 80 74/63 L 87 L 09/11/19 05:30 82 89 L 09/11/19 05:23 84 123/62 88 L 09/11/19 05:15 84 20 92 09/11/19 05:12 86 111/57 L 92 09/11/19 05:00 86 88 L 09/11/19 04:30 83 90 09/11/19 04:23 82 133/62 91 01/23/20 04:00 37 C 82 89 L 01/23/20 03:53 82 128/61 90 09/11/19 03:30 80 90 09/11/19 03:23 79 123/55 L 90 09/11/19 03:00 82 90 09/11/19 02:53 81 122/61 90 09/11/19 02:30 78 90 09/11/19 02:23 79 114/59 L 91 09/11/19 02:00 84 91 09/11/19 01:53 84 118/58 L 91 09/11/19 01:30 87 20 92 09/11/19 01:23 87 134/59 L 92 09/11/19 01:00 90 92 09/11/19 00:56 87 20 92 09/11/19 00:53 89 107/57 L 92 09/11/19 00:30 87 91 09/11/19 00:23 84 125/55 L 92 09/11/19 00:00 37.1 C 88 92 09/10/19 23:53 87 123/56 L 92 09/10/19 23:30 91 H 92 09/10/19 23:23 91 H 121/57 L 92 09/10/19 23:00 92 H 95 09/10/19 22:55 91 H 20 92 09/10/19 22:53 92 H 127/59 L 93 09/10/19 22:30 92 H 92 09/10/19 22:23 92 H 128/60 92 09/10/19 22:00 90 90 09/10/19 21:53 82 134/56 L 90 09/10/19 21:45 96 H 20 90 09/10/19 21:30 95 H 90 Laboratory Results 09/10/19 04:12 09/11/19 04:27 Coding Level of Care Code Critical Care 1st 30-74 mins Diagnoses Hypercapnic respiratory failure J96.92 Hypoxemic respiratory failure, chronic J96.11 Diastolic heart failure I50.30 COPD (chronic obstructive pulmonary disease) J44.9 Obesity hypoventilation syndrome E66.2 Time Spent (min) 37 Comment 37 minutes critical care time managing multiorgan system dysfunction and life- threatening illness.
[2019-09-11] MEDS ORDERED: acetaZOLAMIDE 500 MG in SYRINGE 0 ML IV ONE (11:15)
[2019-09-11] MEDS: fentaNYL citrate 100 MCG/2 ML VIAL IV PRN ×4 (11:34→12:00)
--- NOTE | 2019-09-11 13:29 | Hospitalist Progress Note ---
Date of Service September 11, 2019 Assessment & Plan (1) Hypercapnic respiratory failure: pH is 7.44 today continue mechanical ventilation, settings per pulmonary saturation goal is 88-90% continue Solu Medrol and beta agonists daily attempts to wean from ventilator, no plans for extubation today (2) Acute exacerbation of CHF (congestive heart failure): acute on chronic heart failure with preserved EF Strict in and out, negative 10 liters thus far still appears volume overloaded on exam continue Lasix for diuresis, follow renal function, Cr is stable today Echocardiogram from last month demonstrated a preserved ejection fraction. (3) Acute exacerbation of COPD with asthma: Solu Medrol, nebulizers via ET tube no wheezing on exam (4) Hypertension: stable (5) Obesity hypoventilation syndrome: Once he wakes up patient would need to work on his weight loss. will refer to cut plug packer (6) Obstructive sleep apnea: Once when patient is extubated would need a sleep study and CPAP. (7) Tobacco abuse: Medicine patient wakes up and extubated will advised to to quit smoking, possibly use nicotine patch. Subjective patient remains stable on the vent still diuresing well in response to Lasix and Diamox negative 9680mL as of this morning reviewed labs, Cr stable at 0.6, K is 3.5, HCO3 is > 40 ABG shows pH of 7.[address] Ann, discussed with him Review of Systems Review of Systems: Unobtainable due to endotracheal tube Physical Exam Constitutional: well developed, + morbidly obese, + lethargic and + mechanically ventilated; not in distress Eyes: PERRL, conjunctivae normal, anicteric sclerae ENMT: external ear and nose normal, oropharynx normal Neck: trachea midline, no thyromegaly Respiratory: normal respiratory effort (ventilated) and symmetric chest movement Auscultation: lungs clear to auscultation bilaterally Cardiovascular: Rate/Rhythm: regular rate and regular rhythm Heart Sounds: normal S1 and normal S2; no murmur Vessels: no JVD Extremities: normal capillary refill and + edema Gastrointestinal (Abdomen): normal bowel sounds, soft, nontender, no hepatosplenomegaly Musculoskeletal: Head/Neck/Chest: normocephalic and head atraumatic Extremities: no cyanosis and no clubbing Skin: + rash (several areas of white plaques) Lymphatic: no cervical or axillary lymphadenopathy Results & Data Vital Signs (Past 12 Hours) Vital Signs Temp Pulse Pulse Resp BP BP Pulse Ox 09/11/19 12:30 83 89 L 09/11/19 12:23 81 101/63 89 L 09/11/19 12:00 36.6 C 81 89 L 09/11/19 11:53 80 110/52 L 89 L 09/11/19 11:30 81 89 L 09/11/19 11:23 81 110/54 L 89 L 09/11/19 11:16 82 117/56 L 92 09/11/19 11:00 78 90 09/11/19 10:53 80 89/58 L 90 09/11/19 10:48 78 20 89 L 09/11/19 10:30 82 90 09/11/19 10:23 82 113/57 L 90 09/11/19 10:00 88 20 90 09/11/19 09:53 85 125/60 90 09/11/19 09:30 90 88 L 09/11/19 09:23 87 129/63 88 L 09/11/19 09:00 85 88 L 09/11/19 08:53 85 125/63 87 L 09/11/19 08:30 79 87 L 09/11/19 08:23 81 120/61 87 L 09/11/19 08:00 36.8 C 78 74 20 101/50 L 86 L 09/11/19 07:53 77 111/54 L 86 L 09/11/19 07:40 72 101/50 L 88 L 09/11/19 07:30 76 93 09/11/19 07:26 67 20 92 09/11/19 07:23 74 95/51 L 87 L 09/11/19 07:00 76 86 L 09/11/19 06:53 75 102/53 L 87 L 09/11/19 06:30 77 88 L 09/11/19 06:23 84 118/54 L 88 L 09/11/19 06:00 84 91 09/11/19 05:55 78 113/53 L 86 L 09/11/19 05:54 80 74/63 L 87 L 09/11/19 05:30 82 89 L 09/11/19 05:23 84 123/62 88 L 09/11/19 05:15 84 20 92 09/11/19 05:12 86 111/57 L 92 09/11/19 05:00 86 88 L 09/11/19 04:30 83 90 09/11/19 04:23 82 133/62 91 09/11/19 04:00 37 C 82 89 L 09/11/19 03:53 82 128/61 90 09/11/19 03:30 80 90 09/11/19 03:23 79 123/55 L 90 09/11/19 03:00 82 90 09/11/19 02:53 81 122/61 90 09/11/19 02:30 78 90 09/11/19 02:23 79 114/59 L 91 09/11/19 02:00 84 91 09/11/19 01:53 84 118/58 L 91 09/11/19 01:30 87 20 92 Laboratory Results Laboratory Results - last 24 hr 09/10/19 09/10/19 09/10/19 15:53 16:53 18:02 ABG pH ABG pCO2 ABG pO2 ABG HCO3 ABG O2 Saturation ABG Base Excess Donald Test Barometric Pressure Oxygen Given Sodium Potassium Chloride Carbon Dioxide Anion Gap BUN Creatinine Est Cr Clr Drug Dosing Est GFR ( Amer) Est GFR (Non-Af Amer) BUN/Creatinine Ratio Glucose POC Glucose 247 H 245 H 243 H Calcium Phosphorus Magnesium 09/10/19 09/10/19 09/10/19 19:19 20:17 21:18 ABG pH ABG pCO2 ABG pO2 ABG HCO3 ABG O2 Saturation ABG Base Excess Donald Test Barometric Pressure Oxygen Given Sodium Potassium Chloride Carbon Dioxide Anion Gap BUN Creatinine Est Cr Clr Drug Dosing Est GFR ( Amer) Est GFR (Non-Af Amer) BUN/Creatinine Ratio Glucose POC Glucose 268 H 217 H 229 H Calcium Phosphorus Magnesium 09/10/19 09/10/19 09/11/19 22:09 23:18 00:14 ABG pH ABG pCO2 ABG pO2 ABG HCO3 ABG O2 Saturation ABG Base Excess Donald Test Barometric Pressure Oxygen Given Sodium Potassium Chloride Carbon Dioxide Anion Gap BUN Creatinine Est Cr Clr Drug Dosing Est GFR ( Amer) Est GFR (Non-Af Amer) BUN/Creatinine Ratio Glucose POC Glucose 201 H 190 H 180 H Calcium Phosphorus Magnesium 09/11/19 09/11/19 09/11/19 01:19 02:21 03:19 ABG pH ABG pCO2 ABG pO2 ABG HCO3 ABG O2 Saturation ABG Base Excess Doanld Test Barometric Pressure Oxygen Given Sodium Potassium Chloride Carbon Dioxide Anion Gap BUN Creatinine Est Cr Clr Drug Dosing Est GFR ( Amer) Est GFR (Non-Af Amer) BUN/Creatinine Ratio Glucose POC Glucose 195 H 168 H 146 H Calcium Phosphorus Magnesium 09/11/19 09/11/19 09/11/19 04:21 04:27 04:27 ABG pH 7.44 ABG pCO2 71 H ABG pO2 58 L ABG HCO3 47 H ABG O2 Saturation 90.0 ABG Base Excess 19.3 H Donald Test POS Barometric Pressure 738.3 Oxygen Given 40% Sodium 138 D Potassium 3.5 Chloride 93 L Carbon Dioxide 43 H* Anion Gap 2.0 L BUN 12 Creatinine 0.68 Est Cr Clr Drug Dosing 175.7 Est GFR ( Amer) 118.6 Est GFR (Non-Af Amer) 102.4 BUN/Creatinine Ratio 18.1 Glucose 128 H POC Glucose 130 H Calcium 8.7 Phosphorus 3.1 D Magnesium 2.5 H 09/11/19 09/11/19 09/11/19 05:16 07:43 08:20 ABG pH ABG pCO2 ABG pO2 ABG HCO3 ABG O2 Saturation ABG Base Excess Donald Test Barometric Pressure Oxygen Given Sodium Potassium Chloride Carbon Dioxide Anion Gap BUN Creatinine Est Cr Clr Drug Dosing Est GFR ( Amer) Est GFR (Non-Af Amer) BUN/Creatinine Ratio Glucose POC Glucose 131 H 96 105 H Calcium Phosphorus Magnesium 09/11/19 09/11/19 09:22 10:16 ABG pH ABG pCO2 ABG pO2 ABG HCO3 ABG O2 Saturation ABG Base Excess Donald Test Barometric Pressure Oxygen Given Sodium Potassium Chloride Carbon Dioxide Anion Gap BUN Creatinine Est Cr Clr Drug Dosing Est GFR ( Amer) Est GFR (Non-Af Amer) BUN/Creatinine Ratio Glucose POC Glucose 97 130 H Calcium Phosphorus Magnesium Medications Administered Current Inpatient Medications Acetaminophen (Tylenol) 650 mg PO Q4H PRN PRN Reason: Pain or Fever Stop: 10/09/19 17:31 Al Hydrox/Mg Hydrox/Simethicone (Maalox) 15 ml PO Q4H PRN PRN Reason: Dyspepsia Stop: 10/09/19 17:31 Albuterol (Duoneb) 3 ml NEB QIDR RALF Stop: 02/20/20 18:59 Last Admin: 09/11/19 10:48 Dose: 3 ml Documented by: Aspirin (Aspirin Chew) 81 mg PO DAILY [facility] Stop: 10/10/19 08:59 Last Admin: 09/11/19 08:04 Dose: 81 mg Documented by: Atorvastatin Calcium (Lipitor) 40 mg PO DAILY [facility] Stop: 10/10/19 08:59 Last Admin: 09/11/19 08:04 Dose: 40 mg Documented by: Budesonide (Pulmicort Respules) 0.5 mg NEB BIDR [facility] Stop: 10/09/19 18:59 Last Admin: 09/11/19 07:26 Dose: 0.5 mg Documented by: Carvedilol (Coreg) 3.125 mg PO BID [facility] Stop: 10/09/19 20:59 Last Admin: 09/11/19 08:05 Dose: 3.125 mg Documented by: Clotrimazole (Lotrimin 1%) 1 appln EXT BID [facility] Stop: 10/09/19 21:44 Last Admin: 09/11/19 08:05 Dose: 1 appln Documented by: Dextrose (Dextrose 50%) 25 - 50 ml IV UD PRN; Protocol PRN Reason: Hypoglycemia Protocol Stop: 10/09/19 20:33 Last Admin: 09/09/19 20:39 Dose: 25 ml Documented by: Escitalopram Oxalate (Lexapro Tab) 20 mg PO DAILY [facility] Stop: 10/10/19 08:59 Last Admin: 09/11/19 08:04 Dose: 20 mg Documented by: Fentanyl Citrate (Fentanyl Citrate) 50 mcg IV Q2H PRN PRN Reason: Moderate Pain (4,5,6) Stop: 09/23/19 17:18 Last Admin: 09/11/19 12:00 Dose: 50 mcg Documented by: Folic Acid (Folvite) 1 mg PO [id number] [facility] Stop: 10/10/19 08:59 Last Admin: 09/11/19 08:05 Dose: 1 mg Documented by: Formoterol Fumarate (Perforomist) 20 mcg NEB BID [facility] Stop: 10/09/19 20:59 Last Admin: 09/11/19 07:26 Dose: 20 mcg Documented by: Glucagon (Glucagen) 1 mg SQ UD PRN; Protocol PRN Reason: Hypoglycemia Protocol Stop: 10/09/19 20:33 Glucose (Dex4 Glucose) 4 - 8 tabs PO UD PRN; Protocol PRN Reason: Hypoglycemia Protocol Stop: 10/09/19 20:33 Glucose (Glucose 40%) 15 - 30 gm PO UD PRN; Protocol PRN Reason: Hypoglycemia Protocol Stop: 10/09/19 20:33 Heparin Sodium (Porcine) (Heparin Sodium (Porcine)) 5,000 units SQ Q8 [facility] Stop: 10/10/19 13:59 Last Admin: 09/11/19 05:23 Dose: 5,000 units Documented by: Midazolam HCl (Versed) 125 mg in 250 mls @ 4 mls/hr IV .Q24H RALF; Protocol Stop: 10/09/19 18:29 Last Titration: 09/11/19 07:11 Dose: 2 mg/hr, 4 mls/hr Documented by: Furosemide 40 mg/ Syringe 4 mls @ 4 mls/min IV BID17 RALF Stop: 10/09/19 18:29 Last Admin: 09/11/19 08:07 Dose: 4 mls/min Documented by: Propofol (Diprivan) 1,000 mg in 100 mls @ 29.286 mls/hr IV .Q3H25M RALF; Protocol Stop: 09/12/19 18:29 Last Admin: 09/11/19 11:33 Dose: 30 mcg/kg/min, 29.3 mls/hr Documented by: Insulin Human Regular 250 (units/ Sodium Chloride) 250 mls @ 3.7 mls/hr IV .Q24H RALF; Protocol Stop: 10/10/19 15:44 Last Titration: 09/11/19 11:19 Dose: 3.7 units/hr, 3.7 mls/hr Documented by: Insulin Aspart (Novolog Flexpen) 0 units SC Q4 RALF; Protocol Stop: 10/11/19 11:59 Last Admin: 09/11/19 11:22 Dose: 2 units Documented by: Insulin Glargine (Lantus Solostar Pen) 15 units SC BID [facility] Stop: 10/11/19 08:59 Last Admin: 09/11/19 09:26 Dose: 15 units Documented by: Magnesium Hydroxide (Milk Of Magnesia) 30 ml PO Q12H PRN PRN Reason: Constipation Stop: 10/09/19 17:31 Methotrexate (Methotrexate) 7.5 mg PO Q7D [facility] Stop: 10/15/19 08:59 Miscellaneous (Order Awaiting Action) 1 ea N/A QS RALF Stop: 10/10/19 00:00 Last Admin: 09/11/19 08:06 Dose: 1 ea Documented by: Miscellaneous (Carbohydrates For Hypoglycemia) 15 - 30 gm PO UD PRN PRN Reason: Hypoglycemia Protocol Stop: 10/09/19 20:33 Miscellaneous Information (Consult Glycemic Management Pharmacy) 1 ea N/A UD PRN PRN Reason: Consult Stop: 10/10/19 12:57 Nutritional Formula (Peptamen Intense Vhp 1.0 Jaswinder) 1,000 ml OG UD RALF; Protocol Stop: 10/11/19 08:44 Last Admin: 09/11/19 10:06 Dose: 1,000 ml Documented by: Ondansetron HCl (Zofran) 4 mg IV Q6H PRN PRN Reason: Nausea Stop: 10/09/19 17:31 Polyethylene Glycol (Miralax Powder Packet) 17 gm PO DAILY PRN PRN Reason: Constipation Stop: 10/09/19 17:31 Potassium Chloride (Klor-Con Pwd) 40 meq PO Q8H RALF Stop: 09/13/19 11:31 Last Admin: 09/11/19 11:22 Dose: 40 meq Documented by: Pregabalin (Lyrica) 50 mg PO BID [facility] Stop: 10/10/19 20:59 Last Admin: 09/11/19 08:05 Dose: 50 mg Documented by: Umeclidinium Gering (Incruse Ellipta) 1 puffs INH QAM RALF Stop: 10/09/19 17:59 Last Admin: 09/10/19 09:09 Dose: Not Given Documented by: PG Care Time/CCT Total # of Minutes Spent Total Time Spent with Patient: Total time spent is greater than 50% in coordination of care (as documented) at patient's floor/unit and/or counseling patient: Coding Level of Care Code 72007 Subseq Hosp Care Lvl 2 Diagnoses Hypercapnic respiratory failure J96.92 Acute exacerbation of CHF (congestive heart failure) I50.9 Acute exacerbation of COPD with asthma J44.1; J45.901 Hypertension I15.8 Hypertension type: other secondary hypertension Obesity hypoventilation syndrome E66.2 Obstructive sleep apnea G47.33 Tobacco abuse Z72.0 (1) Hypertension Hypertension type: other secondary hypertension Qualified Code(s): I15.8 - Other secondary hypertension
--- NOTE | 2019-09-11 15:17 | Pharmacy Report ---
Pharmacy Glycemic Short Note 2 - Date of Service September 11, 2019 - Glycemic Short BSG Results (Last 24 hours): 09/10/19 09/10/19 09/10/19 15:53 16:53 18:02 Glucose POC Glucose 247 H 245 H 243 H 09/10/19 09/10/19 09/10/19 19:19 20:17 21:18 Glucose POC Glucose 268 H 217 H 229 H 09/10/19 09/10/19 09/11/19 22:09 23:18 00:14 Glucose POC Glucose 201 H 190 H 180 H 09/11/19 09/11/19 09/11/19 01:19 02:21 03:19 Glucose POC Glucose 195 H 168 H 146 H 09/11/19 09/11/19 09/11/19 04:21 04:27 05:16 Glucose 128 H POC Glucose 130 H 131 H 09/11/19 09/11/19 09/11/19 07:43 08:20 09:22 Glucose POC Glucose 96 105 H 97 09/11/19 09/11/19 09/11/19 10:16 11:16 12:39 Glucose POC Glucose 130 H 142 H 124 H 09/11/19 13:37 Glucose POC Glucose 128 H OUTPATIENT ANTIDIABETIC REGIMEN: * U-500 INSULIN: 90 units @0800 if BSG >200, 60 units @ 1200 if BSG > 200, 70 units @ 1700 if BSG > 200 * Trulicity 1.5mg SQ weekly * Metformin 1gm PO Qpm ASSESSMENT: * T2DM admitted for acute on chronic hypoxemic and hypercarbic respiratory failure now on MV and sedation * A1C from 07/22/19 was 8.1% 09/11: * Tube feeds continue to titrate to goal. Formula was changed to peptamen VHP. Novolog carb coverage was added based on TF rate. * Discussed patient at multidisciplinary rounds. Will continue insulin infusion through today as tube feeds not yet at goal and patient continues to be intubated and sedated. Will add lantus BID to assist with eventual drip transition. 09/10 * Patient initially hypoglycemic on presentation. However hyperglycemic at lunchtime, likely due to lack of insulin, new ICU stressors, and the initiation of tube feeds to a goal rate of 70 ml/hr (peptamen 1.5). Given body habitus, outpatient regimen, and tube feed titration over the next 24 hours, will initiate an insulin infusion to more effectively control BSGs during this time. This plan was discussed with the ICU intesivist. PLAN FOR INPATIENT GLYCEMIC CONTROL: * Hold outpatient oral diabetes medications * Continue IV insulin infusion per moderate stress protocol * Goal Range 120 - 180 mg/dl * In the critical care setting, continuous IV insulin infusion has been shown to be the best method for achieving glycemic targets. * Lantus 15 units SQ BID in addition * Bolus insulin * NovoLog as follows according to tube feed rate: * if 0-20 ml/hr= 0 units * 30 ml/hr= 1 unit * 40-50 ml/hr= 2 units * 60-70 ml/hr= 3 units * Please note that the plan above was derived based on current level of insulin resistance and hospital stress. These recommendations are appropriate for inpatient admission only. Plan of care upon discharge will need to be reassessed to avoid potential outpatient hypo/hyperglycemia. Thank you. PLAN FOR DISCHARGE: * TBD
[2019-09-11] MEDS: INSULIN REGULAR 250 UNITS in SODIUM CHLORIDE 0.9% 247.5 ML IV SCH (16:16)
[2019-09-11] MEDS: UMECLIDINIUM BROMIDE 62.5MCG/BLISTER 7 PUFFS/INHALER INH SCH (18:14)
[2019-09-11] MEDS: MIDAZOLAM HCL 125 MG/250 ML BAG IV SCH (18:23)
[2019-09-12] MEDS: propofoL 1,000 MG/100 ML VIAL IV SCH ×3 (02:02→10:04)
[2019-09-12 04:10] LABS: HCO3 ABG 44 mmol/L (19-24); Oxygen Saturation ABG 87.2 % (90-95); PCO2 ABG 65 mmHg (35-46); PO2 ABG 53 mmHg (80-95); pH ABG 7.45 (7.35-7.45)
[2019-09-12 04:12] LABS: Allen Test Pos (Pos)
[2019-09-12] MEDS: POTASSIUM CHLORIDE PWD 20 MEQ PACK PO SCH ×3 (04:32→20:29)
[2019-09-12] MEDS: INSULIN ASPART 100 UNITS/ML 3 ML PEN SC SCH ×5 (04:33→20:27)
[2019-09-12 04:36] LABS: BUN Creatinine Ratio 29.8 (10-20); Calcium 8.8 mg/dl (8.5-10.1); Creatinine Clr Calc Pharmacy 216.8 ml/min; Est GFR (African American) 130.4; Est GFR (Non-African American) 112.5; Magnesium 2.2 mg/dl (1.8-2.4); Phosphorus 4.1 mg/dl (2.5-4.9); Potassium 3.4 mmol/L (3.5-5.1)
[2019-09-12 04:58] LABS: Basophils # (auto) 0.01 K/uL (0-0.2); Basophils % (auto) 0.1 %; Eosinophils # (auto) 0.03 K/uL (0-0.5); Eosinophils % (auto) 0.2 %; Hemoglobin 12.2 g/dL (14.0-18.0); Immature Granulocytes # (auto) 0.04 K/uL (0.00-0.02); Immature Granulocytes % (auto) 0.3 %; Lymphocytes # (auto) 1.46 K/uL (1.2-3.4); Lymphocytes % (auto) 10.7 %; Mean Corpuscular Hgb Conc 31.3 g/dL (32-36); Mean Corpuscular Volume 92.9 fL (80-100); Monocytes # (auto) 1.33 K/uL (0.11-0.59); Monocytes % (auto) 9.8 %; Neutrophils # (auto) 10.73 K/uL (1.4-6.5); Neutrophils % (auto) 78.9 %; Platelet Count 260 K/uL (130-400)
[2019-09-12] MEDS: POTASSIUM CHLORIDE / WTR 10 MEQ/100 ML PLCT IV SCH ×4 (05:42→09:04)
[2019-09-12] MEDS: HEPARIN SOD 5,000 UNIT/0.5 ML VIAL SQ SCH ×3 (06:16→20:28)
--- NOTE | 2019-09-12 06:57 | XRay Report ---
XR chest 1V portable CLINICAL HISTORY: f/u dyspnea COMPARISON STUDY: 09/11/2019 FINDINGS: Endotracheal tube 4 cm above the marvin. Congestive heart failure stable. Heart remains enl arged. IMPRESSION: Unchanging components of congestive heart failure. Endotracheal tube 4 cm above the henry na. ACT 112: Negative or not required by law. The above report was generated using voice recognition software. It may contain grammatical, syntax or spelling errors. Electronically signed by: Yaakov Judge M.D. 09/12/2019 6:56 AM
[2019-09-12] MEDS: BUDESONIDE 0.5 MG/2 ML VIAL (PULMICORT) NEB SCH ×2 (07:50→19:41)
[2019-09-12] MEDS: FORMOTEROL 20 MCG/2 ML VIAL NEB SCH ×2 (07:51→19:41)
[2019-09-12] MEDS: ALBUT/IPRATROP 3MG/0.5MG NEB 3 ML VIAL NEB SCH ×4 (08:08→19:43)
[2019-09-12] MEDS: ATORVASTATIN 40 MG TAB PO SCH (08:22)
[2019-09-12] MEDS: ESCITALOPRAM OXALATE 20 MG TAB PO SCH (08:22)
[2019-09-12] MEDS: ASPIRIN 81 MG CHEW PO SCH (08:23)
[2019-09-12] MEDS: CLOTRIMAZOLE 1% CR 15 GM TUBE EXT SCH ×2 (08:23→20:28)
[2019-09-12] MEDS: FOLIC ACID 1 MG TAB PO SCH (08:23)
[2019-09-12] MEDS: carvediloL 3.125 MG TAB PO SCH ×2 (08:23→20:29)
[2019-09-12] MEDS: INSULIN GLARGINE SOLOSTAR 100 UNITS/ML 3 ML PEN SC SCH ×2 (08:24→20:30)
[2019-09-12] MEDS: PREGABALIN 50 MG CAP PO SCH ×2 (08:26→20:35)
[2019-09-12] MEDS: FUROSEMIDE 40 MG in SYRINGE 0 ML IV SCH ×2 (08:46→16:56)
[2019-09-12] MEDS ORDERED: acetaZOLAMIDE 250 MG in SYRINGE 0 ML IV ONE (10:00)
--- NOTE | 2019-09-12 10:33 | Critical Care Progress Note ---
Date of Service September 12, 2019 Assessment & Plan (1) Hypercapnic respiratory failure: Impression: 64-year-old male with morbid obesity admitted with acute on chronic hypoxemic and hypercarbic respiratory failure with chest x-ray demonstrating vascular engorgement. It appears the patient was to be on noninvasive positive pressure ventilation however this was never initiated. 24-hour events: Diuresed without issue overnight. SBT this morning reassuring. Hemodynamically stable. Tolerating tube feedings Recommendations: 1. Acute on chronic hypoxemic and hypercarbic respiratory failure: SBT better this morning. We will plan on extubating straight to BiPAP. Continue bronchodilators. No indication for antibiotics or steroids currently. Continue attempts at diuresis. 2. Fluid overload/diastolic heart failure: Good response to diuretics yesterday. Creatinine stable. Continue diuresis with goal net -1 to 2 L per 24 hours. Adjust based on serum creatinine. Will give 1 dose Diamox now for multifactorial alkalosis. Replacing electrolytes. 3. Morbid obesity: Weight loss is paramount. Caloric restriction recommended. This has been recommended in the past and the patient has not really been compliant. Doubt we will have any significant impact on this patient's current morbid obesity. 4. Sleep disordered breathing/obesity hypoventilation: The patient will need to be extubated to noninvasive positive pressure ventilation. Per social work, the patient has been approved and they have his BiPAP unit ready to be delivered to his home. There is some question about his ability to be compliant in the 5. Tobacco abuse/COPD: Smoking cessation recommended. The patient is sent does not appear overtly bronchospastic currently and I do not believe he requires systemic steroids currently. Holding on antibiotics. Procalcitonin negative and sputum culture pending. 6. Nutrition: Tube feeds held. Will need to see how he does once extubated. M ay need nutrition input. 7. Severe psoriasis: The patient is on methotrexate chronically. Methotrexate may cause interstitial lung disease. Psoriatic arthritis causing interstitial lung disease is exceedingly uncommon. Continue to follow clinically. 8. Mild anemia: No evidence of acute blood loss. Continue to follow. No indication for transfusion currently. 9. Hyponatremia: Now resolved with diuresis 10. History of myoclonic syndrome: Of unclear etiology. Had been on Keppra during a prior hospitalization. Is unclear if he was taking this in the outpatient setting. Levels are currently pending. I think it is reasonable to hold off for now and follow. 11. Will require physical therapy and Occupational Therapy consults as well as potentially speech therapy consult once stable off BiPAP. Discussed with patient ICU nurse and respiratory therapy at bedside as well as on multidisciplinary rounds. (2) Hypoxemic respiratory failure, chronic: (3) Diastolic heart failure: (4) COPD (chronic obstructive pulmonary disease): (5) Obesity hypoventilation syndrome: Subjective Patient intubated and sedated. No acute events overnight Review of Systems Review of Systems: Unobtainable due to endotracheal tube Physical Exam Constitutional: + mechanically ventilated and + edematous Eyes: PERRL Neck: trachea midline, no thyromegaly Respiratory: Coarse breath sounds bilaterally with occasional crackles. No wheezing Cardiovascular: Heart Sounds: normal S1 and normal S2 Gastrointestinal (Abdomen): normal bowel sounds, soft, nontender, no hepatosplenomegaly Skin: + excoriations and + lichenification Results & Data Vital Signs (Past 12 Hours) Vital Signs Temp Pulse Pulse Resp BP BP Pulse Ox 09/12/19 10:00 94 H 88 L 09/12/19 09:40 88 136/60 90 09/12/19 09:30 88 92 09/12/19 09:00 37.6 C H 96 H 92 09/12/19 08:40 78 146/73 H 91 09/12/19 08:04 90 18 93 09/12/19 08:00 80 94 09/12/19 07:55 18 09/12/19 07:40 90 145/74 H 93 09/12/19 07:00 90 91 09/12/19 06:00 100 H 22 177/86 H 93 09/12/19 05:30 101 H 21 89 L 09/12/19 04:00 37.8 C H 97 H 21 127/64 89 L 09/12/19 02:15 98 H 21 88 L 09/12/19 02:00 98 H 21 130/65 89 L 09/12/19 01:00 96 H 22 135/67 90 09/12/19 00:00 37.5 C 89 22 161/70 H 90 09/11/19 23:42 90 20 93 09/11/19 23:00 87 20 165/76 H 91 Laboratory Results 09/12/19 03:58 09/12/19 03:58 Diagnostic Findings Chest x-ray from today independently reviewed. Lungs are better aerated. Endotracheal tube in good position. There is some persistent increased vascular markings at the left lung base. Coding Level of Care Code 58325 Subseq Hosp Care Lvl 3 Diagnoses Hypercapnic respiratory failure J96.92 Hypoxemic respiratory failure, chronic J96.11 Diastolic heart failure I50.30 COPD (chronic obstructive pulmonary disease) J44.9 Obesity hypoventilation syndrome E66.2 Time Spent (min) 38
--- NOTE | 2019-09-12 12:17 | Pharmacy Report ---
Pharmacy Glycemic Short Note 2 - Date of Service September 12, 2019 - Glycemic Short BSG Results (Last 24 hours): 09/11/19 09/11/19 09/11/19 11:16 12:39 13:37 Glucose POC Glucose 142 H 124 H 128 H 09/11/19 09/11/19 09/11/19 15:48 17:08 19:39 Glucose POC Glucose 107 H 125 H 132 H 09/11/19 09/11/19 09/11/19 21:38 22:34 23:33 Glucose POC Glucose 113 H 114 H 128 H 09/12/19 09/12/19 09/12/19 00:39 02:06 03:58 Glucose 140 H POC Glucose 139 H 154 H 09/12/19 09/12/19 09/12/19 04:01 06:12 08:03 Glucose POC Glucose 150 H 148 H 125 H 09/12/19 09/12/19 10:04 11:52 Glucose POC Glucose 164 H 130 H OUTPATIENT ANTIDIABETIC REGIMEN: * U-500 INSULIN: 90 units @0800 if BSG >200, 60 units @ 1200 if BSG > 200, 70 units @ 1700 if BSG > 200 * Trulicity 1.5mg SQ weekly * Metformin 1gm PO Qpm ASSESSMENT: 09/12 * BSGs well controlled with current insulin orders * Receiving Lantus 15 units SQ BID and insulin drip at 3units/hr (has been running @3units/hr for 12 hrs as of this AM) * Patient extubated at ~1030 and feeding tube removed * BSGs are being checked hourly due to tube feeds being held * Per discussion with RN, pt likely to have nil PO intake today given O2 sats on BiPAP and he has not yet passed swallow eval * Would anticipate patient to require 30-60 units of Lantus per day depending on PO intake (based upon prior visit data) * Would anticipate total daily insulin requirement to be ~150-170 units per day when tolerating 3 meals/day 09/11: * Tube feeds continue to titrate to goal. Formula was changed to peptamen VHP. Novolog carb coverage was added based on TF rate. * Discussed patient at multidisciplinary rounds. Will continue insulin infusion through today as tube feeds not yet at goal and patient continues to be intubated and sedated. Will add lantus BID to assist with eventual drip transition. 09/10 * Patient initially hypoglycemic on presentation. However hyperglycemic at lunchtime, likely due to lack of insulin, new ICU stressors, and the initiation of tube feeds to a goal rate of 70 ml/hr (peptamen 1.5). Given body habitus, outpatient regimen, and tube feed titration over the next 24 hours, will initiate an insulin infusion to more effectively control BSGs during this time. This plan was discussed with the ICU intesivist. PLAN FOR INPATIENT GLYCEMIC CONTROL: * Hold outpatient oral diabetes medications * Lantus 10 units SQ x 1 now * Discontinue IV insulin infusion ~ 2 hrs after 10 units Lantus given * Lantus SQ BID per the following scale: * 0 units if BSG less than 110 * 15 units if BSG 110-140 * 20 units if BSG above 140 * NovoLog SQ Q 4 hrs * Goal range 110-140mg/dL * Correction factor: 10mg/dL/unit * Carb ratio: 1 unit per 3 grams of CHO consumed w/ meals * Please note that the plan above was derived based on current level of insulin resistance and hospital stress. These recommendations are appropriate for inpatient admission only. Plan of care upon discharge will need to be reassessed to avoid potential outpatient hypo/hyperglycemia. Thank you. PLAN FOR DISCHARGE: * to be determined
[2019-09-12] MEDS ORDERED: INSULIN GLARGINE SOLOSTAR 100 UNITS/ML 3 ML PEN SC ONE (13:30)
[2019-09-12] MEDS ORDERED: [UNRECOGNIZED DRUG - REMARK] ONE (15:30)
--- NOTE | 2019-09-12 20:00 | Hospitalist Progress Note ---
Date of Service September 12, 2019 Assessment & Plan (1) Hypercapnic respiratory failure: pH is 7.45 today intubated until 09/12, successful SBT, extubated and placed on BIPAP for several hours now down to oxymask saturation goal is 88-90% hypoxia primarily due to volume overload diuresed 13 liters thus far no longer needs Solu Medrol, continue with beta agonists (2) Acute exacerbation of CHF (congestive heart failure): acute on chronic heart failure with preserved EF Strict in and out, negative 13 liters thus far still appears volume overloaded on exam continue Lasix 40mg IV BID for diuresis, follow renal function, Cr is stable at 0.54 Echocardiogram from last month demonstrated a preserved ejection fraction. (3) Acute exacerbation of COPD with asthma: steroids stopped, continue beta agonists no wheezing on exam (4) Hypertension: stable (5) Obesity hypoventilation syndrome: needs to work on weight loss respiratory issues will persist unless he loses weight (6) Obstructive sleep apnea: continue NIPPV at night now that he is extubated (7) Tobacco abuse: advised to to quit smoking Subjective patient extubated today after successful SBT, placed immediately on BIPAP saw patient in the afternoon, breathing comfortably on BIPAP lungs diminished, no wheezing continues to diurese on Lasix, Cr is stable at 0.54 continue on Diamox discussed with Dr. Ann, appreciate his management Review of Systems Review of Systems: Unobtainable due to reduced consciousness (lethargic on BIPAP) Physical Exam Constitutional: well developed and + morbidly obese; not in distress Eyes: PERRL, conjunctivae normal, anicteric sclerae ENMT: external ear and nose normal, oropharynx normal Neck: trachea midline, no thyromegaly Respiratory: normal respiratory effort and symmetric chest movement Auscultation: lungs clear to auscultation bilaterally Cardiovascular: Rate/Rhythm: regular rate and regular rhythm Heart Sounds: normal S1 and normal S2; no murmur Vessels: no JVD Extremities: normal capillary refill and + edema Gastrointestinal (Abdomen): normal bowel sounds, soft, nontender, no hepatosplenomegaly Musculoskeletal: Head/Neck/Chest: normocephalic and head atraumatic Extremities: no cyanosis and no clubbing Skin: + rash (several areas of white plaques) Neurologic: PERRL, EOMI, accommodation nl, no face palsy, no dysarthria Psychiatric: Orientation: alert and oriented x 3 Lymphatic: no cervical or axillary lymphadenopathy Results & Data Vital Signs (Past 12 Hours) Vital Signs Temp Pulse Pulse Resp BP Pulse Ox 09/12/19 19:43 105 H 22 92 09/12/19 19:40 37.6 C H 102 H 19 132/71 91 09/12/19 17:40 94 H 21 137/72 91 09/12/19 17:30 104 H 20 91 09/12/19 17:00 37.2 C 105 H 19 92 09/12/19 16:40 105 H 22 148/64 H 92 09/12/19 16:00 104 H 21 91 09/12/19 15:40 105 H 19 133/69 92 09/12/19 15:27 103 H 20 92 09/12/19 15:00 96 H 19 92 09/12/19 14:40 106 H 20 141/65 H 91 09/12/19 14:30 105 H 24 91 09/12/19 14:00 88 20 90 09/12/19 13:40 102 H 20 151/71 H 88 L 09/12/19 13:30 103 H 20 92 09/12/19 12:30 90 21 86 L 09/12/19 12:00 37.8 C H 104 H 20 94 09/12/19 11:40 102 H 24 157/77 H 91 09/12/19 11:30 100 H 19 92 09/12/19 11:00 98 H 19 97 09/12/19 10:49 102 H 09/12/19 10:40 101 H 20 135/78 92 09/12/19 10:30 90 22 100 09/12/19 10:29 102 H 19 96 09/12/19 10:00 94 H 88 L 09/12/19 09:40 88 136/60 90 09/12/19 09:30 88 92 09/12/19 09:00 37.6 C H 96 H 92 09/12/19 08:40 78 146/73 H 91 09/12/19 08:04 90 18 93 Laboratory Results Laboratory Results - last 24 hr 09/11/19 09/11/19 09/11/19 21:38 22:34 23:33 WBC RBC Hgb Hct MCV MCH MCHC Plt Count Immature Gran % (Auto) Neut % (Auto) Lymph % (Auto) [place] % (Auto) Eos % (Auto) Baso % (Auto) Immature Gran # (Auto) Neut # (Auto) Lymph # (Auto) [place] # (Auto) Eos # (Auto) Baso # (Auto) ABG pH ABG pCO2 ABG pO2 ABG HCO3 ABG O2 Saturation ABG Base Excess Donald Test Oxygen Given Sodium Potassium Chloride Carbon Dioxide Anion Gap BUN Creatinine Est Cr Clr Drug Dosing Est GFR ( Amer) Est GFR (Non-Af Amer) BUN/Creatinine Ratio Glucose POC Glucose 113 H 114 H 128 H Calcium Phosphorus Magnesium 09/12/19 09/12/19 09/12/19 00:39 02:06 03:58 WBC 13.60 H RBC 4.20 L Hgb 12.2 L Hct 39.0 L MCV 92.9 D MCH 29.0 MCHC 31.3 L Plt Count 260 Immature Gran % (Auto) 0.3 Neut % (Auto) 78.9 Lymph % (Auto) 10.7 [place] % (Auto) 9.8 Eos % (Auto) 0.2 Baso % (Auto) 0.1 Immature Gran # (Auto) 0.04 H Neut # (Auto) 10.73 H Lymph # (Auto) 1.46 [place] # (Auto) 1.33 H Eos # (Auto) 0.03 Baso # (Auto) 0.01 ABG pH ABG pCO2 ABG pO2 ABG HCO3 ABG O2 Saturation ABG Base Excess Donald Test Oxygen Given Sodium Potassium Chloride Carbon Dioxide Anion Gap BUN Creatinine Est Cr Clr Drug Dosing Est GFR ( Amer) Est GFR (Non-Af Amer) BUN/Creatinine Ratio Glucose POC Glucose 139 H 154 H Calcium Phosphorus Magnesium 09/12/19 09/12/19 09/12/19 03:58 03:58 04:01 WBC RBC Hgb Hct MCV MCH MCHC Plt Count Immature Gran % (Auto) Neut % (Auto) Lymph % (Auto) [place] % (Auto) Eos % (Auto) Baso % (Auto) Immature Gran # (Auto) Neut # (Auto) Lymph # (Auto) [place] # (Auto) Eos # (Auto) Baso # (Auto) ABG pH 7.45 ABG pCO2 65 H ABG pO2 53 L ABG HCO3 44 H ABG O2 Saturation 87.2 L ABG Base Excess 17.0 H Donald Test Pos Oxygen Given 40% Sodium 138 Potassium 3.4 L Chloride 93 L Carbon Dioxide 43 H* Anion Gap 3.0 BUN 16 Creatinine 0.54 L Est Cr Clr Drug Dosing 216.8 Est GFR ( Amer) 130.4 Est GFR (Non-Af Amer) 112.5 BUN/Creatinine Ratio 29.8 H Glucose 140 H POC Glucose 150 H Calcium 8.8 Phosphorus 4.1 D Magnesium 2.2 09/12/19 09/12/19 09/12/19 06:12 08:03 10:04 WBC RBC Hgb Hct MCV MCH MCHC Plt Count Immature Gran % (Auto) Neut % (Auto) Lymph % (Auto) [place] % (Auto) Eos % (Auto) Baso % (Auto) Immature Gran # (Auto) Neut # (Auto) Lymph # (Auto) [place] # (Auto) Eos # (Auto) Baso # (Auto) ABG pH ABG pCO2 ABG pO2 ABG HCO3 ABG O2 Saturation ABG Base Excess Donald Test Oxygen Given Sodium Potassium Chloride Carbon Dioxide Anion Gap BUN Creatinine Est Cr Clr Drug Dosing Est GFR ( Amer) Est GFR (Non-Af Amer) BUN/Creatinine Ratio Glucose POC Glucose 148 H 125 H 164 H Calcium Phosphorus Magnesium 09/12/19 09/12/19 09/12/19 11:52 13:37 15:12 WBC RBC Hgb Hct MCV MCH MCHC Plt Count Immature Gran % (Auto) Neut % (Auto) Lymph % (Auto) [place] % (Auto) Eos % (Auto) Baso % (Auto) Immature Gran # (Auto) Neut # (Auto) Lymph # (Auto) [place] # (Auto) Eos # (Auto) Baso # (Auto) ABG pH ABG pCO2 ABG pO2 ABG HCO3 ABG O2 Saturation ABG Base Excess Donald Test Oxygen Given Sodium Potassium Chloride Carbon Dioxide Anion Gap BUN Creatinine Est Cr Clr Drug Dosing Est GFR ( Amer) Est GFR (Non-Af Amer) BUN/Creatinine Ratio Glucose POC Glucose 130 H 116 H 136 H Calcium Phosphorus Magnesium 09/12/19 16:56 WBC RBC Hgb Hct MCV MCH MCHC Plt Count Immature Gran % (Auto) Neut % (Auto) Lymph % (Auto) [place] % (Auto) Eos % (Auto) Baso % (Auto) Immature Gran # (Auto) Neut # (Auto) Lymph # (Auto) [place] # (Auto) Eos # (Auto) Baso # (Auto) ABG pH ABG pCO2 ABG pO2 ABG HCO3 ABG O2 Saturation ABG Base Excess Donald Test Oxygen Given Sodium Potassium Chloride Carbon Dioxide Anion Gap BUN Creatinine Est Cr Clr Drug Dosing Est GFR ( Amer) Est GFR (Non-Af Amer) BUN/Creatinine Ratio Glucose POC Glucose 138 H Calcium Phosphorus Magnesium Medications Administered Current Inpatient Medications Acetaminophen (Tylenol) 650 mg PO Q4H PRN PRN Reason: Pain or Fever Stop: 10/09/19 17:31 Al Hydrox/Mg Hydrox/Simethicone (Maalox) 15 ml PO Q4H PRN PRN Reason: Dyspepsia Stop: 10/09/19 17:31 Albuterol (Duoneb) 3 ml NEB QIDR [facility] Stop: 10/09/19 18:59 Last Admin: 09/12/19 19:43 Dose: Not Given Documented by: Aspirin (Aspirin Chew) 81 mg PO DAILY [facility] Stop: 10/10/19 08:59 Last Admin: 09/12/19 08:23 Dose: 81 mg Documented by: Atorvastatin Calcium (Lipitor) 40 mg PO DAILY [facility] Stop: 10/10/19 08:59 Last Admin: 09/12/19 08:22 Dose: 40 mg Documented by: Budesonide (Pulmicort Respules) 0.5 mg NEB BIDR [facility] Stop: 10/09/19 18:59 Last Admin: 09/12/19 19:41 Dose: 0.5 mg Documented by: Carvedilol (Coreg) 3.125 mg PO BID [facility] Stop: 10/09/19 20:59 Last Admin: 09/12/19 08:23 Dose: 3.125 mg Documented by: Clotrimazole (Lotrimin 1%) 1 appln EXT BID [facility] Stop: 10/09/19 21:44 Last Admin: 09/12/19 08:23 Dose: 1 appln Documented by: Dextrose (Dextrose 50%) 25 - 50 ml IV UD PRN; Protocol PRN Reason: Hypoglycemia Protocol Stop: 10/09/19 20:33 Last Admin: 09/09/19 20:39 Dose: 25 ml Documented by: Escitalopram Oxalate (Lexapro Tab) 20 mg PO DAILY [facility] Stop: 10/10/19 08:59 Last Admin: 09/12/19 08:22 Dose: 20 mg Documented by: Fentanyl Citrate (Fentanyl Citrate) 50 mcg IV Q2H PRN PRN Reason: Moderate Pain (4,5,6) Stop: 09/23/19 17:18 Last Admin: 09/11/19 11:34 Dose: 50 mcg Documented by: Folic Acid (Folvite) 1 mg PO [id number]@0900 [facility] Stop: 10/10/19 08:59 Last Admin: 09/12/19 08:23 Dose: 1 mg Documented by: Formoterol Fumarate (Perforomist) 20 mcg NEB BIDR [facility] Stop: 10/12/19 18:59 Last Admin: 09/12/19 19:41 Dose: 20 mcg Documented by: Glucagon (Glucagen) 1 mg SQ UD PRN; Protocol PRN Reason: Hypoglycemia Protocol Stop: 10/09/19 20:33 Glucose (Dex4 Glucose) 4 - 8 tabs PO UD PRN; Protocol PRN Reason: Hypoglycemia Protocol Stop: 10/09/19 20:33 Glucose (Glucose 40%) 15 - 30 gm PO UD PRN; Protocol PRN Reason: Hypoglycemia Protocol Stop: 10/09/19 20:33 Heparin Sodium (Porcine) (Heparin Sodium (Porcine)) 5,000 units SQ Q8 [facility] Stop: 10/10/19 13:59 Last Admin: 09/12/19 13:41 Dose: 5,000 units Documented by: Midazolam HCl (Versed) 125 mg in 250 mls @ 0 mls/hr IV .Q0M [facility]; Protocol Stop: 10/09/19 18:29 Last Titration: 09/12/19 15:16 Dose: Infused Documented by: Furosemide 40 mg/ Syringe 4 mls @ 4 mls/min IV BID17 [facility] Stop: 10/09/19 18:29 Last Admin: 09/12/19 16:56 Dose: 4 mls/min Documented by: Insulin Aspart (Novolog Flexpen) 0 units SC Q4 [facility] Stop: 10/11/19 11:59 Last Admin: 09/12/19 17:15 Dose: Not Given Documented by: Insulin Glargine (Lantus Solostar Pen) 0 units SC BID@0800,2000 [facility]; Protocol Stop: 10/12/19 19:59 Magnesium Hydroxide (Milk Of Magnesia) 30 ml PO Q12H PRN PRN Reason: Constipation Stop: 10/09/19 17:31 Methotrexate (Methotrexate) 7.5 mg PO Q7D [facility] Stop: 10/15/19 08:59 Miscellaneous (Order Awaiting Action) 1 ea N/A QS [facility] Stop: 10/10/19 00:00 Last Admin: 09/12/19 13:41 Dose: Not Given Documented by: Miscellaneous (Carbohydrates For Hypoglycemia) 15 - 30 gm PO UD PRN PRN Reason: Hypoglycemia Protocol Stop: 10/09/19 20:33 Miscellaneous Information (Consult Glycemic Management Pharmacy) 1 ea N/A UD PRN PRN Reason: Consult Stop: 10/10/19 12:57 Nutritional Formula (Peptamen Intense Vhp 1.0 Jaswinder) 1,000 ml OG UD [facility]; Protocol Stop: 10/11/19 08:44 Last Admin: 09/11/19 10:06 Dose: 1,000 ml Documented by: Ondansetron HCl (Zofran) 4 mg IV Q6H PRN PRN Reason: Nausea Stop: 10/09/19 17:31 Polyethylene Glycol (Miralax Powder Packet) 17 gm PO DAILY PRN PRN Reason: Constipation Stop: 10/09/19 17:31 Potassium Chloride (Klor-Con Pwd) 40 meq PO Q8H [facility] Stop: 09/13/19 11:31 Last Admin: 09/12/19 11:18 Dose: Not Given Documented by: Pregabalin (Lyrica) 50 mg PO BID [facility] Stop: 10/10/19 20:59 Last Admin: 09/12/19 08:26 Dose: 50 mg Documented by: Umeclidinium Dante (Incruse Ellipta) 1 puffs INH QAM [facility] Stop: 10/09/19 17:59 Last Admin: 09/11/19 18:14 Dose: Not Given Documented by: PG Care Time/CCT Total # of Minutes Spent Total Time Spent with Patient: Total time spent is greater than 50% in coordination of care (as documented) at patient's floor/unit and/or counseling patient: Coding Level of Care Code 35147 Subseq Hosp Care Lvl 2 Diagnoses Hypercapnic respiratory failure J96.92 Acute exacerbation of CHF (congestive heart failure) I50.9 Acute exacerbation of COPD with asthma J44.1; J45.901 Hypertension I15.8 Hypertension type: other secondary hypertension Obesity hypoventilation syndrome E66.2 Obstructive sleep apnea G47.33 Tobacco abuse Z72.0 (1) Hypertension Hypertension type: other secondary hypertension Qualified Code(s): I15.8 - Other secondary hypertension
[2019-09-12] MEDS ORDERED: INSULIN GLARGINE SOLOSTAR 100 UNITS/ML 3 ML PEN SC SCH (21:00)
[2019-09-13] MEDS: INSULIN ASPART 100 UNITS/ML 3 ML PEN SC SCH ×7 (00:09→20:20)
[2019-09-13] MEDS: POTASSIUM CHLORIDE PWD 20 MEQ PACK PO SCH ×2 (03:53→11:45)
[2019-09-13] MEDS ORDERED: POTASSIUM CHLORIDE 20 MEQ TABCR PO STA (04:55)
[2019-09-13] MEDS ORDERED: POTASSIUM CHLORIDE / WTR 10 MEQ/100 ML PLCT IV SCH (04:55)
[2019-09-13 05:12] LABS: Hematocrit (blood only) 41.2 % (42-52); Hemoglobin 12.8 g/dL (14.0-18.0); Mean Corpuscular Hemoglobin 29.4 pg (25-34); Mean Corpuscular Hgb Conc 31.1 g/dL (32-36); Mean Corpuscular Volume 94.7 fL (80-100); Mean Platelet Volume 9.3 fL (7.4-10.4); Platelet Count 261 K/uL (130-400); RDW Coefficient of Variation 15.4 % (11.5-14.5); RDW Standard Deviation 53.6 fL (36.4-46.3); Red Blood Count 4.35 M/uL (4.7-6.1); White Blood Count 14.34 K/uL (4.8-10.8)
[2019-09-13 05:22] LABS: Partial Thromboplastin Ratio 0.9; Partial Thromboplastin Time 25.1 Seconds (21.0-31.0)
[2019-09-13 05:43] LABS: BUN Creatinine Ratio 27.4 (10-20); Calcium 9.2 mg/dl (8.5-10.1); Creatinine Clr Calc Pharmacy 172.5 ml/min; Est GFR (African American) 119.4; Magnesium 2.3 mg/dl (1.8-2.4); Potassium 3.7 mmol/L (3.5-5.1)
[2019-09-13] MEDS: HEPARIN SOD 5,000 UNIT/0.5 ML VIAL SQ SCH ×3 (05:53→20:21)
[2019-09-13] MEDS: FORMOTEROL 20 MCG/2 ML VIAL NEB SCH ×2 (08:03→20:29)
[2019-09-13] MEDS: BUDESONIDE 0.5 MG/2 ML VIAL (PULMICORT) NEB SCH ×2 (08:03→20:29)
[2019-09-13] MEDS: ALBUT/IPRATROP 3MG/0.5MG NEB 3 ML VIAL NEB SCH ×4 (08:04→19:21)
--- NOTE | 2019-09-13 08:11 | Critical Care Progress Note ---
Date of Service September 13, 2019 Assessment & Plan (1) Hypercapnic respiratory failure: Impression: 64-year-old male with morbid obesity admitted with acute on chronic hypoxemic and hypercarbic respiratory failure with chest x-ray demonstrating vascular engorgement. It appears the patient was to be on noninvasive positive pressure ventilation however this was never initiated. 24-hour events: Extubated to BiPAP. Weaned off BiPAP during the day down to facemask nasal cannula. Placed empirically on BiPAP again overnight and tolerated well. Hemodynamically stable and tolerating diuresis. Awake alert and pleasant this morning with no acute complaints Recommendations: 1. Acute on chronic hypoxemic and hypercarbic respiratory failure: Continue to wean oxygen as tolerated. Continue to use noninvasive positive pressure ventilation nightly. The patient now has BiPAP at home and will need to continue nocturnal BiPAP with follow-up of blood gases in the outpatient setting 2. Fluid overload/diastolic heart failure: Good response to diuretics yesterday. Creatinine stable. Continue diuresis with goal net -1 to 2 L per 24 hours. Continue IV Lasix for now with plans to transition to oral within the next 24 to 72 hours 3. Morbid obesity: Weight loss is paramount. Caloric restriction recommended. This has been recommended in the past and the patient has not really been compliant. Doubt we will have any significant impact on this patient's current morbid obesity. 4. Sleep disordered breathing/obesity hypoventilation: The patient will need to be extubated to noninvasive positive pressure ventilation. Per social work, the patient has been approved and they have his BiPAP unit ready to be delivered to his home. There is some question about his ability to be compliant in the 5. Tobacco abuse/COPD: Smoking cessation recommended. Patient states he is having no issues with nicotine withdrawal. Continue Incruse, budesonide and will add Perforomist. Duo nebs as needed 6. Nutrition: Advance diet to carb healthy sodium and fluid restriction 7. Severe psoriasis: The patient is on methotrexate chronically. Methotrexate may cause interstitial lung disease. Psoriatic arthritis causing interstitial lung disease is exceedingly uncommon. Continue to follow clinically. 8. Mild anemia: No evidence of acute blood loss. Continue to follow. No indication for transfusion currently. 9. Hyponatremia: Now resolved with diuresis 10. History of myoclonic syndrome: Of unclear etiology. Had been on Keppra during a prior hospitalization. Is unclear if he was taking this in the outpatient setting. Levels are currently pending. I think it is reasonable to hold off for now and follow. 11. Will require physical therapy and Occupational Therapy consults today. Out of bed as tolerated. Discontinue Stubbs catheter. Patient doing well clinically. He is stable to transfer out of the intensive care unit back to the hospitalist service. We will continue to follow for pulmonary issues. (2) Hypoxemic respiratory failure, chronic: (3) Diastolic heart failure: (4) COPD (chronic obstructive pulmonary disease): (5) Obesity hypoventilation syndrome: Physical Exam Constitutional: + obese, cooperative and + edematous; not in distress and not mechanically ventilated Eyes: PERRL Neck: trachea midline, no thyromegaly Cardiovascular: Heart Sounds: normal S1 and normal S2 Gastrointestinal (Abdomen): normal bowel sounds, soft, nontender, no hepatosplenomegaly Skin: + excoriations and + lichenification Results & Data Vital Signs (Past 12 Hours) Vital Signs Temp Pulse Resp BP Pulse Ox 09/13/19 06:40 91 H 22 119/69 84 L 09/13/19 05:40 89 19 129/65 86 L 09/13/19 05:12 94 H 19 125/73 87 L 09/13/19 03:44 37.2 C 102 H 17 127/60 92 09/13/19 02:44 98 H 18 126/73 93 09/13/19 01:40 89 15 137/66 90 09/13/19 00:40 36.6 C 89 18 117/65 92 09/12/19 23:51 85 16 92 09/12/19 23:40 84 20 131/68 91 09/12/19 22:40 97 H 15 136/72 91 09/12/19 21:51 101 H 21 145/82 H 91 09/12/19 20:40 107 H 22 142/78 H 88 L 09/12/19 20:14 96 H 19 89 L Laboratory Results 09/13/19 04:23 09/13/19 04:23 Diagnostic Findings No new films Coding Level of Care Code 34423 Subseq Hosp Care Lvl 3 Diagnoses Hypercapnic respiratory failure J96.92 Hypoxemic respiratory failure, chronic J96.11 Diastolic heart failure I50.30 COPD (chronic obstructive pulmonary disease) J44.9 Obesity hypoventilation syndrome E66.2
[2019-09-13] MEDS ORDERED: FORMOTEROL 20 MCG/2 ML VIAL NEB SCH (09:00)
[2019-09-13] MEDS: PREGABALIN 50 MG CAP PO SCH ×2 (09:37→19:57)
[2019-09-13] MEDS: FOLIC ACID 1 MG TAB PO SCH (09:39)
[2019-09-13] MEDS: ESCITALOPRAM OXALATE 20 MG TAB PO SCH (09:39)
[2019-09-13] MEDS: carvediloL 3.125 MG TAB PO SCH ×2 (09:39→19:55)
[2019-09-13] MEDS: ASPIRIN 81 MG CHEW PO SCH (09:39)
[2019-09-13] MEDS: ATORVASTATIN 40 MG TAB PO SCH (09:39)
[2019-09-13] MEDS: CLOTRIMAZOLE 1% CR 15 GM TUBE EXT SCH ×2 (09:40→19:55)
[2019-09-13] MEDS: INSULIN GLARGINE SOLOSTAR 100 UNITS/ML 3 ML PEN SC SCH ×2 (09:40→20:21)
[2019-09-13] MEDS: FUROSEMIDE 40 MG in SYRINGE 0 ML IV SCH ×2 (09:40→17:08)
--- NOTE | 2019-09-13 11:36 | XRay Report ---
SINGLE VIEW CHEST CLINICAL HISTORY: Follow-up congestive heart failure. FINDINGS: 2 AP, portable, upright chest radiographs are compared to study dated 09/12/2019. The examin ation is significantly degraded by portable technique, apical lordotic positioning, large body habitu s, and patient rotation. Endotracheal and enteric tubes have been removed. Sternotomy wires are noted . The heart is enlarged. There is pulmonary vascular congestion with evidence of interstitial edema. An accessory azygous fissure is incidentally noted. Apparent volume loss in the right lung may be pos itional due to patient rotation. There are small pleural effusions with right basilar airspace opacit ies. No pneumothorax is seen. The skeletal structures are osteopenic. The bony thorax is grossly inta ct. IMPRESSION: 1. Cardiomegaly with evidence of congestive failure and interstitial edema. This is unchanged from . 2. Small pleural effusions with right basilar opacities. 3. Endotracheal and enteric tubes have been removed. ACT 112: Negative or not required by law. Electronically signed by: Max Joyner M.D. 09/13/2019 11:34 AM
--- NOTE | 2019-09-13 11:57 | Hospitalist Progress Note ---
Date of Service September 13, 2019 Assessment & Plan (1) Hypercapnic respiratory failure: intubated until 09/12, successful SBT, extubated and placed on BIPAP for several hours now down to 6L NC, breathing comfortably at rest saturation goal is 88-90% hypoxia primarily due to volume overload diuresed 16 liters thus far feels so much better (2) Acute exacerbation of CHF (congestive heart failure): acute on chronic heart failure with preserved EF Strict in and out, negative 16 liters thus far still appears volume overloaded on exam but getting a lot better continue Lasix 40mg IV BID for diuresis, follow renal function, Cr is stable at 0.6 Echocardiogram from last month demonstrated a preserved ejection fraction. (3) Acute exacerbation of COPD with asthma: steroids stopped, continue beta agonists no wheezing on exam (4) Hypertension: stable (5) Obesity hypoventilation syndrome: needs to work on weight loss respiratory issues will persist unless he loses weight (6) Obstructive sleep apnea: continue NIPPV at night now that he is extubated he confirms that he had his BiPAP delivered to his home (7) Tobacco abuse: advised to to quit smoking (8) Shoulder pain, left: has h/o rotator cuff injury Voltaren 1% gel, apply 2 inches q12 for relief Subjective patient sitting up in his chair, breathing well on nasal canula eating some lunch doing much better today he says that his BIPAP arrived at his home so he will be able to use it labs are stable, Cr is 0.67, K is 3.7, HCO3 41 no chest pain/pressure, no nausea discussed with Dr. Ann, he is stable to downgrade from ICU today Review of Systems Review of Systems: All systems reviewed & are unremarkable except as noted in HPI & below Respiratory: + cough, + dyspnea and + dyspnea on exertion Cardiovascular: no chest pain Gastrointestinal: no abdominal pain, no nausea, no vomiting, no constipation and no diarrhea/loose stools Physical Exam Constitutional: well developed and + morbidly obese; not in distress Eyes: PERRL, conjunctivae normal, anicteric sclerae ENMT: external ear and nose normal, oropharynx normal Neck: trachea midline, no thyromegaly Respiratory: normal respiratory effort and symmetric chest movement Auscultation: lungs clear to auscultation bilaterally Cardiovascular: Rate/Rhythm: regular rate and regular rhythm Heart Sounds: normal S1 and normal S2; no murmur Vessels: no JVD Extremities: normal capillary refill and + edema Gastrointestinal (Abdomen): normal bowel sounds, soft, nontender, no hepatosplenomegaly Musculoskeletal: Head/Neck/Chest: normocephalic and head atraumatic Extremities: no cyanosis and no clubbing Skin: + rash (several areas of white plaques) Neurologic: PERRL, EOMI, accommodation nl, no face palsy, no dysarthria Psychiatric: Orientation: alert and oriented x 3 Lymphatic: no cervical or axillary lymphadenopathy Results & Data Vital Signs (Past 12 Hours) Vital Signs Temp Pulse Pulse Resp BP Pulse Ox 09/13/19 11:05 88 19 142/73 H 89 L 09/13/19 09:40 94 H 15 152/78 H 92 09/13/19 08:41 96 H 21 119/45 L 77 L 09/13/19 08:05 98 H 18 92 09/13/19 07:41 37.3 C 90 18 148/79 H 90 09/13/19 06:40 91 H 22 119/69 84 L 09/13/19 05:40 89 19 129/65 86 L 09/13/19 05:12 94 H 19 125/73 87 L 09/13/19 03:44 37.2 C 102 H 17 127/60 92 09/13/19 02:44 98 H 18 126/73 93 09/13/19 01:40 89 15 137/66 90 09/13/19 00:40 36.6 C 89 18 117/65 92 Laboratory Results Laboratory Results - last 24 hr 09/12/19 09/12/19 09/12/19 11:52 13:37 15:12 WBC RBC Hgb Hct MCV MCH MCHC RDW Std Deviation RDW Coeff of Lyric Plt Count MPV APTT PTT Ratio Sodium Potassium Chloride Carbon Dioxide Anion Gap BUN Creatinine Est Cr Clr Drug Dosing Est GFR ( Amer) Est GFR (Non-Af Amer) BUN/Creatinine Ratio Glucose POC Glucose 130 H 116 H 136 H Calcium Phosphorus Magnesium 09/12/19 09/12/19 09/12/19 16:56 20:24 23:38 WBC RBC Hgb Hct MCV MCH MCHC RDW Std Deviation RDW Coeff of Lyric Plt Count MPV APTT PTT Ratio Sodium Potassium Chloride Carbon Dioxide Anion Gap BUN Creatinine Est Cr Clr Drug Dosing Est GFR ( Amer) Est GFR (Non-Af Amer) BUN/Creatinine Ratio Glucose POC Glucose 138 H 131 H 135 H Calcium Phosphorus Magnesium 09/13/19 09/13/19 09/13/19 03:50 04:23 04:23 WBC 14.34 H RBC 4.35 L Hgb 12.8 L Hct 41.2 L MCV 94.7 MCH 29.4 MCHC 31.1 L RDW Std Deviation 53.6 H RDW Coeff of Lyric 15.4 H Plt Count 261 MPV 9.3 APTT 25.1 PTT Ratio 0.9 Sodium Potassium Chloride Carbon Dioxide Anion Gap BUN Creatinine Est Cr Clr Drug Dosing Est GFR ( Amer) Est GFR (Non-Af Amer) BUN/Creatinine Ratio Glucose POC Glucose 148 H Calcium Phosphorus Magnesium 09/13/19 09/13/19 09/13/19 04:23 09:15 11:13 WBC RBC Hgb Hct MCV MCH MCHC RDW Std Deviation RDW Coeff of Lyric Plt Count MPV APTT PTT Ratio Sodium 138 Potassium 3.7 Chloride 93 L Carbon Dioxide 41 H* Anion Gap 4.0 BUN 18 Creatinine 0.67 Est Cr Clr Drug Dosing 172.5 Est GFR ( Amer) 119.4 Est GFR (Non-Af Amer) 103.0 BUN/Creatinine Ratio 27.4 H Glucose 149 H POC Glucose 127 H 190 H Calcium 9.2 Phosphorus 4.0 Magnesium 2.3 Medications Administered Current Inpatient Medications Acetaminophen (Tylenol) 650 mg PO Q4H PRN PRN Reason: Pain or Fever Stop: 10/09/19 17:31 Al Hydrox/Mg Hydrox/Simethicone (Maalox) 15 ml PO Q4H PRN PRN Reason: Dyspepsia Stop: 10/09/19 17:31 Albuterol (Duoneb) 3 ml NEB QIDR [facility] Stop: 10/09/19 18:59 Last Admin: 09/13/19 08:04 Dose: Not Given Documented by: Aspirin (Aspirin Chew) 81 mg PO DAILY [facility] Stop: 10/10/19 08:59 Last Admin: 09/13/19 09:39 Dose: 81 mg Documented by: Atorvastatin Calcium (Lipitor) 40 mg PO DAILY [facility] Stop: 10/10/19 08:59 Last Admin: 09/13/19 09:39 Dose: 40 mg Documented by: Budesonide (Pulmicort Respules) 0.5 mg NEB BIDR [facility] Stop: 10/09/19 18:59 Last Admin: 09/13/19 08:03 Dose: 0.5 mg Documented by: Carvedilol (Coreg) 3.125 mg PO BID [facility] Stop: 10/09/19 20:59 Last Admin: 09/13/19 09:39 Dose: 3.125 mg Documented by: Clotrimazole (Lotrimin 1%) 1 appln EXT BID [facility] Stop: 10/09/19 21:44 Last Admin: 09/13/19 09:40 Dose: 1 appln Documented by: Dextrose (Dextrose 50%) 25 - 50 ml IV UD PRN; Protocol PRN Reason: Hypoglycemia Protocol Stop: 10/09/19 20:33 Last Admin: 09/09/19 20:39 Dose: 25 ml Documented by: Escitalopram Oxalate (Lexapro Tab) 20 mg PO DAILY [facility] Stop: 10/10/19 08:59 Last Admin: 09/13/19 09:39 Dose: 20 mg Documented by: Fentanyl Citrate (Fentanyl Citrate) 50 mcg IV Q2H PRN PRN Reason: Moderate Pain (4,5,6) Stop: 09/23/19 17:18 Last Admin: 09/11/19 11:34 Dose: 50 mcg Documented by: Folic Acid (Folvite) 1 mg PO SuTuWeThFrSa@0900 [facility] Stop: 10/10/19 08:59 Last Admin: 09/13/19 09:39 Dose: 1 mg Documented by: Formoterol Fumarate (Perforomist) 20 mcg NEB BIDR [facility] Stop: 10/12/19 18:59 Last Admin: 09/13/19 08:03 Dose: 20 mcg Documented by: Glucagon (Glucagen) 1 mg SQ UD PRN; Protocol PRN Reason: Hypoglycemia Protocol Stop: 10/09/19 20:33 Glucose (Dex4 Glucose) 4 - 8 tabs PO UD PRN; Protocol PRN Reason: Hypoglycemia Protocol Stop: 10/09/19 20:33 Glucose (Glucose 40%) 15 - 30 gm PO UD PRN; Protocol PRN Reason: Hypoglycemia Protocol Stop: 10/09/19 20:33 Heparin Sodium (Porcine) (Heparin Sodium (Porcine)) 5,000 units SQ Q8 [facility] Stop: 10/10/19 13:59 Last Admin: 09/13/19 05:53 Dose: 5,000 units Documented by: Furosemide 40 mg/ Syringe 4 mls @ 4 mls/min IV BID17 [facility] Stop: 10/09/19 18:29 Last Admin: 09/13/19 09:40 Dose: 4 mls/min Documented by: Insulin Aspart (Novolog Flexpen) 0 units SC ACHS [facility] Stop: 10/11/19 11:59 Last Admin: 09/13/19 11:46 Dose: 12 units Documented by: Insulin Glargine (Lantus Solostar Pen) 0 units SC BID@0800,2000 [facility]; Protocol Stop: 10/12/19 19:59 Last Admin: 09/13/19 09:40 Dose: 5 units Documented by: Magnesium Hydroxide (Milk Of Magnesia) 30 ml PO Q12H PRN PRN Reason: Constipation Stop: 10/09/19 17:31 Methotrexate (Methotrexate) 7.5 mg PO Q7D [facility] Stop: 10/15/19 08:59 Miscellaneous (Order Awaiting Action) 1 ea N/A QS [facility] Stop: 10/10/19 00:00 Last Admin: 09/13/19 08:11 Dose: Not Given Documented by: Miscellaneous (Carbohydrates For Hypoglycemia) 15 - 30 gm PO UD PRN PRN Reason: Hypoglycemia Protocol Stop: 10/09/19 20:33 Miscellaneous Information (Consult Glycemic Management Pharmacy) 1 ea N/A UD PRN PRN Reason: Consult Stop: 10/10/19 12:57 Ondansetron HCl (Zofran) 4 mg IV Q6H PRN PRN Reason: Nausea Stop: 10/09/19 17:31 Last Admin: 09/13/19 05:52 Dose: 4 mg Documented by: Polyethylene Glycol (Miralax Powder Packet) 17 gm PO DAILY PRN PRN Reason: Constipation Stop: 10/09/19 17:31 Pregabalin (Lyrica) 50 mg PO BID [facility] Stop: 10/10/19 20:59 Last Admin: 09/13/19 09:37 Dose: 50 mg Documented by: Umeclidinium [place] (Incruse Ellipta) 1 puffs INH QAM [facility] Stop: 10/09/19 17:59 Last Admin: 09/11/19 18:14 Dose: Not Given Documented by: PG Care Time/CCT Total # of Minutes Spent Total Time Spent with Patient: Total time spent is greater than 50% in coordination of care (as documented) at patient's floor/unit and/or counseling patient: Coding Level of Care Code 65382 Subseq Hosp Care Lvl 3 Diagnoses Hypercapnic respiratory failure J96.92 Acute exacerbation of CHF (congestive heart failure) I50.9 Acute exacerbation of COPD with asthma J44.1; J45.901 Hypertension I15.8 Hypertension type: other secondary hypertension Obesity hypoventilation syndrome E66.2 Obstructive sleep apnea G47.33 Tobacco abuse Z72.0 Shoulder pain, left M25.512 (1) Hypertension Hypertension type: other secondary hypertension Qualified Code(s): I15.8 - Other secondary hypertension
[2019-09-13] MEDS: DICLOFENAC SOD 1% GEL 100 GM TUBE EXT PRN (17:14)
[2019-09-14] MEDS: HEPARIN SOD 5,000 UNIT/0.5 ML VIAL SQ SCH ×3 (05:45→20:52)
[2019-09-14] MEDS: ALBUT/IPRATROP 3MG/0.5MG NEB 3 ML VIAL NEB SCH ×4 (07:11→19:35)
[2019-09-14] MEDS: BUDESONIDE 0.5 MG/2 ML VIAL (PULMICORT) NEB SCH (07:11)
[2019-09-14] MEDS: FORMOTEROL 20 MCG/2 ML VIAL NEB SCH (07:11)
[2019-09-14 08:00] LABS: Partial Thromboplastin Time 26.4 Seconds (21.0-31.0)
[2019-09-14] MEDS: CLOTRIMAZOLE 1% CR 15 GM TUBE EXT SCH ×2 (08:42→20:51)
[2019-09-14] MEDS: INSULIN ASPART 100 UNITS/ML 3 ML PEN SC SCH ×4 (08:42→20:49)
[2019-09-14] MEDS: INSULIN GLARGINE SOLOSTAR 100 UNITS/ML 3 ML PEN SC SCH ×2 (08:47→20:50)
[2019-09-14] MEDS: FUROSEMIDE 40 MG in SYRINGE 0 ML IV SCH (08:48)
[2019-09-14] MEDS: FOLIC ACID 1 MG TAB PO SCH (08:48)
[2019-09-14] MEDS: carvediloL 3.125 MG TAB PO SCH ×2 (08:48→20:51)
[2019-09-14] MEDS: ASPIRIN 81 MG CHEW PO SCH (08:48)
[2019-09-14] MEDS: ATORVASTATIN 40 MG TAB PO SCH (08:49)
[2019-09-14] MEDS: ESCITALOPRAM OXALATE 20 MG TAB PO SCH (08:49)
[2019-09-14] MEDS: DICLOFENAC SOD 1% GEL 100 GM TUBE EXT PRN (08:51)
[2019-09-14] MEDS: PREGABALIN 50 MG CAP PO SCH ×2 (08:53→20:53)
[2019-09-14 09:16] LABS: Hematocrit (blood only) 41.6 % (42-52); Hemoglobin 13.3 g/dL (14.0-18.0); Mean Corpuscular Hemoglobin 30.2 pg (25-34); Mean Corpuscular Volume 94.5 fL (80-100); Mean Platelet Volume 9.6 fL (7.4-10.4); Platelet Count 273 K/uL (130-400); RDW Coefficient of Variation 14.9 % (11.5-14.5); RDW Standard Deviation 51.3 fL (36.4-46.3); White Blood Count 11.34 K/uL (4.8-10.8)
[2019-09-14 09:30] LABS: BUN Creatinine Ratio 39.1 (10-20); Calcium 9.7 mg/dl (8.5-10.1); Creatinine Clr Calc Pharmacy 204.4 ml/min; Est GFR (African American) 128.5; Est GFR (Non-African American) 110.9; Potassium 3.5 mmol/L (3.5-5.1)
--- NOTE | 2019-09-14 10:10 | Pulmonology Progress Note ---
Date of Service September 14, 2019 Assessment & Plan (1) Hypercapnic respiratory failure: Impression: 64-year-old male with morbid obesity admitted with acute on chronic hypoxemic and hypercarbic respiratory failure with chest x-ray demonstrating vascular engorgement. Patient was intubated at an outside facility prior to transfer to the intensive care unit here. He was extubated 09/12/2019 and has done well with nocturnal positive airway pressure and diuresis. Recommendations: 1. Acute on chronic hypoxemic and hypercarbic respiratory failure: Continue to wean oxygen as tolerated. Continue to use noninvasive positive pressure ventilation nightly. Follow-up with Dr. Cope in the outpatient setting 2. Fluid overload/diastolic heart failure: Continue diuretics. Okay to transition to oral. 3. Morbid obesity: Weight loss is paramount. Caloric restriction recommended. This has been recommended in the past and the patient has not really been compliant. Doubt we will have any significant impact on this patient's current morbid obesity. 4. Sleep disordered breathing/obesity hypoventilation: See above 5. Tobacco abuse/COPD: Smoking cessation recommended. Patient states he is having no issues with nicotine withdrawal. Continue Incruse, budesonide and Perforomist. Duo nebs as needed. Can transition to [facility] as outpatient Other medical issues per primary service. Await PT OT evaluations to determine disposition plan (2) Hypoxemic respiratory failure, chronic: (3) Diastolic heart failure: (4) COPD (chronic obstructive pulmonary disease): (5) Obesity hypoventilation syndrome: Subjective Patient seen and examined. EMR reviewed. The patient was transferred to the floor yesterday. He is doing well. He is up to a chair. He tolerated BiPAP last night without difficulty. He is being diuresed. He reports no significant respiratory issues currently. Review of Systems Review of Systems: All systems reviewed & are unremarkable except as noted in HPI & below Physical Exam Constitutional: + obese, cooperative and + edematous; not in distress and not mechanically ventilated Eyes: PERRL Neck: trachea midline, no thyromegaly Cardiovascular: Heart Sounds: normal S1 and normal S2 Gastrointestinal (Abdomen): normal bowel sounds, soft, nontender, no hepatosplenomegaly Skin: + excoriations and + lichenification Results & Data Vital Signs (Past 12 Hours) Vital Signs Temp Pulse Pulse Resp BP BP Pulse Ox 09/14/19 08:00 92 H 09/14/19 07:14 37.0 C 95 H 22 136/74 98 09/14/19 07:11 89 18 90 09/14/19 04:04 36.7 C 83 22 135/77 97 09/14/19 00:00 76 09/13/19 23:35 87 21 93 09/13/19 23:12 36.6 C 86 22 134/76 96 Laboratory Results 09/14/19 07:23 09/14/19 07:23 Diagnostic Findings No new films PG Care Time/CCT Total # of Minutes Spent Total Time Spent with Patient: Total time spent is greater than 50% in coordination of care (as documented) at patient's floor/unit and/or counseling patient: Coding Level of Care Code 62612 Subseq Hosp Care Lvl 2 Diagnoses Hypercapnic respiratory failure J96.92 Hypoxemic respiratory failure, chronic J96.11 Diastolic heart failure I50.30 COPD (chronic obstructive pulmonary disease) J44.9 Obesity hypoventilation syndrome E66.2
[2019-09-14] MEDS: FLUTICASONE FUROATE 200MCG 14 PUFFS/INHALER INH SCH (11:59)
[2019-09-14] MEDS: UMECLIDINIUM/VILANTEROL 62.5/25MCG 7 PUFFS/INHALER INH SCH (11:59)
--- NOTE | 2019-09-14 16:41 | Hospitalist Progress Note ---
Date of Service September 14, 2019 Assessment & Plan (1) Hypercapnic respiratory failure: hypercapnic AND hypoxic respiratory failure has chronic hypoxic respiratory failure and chronic hypercapnic respiratory failure at baseline intubated until 09/12, successful SBT, extubated and placed on BIPAP for several hours now down to 4L NC, breathing comfortably at rest saturation goal is 88-90% hypoxia primarily due to volume overload diuresed over 16 liters thus far feels so much better continue to be OOB, use incentive spirometer, use BIPAP HS has BIPAP at home that he is committed to using (2) Acute exacerbation of CHF (congestive heart failure): acute on chronic heart failure with preserved EF Strict in and out, negative over 16 liters thus far approaching euvolemic state, less urine output the past 24 hours initially treated with Lasix 40mg IV BID for diuresis Cr is stable but less diuresis will change back to Lasix 40mg PO daily today (this is home dose) Echocardiogram from last month demonstrated a preserved ejection fraction. (3) Acute exacerbation of COPD with asthma: steroids stopped, continue beta agonists no wheezing on exam (4) Hypertension: stable (5) Obesity hypoventilation syndrome: needs to work on weight loss respiratory issues will persist unless he loses weight (6) Obstructive sleep apnea: continue NIPPV at night now that he is extubated he confirms that he had his BiPAP delivered to his home (7) Tobacco abuse: advised to to quit smoking (8) Shoulder pain, left: has h/o rotator cuff injury Voltaren 1% gel, apply 2 inches q12 for relief (9) Hypoxemic respiratory failure, chronic: wears 3L at baseline (10) Ambulatory dysfunction: continue with PT/OT to work on strength, determine if he needs rehab Plan: continue on PCU anticipate d/c to either home or rehab in a few days, likely Wed Subjective patient continues to improve every day making less urine today so changed Lasix back to PO eating well participating in therapy, walked in the halls today, he felt stronger labs show WBC 11k, Hb 13 Cr is 0.5, CO2 continues to be high at [address] Ann, appreciate her input Review of Systems Review of Systems: All systems reviewed & are unremarkable except as noted in HPI & below Physical Exam Constitutional: well developed and + morbidly obese; not in distress Eyes: PERRL, conjunctivae normal, anicteric sclerae ENMT: external ear and nose normal, oropharynx normal Neck: trachea midline, no thyromegaly Respiratory: normal respiratory effort and symmetric chest movement Auscultation: lungs clear to auscultation bilaterally Cardiovascular: Rate/Rhythm: regular rate and regular rhythm Heart Sounds: normal S1 and normal S2; no murmur Vessels: no JVD Extremities: normal capillary refill and + edema Gastrointestinal (Abdomen): normal bowel sounds, soft, nontender, no hepatosplenomegaly Musculoskeletal: Head/Neck/Chest: normocephalic and head atraumatic Extremities: no cyanosis and no clubbing Skin: + rash (several areas of white plaques) Neurologic: PERRL, EOMI, accommodation nl, no face palsy, no dysarthria Psychiatric: Orientation: alert and oriented x 3 Lymphatic: no cervical or axillary lymphadenopathy Results & Data Vital Signs (Past 12 Hours) Vital Signs Temp Pulse Pulse Pulse Resp BP BP 09/14/19 16:00 86 09/14/19 15:40 36.9 C 70 20 151/68 H 09/14/19 15:17 69 16 09/14/19 13:58 09/14/19 11:25 36.8 C 80 19 141/75 H 09/14/19 11:12 59 L 16 09/14/19 08:00 92 H 09/14/19 07:14 37.0 C 95 H 22 136/74 09/14/19 07:11 89 18 Pulse Ox Pulse Ox 09/14/19 16:00 09/14/19 15:40 95 09/14/19 15:17 94 09/14/19 13:58 93 09/14/19 11:25 93 09/14/19 11:12 94 09/14/19 08:00 09/14/19 07:14 98 09/14/19 07:11 90 Laboratory Results Laboratory Results - last 24 hr 09/13/19 09/14/19 09/14/19 20:15 05:59 07:18 WBC RBC Hgb Hct MCV MCH MCHC RDW Std Deviation RDW Coeff of Lyric Plt Count MPV APTT Cancelled 26.4 PTT Ratio Cancelled 1.0 Sodium Potassium Chloride Carbon Dioxide Anion Gap BUN Creatinine Est Cr Clr Drug Dosing Est GFR ( Amer) Est GFR (Non-Af Amer) BUN/Creatinine Ratio Glucose POC Glucose 167 H Calcium 09/14/19 09/14/19 09/14/19 07:23 07:23 07:32 WBC 11.34 H RBC 4.40 L Hgb 13.3 L Hct 41.6 L MCV 94.5 MCH 30.2 MCHC 32.0 RDW Std Deviation 51.3 H RDW Coeff of Lyric 14.9 H Plt Count 273 MPV 9.6 APTT PTT Ratio Sodium 137 Potassium 3.5 Chloride 93 L Carbon Dioxide 42 H* Anion Gap 3.0 BUN 22 H Creatinine 0.56 L Est Cr Clr Drug Dosing 204.4 Est GFR ( Amer) 128.5 Est GFR (Non-Af Amer) 110.9 BUN/Creatinine Ratio 39.1 H Glucose 147 H POC Glucose 146 H Calcium 9.7 09/14/19 09/14/19 11:20 16:20 WBC RBC Hgb Hct MCV MCH MCHC RDW Std Deviation RDW Coeff of Lyric Plt Count MPV APTT PTT Ratio Sodium Potassium Chloride Carbon Dioxide Anion Gap BUN Creatinine Est Cr Clr Drug Dosing Est GFR ( Amer) Est GFR (Non-Af Amer) BUN/Creatinine Ratio Glucose POC Glucose 206 H 118 H Calcium Medications Administered Current Inpatient Medications Acetaminophen (Tylenol) 650 mg PO Q4H PRN PRN Reason: Pain or Fever Stop: 10/09/19 17:31 Last Admin: 09/13/19 15:07 Dose: 650 mg Documented by: Al Hydrox/Mg Hydrox/Simethicone (Maalox) 15 ml PO Q4H PRN PRN Reason: Dyspepsia Stop: 10/09/19 17:31 Albuterol (Duoneb) 3 ml NEB QIDR [facility] Stop: 10/09/19 18:59 Last Admin: 09/14/19 15:16 Dose: 3 ml Documented by: Aspirin (Aspirin Chew) 81 mg PO DAILY [facility] Stop: 10/10/19 08:59 Last Admin: 09/14/19 08:48 Dose: 81 mg Documented by: Atorvastatin Calcium (Lipitor) 40 mg PO DAILY [facility] Stop: 10/10/19 08:59 Last Admin: 09/14/19 08:49 Dose: 40 mg Documented by: Carvedilol (Coreg) 3.125 mg PO BID [facility] Stop: 10/09/19 20:59 Last Admin: 09/14/19 08:48 Dose: 3.125 mg Documented by: Clotrimazole (Lotrimin 1%) 1 appln EXT BID [facility] Stop: 10/09/19 21:44 Last Admin: 09/14/19 08:42 Dose: 1 appln Documented by: Dextrose (Dextrose 50%) 25 - 50 ml IV UD PRN; Protocol PRN Reason: Hypoglycemia Protocol Stop: 10/09/19 20:33 Last Admin: 09/09/19 20:39 Dose: 25 ml Documented by: Diclofenac Sodium (Voltaren 1% Top) 2 gm EXT Q12 PRN PRN Reason: Pain Stop: 10/13/19 20:59 Last Admin: 09/14/19 08:51 Dose: 2 gm Documented by: Escitalopram Oxalate (Lexapro Tab) 20 mg PO DAILY [facility] Stop: 10/10/19 08:59 Last Admin: 09/14/19 08:49 Dose: 20 mg Documented by: Fluticasone Furoate (Arnuity Ellipta 200mcg) 1 puffs INH QAM [facility] Stop: 10/14/19 10:29 Last Admin: 09/14/19 11:59 Dose: 1 puffs Documented by: Folic Acid (Folvite) 1 mg PO SuTuWeThFrSa@0900 [facility] Stop: 10/10/19 08:59 Last Admin: 09/14/19 08:48 Dose: 1 mg Documented by: Furosemide (Lasix) 40 mg PO QAM [facility] Stop: 10/15/19 08:59 Glucagon (Glucagen) 1 mg SQ UD PRN; Protocol PRN Reason: Hypoglycemia Protocol Stop: 10/09/19 20:33 Glucose (Dex4 Glucose) 4 - 8 tabs PO UD PRN; Protocol PRN Reason: Hypoglycemia Protocol Stop: 10/09/19 20:33 Glucose (Glucose 40%) 15 - 30 gm PO UD PRN; Protocol PRN Reason: Hypoglycemia Protocol Stop: 10/09/19 20:33 Heparin Sodium (Porcine) (Heparin Sodium (Porcine)) 5,000 units SQ Q8 [facility] Stop: 10/10/19 13:59 Last Admin: 09/14/19 05:45 Dose: 5,000 units Documented by: Insulin Aspart (Novolog Flexpen) 0 units SC ACHS [facility] Stop: 10/11/19 11:59 Last Admin: 09/14/19 12:08 Dose: 18 units Documented by: Insulin Glargine (Lantus Solostar Pen) 0 units SC BID@0800,2000 [facility]; Protocol Stop: 10/12/19 19:59 Last Admin: 09/14/19 08:47 Dose: 10 units Documented by: Magnesium Hydroxide (Milk Of Magnesia) 30 ml PO Q12H PRN PRN Reason: Constipation Stop: 10/09/19 17:31 Methotrexate (Methotrexate) 7.5 mg PO Q7D [facility] Stop: 10/15/19 08:59 Miscellaneous (Order Awaiting Action) 1 ea N/A QS [facility] Stop: 10/10/19 00:00 Last Admin: 09/14/19 08:10 Dose: Not Given Documented by: Miscellaneous (Carbohydrates For Hypoglycemia) 15 - 30 gm PO UD PRN PRN Reason: Hypoglycemia Protocol Stop: 10/09/19 20:33 Miscellaneous Information (Consult Glycemic Management Pharmacy) 1 ea N/A UD PRN PRN Reason: Consult Stop: 10/10/19 12:57 Ondansetron HCl (Zofran) 4 mg IV Q6H PRN PRN Reason: Nausea Stop: 10/09/19 17:31 Last Admin: 09/13/19 05:52 Dose: 4 mg Documented by: Polyethylene Glycol (Miralax Powder Packet) 17 gm PO DAILY PRN PRN Reason: Constipation Stop: 10/09/19 17:31 Pregabalin (Lyrica) 50 mg PO BID [facility] Stop: 10/10/19 20:59 Last Admin: 09/14/19 08:53 Dose: 50 mg Documented by: Umeclidinium [place] (Incruse Ellipta) 1 puffs INH QAM [facility] Stop: 10/09/19 17:59 Last Admin: 09/11/19 18:14 Dose: Not Given Documented by: Umeclidinium/Vilanterol (Anoro Ellipta 62.5/25 Mcg Inh) 1 puffs INH DAILY [facility] Stop: 10/14/19 10:14 Last Admin: 09/14/19 11:59 Dose: 1 puffs Documented by: PG Care Time/CCT Total # of Minutes Spent Total Time Spent with Patient: Total time spent is greater than 50% in coordination of care (as documented) at patient's floor/unit and/or counseling patient: Coding Level of Care Code 26721 Subseq Hosp Care Lvl 3 Diagnoses Hypercapnic respiratory failure J96.92 Acute exacerbation of CHF (congestive heart failure) I50.9 Acute exacerbation of COPD with asthma J44.1; J45.901 Hypertension I15.8 Hypertension type: other secondary hypertension Obesity hypoventilation syndrome E66.2 Obstructive sleep apnea G47.33 Tobacco abuse Z72.0 Shoulder pain, left M25.512 Hypoxemic respiratory failure, chronic J96.11 Ambulatory dysfunction R26.2 (1) Hypertension Hypertension type: other secondary hypertension Qualified Code(s): I15.8 - Other secondary hypertension
[2019-09-15] MEDS: HEPARIN SOD 5,000 UNIT/0.5 ML VIAL SQ SCH ×3 (05:04→20:29)
[2019-09-15 06:56] LABS: Hemoglobin 12.6 g/dL (14.0-18.0); Mean Corpuscular Hemoglobin 29.4 pg (25-34); Mean Corpuscular Hgb Conc 31.5 g/dL (32-36); Mean Corpuscular Volume 93.2 fL (80-100); Mean Platelet Volume 9.1 fL (7.4-10.4); Platelet Count 256 K/uL (130-400); RDW Coefficient of Variation 14.8 % (11.5-14.5); RDW Standard Deviation 49.9 fL (36.4-46.3); Red Blood Count 4.29 M/uL (4.7-6.1); White Blood Count 10.14 K/uL (4.8-10.8)
[2019-09-15 07:11] LABS: Partial Thromboplastin Time 27.6 Seconds (21.0-31.0)
[2019-09-15] MEDS: ALBUT/IPRATROP 3MG/0.5MG NEB 3 ML VIAL NEB SCH ×4 (07:29→20:42)
[2019-09-15 07:54] LABS: Calcium 9.3 mg/dl (8.5-10.1); Creatinine Clr Calc Pharmacy 225.2 ml/min; Est GFR (African American) 133.5; Est GFR (Non-African American) 115.2; Potassium 3.1 mmol/L (3.5-5.1)
[2019-09-15] MEDS: ESCITALOPRAM OXALATE 20 MG TAB PO SCH (08:23)
[2019-09-15] MEDS: ATORVASTATIN 40 MG TAB PO SCH (08:23)
[2019-09-15] MEDS: PREGABALIN 50 MG CAP PO SCH ×2 (08:23→20:28)
[2019-09-15] MEDS: CLOTRIMAZOLE 1% CR 15 GM TUBE EXT SCH ×2 (08:23→20:28)
[2019-09-15] MEDS: carvediloL 3.125 MG TAB PO SCH ×2 (08:23→20:28)
[2019-09-15] MEDS: UMECLIDINIUM/VILANTEROL 62.5/25MCG 7 PUFFS/INHALER INH SCH (08:24)
[2019-09-15] MEDS: FLUTICASONE FUROATE 200MCG 14 PUFFS/INHALER INH SCH (08:24)
[2019-09-15] MEDS: INSULIN GLARGINE SOLOSTAR 100 UNITS/ML 3 ML PEN SC SCH ×2 (08:25→20:26)
[2019-09-15] MEDS: ASPIRIN 81 MG CHEW PO SCH (08:25)
[2019-09-15] MEDS: INSULIN ASPART 100 UNITS/ML 3 ML PEN SC SCH ×4 (08:26→20:27)
[2019-09-15] MEDS ORDERED: FUROSEMIDE 40 MG TAB PO SCH (09:00)
[2019-09-15] MEDS ORDERED: metHOTREXate sodium 2.5 MG TAB PO SCH (09:00)
[2019-09-15] MEDS ORDERED: POTASSIUM CHLORIDE 20 MEQ TABCR PO STA (09:29)
--- NOTE | 2019-09-15 13:41 | Pulmonology Progress Note ---
Date of Service September 15, 2019 Assessment & Plan (1) Hypercapnic respiratory failure: Acute on chronic respiratory failure secondary to hypercapnia Long discussion with patient about absolute need to use non-invasive ventilation Trilogy NIV delivered to patient's house on day of admission Advised patient to use at least 5 hours per night and during the day as needed Wean supplemental oxygen to 88 to 92% as tolerated Patient to follow with Dr. Cope/Sincere Mcclain PA-C on discharge (2) Diastolic heart failure: Continue diuretics for fluid overload Currently 16 L negative since admission Follow clinically (3) Morbid obesity: Long discussion about need to limit caloric intake and ambulate daily Critical component of patient's care plan on discharge will be weight loss We will need to follow with outpatient support (4) Obesity hypoventilation syndrome: Multiple admissions for acute on chronic respiratory failure Patient reports a trilogy NIV was delivered to her house on day of admission Will require compliance of at least 4 hours nightly -patient aware Patient will follow-up with Dr. Cope as an outpatient (5) COPD (chronic obstructive pulmonary disease): Patient continues to smoke 1 pack/day Discussed need for smoking cessation Patient requesting Chantix -suggested the patient talk to her primary care physician so that potential side effects can be monitored and manage. Patient does have history of depression but never had any suicidal ideation. Other option could be bupropion for him. Discussed the need for absolute smoking cessation Patient appears aware of his dire condition Thank you for including us in the care of this patient. From a pulmonary perspective patient can be discharged home with noninvasive trilogy. We will sign off at this time. Please feel free to reconsult as needed. Please refer to Dr. Leo's addendum and corrections for further recommendations. Supervising Physician Co-Signing Physician Notes I saw and evaluated the patient with Max sun, and agree with findings and plan as documented in the note. Patient seen and examined at bedside. Has been compliant with BiPAP while in the hospital. Patient already has a trilogy at home. Has been urinating well. Shortness of breath is improved. Denies any chest pain, no headache, no nausea, no vomiting. Tolerating diet. Asking to go home. Patient is still actively smoking. Importance of quitting smoking explained to the patient. Patient follows up with Duc Mcclain as an outpatient. Advised to follow-up with him within a week of discharge. Patient has history of right lower lobectomy done approximately 12 years ago status post trauma to the right side. Patient has severe decreased entry on the right side. Patient not actively wheezing. Patient was saturating 97% on 3 L nasal cannula. Advised patient to keep oxygen saturation between 88 to 92% and use trilogy whenever she is asleep irrespective of the time day or night. Patient still has +2 pitting edema bilateral lower extremities. Patient is stable from pulmonary perspective to be discharged. He is already on Lama inhaler along with LABA/ICS inhaler. I would continue with the same on discharge. Patient is on methotrexate once weekly also for his psoriasis. Subjective Attending: Dr. Leo Patient seen and examined at bedside. Patient is currently in bedside chair. He states that he feels "excellent". He further states he feels as though he is at baseline. Patient was admitted and was transferred here from [facility] via helicopter. He was intubated prior to transfer by air for hypercapnic respiratory failure. Patient was extubated 09/12/2019 and is doing well at this time. Patient denies any shortness of breath. He has no chest pain or tightness. He does admit to some anxiety related shortness of breath but currently is doing well. He denies any fever or chills. He is eating well without aspiration. He did use BiPAP last night but only for about 2 hours. Nursing reports they are continue to work with him with BiPAP tolerance. Patient reports that a trilogy noninvasive ventilator was delivered on his day of admission. He has not seen it but states that it is ready to use at home. The patient does report 1 pack/day of cigarette smoking and although he wants to quit he states that he does not have the willpower to do that. Review of Systems Review of Systems: All systems reviewed & are unremarkable except as noted in HPI & below Physical Exam Physical Exam: GENERAL : No acute distress EYES: No icterus, gaze conjugate NOSE: No evidence of epistaxis MOUTH: No lesions or candidiasis NECK: Supple LUNGS: Breath sounds are distant. CTA B/L, no wheezes, rales or rhonchi appr eciated HEART: Regular, rate controlled ABDOMEN: Soft, NT, ND, BS Present EXTREMITIES: No LE edema, pedal pulses intact and equal bilaterally. NEURO: A&OX3 Results & Data Vital Signs (Past 12 Hours) Vital Signs Temp Pulse Pulse Resp BP Pulse Ox 09/15/19 11:44 37.0 C 72 18 124/66 98 09/15/19 11:09 81 20 98 09/15/19 08:00 86 09/15/19 07:58 36.7 C 67 18 133/64 97 09/15/19 07:29 60 18 94 09/15/19 04:00 36.5 C 88 22 143/74 H 96 Laboratory Results 09/15/19 06:39 09/15/19 06:39 Diagnostic Findings No new diagnostic imaging since 09/13/2019 PG Care Time/CCT Total # of Minutes Spent Total Time Spent with Patient: Total time spent is greater than 50% in coordination of care (as documented) at patient's floor/unit and/or counseling patient: 35 minutes Coding Level of Care Code 28813 Subseq Hosp Care Lvl 2 Diagnoses Hypercapnic respiratory failure J96.92 Diastolic heart failure I50.30 Morbid obesity E66.01 Obesity hypoventilation syndrome E66.2 COPD (chronic obstructive pulmonary disease) J44.9 Time Spent (min) 35 Comment >50% time was spent [id number] with the patient discussing diagnosis and plan of care.
--- NOTE | 2019-09-15 18:16 | Hospitalist Progress Note ---
Date of Service September 15, 2019 Assessment & Plan (1) Hypercapnic respiratory failure: hypercapnic AND hypoxic respiratory failure has chronic hypoxic respiratory failure and chronic hypercapnic respiratory failure at baseline intubated until 09/12, successful SBT, extubated and placed on BIPAP for several hours now down to 2-4L NC, breathing comfortably at rest, on oxygen at home saturation goal is 88-90% hypoxia primarily due to volume overload diuresed over 16 liters thus far has lost 15 kg of body weight feels so much better continue to be OOB, use incentive spirometer, use BIPAP HS Does not yet have a BIPAP at home, but is committed to using it once he gets delivered upon discharge -Counseled extensively on quitting smoking (2) Acute exacerbation of CHF (congestive heart failure): acute on chronic heart failure with preserved EF -Continue strict in and out, negative over 16 liters thus far lost 15 kg of body weight as above -Has seemed to achieved status quo in the last 48 hours with body weight initially treated with Lasix 40mg IV BID for diuresis Cr is stable but less diuresis -He has since been changed back to Lasix 40mg PO daily today (this is home dose), but will consider increasing to twice daily to keep fluid from coming back -Discussed low-sodium diet extensively as he was unaware that eating a jar of pickles did not have a high sodium load -Fluid restriction at home -Echocardiogram from last month demonstrated a preserved ejection fraction. -Continue good blood pressure control (3) Acute exacerbation of COPD with asthma: steroids stopped, continue beta agonists no wheezing on exam -Pulmonology recommends Trelegy inhaler upon discharge (4) Hypertension: Blood pressures fairly well controlled -Continue carvedilol 3.125 mg p.o. twice daily, furosemide as above (5) Obesity hypoventilation syndrome: needs to work on weight loss, discussed with him respiratory issues will persist unless he loses weight (6) Obstructive sleep apnea: continue NIPPV at night now that he is extubated He has not yet had the BiPAP delivered to his home-Case management is involved with making sure this is done (7) Tobacco abuse: advised to to quit smoking Extensively counseled -Will prescribe him Chantix upon discharge-discussed risks and benefits given psychiatric history but feels the benefit outweighs the risk at this point-he has good insight into his mood disorder (8) Shoulder pain, left: has h/o rotator cuff injury Voltaren 1% gel, apply 2 inches q12 for relief (9) Hypoxemic respiratory failure, chronic: wears 3L at baseline (10) Morbid obesity: Counseled on weight loss, BMI 47.3 (11) Psoriasis: Unclear if this is why is on the methotrexate? We will discuss (12) Anxiety: with panic disorder, worsened by SOB With h/o serotonin toxicity in the past when on Buspar, Cymbalta, lexapro Continues on Lexapro only Pt desperate for help, feels like no one is listening -consult Psychiatry to assist with med management and outpt follow up for Psych (13) Hypokalemia: replace with KCl po Check BMP in AM secondary to loop diuretics (14) Diabetes: Uncontrolled, HgbA1C 8.1% in 07/2019 -continue insulin here with basal and bolus -hold home meds (15) Ambulatory dysfunction: Is able to ambulate with a walker with PT and they are recommending return home-he is absolutely refusing rehab or home health Plan: continue on PCU anticipate d/c to home likely tomorrow (16) DVT prophylaxis: Heparin SQ Disposition as above Subjective Patient describes a lot of anxiety in his life. He has panic attacks. He reports he wants to quit smoking but does not think he will be able to do it cold turkey when he leaves here. He does agree to turn off his oxygen when smoking at home and we discussed the importance of doing so extensively. 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 She is very concerned and wants him to go to rehab and he is absolutely refusing that, plus PT is not recommending rehab. He reports his shortness of breath is much improved. He overall feels a lot better than when he came in and he is happy with this. He is very interested in seeing psychiatry. He has a history of serotonin syndrome as reviewed in previous psychiatric notes. He is been taken off of his Cymbalta, BuSpar, and clonazepam during a previous admission and since then his anxiety has worsened. His shortness of breath at home has also contributed to his anxiety. Telemetry with normal sinus rhythm, first-degree AV block, PACs, rates 80s to 90s Review of Systems Review of Systems: All systems reviewed & are unremarkable except as noted in HPI & below (Denies chest pain, denies abdominal pain or nausea, has a good appetite, is making urine and moving his bowels) Physical Exam Constitutional: WD/WN, vitals as above + morbidly obese Eyes: + anicteric sclerae Neck: trachea midline, no thyromegaly Respiratory: normal respiratory effort, lungs clear to auscultation Auscultation: + diminished lung sounds (Diminished throughout due to body habitus); no rales and no wheezes Cardiovascular: Rate/Rhythm: regular rate and regular rhythm Extremities: + edema (2-3+ woody edema of the bilateral lower extremities to the knees) Chest (Breasts): Chest: normal inspection of chest Gastrointestinal (Abdomen): normal bowel sounds, soft, nontender, no hepatosplenomegaly Musculoskeletal: Extremities: no cyanosis and no clubbing Skin: + rash (Diffuse areas of thick white plaques on extensor surfaces and ears, back of neck) Neurologic: moves all extremities and awake; no focal motor deficits Psychiatric: Orientation: alert, oriented x 3 and cooperative Speech: normal rate/rhythm/volume of speech Affect: + anxious affect Mood: + depressed mood and + anxious mood Thought Process: goal directed thought process Suicidal Thoughts: denies suicidal thoughts Lymphatic: no lymphedema Results & Data Vital Signs (Past 12 Hours) Vital Signs Temp Pulse Pulse Resp BP Pulse Ox 09/15/19 16:07 86 18 95 09/15/19 16:00 86 09/15/19 15:59 36.8 C 69 18 122/63 97 09/15/19 12:00 86 09/15/19 11:44 37.0 C 72 18 124/66 98 09/15/19 11:09 81 20 98 09/15/19 08:00 86 09/15/19 07:58 36.7 C 67 18 133/64 97 09/15/19 07:29 60 18 94 Laboratory Results 09/15/19 09/15/19 09/15/19 Range/Units 20:23 16:15 11:26 WBC (4.8-10.8) K/uL RBC (4.7-6.1) M/uL Hgb (14.0-18.0) g/dL Hct (42-52) % MCV (80-100) fL MCH (25-34) pg MCHC (32-36) g/dL RDW Std Deviation (36.4-46.3) fL RDW Coeff of Lyric (11.5-14.5) % Plt Count (130-400) K/uL MPV (7.4-10.4) fL APTT (21.0-31.0) Seconds PTT Ratio Sodium (136-145) mmol/L Potassium (3.5-5.1) mmol/L Chloride (98-107) mmol/L Carbon Dioxide (21-32) mmol/L Anion Gap (3-11) BUN (7-18) mg/dl Creatinine (0.6-1.4) mg/dl Est Cr Clr Drug Dosing ml/min Est GFR ( Amer) Est GFR (Non-Af Amer) BUN/Creatinine Ratio (10-20) Glucose (70-99) mg/dl POC Glucose 183 H 175 H 195 H (70-99) mg/dl Calcium (8.5-10.1) mg/dl 09/15/19 09/15/19 09/15/19 Range/Units 07:29 06:39 06:39 WBC 10.14 (4.8-10.8) K/uL RBC 4.29 L (4.7-6.1) M/uL Hgb 12.6 L (14.0-18.0) g/dL Hct 40.0 L (42-52) % MCV 93.2 (80-100) fL MCH 29.4 (25-34) pg MCHC 31.5 L (32-36) g/dL RDW Std Deviation 49.9 H (36.4-46.3) fL RDW Coeff of Lyric 14.8 H (11.5-14.5) % Plt Count 256 (130-400) K/uL MPV 9.1 (7.4-10.4) fL APTT (21.0-31.0) Seconds PTT Ratio Sodium 137 (136-145) mmol/L Potassium 3.1 L (3.5-5.1) mmol/L Chloride 94 L (98-107) mmol/L Carbon Dioxide 40 H (21-32) mmol/L Anion Gap 3.0 (3-11) BUN 23 H (7-18) mg/dl Creatinine 0.51 L (0.6-1.4) mg/dl Est Cr Clr Drug Dosing 225.2 ml/min Est GFR ( Amer) 133.5 Est GFR (Non-Af Amer) 115.2 BUN/Creatinine Ratio 45.0 H (10-20) Glucose 153 H (70-99) mg/dl POC Glucose 153 H (70-99) mg/dl Calcium 9.3 (8.5-10.1) mg/dl 09/15/19 Range/Units 06:39 WBC (4.8-10.8) K/uL RBC (4.7-6.1) M/uL Hgb (14.0-18.0) g/dL Hct (42-52) % MCV (80-100) fL MCH (25-34) pg MCHC (32-36) g/dL RDW Std Deviation (36.4-46.3) fL RDW Coeff of Lyric (11.5-14.5) % Plt Count (130-400) K/uL MPV (7.4-10.4) fL APTT 27.6 (21.0-31.0) Seconds PTT Ratio 1.0 Sodium (136-145) mmol/L Potassium (3.5-5.1) mmol/L Chloride (98-107) mmol/L Carbon Dioxide (21-32) mmol/L Anion Gap (3-11) BUN (7-18) mg/dl Creatinine (0.6-1.4) mg/dl Est Cr Clr Drug Dosing ml/min Est GFR ( Amer) Est GFR (Non-Af Amer) BUN/Creatinine Ratio (10-20) Glucose (70-99) mg/dl POC Glucose (70-99) mg/dl Calcium (8.5-10.1) mg/dl PG Care Time/CCT Total # of Minutes Spent Total Time Spent with Patient: Total time spent is greater than 50% in coordination of care (as documented) at patient's floor/unit and/or counseling patient: Coding Level of Care Code 38315 Subseq Hosp Care Lvl 3 Diagnoses Hypercapnic respiratory failure J96.92 Acute exacerbation of CHF (congestive heart failure) I50.9 Acute exacerbation of COPD with asthma J44.1; J45.901 Hypertension I15.8 Hypertension type: other secondary hypertension Obesity hypoventilation syndrome E66.2 Obstructive sleep apnea G47.33 Tobacco abuse Z72.0 Shoulder pain, left M25.512 Hypoxemic respiratory failure, chronic J96.11 Morbid obesity E66.01 Psoriasis L40.9 Anxiety F41.9 Hypokalemia E87.6 Diabetes E11.9; Z79.4 Diabetes mellitus complication status: without complication Diabetes mellitus long-term insulin use: with long-term use Diabetes mellitus type: type 2 Ambulatory dysfunction R26.2 DVT prophylaxis Z29.9 (1) Diabetes Diabetes mellitus complication status: without complication Diabetes mellitus long-term insulin use: with rodent exterminator use Diabetes mellitus type: type 2 Qualified Code(s): E11.9 - Type 2 diabetes mellitus without complications; Z79.4 - exterminator (current) use of insulin (2) Hypertension Hypertension type: other secondary hypertension Qualified Code(s): I15.8 - Other secondary hypertension
[2019-09-16] MEDS: HEPARIN SOD 5,000 UNIT/0.5 ML VIAL SQ SCH ×2 (06:02→15:11)
[2019-09-16 07:18] LABS: BUN Creatinine Ratio 39.7 (10-20); Calcium 9.1 mg/dl (8.5-10.1); Creatinine Clr Calc Pharmacy 202.9 ml/min; Est GFR (African American) 127.6; Est GFR (Non-African American) 110.1; Magnesium 2.1 mg/dl (1.8-2.4)
[2019-09-16] MEDS: ALBUT/IPRATROP 3MG/0.5MG NEB 3 ML VIAL NEB SCH ×3 (07:18→15:53)
[2019-09-16] MEDS ORDERED: FUROSEMIDE 40 MG in SYRINGE 0 ML IV ONE (07:30)
[2019-09-16] MEDS: INSULIN ASPART 100 UNITS/ML 3 ML PEN SC SCH ×2 (08:45→13:33)
[2019-09-16] MEDS: carvediloL 3.125 MG TAB PO SCH (08:48)
[2019-09-16] MEDS: FOLIC ACID 1 MG TAB PO SCH (08:49)
[2019-09-16] MEDS: ATORVASTATIN 40 MG TAB PO SCH (08:49)
[2019-09-16] MEDS: ESCITALOPRAM OXALATE 20 MG TAB PO SCH (08:49)
[2019-09-16] MEDS: UMECLIDINIUM/VILANTEROL 62.5/25MCG 7 PUFFS/INHALER INH SCH (08:50)
[2019-09-16] MEDS: FLUTICASONE FUROATE 200MCG 14 PUFFS/INHALER INH SCH (08:50)
[2019-09-16] MEDS: DICLOFENAC SOD 1% GEL 100 GM TUBE EXT PRN (08:51)
[2019-09-16] MEDS: CLOTRIMAZOLE 1% CR 15 GM TUBE EXT SCH (08:52)
[2019-09-16] MEDS: PREGABALIN 50 MG CAP PO SCH (08:56)
[2019-09-16] MEDS: ASPIRIN 81 MG CHEW PO SCH (08:56)
[2019-09-16] MEDS ORDERED: POTASSIUM CHLORIDE 20 MEQ TABCR PO STA (09:58)
[2019-09-16] MEDS: INSULIN GLARGINE SOLOSTAR 100 UNITS/ML 3 ML PEN SC SCH (10:24)
--- NOTE | 2019-09-16 11:29 | Psychiatric Consultation ---
Date of Consultation September 16, 2019 Impression / Recommendations Impression Dr. Karin Nixon was directly involved in review and discussion of the patient's case and participated in medical decision making regarding treatment recommendations. RECOMMENDATIONS: 09/16 - Pt reporting increased episodes of panic, specifically as it relates to using the bathroom at home - reasoning for this is unknown. Symptoms of anxiety and depressed mood are ongoing, though no reports of SI/HI, SIB, A/V hallucinations, or other acute psychiatric concerns. No indication for inpatient psychiatric hospitalization - Given suspected serotonin toxicity on past hospitalizations, would be concerned about medication adjustments that are too aggressive in this acute phase. Non-serotonergic agents were reviewed with hospitalists, though not ideal given medical comorbidities (hydroxyzine, benzodiazepines, propranolol). It does seem reasonable to resume low-dose buspirone, as patient is no longer taking both escitalopram and duloxetine - patient was educated on signs and symptoms of serotonin toxicity and advised to hold buspirone and notify his medical provider if symptoms occur - Suggest initiating buspirone at only 5mg BID to begin - can continue escitalopram 20mg daily - Pt agreeable with referrals for therapy and medication management - he signed ROIs and liaison will assist with appointment scheduling - Will forward our consult and recommendations to patient's PCP - as he may require interim management of his psychotropic medications until psychiatry intake occurs - Pt denied other needs from our service at this time; please reach out to our service with any additional questions or updates - Appreciate the opportunity to participate in the care of this patient Psych History Identifying Data 64-year-old male admitted medically on 09/09/2019 after presenting to the ED in acute respiratory failure. Pt required intubation to protect airflow. Psychiatric consultation was requested to evaluate patient for anxiety, with reported history of serotonin toxicity in the past. Pt was most recently seen by our service on 07/29/2019. Chief Complaint "Well, what's been happening is I've been having panic attacks. Mostly when I think about having to go to the bathroom, for some reason." History of Present Illness 64-year-old male admitted medically on 09/09/2019 after presenting to the ED in acute respiratory failure. Pt was transferred from [facility], where he had re quired intubation to protect airflow prior to being life-flighted to [facility]. PMH includes: COPD (history of right lower lobectomy 12 years ago), nicotine dependence, morbidly obese, CHF, HTN, psoriasis, and anxiety. Psychiatric consultation was requested to evaluate patient for anxiety, with reported history of serotonin toxicity in the past. Pt was most recently seen by our service on 07/29/2019. It appears that patient had demonstrated confusion and myoclonic jerking suspected to be related to acute on chronic hypercapnia in the setting of respiratory depression. Concern during that admission was related to psychotropic polypharmacy contributing to presentation. At discharge, patient was recommended to continue only escitalopram 20mg and follow-up with outpatient psychiatry. On this admission, patient's medical conditions have improved. Psychiatric consultation is requested due to patient's reports of panic attacks - knowing history of concerns with psychotropic polypharmacy in the past. Case was reviewed with hospitalist prior to assessment. Pt is cooperative with psychiatric evaluation and allows this provider to interview in conjunction with psychiatric nurse liaison. He reports concern related to increased panic attacks, specifically related to having to go in the bathroom to relieve himself. Pt states, "I am claustrophobic, but that had never bothered me bef ore. And, I can see my whole apartment from the bathroom, it's not like I'm closed in." Pt also reports the loss of numerous family members recently, and feels this has prevented him from improving fully. He states that his parents are and that his niece recently completed suicide. He states he was very close with all of these individuals, and continues to grief the loss of these relationships. On top of this, his partner of 40+ years had passed as well. Physically, patient reports improvement. He does report desire for psychiatric follow-up, admitting concern that his phone calls with offices previously have never led to a formal appointment being scheduled. He is willing to sign ROIs to allow our team to initiate referrals. Pt denies SI/HI, SIB, A/V hallucinations, and other acute psychiatric concerns. Pt denies symptoms presently that would be consistent with serotonin toxicity. We reviewed various anxiolytic agents - discussing that many are contraindicated in the setting of respiratory failure. Pt verbalized understanding of this. He was agreeable to resuming low-dose buspirone until he is able to follow-up with an outpatient psychiatric provider to make more intensive medication changes, as indicated. Pt admitted he was hopeful for a discharge today, and did agree with concern for major adjustments just before leaving the hospital. Pt denied any other acute needs, and verbalized satisfaction with the plan discussed. PHQ-9 completed with psychiatric nurse liaison - (score indicating major depression, severe). Pt indicated nearly everyday issues of: little interest or pleasure, feeling down or depressed, feeling tired, and trouble concentrating. He scored a 0 for question #9 regarding suicidal thoughts. Past Psychiatric History Previous Psych History: Pt reports history of anxiety and depression; multiple deaths of close family members. Was diagnosed with anxiety and complicated bereavement during 07/29/2019 psychiatric consultation. Pt's psychiatric medications are being managed by his PCP presently. Referral was made for outpatient psychiatric follow-up during his last hospitalization; however, it appears the communication has fallen through. Previous Psych Admissions: None History of Previous Suicide Attempt: No Past Medication Trials: Past medications include, but are not limited to: 1. Cymbalta 2. Lexapro 3. Klonopin 4. Lexapro Allergies Allergy/AdvReac Type Severity Reaction Status Date / Time Penicillins Allergy Unknown Verified 07/15/19 15:15 Home Medications Home Medications Medication Instructions Recorded Confirmed Type Oxygen Home #1 ea 04/25/19 08/26/19 History acetaminophen 325 mg tablet 625 mg PO Q6 PRN tab 04/25/19 08/26/19 History albuterol sulfate 90 mcg/actuation INHALATION gm 04/25/19 08/26/19 History aerosol inhaler ibuprofen 800 mg tablet 800 mg PO PRN tab 04/25/19 08/26/19 History insulin regular hum U-500 conc 500 SUBCUT ml 04/25/19 08/26/19 History unit/mL subcutaneous soln ipratropium 0.5 mg-albuterol 3 mg INHALATION ml 04/25/19 08/26/19 History (2.5 mg base)/3 mL nebulization soln Oxygen Home #1 ea 05/06/19 08/26/19 Rx aspirin 81 mg tablet 81 mg PO DAILY tab 05/06/19 08/26/19 History atorvastatin 40 mg tablet 40 mg PO DAILY tab 05/06/19 08/26/19 History carvedilol 3.125 mg tablet 3.125 mg PO BID tab 05/06/19 08/26/19 History dulaglutide 1.5 mg/0.5 mL 1.5 mg SQ WEEKLY #0.5 ml 05/06/19 08/26/19 Rx subcutaneous pen injector fluticasone furoate 200 1 puffs INHALATION DAILY #1 ea 05/06/19 08/26/19 Rx mcg-vilanterol 25 mcg/dose inhalation powder folic acid 1 mg tablet 1 mg PO DAILY #30 tab 05/06/19 08/26/19 Rx methotrexate sodium 2.5 mg tablet 7.5 mg PO WEEKLY #30 tab 05/06/19 08/26/19 Rx pregabalin 50 mg capsule 50 mg PO BID cap 05/06/19 09/16/19 History escitalopram oxalate 20 mg tablet 20 mg PO DAILY tab 07/15/19 09/16/19 History tiotropium bromide [Spiriva with 18 mcg INHALATION QAM #30 puffs 07/30/19 08/26/19 Rx HandiHaler] BiPap Machine #1 ea 09/02/19 Rx famotidine 40 mg tablet 40 mg PO DAILY #30 tab 09/05/19 Rx buspirone 5 mg PO BID #60 tab 09/16/19 Rx diclofenac sodium [Voltaren] 2 g EXT Q12 PRN #100 gm 09/16/19 Rx furosemide 40 mg PO BID #60 tab 09/16/19 08/26/19 Rx linaclotide 290 mcg PO .TAKE 1 CAPSULE Daily 09/16/19 08/26/19 Rx PRN #30 cap potassium chloride 20 meq PO BID #60 tab 09/16/19 Rx prednisone 5 mg PO DAILY #11 tab 09/16/19 Rx varenicline [Chantix Starting 1 ea PO BID #53 ea 09/16/19 Rx Month Box] Family History Niece completed suicide "just before " of 2018. Otherwise, denies known family history of mental health conditions. Substance Abuse History Ongoing daily tobacco use - recently prescribed bupropion to assist with smoking cessation. Plan is for patient to be prescribed Chantix at discharge. Reports "social" alcohol use". Personal History Living Arrangements: Home (with home health aides) Highest Grade Completed: High School Graduate Employment Status: Retired (/disabled) Marital Status: Single (same sex partner of 40 years, recently ) Number Of Children: None, is reportedly close with nieces and nephews Beliefs That Will Affect Care: [employer] ([employer]) History of Legal Problems: Denies Psychological Trauma History Comment: Multiple family deaths: mother, father, and partner of 40 years. Niece recently completed suicide. Patient History Medical History Anxiety Asthma Chronic hypercapnic respiratory failure Chronic respiratory failure Congestive heart failure COPD (chronic obstructive pulmonary disease) Depression Diabetes GERD (gastroesophageal reflux disease) Lower leg edema Morbid obesity Myoclonic jerking Psoriasis Surgical History History of appendectomy History of bronchoscopy History of hemorrhoidectomy History of thoracotomy 06/2008 - s/p traumatic hemothorax History of tonsillectomy Family History Other Coronary heart disease Diabetes Lung cancer Social History Preferred Language: Unknown Communication Ability: Unable Beliefs That Will Affect Care: None Current Living Situation: Other Current Living Situation Comment: UNKNOWN,PRIOR MEDICAL RECORD STATES HAS CARE- GIVERS Feels Safe at Home: Yes Smoking Status: Current every day smoker Tobacco Type: cigarettes ; Physical Exam Psychiatric: Orientation: alert, oriented x 3 and cooperative (and pleasant) Apperance: appropriately dressed, + disheveled and appeared stated age Obese male, seated in bedside chair in no acute distress. Pt is appropriately dressed in hospital gown. He appears disheveled and unkempt, as well as unshaven. Eye Contact: good eye contact Motor Behavior: no abnormal motor movements (observed while seated in bedside chair) Speech: normal rate/rhythm/volume of speech Affect: + blunted affect (not appearing overtly depressed, not particularly bright or reactive) and mood congruent with affect Mood: + depressed mood and + anxious mood Thought Process: goal directed thought process, clear/coherent thought process and thought association intact Thought Content: reality based without delusions; no hopelessness and no worthlessness Suicidal Thoughts: denies suicidal thoughts and denies suicidal intent Homicidal Thoughts: denies homicidal thoughts Hallucinations: no auditory hallucinations and no visual hallucinations Cognition: attention grossly intact and language grossly intact Insight: good insight Judgement: good judgement Vital Signs (Past 24 Hours): Last Vital Signs Temp 36.4 C L 09/16/19 08:04 Pulse 84 01/28/20 11:17 Resp 16 09/16/19 11:17 BP 167/80 H 09/16/19 08:04 Pulse Ox 97 09/16/19 11:17 Review of Systems Constitutional: denied Cardiovascular: denied Respiratory: reports chronic shortness of breath; supplemental oxygen Gastrointestinal: denied Neurological: denied Psychiatric: denies symptoms other than stated above Total of at least 10 systems reviewed, pertinent positives as above and in HPI. Results & Data Medications Administered Acetaminophen (Tylenol) 650 mg PO Q4H PRN PRN Reason: Pain or Fever Stop: 10/09/19 17:31 Last Admin: 09/13/19 15:07 Dose: 650 mg Documented by: [id number] Albuterol (Duoneb) 3 ml NEB QIDR [facility] Stop: 10/09/19 18:59 Last Admin: 09/16/19 11:14 Dose: 3 ml Documented by: [id number] Admin: 09/16/19 07:18 Dose: 3 ml Documented by: [id number] Admin: 09/15/19 20:42 Dose: 3 ml Documented by: [id number] Admin: 09/15/19 16:04 Dose: 3 ml Documented by: [id number] Admin: 09/15/19 11:08 Dose: 3 ml Documented by: [id number] Admin: 09/15/19 07:29 Dose: 3 ml Documented by: [id number] Admin: 09/14/19 19:35 Dose: 3 ml Documented by: [id number] Admin: 09/14/19 15:16 Dose: 3 ml Documented by: [id number] Admin: 09/14/19 11:12 Dose: 3 ml Documented by: [id number] Admin: 09/14/19 07:11 Dose: Not Given Documented by: [id number] Admin: 09/13/19 19:21 Dose: Not Given Documented by: [id number] Admin: 09/13/19 16:24 Dose: 3 ml Documented by: [id number] Admin: 09/13/19 13:41 Dose: Not Given Documented by: [id number] Admin: 09/13/19 08:04 Dose: Not Given Documented by: [id number] Admin: 09/12/19 19:43 Dose: Not Given Documented by: [id number] Admin: 09/12/19 15:27 Dose: 3 ml Documented by: [id number] Admin: 09/12/19 10:48 Dose: 3 ml Documented by: [id number] Admin: 09/12/19 08:08 Dose: Not Given Documented by: [id number] Admin: 09/11/19 18:29 Dose: Not Given Documented by: [id number] Admin: 09/11/19 15:21 Dose: 3 ml Documented by: [id number] Admin: 09/11/19 10:48 Dose: 3 ml Documented by: [id number] Admin: 09/11/19 07:26 Dose: 3 ml Documented by: [id number] Admin: 09/10/19 18:50 Dose: Not Given Documented by: [id number] Admin: 09/10/19 16:29 Dose: 3 ml Documented by: [id number] Admin: 09/10/19 10:01 Dose: 3 ml Documented by: [id number] Admin: 09/10/19 07:16 Dose: 3 ml Documented by: [id number] Admin: 09/09/19 19:51 Dose: Not Given Documented by: [id number] Aspirin (Aspirin Chew) 81 mg PO DAILY RALF Stop: 10/10/19 08:59 Last Admin: 09/16/19 08:56 Dose: 81 mg Documented by: [id number] Admin: 09/15/19 08:25 Dose: 81 mg Documented by: [id number] Admin: 09/14/19 08:48 Dose: 81 mg Documented by: [id number] Admin: 09/13/19 09:39 Dose: 81 mg Documented by: [id number] Admin: 09/12/19 08:23 Dose: 81 mg Documented by: [id number] Admin: 09/11/19 08:04 Dose: 81 mg Documented by: [id number] Admin: 09/10/19 09:08 Dose: 81 mg Documented by: [id number] Atorvastatin Calcium (Lipitor) 40 mg PO DAILY RALF Stop: 10/10/19 08:59 Last Admin: 09/16/19 08:49 Dose: 40 mg Documented by: [id number] Admin: 09/15/19 08:23 Dose: 40 mg Documented by: [id number] Admin: 09/14/19 08:49 Dose: 40 mg Documented by: [id number] Admin: 09/13/19 09:39 Dose: 40 mg Documented by: [id number] Admin: 09/12/19 08:22 Dose: 40 mg Documented by: [id number] Admin: 09/11/19 08:04 Dose: 40 mg Documented by: [id number] Admin: 09/10/19 09:08 Dose: 40 mg Documented by: [id number] Carvedilol (Coreg) 3.125 mg PO BID RALF Stop: 10/09/19 20:59 Last Admin: 09/16/19 08:48 Dose: 3.125 mg Documented by: [id number] Admin: 09/15/19 20:28 Dose: 3.125 mg Documented by: [id number] Admin: 09/15/19 08:23 Dose: 3.125 mg Documented by: [id number] Admin: 09/14/19 20:51 Dose: 3.125 mg Documented by: [id number] Admin: 09/14/19 08:48 Dose: 3.125 mg Documented by: [id number] Admin: 09/13/19 19:55 Dose: 3.125 mg Documented by: [id number] Admin: 09/13/19 09:39 Dose: 3.125 mg Documented by: [id number] Admin: 09/12/19 20:29 Dose: 3.125 mg Documented by: [id number] Admin: 09/12/19 08:23 Dose: 3.125 mg Documented by: [id number] Admin: 09/11/19 20:43 Dose: 3.125 mg Documented by: [id number] Admin: 09/11/19 08:05 Dose: 3.125 mg Documented by: [id number] Admin: 09/10/19 20:06 Dose: 3.125 mg Documented by: [id number] Admin: 09/10/19 09:09 Dose: 3.125 mg Documented by: [id number] Admin: 09/09/19 21:35 Dose: 3.125 mg Documented by: [id number] Clotrimazole (Lotrimin 1%) 1 appln EXT BID RALF Stop: 10/09/19 21:44 Last Admin: 09/16/19 08:52 Dose: 1 appln Documented by: [id number] Admin: 09/15/19 20:28 Dose: 1 appln Documented by: [id number] Admin: 09/15/19 08:23 Dose: 1 appln Documented by: [id number] Admin: 09/14/19 20:51 Dose: 1 appln Documented by: [id number] Admin: 09/14/19 08:42 Dose: 1 appln Documented by: [id number] Admin: 09/13/19 19:55 Dose: 1 appln Documented by: [id number] Admin: 09/13/19 09:40 Dose: 1 appln Documented by: [id number] Admin: 09/12/19 20:28 Dose: 1 appln Documented by: [id number] Admin: 09/12/19 08:23 Dose: 1 appln Documented by: [id number] Admin: 09/11/19 20:44 Dose: 1 appln Documented by: [id number] Admin: 09/11/19 08:05 Dose: 1 appln Documented by: [id number] Admin: 09/10/19 20:06 Dose: 1 appln Documented by: [id number] Admin: 09/10/19 09:08 Dose: 1 appln Documented by: [id number] Admin: 09/09/19 22:40 Dose: 1 appln Documented by: [id number] Dextrose (Dextrose 50%) 25 - 50 ml IV UD PRN; Protocol PRN Reason: Hypoglycemia Protocol Stop: 10/09/19 20:33 Last Admin: 09/09/19 20:39 Dose: 25 ml Documented by: [id number] Diclofenac Sodium (Voltaren 1% Top) 2 gm EXT Q12 PRN PRN Reason: Pain Stop: 10/13/19 20:59 Last Admin: 09/16/19 08:51 Dose: 2 gm Documented by: [id number] Admin: 09/14/19 08:51 Dose: 2 gm Documented by: [id number] Admin: 09/13/19 17:14 Dose: 2 gm Documented by: [id number] Escitalopram Oxalate (Lexapro Tab) 20 mg PO DAILY RALF Stop: 10/10/19 08:59 Last Admin: 09/16/19 08:49 Dose: 20 mg Documented by: [id number] Admin: 09/15/19 08:23 Dose: 20 mg Documented by: [id number] Admin: 09/14/19 08:49 Dose: 20 mg Documented by: [id number] Admin: 09/13/19 09:39 Dose: 20 mg Documented by: [id number] Admin: 09/12/19 08:22 Dose: 20 mg Documented by: [id number] Admin: 09/11/19 08:04 Dose: 20 mg Documented by: [id number] Admin: 09/10/19 09:08 Dose: 20 mg Documented by: [id number] Fluticasone Furoate (Arnuity Ellipta 200mcg) 1 puffs INH QAM RALF Stop: 10/14/19 10:29 Last Admin: 09/16/19 08:50 Dose: 1 puffs Documented by: [id number] Admin: 09/15/19 08:24 Dose: 1 puffs Documented by: [id number] Admin: 09/14/19 11:59 Dose: 1 puffs Documented by: [id number] Folic Acid (Folvite) 1 mg PO [id number]@0900 [facility] Stop: 10/10/19 08:59 Last Admin: 09/16/19 08:49 Dose: 1 mg Documented by: [id number] Admin: 09/14/19 08:48 Dose: 1 mg Documented by: [id number] Admin: 09/13/19 09:39 Dose: 1 mg Documented by: [id number] Admin: 09/12/19 08:23 Dose: 1 mg Documented by: [id number] Admin: 09/11/19 08:05 Dose: 1 mg Documented by: [id number] Admin: 09/10/19 09:08 Dose: 1 mg Documented by: [id number] Heparin Sodium (Porcine) (Heparin Sodium (Porcine)) 5,000 units SQ Q8 [facility] Stop: 10/10/19 13:59 Last Admin: 09/16/19 06:02 Dose: 5,000 units Documented by: [id number] Cosigned by: [id number] Admin: 09/15/19 20:29 Dose: 5,000 units Documented by: [id number] Cosigned by: [id number] Admin: 09/15/19 15:22 Dose: 5,000 units Documented by: [id number] Cosigned by: [id number] Admin: 09/15/19 05:04 Dose: 5,000 units Documented by: [id number] Cosigned by: [id number] Admin: 09/14/19 20:52 Dose: 5,000 units Documented by: [id number] Cosigned by: [id number] Admin: 09/14/19 17:27 Dose: Not Given Documented by: [id number] Admin: 09/14/19 05:45 Dose: 5,000 units Documented by: [id number] Cosigned by: [id number] Admin: 09/13/19 20:21 Dose: 5,000 units Documented by: [id number] Cosigned by: [id number] Admin: 09/13/19 15:08 Dose: 5,000 units Documented by: [id number] Cosigned by: [id number] Admin: 09/13/19 05:53 Dose: 5,000 units Documented by: [id number] Cosigned by: [id number] Admin: 09/12/19 20:28 Dose: 5,000 units Documented by: [id number] Cosigned by: [id number] Admin: 09/12/19 13:41 Dose: 5,000 units Documented by: [id number] Cosigned by: [id number] Admin: 09/12/19 06:16 Dose: 5,000 units Documented by: [id number] Cosigned by: [id number] Admin: 09/11/19 20:46 Dose: 5,000 units Documented by: [id number] Cosigned by: [id number] Admin: 09/11/19 13:44 Dose: 5,000 units Documented by: [id number] Cosigned by: [id number] Admin: 09/11/19 05:23 Dose: 5,000 units Documented by: [id number] Cosigned by: [id number] Admin: 09/10/19 22:16 Dose: 5,000 units Documented by: [id number] Cosigned by: [id number] Admin: 09/10/19 11:53 Dose: 5,000 units Documented by: [id number] Cosigned by: [id number] Insulin Aspart (Novolog Flexpen) 0 units SC ACHS RALF Stop: 10/11/19 11:59 Last Admin: 09/16/19 08:45 Dose: 14 units Documented by: [id number] Cosigned by: [id number] Admin: 09/15/19 20:27 Dose: 10 units Documented by: [id number] Cosigned by: [id number] Admin: 09/15/19 16:48 Dose: 26 units Documented by: [id number] Cosigned by: [id number] Admin: 09/15/19 12:16 Dose: 20 units Documented by: [id number] Cosigned by: [id number] Admin: 09/15/19 08:26 Dose: 13 units Documented by: [id number] Cosigned by: [id number] Admin: 09/14/19 20:49 Dose: 6 units Documented by: [id number] Cosigned by: [id number] Admin: 09/14/19 17:27 Dose: 21 units Documented by: [id number] Cosigned by: [id number] Admin: 09/14/19 12:08 Dose: 18 units Documented by: [id number] Cosigned by: [id number] Admin: 09/14/19 08:42 Dose: 25 units Documented by: [id number] Cosigned by: [id number] Admin: 09/13/19 20:20 Dose: 10 units Documented by: [id number] Cosigned by: [id number] Admin: 09/13/19 18:03 Dose: 16 units Documented by: [id number] Cosigned by: [id number] Admin: 09/13/19 11:46 Dose: 12 units Documented by: [id number] Cosigned by: [id number] Admin: 09/13/19 09:41 Dose: Not Given Documented by: [id number] Cosigned by: [id number] Insulin Glargine (Lantus Solostar Pen) 0 units SC BID@0800,1999 [facility]; Protocol Stop: 10/12/19 19:59 Last Admin: 09/16/19 10:24 Dose: 10 units Documented by: [id number] Cosigned by: [id number] Admin: 09/15/19 20:26 Dose: 15 units Documented by: [id number] Cosigned by: [id number] Admin: 09/15/19 08:25 Dose: 10 units Documented by: [id number] Cosigned by: [id number] Admin: 09/14/19 20:50 Dose: 15 units Documented by: [id number] Cosigned by: [id number] Admin: 09/14/19 08:47 Dose: 10 units Documented by: [id number] Cosigned by: [id number] Admin: 09/13/19 20:21 Dose: 10 units Documented by: [id number] Cosigned by: [id number] Admin: 09/13/19 09:40 Dose: 5 units Documented by: [id number] Cosigned by: [id number] Admin: 09/12/19 20:30 Dose: 15 units Documented by: [id number] Cosigned by: [id number] Methotrexate (Methotrexate) 7.5 mg PO Q7D [facility] Stop: 10/15/19 08:59 Last Admin: 09/15/19 08:23 Dose: 7.5 mg Documented by: [id number] Cosigned by: [id number] Miscellaneous (Order Awaiting Action) 1 ea N/A QS [facility] Stop: 10/10/19 00:00 Last Admin: 09/16/19 10:25 Dose: Not Given Documented by: [id number] Admin: 09/16/19 01:18 Dose: Not Given Documented by: [id number] Admin: 09/15/19 15:22 Dose: 1 ea Documented by: [id number] Admin: 09/15/19 08:26 Dose: 1 ea Documented by: [id number] Admin: 09/15/19 01:05 Dose: Not Given Documented by: [id number] Admin: 09/14/19 17:23 Dose: Not Given Documented by: [id number] Admin: 09/14/19 08:10 Dose: Not Given Documented by: [id number] Admin: 09/14/19 01:14 Dose: Not Given Documented by: [id number] Admin: 09/13/19 15:09 Dose: Not Given Documented by: [id number] Admin: 09/13/19 08:11 Dose: Not Given Documented by: [id number] Admin: 09/13/19 00:09 Dose: Not Given Documented by: [id number] Admin: 09/12/19 13:41 Dose: Not Given Documented by: [id number] Admin: 09/12/19 08:20 Dose: Not Given Documented by: [id number] Admin: 09/11/19 23:17 Dose: Not Given Documented by: [id number] Admin: 09/11/19 16:17 Dose: 1 ea Documented by: [id number] Admin: 09/11/19 08:06 Dose: 1 ea Documented by: [id number] Admin: 09/11/19 00:17 Dose: Not Given Documented by: [id number] Admin: 09/10/19 15:58 Dose: Not Given Documented by: [id number] Admin: 09/10/19 09:07 Dose: Not Given Documented by: [id number] Admin: 09/09/19 22:46 Dose: Not Given Documented by: [id number] Ondansetron HCl (Zofran) 4 mg IV Q6H PRN PRN Reason: Nausea Stop: 10/09/19 17:31 Last Admin: 09/13/19 05:52 Dose: 4 mg Documented by: [id number] Pregabalin (Lyrica) 50 mg PO BID RALF Stop: 10/10/19 20:59 Last Admin: 09/16/19 08:56 Dose: 50 mg Documented by: [id number] Admin: 09/15/19 20:28 Dose: 50 mg Documented by: [id number] Admin: 09/15/19 08:23 Dose: 50 mg Documented by: [id number] Admin: 09/14/19 20:53 Dose: 50 mg Documented by: [id number] Admin: 09/14/19 08:53 Dose: 50 mg Documented by: [id number] Admin: 09/13/19 19:57 Dose: 50 mg Documented by: [id number] Admin: 09/13/19 09:37 Dose: 50 mg Documented by: [id number] Admin: 09/12/19 20:35 Dose: 50 mg Documented by: [id number] Admin: 09/12/19 08:26 Dose: 50 mg Documented by: [id number] Admin: 09/11/19 20:48 Dose: 50 mg Documented by: [id number] Admin: 09/11/19 08:05 Dose: 50 mg Documented by: [id number] Admin: 09/10/19 20:06 Dose: 50 mg Documented by: [id number] Umeclidinium [place] (Incruse Ellipta) 1 puffs INH QAM [facility]AL[facility] Stop: 10/09/19 17:59 Last Admin: 09/11/19 18:14 Dose: Not Given Documented by: [id number] Admin: 09/10/19 09:09 Dose: Not Given Documented by: [id number] Admin: 09/09/19 18:32 Dose: Not Given Documented by: [id number] Umeclidinium/Vilanterol (Anoro Ellipta 62.5/25 Mcg Inh) 1 puffs INH DAILY RALF Stop: 10/14/19 10:14 Last Admin: 09/16/19 08:50 Dose: 1 puffs Documented by: [id number] Admin: 09/15/19 08:24 Dose: 1 puffs Documented by: [id number] Admin: 09/14/19 11:59 Dose: 1 puffs Documented by: [id number] Coding Level of Care Code 84951 [facility] Care Lvl 3
--- NOTE | 2019-09-16 15:09 | Discharge Summary ---
Date of Service September 16, 2019 Admission HPI Per Admitting Provider Chief Complaint: Acute respiratory failure Primary Care Provider: Efrain Mccall MD 64 y/o male with PMhx of COPD, morbidly obese , peripheral neuropathy, congestive heart failure, psoriasis, hypertension, s/p a right lower lobectomy 12 years ago nicotine dependent who was direct admit from [facility] ER for acute on chronic hypoxemic and hyper cardiac respiratory failure and pulmonary congestion. Patient on a clear 3 L of oxygen at home. On arrival to the intensive care unit patient was already intubated at [facility]. [facility] with [facility]. There was no possibility to review systems with patient because he is unconscious and intubated. No family accompanied the patient patient. The history is obtained exclusively based on the review of the chart that was received from [facility]. Per the notes patient was in the ER at [facility] on the BiPAP, he received several breathing treatments, Lasix 60 mg IV and Ativan 1 mg IV. Since patient was very agitated he was given 5 mg of Zyprexa IM. But his hypoxia continued to worsen and he needed to be intubated. At [facility] he was treated for acute exacerbation of COPD. Patient sees Dr. Cope and his PC-Dee Post. Labs are reviewed: WBCs 10.87, hemoglobin 12.1, hematocrit 35.8, platelets 237, d-dimer 370, ABG pH 7.45, PCO2 44, PO2 83, HCO3 30, O2 saturation 97%, sodium 126, potassium 3, chloride 81, carbon dioxide 39, BUN 8, creatinine 0.46, GFR 120.2,ALT repeated glucose 110, BNP 197, urine osmolality 75. Chest x-ray significant for pulmonary vascular congestion. Slight blunting right lateral costophrenic angle. Endotracheal tube placed above the marvin 4.5 cm. Sputum culture pending, blood culture pending. Since patient is in the critical condition intubated he was admitted to the ICU under kiln furniture saw tender treatment Principal Diagnosis Acute on chronic respiratory failure with hypercapnia and hypoxia, Acute on chronic diastolic CHF Discharge Exam Constitutional WD/WN, vitals as above + morbidly obese Eyes + anicteric sclerae Neck trachea midline, no thyromegaly Respiratory normal respiratory effort, lungs clear to auscultation Auscultation: + diminished lung sounds (Diminished throughout due to body habitus); no rales and no wheezes Cardiovascular Rate/Rhythm: regular rate and regular rhythm Extremities: + edema (2-3+ woody edema of the bilateral lower extremities to the knees) Chest (Breasts) Chest: normal inspection of chest Gastrointestinal (Abdomen) normal bowel sounds, soft, nontender, no hepatosplenomegaly Musculoskeletal Extremities: no cyanosis and no clubbing Skin + rash (Diffuse areas of thick white plaques on extensor surfaces and ears, back of neck) Neurologic moves all extremities and awake; no focal motor deficits Psychiatric Orientation: alert, oriented x 3 and cooperative Speech: normal rate/rhythm/volume of speech Lymphatic no lymphedema Discharge Data Allergies Allergy/AdvReac Type Severity Reaction Status Date / Time Penicillins Allergy Unknown Verified 07/15/19 15:15 Consultations 09/09/19 17:32 Consult Box Spring Maker Routine 09/15/19 18:13 Consult Psychiatry Routine Ordered Studies CXR ECHO Hospital Course (1) Hypercapnic respiratory failure: hypercapnic AND hypoxic respiratory failure has chronic hypoxic respiratory failure and chronic hypercapnic respiratory failure at baseline intubated until 09/12, successful SBT, extubated and placed on BIPAP for several hours now down to 2-4L NC, breathing comfortably at rest, on oxygen at home saturation goal is 88-90% hypoxia primarily due to volume overload diuresed over 16 liters thus far has lost 15 kg of body weight feels so much better, was ambulating up and down the halls without assistance on day of discharge, POx 91% on 3L continue to be OOB, use incentive spirometer, use BIPAP HS BiPAP delivered to the hospital prior to discharge -Counseled extensively on quitting smoking (2) Acute exacerbation of CHF (congestive heart failure): acute on chronic heart failure with preserved EF net negative over 16 liters thus far lost 15 kg of body weight as above Body weight up slightly after switching to po lasix--> gave one more dose IV lasix on day of dc and convert to lasix 40mg po bid on duischarge initially treated with Lasix 40mg IV BID for diuresis Cr is stable -Discussed low-sodium diet extensively as he was unaware that eating a jar of pickles did not have a high sodium load -Fluid restriction at home -Echocardiogram from last month demonstrated a preserved ejection fraction. -Continue good blood pressure control (3) Acute exacerbation of COPD with asthma: steroids stopped and did not have any for 6 days prior to discharge- however, he has been on chronic daily prednisone x 1 year at least he thinks--> recommend continuing slow taper of prednisone 5mg daily x 7 days then 2.5mg daily x 7 days, then STOP - continue LAMA, LABA/ICS on dc no wheezing on exam (4) Hypertension: Blood pressures fairly well controlled -Continue carvedilol 3.125 mg p.o. twice daily, furosemide as above (5) Obesity hypoventilation syndrome: needs to work on weight loss, discussed with him respiratory issues will persist unless he loses weight (6) Obstructive sleep apnea: BiPAP delivered to hospital prior to dc BiPAP 07/25 with 3L O2 (7) Tobacco abuse: advised to to quit smoking Extensively counseled -Will prescribe him Chantix upon discharge-discussed risks and benefits given psychiatric history but feels the benefit outweighs the risk at this point-he has good insight into his mood disorder (8) Shoulder pain, left: has h/o rotator cuff injury Voltaren 1% gel, apply 2 inches q12 for relief (9) Hypoxemic respiratory failure, chronic: wears 3L at baseline (10) Morbid obesity: Counseled on weight loss, BMI 47.3 (11) Psoriasis: -continue methotrexate -continue Folic acid 1mg daily (12) Anxiety: with panic disorder, worsened by SOB With h/o suspected serotonin toxicity in the past when on Buspar, Cymbalta, lexapro, however was more likely mycolonic jerks and agitation, hallucionations secondary to hypercapnia requiring intubation and ventilation Continues on Lexapro only Pt desperate for help, feels like no one is listening -consult Psychiatry to assist with med management and outpt follow up for Psych-appreciate consult -started Buspar 5mg po bid here and will continue on dc -f/u as outpt with Psychiatry (13) Hypokalemia: replaced with KCl po Follow BMP as outpt with PCP secondary to loop diuretics (14) Diabetes: Uncontrolled, HgbA1C 8.1% in 07/2019 -continue insulin , Trulicity (15) Ambulatory dysfunction: Is able to ambulate independently, much improved Plan: stable for dc to home (16) DVT prophylaxis: Heparin SQ Disposition as above Total Time Total Time Spent Total Time Spent (In Minutes): 40 min Total Time Includes: Examination of the Patient, Discharge Planning and Medication Reconciliation Discharge Plan Discharge Items Patient Disposition: Home - Home Health Services Reason For Visit: ACUTE RESPIRATORY FAILURE Discharge Diagnosis: Acute respiratory failure with hypercapnia and hypoxia, Acute on chronic diastolic CHF Condition on Discharge: Good Activity: As commented below Lifting: Gradually increase as tolerated Bathing: No limitations Exercise/Sports: Gradually increase as tolerated Weightbearing: Full weightbearing Non-emergency contact: Primary Care Provider and Tank Assembler Call non-emergency contact if: you have any medication questions and your symptoms worsen Follow-up/Referrals: Duc Mcclain PA-C [Physician Swimming Professor] - Efrain Mccall MD [Primary Care Provider] - Diet: Carb Consistent or DM2 and Low Sodium (2gm) Fluids: 1800ml (7 cups) Addtl Attending Provider Instructions: You were admitted with respiratory failure requiring for you to go on the ventilator. It will be very important for you to use the BiPAP machine with your oxygen every night and with naps at home. You have not had any prednisone at all in the last 6 days you were in the hospital. Therefore, we will taper your home prednisone down as follows: Take prednisone 5mg daily x 7 days, then take 2.5mg (1/2 tab) once daily x 7 days, then STOP. Continue your usual inhalers and nebulizers and follow up with Pulmonology. It is very important that you continue to NOT SMOKE. You will be started on Chantix for this. If your mood worsens on Chantix or you have thoughts of suicide, please stop the medication and call your doctor for help immediately. You were seen by Psychiatry here and started on Buspar 5mg twice a day for anxiety. Please follow up with the Psychiatrist in [place] after discharge. In order to keep the extra fluid off with your congestive heart failure, you should watch closely how much sodium you take in, and restrict your fluid intake to no more than 1800mL per day. Your lasix dose is now 40mg twice a day. Please follow up with your PCP within 1-2 weeks. Call your Primary Care doctor if any of the following symptoms or problems start or get worse: * Shortness of breath or difficulty breathing * Wake up at night short of breath * Chest pain * Cough * Swelling of your hands, feet, or legs * More fatigued or tired with your normal activity * Palpitations - sudden fast heart beats WEIGHT * Weigh yourself every morning after using the bathroom. * Use the same scale. * Wear the same amount of clothing. * Write your weight down on a chart. * Call your Primary Care doctor if you gain more than 2-3 pounds in 1-2 days. MEDICATIONS * Use this discharge instruction sheet for medication instructions. * Take your medications at the time your doctor ordered. * Do not skip a dose of your medicines. * If you miss a dose of medicine, take it as soon as possible, but DO NOT DOUBLE A DOSE. * Read your medicine information when you get home. * Know all of the side effects of your medicine. If in doubt, ask your pharmacist * Call your Primary Care doctor's office if you have any side effects. * Be sure all of your doctors know what medicine and herbs you take (including cold, flu, and herbal medicine). Take the following with you to your follow-up doctor appointments: * Weight Chart * Medication List * List of questions Do not drink excessive alcohol, beer or wine. Pending Studies at Discharge: No Stand-Alone Forms: My [facility] [employer], Smoking Cessation Medications and DC Order Prescriptions: New buspirone 5 mg Tablet 5 mg PO BID Qty: 60 RF: 0 diclofenac sodium [Voltaren] 1 % Gel 2 g EXT Q12 PRN (Reason: to shoulder) Qty: 100 RF: 0 prednisone 5 mg tablet 5 mg PO DAILY Qty: 11 RF: 0 Chantix Starting Month Box 0.5 mg (11)- 1 mg (42) tablets,dose pack 1 ea PO BID Qty: 53 RF: 0 Continued (DME) BiPap Machine Misc See Rx Instructions .ROUTE .MEDSUPPLY Qty: 1 RF: 0 famotidine 40 mg tablet 40 mg PO DAILY Qty: 30 RF: 5 albuterol sulfate 90 mcg/actuation HFA aerosol inhaler inhalation RF: 0 insulin regular hum U-500 conc 500 unit/mL solution subcut RF: 0 ibuprofen 800 mg tablet 800 mg PO PRN (Reason: pain) RF: 0 ipratropium-albuterol 0.5 mg-3 mg(2.5 mg base)/3 mL solution for nebulization inhalation RF: 0 acetaminophen 325 mg tablet 625 mg PO Q6 PRN (Reason: pain) RF: 0 (DME) Oxygen Home Liters Per Minute See Dose Instructions .ROUTE .MEDSUPPLY Qty: 1 RF: 0 aspirin 81 mg tablet 81 mg PO DAILY RF: 0 atorvastatin 40 mg tablet 40 mg PO DAILY RF: 0 carvedilol 3.125 mg tablet 3.125 mg PO BID RF: 0 folic acid 1 mg tablet 1 mg PO DAILY Qty: 30 RF: 2 methotrexate sodium 2.5 mg tablet 7.5 mg PO WEEKLY Qty: 30 RF: 2 Trulicity 1.5 mg/0.5 mL pen injector 1.5 mg SQ WEEKLY Qty: 0.5 RF: 0 fluticasone furoate-vilanterol 200-25 mcg/dose blister with device 1 puffs inhalation DAILY Qty: 1 RF: 5 pregabalin [Lyrica] 50 mg capsule 50 mg PO BID RF: 0 (DME) Oxygen Home Liters Per Minute See Dose Instructions .ROUTE .MEDSUPPLY Qty: 1 RF: 0 escitalopram oxalate 20 mg tablet 20 mg PO DAILY RF: 0 Spiriva with HandiHaler 18 mcg Capsule, W/Inhalation Device 18 mcg inhalation QAM Qty: 30 RF: 0 Changed linaclotide 290 mcg capsule 290 mcg PO .TAKE 1 CAPSULE Daily PRN (Reason: constipation) Qty: 30 RF: 0 furosemide 40 mg tablet 40 mg PO BID Qty: 60 RF: 0 Discontinued bupropion HCl 100 mg tablet 100 mg PO BID Qty: 60 RF: 2 metformin 1,000 mg Tablet Extended Release 24hr 1,000 mg PO PM RF: 0 levetiracetam [Keppra] 250 mg Tablet 250 mg PO BID Qty: 60 RF: 0 prednisone 10 mg tablet 10 mg PO DAILY Qty: 30 RF: 0 Discharge Orders: Discharge Order (Routine); Ordered 09/16/19 Ordered By: Tianna Gonzalez Admission Data Admit Date/Time: 09/09/19 16:59 Attending Provider: Tianna Gonzalez Admit Provider: Adelaida Ivan Primary Care Provider: Efrain Mccall Other Providers: Jorge Ann ; Karin Nixon Other Interventions: Discharge Summary Assessment (RN) Last Done: 09/16/19 12:48 Coding Level of Care Code D/C Day Management >30 mins Diagnoses Hypercapnic respiratory failure J96.92 Acute exacerbation of CHF (congestive heart failure) I50.9 Acute exacerbation of COPD with asthma J44.1; J45.901 Hypertension I15.8 Hypertension type: other secondary hypertension Obesity hypoventilation syndrome E66.2 Obstructive sleep apnea G47.33 Tobacco abuse Z72.0 Shoulder pain, left M25.512 Hypoxemic respiratory failure, chronic J96.11 Morbid obesity E66.01 Psoriasis L40.9 Anxiety F41.9 Hypokalemia E87.6 Diabetes E11.9; Z79.4 Diabetes mellitus type: type 2 Diabetes mellitus residential insulin use: with residential use Diabetes mellitus complication status: without complication Ambulatory dysfunction R26.2 DVT prophylaxis Z29.9
--- NOTE | 2019-09-16 15:36 | Pulmonology Progress Note ---
Date of Service September 16, 2019 Assessment & Plan (1) Hypercapnic respiratory failure: Acute on chronic respiratory failure secondary to hypercapnia Reinforced need to use non-invasive ventilation, lose weight, stop smoking, and exercise Patient to coordinate discharge with DME to learn how to use Trilogy Advised patient to use at night and also during the day as needed Wean supplemental oxygen to 88 to 92% as tolerated Patient to follow with Dr. Cope/Sincere Mcclain PA-C on discharge (2) Diastolic heart failure: Continue diuretics for fluid overload Currently 16 L negative since admission Follow clinically (3) Morbid obesity: Long discussion about need to limit caloric intake and ambulate daily Critical component of patient's care plan on discharge will be weight loss We will need to follow with outpatient support (4) Obesity hypoventilation syndrome: Multiple admissions for acute on chronic respiratory failure Patient reports a trilogy NIV was delivered to home Will require compliance of at least 4 hours nightly -patient aware Patient will follow-up with Dr. Cope as an outpatient (5) COPD (chronic obstructive pulmonary disease): Patient continues to smoke 1 pack/day Patient requesting Chantix -suggested the patient talk to primary care physician so that potential side effects can be monitored and managed Discussed the need for absolute smoking cessation Patient appears aware of his dire condition Thank you for including us in the care of this patient. From a pulmonary perspective patient can be discharged home with noninvasive trilogy. We will sign off at this time. Please feel free to reconsult as needed. Please refer to Dr. Leo's addendum and corrections for further recommendations. Supervising Physician Co-Signing Physician Notes I saw and evaluated the patient with Max sun, and agree with findings and plan as documented in the note. Patient seen and examined at bedside. Feeling better. No new complains. Shortness of breath is improved. Denies any chest pain, no headache, no nausea, no vomiting. Tolerating diet. Advised patient to keep oxygen saturation between 88 to 92% and use trilogy whenever she is asleep irrespective of the time day or night. Patient still has +2 pitting edema bilateral lower extremities. Patient is stable from pulmonary perspective to be discharged. He is already on Lama inhaler along with LABA/ICS inhaler. I would continue with the same on discharge. Subjective Patient seen and examined at bedside. Ambulating in the halls without difficulty. No acute complaints. Review of Systems Review of Systems: All systems reviewed & are unremarkable except as noted in HPI & below Physical Exam Physical Exam: GENERAL : No acute distress EYES: No icterus, gaze conjugate NOSE: No evidence of epistaxis MOUTH: No lesions or candidiasis NECK: Supple LUNGS: Breath sounds are distant but CTA B/L, no wheezes, rales or rhonchi appreciated HEART: Regular, rate controlled ABDOMEN: Soft, NT, ND, BS Present EXTREMITIES: No LE edema, pedal pulses intact and equal bilaterally. NEURO: A&OX3 Results & Data Vital Signs (Past 12 Hours) Vital Signs Temp Pulse Pulse Pulse Resp BP BP 09/16/19 12:48 36.6 C 69 84 19 149/69 H 156/85 H 09/16/19 11:42 36.6 C 84 19 156/85 H 09/16/19 11:17 84 16 09/16/19 08:04 36.4 C L 78 18 167/80 H 09/16/19 08:00 72 09/16/19 07:21 78 14 09/16/19 04:16 36.7 C 86 16 149/69 H Pulse Ox 09/16/19 12:48 96 09/16/19 11:42 96 09/16/19 11:17 97 09/16/19 08:04 93 09/16/19 08:00 09/16/19 07:21 96 09/16/19 04:16 95 Laboratory Results 09/15/19 06:39 09/16/19 06:16 PG Care Time/CCT Total # of Minutes Spent Total Time Spent with Patient: Total time spent is greater than 50% in coordination of care (as documented) at patient's floor/unit and/or counseling patient: Coding Level of Care Code 22533 Subseq Hosp Care Lvl 1 Diagnoses Hypercapnic respiratory failure J96.92 Diastolic heart failure I50.30 Morbid obesity E66.01 Obesity hypoventilation syndrome E66.2 COPD (chronic obstructive pulmonary disease) J44.9
[2019-09-16] MEDS ORDERED: FUROSEMIDE 40 MG TAB PO SCH (17:00)
== END 2019-09-16 16:35 | disposition home health service (06) | DRG 207 ==
LOC: 1E 16:59 → SUATTDRO 16:59 → 2S 09-13 12:45